=== PATIENT | female | born 1985 | race Caucasian/White ===

== ENCOUNTER → 2016-06-18 | Outpatient (CLI) | payer BC, OTHER ==
[2016-06-18 17:18] LABS: BASO % 0.6 % (0.0-1.0); EOS # 0.1 K/mm3 (0.0-0.50); EOS % 1.7 % (0.0-3.0); LARGE UNSTAINED CELL # 0.1 K/mm3 (0.0-0.4); LYMPH # 1.7 K/mm3 (1.5-4.5); LYMPH % 32.1 % (24.0-44.0); MEAN CORPUSCULAR HEMOGLOBIN 32.6 pg (27.0-33.0); MEAN CORPUSCULAR HGB CONC 34.5 g/dl (32.0-36.5); MEAN CORPUSCULAR VOLUME 94.5 fl (80.0-96.0); MONO # 0.3 K/mm3 (0.0-0.8); MONO % 5.4 % (0.0-5.0); NEUTROPHILS # 3.1 K/mm3 (1.8-7.7); NEUTROPHILS % 58.3 % (36.0-66.0); PLATELET COUNT, AUTOMATED 250 k/mm3 (150-450); RED CELL DISTRIBUTION WIDTH 12.1 % (11.5-14.5); WHITE BLOOD COUNT 5.3 K/mm3 (4.0-10.0)
[2016-06-18 17:55] LABS: ALBUMIN 4.4 GM/DL (3.2-5.2); ALBUMIN/GLOBULIN RATIO 1.47 (1.00-1.93); ALKALINE PHOSPHATASE 75 U/L (45-117); ALT/SGPT 18 U/L (12-78); ANION GAP 10 MEQ/L (8-16); AST/SGOT 9 U/L (15-37); BILIRUBIN,TOTAL 0.5 MG/DL (0.2-1.0); BLOOD UREA NITROGEN 10 MG/DL (7-18); CALCIUM LEVEL 9.4 MG/DL (8.5-10.1); CARBON DIOXIDE LEVEL 25 MEQ/L (21-32); CHLORIDE LEVEL 104 MEQ/L (98-107); CREATININE FOR GFR 1.12 MG/DL (0.55-1.02); GLUCOSE, FASTING 76 MG/DL (70-105); SODIUM LEVEL 139 MEQ/L (136-145); TOTAL PROTEIN 7.4 GM/DL (6.4-8.2)
[2016-06-18 18:06] LABS: ERYTHROCYTE SEDIMENTATION RATE 7 mm/hr (0-20)
== END ==
LOC: M SMT 15:36
PROVIDERS: ATTEND Psychiatry & Neurology Neurology
DX: R51 Headache (principal)

== ENCOUNTER → 2016-07-07 | Outpatient (CLI) | payer BC, OTHER ==
--- NOTE | 2016-07-07 16:10 | REP ---
Renal ultrasound: The kidneys are normal size. The right kidney measures 11.2 x 4.7 x 3.9 cm. Left kidney measures 10.1 x 4.6 x 5.5 cm. There is no hydronephrosis, calculus, mass or cyst in the right and left kidneys. The bladder is adequately distended. No bladder wall masses or cysts are identified. Incidentally noted is a small volume of free fluid in the posterior cul-de-sac. Impression: Essentially negative renal ultrasound. Small volume of free fluid is noted in the posterior cul-de-sac. Signed by Froy Muse MD 07/07/2016 04:01 P
== END ==
LOC: M RAD 10:05
PROVIDERS: ATTEND Physician Assistant
DX: R74.8 Abnormal levels of other serum enzymes (principal)

== ENCOUNTER 2016-08-04 21:49 | Emergency (ER) | payer BC, OTHER ==
[~2016-08-04] VITALS: Ht 170.2 cm; Wt 77.1 kg
[2016-08-04] MEDS ORDERED: XANA1TAB2 PO (22:19)
[2016-08-04] MEDS ORDERED: IBUP800T23 PO (22:19)
[2016-08-04] MEDS ORDERED: LEXA1TAB2 PO (22:19)
[2016-08-04] MEDS ORDERED: METF500T PO (22:21)
[2016-08-04] MEDS ORDERED: TOPI1TAB31 (22:23)
[2016-08-04] MEDS ORDERED: RIZA5TAB3 PO (22:23)
[2016-08-05] MEDS ORDERED: oxyCODONE 5MG TAB PO ONE (01:00)
[2016-08-05] MEDS ORDERED: ONDANSETRON 4MG/2ML VIAL (J2405) IV ONE (01:00)
[2016-08-05] MEDS ORDERED: NS 1,000 ML IV ONE (01:00)
[2016-08-05] MEDS ORDERED: ONDANSETRON 4MG/2ML VIAL (J2405) As Ordered ONE (01:45)
[2016-08-05 01:54] LABS: BASO % 0.2 % (0.0-1.0); EOS # 0.1 K/mm3 (0.0-0.50); LARGE UNSTAINED CELL % 0.7 % (0.0-4.0); LYMPH # 0.6 K/mm3 (1.5-4.5); LYMPH % 10.3 % (24.0-44.0); MEAN CORPUSCULAR HEMOGLOBIN 33.8 pg (27.0-33.0); MEAN CORPUSCULAR HGB CONC 34.7 g/dl (32.0-36.5); MEAN CORPUSCULAR VOLUME 97.5 fl (80.0-96.0); MONO # 0.3 K/mm3 (0.0-0.8); MONO % 4.2 % (0.0-5.0); NEUTROPHILS % 83.7 % (36.0-66.0); PLATELET COUNT, AUTOMATED 143 k/mm3 (150-450); RED CELL DISTRIBUTION WIDTH 12.3 % (11.5-14.5); WHITE BLOOD COUNT 5.9 K/mm3 (4.0-10.0)
[2016-08-05 02:59] LABS: CONTROL LINE HCG INT CTR LINE PRESENT
[2016-08-05 03:07] LABS: ALBUMIN 3.3 GM/DL (3.2-5.2); ALBUMIN/GLOBULIN RATIO 1.22 (1.00-1.93); ALKALINE PHOSPHATASE 61 U/L (45-117); ALT/SGPT 11 U/L (12-78); ANION GAP 7 MEQ/L (8-16); AST/SGOT 11 U/L (15-37); BILIRUBIN,DIRECT 0.2 MG/DL (0.0-0.2); BILIRUBIN,TOTAL 0.7 MG/DL (0.2-1.0); BLOOD UREA NITROGEN 15 MG/DL (7-18); CALCIUM LEVEL 7.9 MG/DL (8.5-10.1); CARBON DIOXIDE LEVEL 22 MEQ/L (21-32); CHLORIDE LEVEL 109 MEQ/L (98-107); CREATININE FOR GFR 0.89 MG/DL (0.55-1.02); GLOMERULAR FILTRATION RATE > 60.0 (>60); GLUCOSE, FASTING 97 MG/DL (70-105); POTASSIUM SERUM 3.1 MEQ/L (3.5-5.1); SODIUM LEVEL 138 MEQ/L (136-145)
[2016-08-05] MEDS ORDERED: POTASSIUM CHLORIDE 10 MEQ SR TABLET PO ONE (03:15)
[2016-08-05] MEDS ORDERED: IBUPROFEN 600 MG TAB PO ONE (03:15)
--- NOTE | 2016-08-05 04:40 | REPUSA ---
CLINICAL HISTORY: Cough. COMMENTS: 2 views demonstrates diffusely increased interstitial lung markings consistent with bronchitis. The cardiac silhouette is within normal limits of size. No significant other cardiopulmonary abnormal ities are seen. The mediastinum is unremarkable. IMPRESSION Bronchitis. Thank you for your kind referral of this patient.
[2016-08-05] MEDS ORDERED: ZOFR4TAB3 PO (04:53)
[2016-08-05] MEDS ORDERED: PERCOCET 5MG/325MG TAB PO ONE (05:00)
[2016-08-05 05:05] VITALS: BP 104/60
--- NOTE | 2016-08-05 11:09 | ECGEPIP ---
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
== END 2016-08-05 05:49 | disposition home or self-care (01) ==
LOC: M ED 22:56
DX: R11.10 Vomiting, unspecified (principal); R19.7 Diarrhea, unspecified; F17.210 Nicotine dependence, cigarettes, uncomplicated
CPT/HCPCS: 36415; 71020; 80048; 80076; 83690; 84703; 85025; 87804; 93005; 93041; 94760; 96361; 96374; 96375; 99284; J2405

== ENCOUNTER → 2016-12-11 | Outpatient (CLI) | payer OTHER ==
[~2016-12-11] MED LIST: IBUP1TAB7 PO; LEXA1TAB2 PO; METF500T13 PO; NORCOTAB PO; RIZA5TAB3 PO; TOPI100T9; XANA1TAB2 PO; ZOFR4TAB3 PO
--- NOTE | 2017-01-04 00:04 | ECWPNPC ---
PATIENT NAME: SILVIA ZIMMERMAN : 1985 GENDER: FEMALE VISIT DATE: 12/11/2016 DISCHARGE DATE: 12/11/16 1329 VISIT LOCKED DATE TIME: PHYSICIAN: RAMSES CHASE RESOURCE: RAMSES CHASE REASON FOR APPOINTMENT 1. NECK/SHOULDER HISTORY OF PRESENT ILLNESS TODAY'S VISIT: NOTES: REFERRED BY DANIELLE STROUD PA-C FOR BY NECK AREA PAIN. ONSET IN 2003. DOESN'T RECALL ANY PARTICULAR TRAUMA. PAIN HAS GOTTEN WORSE OVER THE YEARS. NOTES PAIN AT THE BACK OF NECK WITH TIGHT BANDS AND SWELLING TO SHOULDERS BILATERALLY. L>R. HAS SOME TINGLING /NUMBNESS IN RIGHT HAND 3RD,4TH AND 5TH FNGERS. HAS HAD TREATMENT AT [facility], LAST 2014. HAD INJECTIONS INCLUDING TRIGGER POINTS, FACET BLOCKS, CERVICAL EPIDURAL INJECTIONS.WAS ALSO ON SOME MEDS INCLUDING TIZANIDINE AND NORCO. HAS DONE PT ON SEVERAL OCCASIONS; IS STILL DOING SOME STRETCHES. RATES PAIN TODAY 8/10. DESCRIBES THE PAIN CONSTANT, SHARP, STABBINGTENDER AND SORE. . NEW PATIENT CONSULT: WHEN DID YOUR PAIN FIRST START? . BRIEFLY DESCRIBE HOW YOUR PAIN STARTED? . HOW DOES YOUR PAIN CHANGE WITH TIME? . DOES YOUR PAIN AWAKEN YOU FROM SLEEP? . HOW MANY HOURS OF SLEEP DO YOU NORMALLY GET? . ANY DIAGNOSTIC TESTING? . FACILITY WHERE TESTS WERE DONE? ____. PAIN TREATMENT TREATMENT YES CANCER HAVE YOU EVER HAD ANY TYPE OF CANCER?NO NO. PAIN SCREENING: PATIENT HAS A COMPLAINT OF ACUTE OR CHRONIC PAIN :YES FALL RISK SCREENING: SCREENING :NO FALLS IN THE PAST YEAR HEREDIA INVENTORY: QUESTIONNAIRE ASSESSEDYES SCORE VALUE CALCULATED YES SCORE: 22/63. DENIES SUICIDAL OR HOMICIDAL IDEATION. DOES NOT ISSUES WITH BODY IMAGE, "I FEEL UGLY" CURRENT MEDICATIONS TAKING VITAMIN C 500 MG TABLET 1 TABLET ORALLY ONCE A DAY TAKING XANAX 1 MG TABLET 1 TABLET ORALLY TWICE A DAY NEEDED TAKING METFORMIN HCL ER 500 MG TABLET EXTENDED RELEASE 24 HOUR 3 TABLET ORALLY DAILY AT BEDTIME TAKING LEUCOVORIN CALCIUM 20 MG TABLET 1 TAB ORALLY ONCE A DAY AT BEDTIME TAKING CLONIDINE HCL 0.3 MG TABLET 1 TABLET ORALLY ONCE A DAY TAKING LEXAPRO 20 MG TABLET 1 TABLET ORALLY ONCE A DAY TAKING PROBIOTIC TABLET DELAYED RELEASE 1 CAPSULE ORALLY DAILY TAKING CO Q 10 60 MG CAPSULE 1 CAPSULE WITH A MEAL ORALLY ONCE A DAY TAKING RED CLOVER LEAF EXTRACT 500 MG TABLET ORALLY NEEDED TAKING RASPBERRY 1 ML SYRUP OTC ORALLY NEEDED TAKING GAGAN 500 MG CAPSULE OTC ORALLY TWICE A DAY/ NEEDED TAKING CALCIUM + D 600-200 MG-UNIT TABLET 1 TABLET ORALLY ONCE A DAY TAKING AMPHETAMINE-DEXTROAMPHET ER 30 MG CAPSULE EXTENDED RELEASE 24 HOUR (SCHEDULE II DRUG) TK 1 C PO Q MORNING. MDD 1 C ORAL TAKING LINZESS 290 MCG CAPSULE 1 CAPSULE ORALLY ONCE A DAY TAKING RELPAX 20 MG TABLET 1 TABLET NEEDED ONE TIME ORALLY ONCE A DAY/ NEEDED TAKING IBUPROFEN 600 MG TABLET 1 TABLET WITH FOOD OR MILK ORALLY THREE TIMES A DAY TAKING SINGULAIR 10 MG TABLET 1 TABLET IN THE EVENING ORALLY ONCE A DAY TAKING ZYRTEC 10 MG TABLET 1 TABLET ORALLY ONCE A DAY TAKING COCONUT OIL 1000 MG CAPSULE 1 CAP(S) ORALLY ONCE A DAY NEEDED NOT-TAKING DOXYCYCLINE HYCLATE 100 MG TABLET ORAL NOT-TAKING TOPAMAX 100 MG TABLET 1 TABLET ORALLY TWICE A DAY NOT-TAKING MAXALT 5 MG TABLET 1 TABLET NEEDED ONE TIME, MAY REPEAT DOSE IN 2 HOURS X1 IF SYMPTOMS PERSIST ORALLY ONCE A DAY NOT-TAKING DRISDOL 33180 UNIT CAPSULE 1 CAPSULE ORALLY QWEEK NOT-TAKING SPIRONOLACTONE 25 MG TABLET 1 TABLET ORALLY ONCE A DAY NOT-TAKING [id number] 50-325-40 MG CAPSULE (SCHEDULE III DRUG) TAKE ONE CAPSULE BY MOUTH EVERY 12 HOURS NEEDED FOR HEADACHE MAXIMUM DAILY DOSE 2 CAPSULES ORAL MEDICATION LIST REVIEWED AND RECONCILED WITH THE PATIENT PAST MEDICAL HISTORY SCOLIOSIS - MINIMAL DEXTRO-CONVEX CURVATURE - SCOLIOSIS SERIES ON 01/2009 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 INTERMITT 2 YEARS/ S/P 2 LASER LAPROSCOPIES OSTEOPOROSIS/OSTEOPENIA DUE TO LUPRON RX/ DEXA SCAN ON 03/2009 LUMBAR SPINE NORMAL BMD FOR AGE OCD/ SOCIAL ANXIETY/ BULEMIA NERVOSA PURGING TYPE/ DEPRESSIVE DISORDER/ ANXIETY PSORIASIS/SEBORRHEIC DERMATITIS RIGHT HALLUX VALGUS DEFORMITY S/P RT BUNIONECTOMY 2010 GANGLION LEFT HAND- W/ NL RADIOGRAPH S/P SURGICALLY REMOVED BULIMIA NERVOSA PURGING TYPE POLYCYSTIC OVARIES MIGRAINE ALLERGIC RHINITIS ALLERGIES N.K.D.A. SURGICAL HISTORY LASER LAPAROSCOPY FOR ENDOMETRIOSIS WITH FINDING OF MINIMAL ENDOMETRIOSIS WISDOM TOOTH RT BUNIONECTOMY 07/2009 LASER RX FOR BENIGH NEOPLASM EYELID ANGIOMA [id number] SEPTOPLASTY, ADENOIDECTOMY, BALLOON SINUPLASTY 08/2016 INVITRO FERT CYCLES WITH EGG EXTRACTIONS [id number] FAMILY HISTORY FATHER: 50 YRS, SMALL CELL LYMPHOMA, DIABETES, HTN, DIAGNOSED WITH DIABETES, HYPERTENSION, CANCER MOTHER: ALIVE 52 YRS, PRE-CANCEROUS CELLS REMOVED FROM BREAST, DIAGNOSED WITH CANCER SIBLINGS: ASTHMA PATERNAL GRAND FATHER: ? MENTAL DISORDER AND COMMITTED SUICIDE, DM PATERNAL GRAND MOTHER: , DM MATERNAL GRAND FATHER: , ? CANCER MATERNAL GRAND MOTHER: , HEART ATTACK, DM SOCIAL HISTORY GENERAL: TOBACCO USE ARE YOU A:CURRENT SMOKER HOW MANY CIGARETTES A DAY DO YOU SMOKE? SMOKES ABOUT 3/4 PACK PER WEEK PATIENT COUNSELED ON THE DANGERS OF TOBACCO USE AND URGED TO QUIT:12/11/2016 ARE YOU INTERESTED IN QUITTING?THINKING ABOUT QUITTING COUNSELED THE PATIENT ON SMOKING CESSATION, EDUCATION [id number]/14/2017 ARRANGEADVISED TO CALL [facility] TOBACCO CESSATION DID NOT WANT ANY GROUP INVOLVEMENT ADDITIONAL FINDINGS: TOBACCO USER STATES CAN GO A LONG TIME WITHOUT SMOKING WITH NO SIDE EFFECTS ALCOHOL SCREENING POINTS1 INTERPRETATIONNEGATIVE ORTHODOXY [id number] MANDAEISM LEARNING BARRIERS / SPECIAL NEEDS BARRIERS TO LEARNING?NO HEARING IMPAIRED?NO VISION IMPAIRED?YES :CORRECTIVE LENSES COGNITIVELY IMPAIRED?NO READINESS TO LEARN?YES LEARNING PREFERENCES?YES :HANDOUTS, DEMONSTRATION/VERBAL INSTRUCTION LEARNING CAPABILITIES PRESENT?YES SPECIAL DEVICES?NO PHOTO STUDIO ASSISTANT NEEDED?NO PAIN CLINIC PFS, CLERGY, PUBLIC HEALTH REFERRALS PFS REFERRAL NEEDED?NO CLERGY REFERRAL NEEDED?NO PUBLIC HEALTH REFERRAL NEEDED?NO WAS THE PROVIDER NOTIFIED OF ANY PERTINENT INFO?NO HAS THE PATIENT BEEN EDUCATED REGARDING HIS/HER PLAN OF CARE?YES HAS THE PATIENT BEEN EDUCATED REGARDING PAIN, THE RISK FOR PAIN, THE IMPORTANCE OF EFFECTIVE PAIN MANAGEMENT, AND THE PAIN ASSESSMENT PROCESS?YES REVIEWED BY: PT TRYING TO GET AND WANTS TO GO TO [employer] BUT NEEDS TO HAVE PAIN UNDER CONTROL FIRST. PATIENT: ____. ADVANCE DIRECTIVES HEALTH CARE PROXY?NO WOULD YOU LIKE MORE INFORMATION?YES GAVE INFO ON ADVANCED DIRECTIVE PAQCKET TO PT HOSPITALIZATION/MAJOR DIAGNOSTIC PROCEDURE MONO 2006 IN CHILDHOOD LUNG REASON REVIEW OF SYSTEMS FOLLOW-UP ROS: GI/ CHRONIC CONSTIPATION DOING WELL WITH LINZESS . NEUROLOGY: POS MIGRAINES - WAITING ON BOTOX AUTH, WORKING WITH NEUROLOGY . PSYCHOLOGY: ANXIETY . PULMONOLOGY: NEGATIVE FOR, ASTHMA, BREATHING PROBLEMS . REVIEWED BY: PROVIDER: RAMSES VIZCAINO . CONSTITUTIONAL: ANY CHANGE IN YOUR MEDICAL CONDITION? NO . CHILLS NO . FEVER NO . INFECTION: DO YOU HAVE NEW INFECTIONS? NO . DO YOU HAVE HISTORY OF MRSA? NO . MUSCULOSKELETAL: ANY NEW PATTERNS OF PAIN OR NUMBNESS? NO . SYTEMIC LUPUS NO . GASTROENTEROLOGY: ANY NEW CHANGE IN BOWEL CONTROL? NO . BARRETTS ESOPHAGUS NO . CIRRHOSIS NO . HEPATITIS NO . LIVER FAILURE NO . ACID REFLUX NO . UNEXPLAINED WEIGHT LOSS NO . GENITOURINARY: ANY NEW CHANGE IN BLADDER CONTROL? NO . IS THERE A CHANCE YOU COULD BE ? NO . HEMATOLOGY/LYMPH: DO YOU TAKE ANY BLOOD THINNERS? (FOR EXAMPLE- COUMADIN, PLAVIX, AGGRENOX, PLATEL, PRADAXA, OR XARELTO) NO . WHEN WAS YOUR LAST DOSE? DATE: TIME: . LOW PLATELET COUNT NO . SICKLE CELL DISEASE NO . VON WILLIEBRANDS NO . FACTOR V LEIDEN NO . THALLASEMIA NO . ANEMIA NO . EASY BRUISING NO . NEUROLOGY: HAVE YOU FALLEN IN THE PAST 6 MONTHS? NO . ANY NEW EXTREMITY NUMBNESS OR WEAKNESS? NO . HEAD INJURY NO . DEMENTIA NO . CEREBRAL PALSY NO . MULTIPLE SCLEROSIS NO . DIZZINESS NO . HEADACHE NO . STROKES NO . VERTIGO NO . CARDIOLOGY: DO YOU HAVE A PACEMAKER OR DEFIBRILLATOR? NO . ANGINA NO . HEART ATTACK NO . HEART SURGERY NO . CONGESTIVE HEART FAILURE/FLUID OVERLOAD NO . CHEST PAIN NO . HIGH BLOOD PRESSURE NO . IRREGULAR HEART BEAT NO . RESPIRATORY: HAVE YOU BEEN SICK IN THE PAST WEEK? NO . FEVER NO . FLU LIKE SYMPTOMS? NO . CPAP NO . BYPAP NO . ASTHMA NO . EMPHYSEMA NO . CHRONIC LUNG DISEASES NO . SHORTNESS OF BREATH ON EXERTION NO . DO YOU USE ANY TYPE OF TOBACCO (SMOKE, SMOKELESS, CHEW)? YES . COUGH NO . SNORING NO . INTEGUMENTARY: DO YOU HAVE ANY RASHES OR OPEN SORES? NO . ALLERGIC/IMMUNO: ARE YOU ALLERGIC TO SHELLFISH OR IV DYE? NO . ANY NEW ALLERGIES? NO . PSYCHIATRIC: DO YOU HAVE THOUGHTS OF HURTING YOURSELF OR SOMEONE ELSE? NO . ARE YOU ABUSED, NEGLECTED, OR IN AN UNSAFE ENVIRONMENT? NO . ENDOCRINOLOGY: ARE YOU DIABETIC? NO . THYROID DISORDER NO . OTHER: DO YOU NEED ANY PRESCRIPTIONS? NO . IF YES, PLEASE LIST: ____ . ANY NEW PROBLEMS WITH YOUR MEDICATIONS? NO . WHEN DID YOU LAST EAT? ____ . WHEN DID YOU LAST DRINK? ____ . WHAT DID YOU LAST DRINK? ____ . NAME OF PERSON DRIVING YOU HOME? ____ . DO YOU HAVE ANY OTHER QUESTIONS OR CONCERNS NO . FEMALE REPRODUCTIVE: PATIENT COMPLAINING OF HX OF PCOS - ON METFORMAIN. . VITAL SIGNS WT 191.2 LBS, HT 66 IN, BMI 30.86 INDEX, BP 148/87 MM HG, HR 92 /MIN, RR 18 /MIN, TEMP 97.8 F, OXYGEN SAT % 97%, NA INITIALS SC 12:06, REVIEWED BY: NL. EXAMINATION GENERAL EXAMINATION: GENERAL APPEARANCE:WELL GROOMED, PLLEASANT TO INTERACT WITH. . PSYCHALERT , ORIENTED X 3 , ANXIOUS, REPEATEDLYSAYS, "I'M SORRY". HEENT:NORMOCEPHALIC, NO LYMPHADENOPATHY, NO THYROMEGLY. LUNGS:CLEAR TO AUSCULTATION BILATERALLY. HEART:HEART RATE REGULAR, NORMAL S1S2, NO MURMURS, CLICK OR RUBS. MUSCULOSKELETAL:DECREASED ROM WITH NECK ROTATION EXTENSION AND FLEXION. TRIGGER POINT AND TIGHT FIBROUS BAND IDENTIFIED OVER CERVICAL PARASPINOUS MUSCLES AND ACROSS THE TRAPESIUS. R>L. PHOTOGRAPH DEVELOPER EQUAL AND STRONG. HYPERSENSITIVITY TO LIGHT TOUCH OVER CERVICAL/THORACIC JUNCTION. . EXTREMITIES:NO EDEMA. NEUROLOGIC EXAM:CN'S II-XII GROSSLY INTACT. HYPER SENS OVER RIGHT SHOULDER. DTR'S 1+ U/L EXTREMITES. ASSESSMENTS CERVICALGIA - M54.2 (PRIMARY) FACET ARTHROPATHY, CERVICAL - M12.88 TREATMENT CERVICALGIA START TIZANIDINE HCL TABLET, 4 MG, 1 TABLET NEEDED, ORALLY, 1-2 TABS AT BEDTIME, 30 DAY(S), 60, REFILLS 1 TRIGGER POINT 3 + RAMSES STACK 12/11/2016 1:08:53 PM > NECK RIGHT SHOULDER NOTES: TRIGGER POINT INJECTION: YOUR EXPERIENCE MATERIAL WAS PRINTED,TRIGGER POINT INJECTION MATERIAL WAS PRINTED. PREVENTIVE MEDICINE DISCUSSED TPI AND PREPROCEDURE CARE AND PT VOICED UNDERSTANDING. PROCEDURE CODES FA211 ESTABILISHED PATIENT [facility] CHARGE DISPOSITION & COMMUNICATION FOLLOW UP AFTER INJECTION (REASON: DAVID - TREATMENT NOTES FROM DR LYONS) ELECTRONICALLY SIGNED BY NICHOLAS MORELOS ON 01/03/2017 AT 10:02 AM EDT DISCLAIMER : THIS IS A VISIT SUMMARY EXTRACTED FROM THE [employer] CHART. IT IS NOT A COPY OF THE [employer] PROGRESS NOTE. BRANT
== END ==
LOC: M PAIN 11:20
PROVIDERS: ATTEND Nurse Practitioner Family
DX: M54.2 Cervicalgia (principal); M12.88 Other specific arthropathies, not elsewhere classified, other specified site; F17.210 Nicotine dependence, cigarettes, uncomplicated; Z79.899 Other long term (current) drug therapy; G43.909 Migraine, unspecified, not intractable, without status migrainosus; F41.1 Generalized anxiety disorder; E55.9 Vitamin D deficiency, unspecified

== ENCOUNTER → 2016-12-29 | Outpatient (CLI) | payer OTHER ==
[~2016-12-29] MED LIST changes: +BUPIVACAINE HCL 0.25% 10 ML VIAL As Ordered ONE; +BUPIVACAINE HCL 0.25% 30 ML VIAL As Ordered ONE; +TRIAMCINOLONE ACETONIDE SUSP 40 MG/ML VIAL (J3301) As Ordered ONE; +diazePAM 5 MG TAB As Ordered ONE; +oxyCODONE 5MG TAB As Ordered ONE
--- NOTE | 2017-01-13 01:04 | ECWPNPC ---
PATIENT NAME: SILVIA ZIMMERMAN : 1985 GENDER: FEMALE VISIT DATE: 12/29/2016 DISCHARGE DATE: 12/29/16 1027 VISIT LOCKED DATE TIME: PHYSICIAN: MAYRA STEVENS RESOURCE: MAYRA STEVENS REASON FOR APPOINTMENT 1. TPI NECK, RT SHOULDER HISTORY OF PRESENT ILLNESS HISTORY OF PRESENT ILLNESS: PAIN THE PATIENT DESCRIBES THE PAIN... FALL RISK SCREENING: SCREENING :NO FALLS IN THE PAST YEAR CURRENT MEDICATIONS TAKING VITAMIN C 500 MG TABLET 1 TABLET ORALLY ONCE A DAY, NOTES: 12/28 1399 TAKING XANAX 1 MG TABLET 1 TABLET ORALLY TWICE A DAY NEEDED, NOTES: 3 DAYS AGO TAKING METFORMIN HCL ER 500 MG TABLET EXTENDED RELEASE 24 HOUR 3 TABLET ORALLY DAILY AT BEDTIME, NOTES: 12/28 2099 TAKING LEUCOVORIN CALCIUM 20 MG TABLET 1 TAB ORALLY ONCE A DAY AT BEDTIME, NOTES: 12/28 2099 TAKING CLONIDINE HCL 0.3 MG TABLET 1 TABLET ORALLY ONCE A DAY, NOTES: 12/28 2099 TAKING LEXAPRO 20 MG TABLET 1 TABLET ORALLY ONCE A DAY, NOTES: 12/28 2099 TAKING PROBIOTIC TABLET DELAYED RELEASE 1 CAPSULE ORALLY DAILY, NOTES: WEEKS AGO TAKING CO Q 10 60 MG CAPSULE 1 CAPSULE WITH A MEAL ORALLY ONCE A DAY, NOTES: 12/28 2099 TAKING RED CLOVER LEAF EXTRACT 500 MG TABLET ORALLY NEEDED, NOTES: MONTHS AGO TAKING RASPBERRY 1 ML SYRUP OTC ORALLY NEEDED, NOTES: MONTHS AGO TAKING GAGAN 500 MG CAPSULE OTC ORALLY TWICE A DAY/ NEEDED, NOTES: MONTHS AGO TAKING CALCIUM + D 600-200 MG-UNIT TABLET 1 TABLET ORALLY ONCE A DAY, NOTES: 12/28 1399 TAKING AMPHETAMINE-DEXTROAMPHET ER 30 MG CAPSULE EXTENDED RELEASE 24 HOUR (SCHEDULE II DRUG) TK 1 C PO Q MORNING. MDD 1 C ORAL , NOTES: 12/29 499 TAKING LINZESS 290 MCG CAPSULE 1 CAPSULE ORALLY ONCE A DAY, NOTES: 12/29 499 TAKING RELPAX 20 MG TABLET 1 TABLET NEEDED ONE TIME ORALLY ONCE A DAY/ NEEDED, NOTES: 12/27 TAKING IBUPROFEN 600 MG TABLET 1 TABLET WITH FOOD OR MILK ORALLY THREE TIMES A DAY, NOTES: 12/28 0900 TAKING SINGULAIR 10 MG TABLET 1 TABLET IN THE EVENING ORALLY ONCE A DAY, NOTES: LAST WEEK TAKING ZYRTEC 10 MG TABLET 1 TABLET ORALLY ONCE A DAY, NOTES: LAST WEEK TAKING COCONUT OIL 1000 MG CAPSULE 1 CAP(S) ORALLY ONCE A DAY NEEDED, NOTES: MONTHS AGO TAKING TIZANIDINE HCL 4 MG TABLET 1 TABLET NEEDED ORALLY 1-2 TABS AT BEDTIME, NOTES: 12/28 2099 NOT-TAKING DOXYCYCLINE HYCLATE 100 MG TABLET ORAL NOT-TAKING TOPAMAX 100 MG TABLET 1 TABLET ORALLY TWICE A DAY NOT-TAKING MAXALT 5 MG TABLET 1 TABLET NEEDED ONE TIME, MAY REPEAT DOSE IN 2 HOURS X1 IF SYMPTOMS PERSIST ORALLY ONCE A DAY NOT-TAKING DRISDOL 26866 UNIT CAPSULE 1 CAPSULE ORALLY QWEEK NOT-TAKING SPIRONOLACTONE 25 MG TABLET 1 TABLET ORALLY ONCE A DAY NOT-TAKING [id number] 50-325-40 MG CAPSULE (SCHEDULE III DRUG) TAKE ONE CAPSULE BY MOUTH EVERY 12 HOURS NEEDED FOR HEADACHE MAXIMUM DAILY DOSE 2 CAPSULES ORAL MEDICATION LIST REVIEWED AND RECONCILED WITH THE PATIENT PAST MEDICAL HISTORY SCOLIOSIS - MINIMAL DEXTRO-CONVEX CURVATURE - SCOLIOSIS SERIES ON 01/2009 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 INTERMITT 2 YEARS/ S/P 2 LASER LAPROSCOPIES OSTEOPOROSIS/OSTEOPENIA DUE TO LUPRON RX/ DEXA SCAN ON 03/2009 LUMBAR SPINE NORMAL BMD FOR AGE OCD/ SOCIAL ANXIETY/ BULEMIA NERVOSA PURGING TYPE/ DEPRESSIVE DISORDER/ ANXIETY PSORIASIS/SEBORRHEIC DERMATITIS RIGHT HALLUX VALGUS DEFORMITY S/P RT BUNIONECTOMY 2010 GANGLION LEFT HAND- W/ NL RADIOGRAPH S/P SURGICALLY REMOVED BULIMIA NERVOSA PURGING TYPE POLYCYSTIC OVARIES MIGRAINE ALLERGIC RHINITIS ALLERGIES ENVIRONMENTAL: STUFFY NOSE, ITCHY EYES, SOMETIMES HIVES SOCIAL HISTORY GENERAL: TOBACCO USE ARE YOU A:CURRENT SMOKER HOW MANY CIGARETTES A DAY DO YOU SMOKE? SMOKES ABOUT 3/4 PACK PER WEEK HOW SOON AFTER YOU WAKE UP DO YOU SMOKE YOUR FIRST CIGARETTE?AFTER 60 MIN HOW OFTEN DO YOU SMOKE CIGARETTES?SOME DAYS, BUT NOT EVERY DAY PATIENT COUNSELED ON THE DANGERS OF TOBACCO USE AND URGED TO QUIT:12/29/2016 ARE YOU INTERESTED IN QUITTING?THINKING ABOUT QUITTING COUNSELED THE PATIENT ON SMOKING CESSATION, EDUCATION [id number]/01/2017 ARRANGEADVISED TO CALL [facility] TOBACCO CESSATION DID NOT WANT ANY GROUP INVOLVEMENT ADDITIONAL FINDINGS: TOBACCO USER STATES CAN GO A LONG TIME WITHOUT SMOKING WITH NO SIDE EFFECTS ALCOHOL SCREENING DID YOU HAVE A DRINK CONTAINING ALCOHOL IN THE PAST YEAR?YES HOW OFTEN DID YOU HAVE A DRINK CONTAINING ALCOHOL IN THE PAST YEAR?MONTHLY OR LESS (1 POINT) POINTS1 INTERPRETATIONNEGATIVE HOW MANY DRINKS DID YOU HAVE ON A TYPICAL DAY WHEN YOU WERE DRINKING IN THE PAST YEAR?1 OR 2 (0 POINTS) [facility] [id number] [facility] LEARNING BARRIERS / SPECIAL NEEDS BARRIERS TO LEARNING?NO HEARING IMPAIRED?NO VISION IMPAIRED?YES :CORRECTIVE LENSES COGNITIVELY IMPAIRED?NO READINESS TO LEARN?YES LEARNING PREFERENCES?YES :HANDOUTS, DEMONSTRATION/VERBAL INSTRUCTION LEARNING CAPABILITIES PRESENT?YES SPECIAL DEVICES?NO CORPORATE DEVELOPMENT OFFICER NEEDED?NO PAIN CLINIC PFS, CLERGY, PUBLIC HEALTH REFERRALS PFS REFERRAL NEEDED?NO CLERGY REFERRAL NEEDED?NO PUBLIC HEALTH REFERRAL NEEDED?NO WAS THE PROVIDER NOTIFIED OF ANY PERTINENT INFO?NO HAS THE PATIENT BEEN EDUCATED REGARDING HIS/HER PLAN OF CARE?YES HAS THE PATIENT BEEN EDUCATED REGARDING PAIN, THE RISK FOR PAIN, THE IMPORTANCE OF EFFECTIVE PAIN MANAGEMENT, AND THE PAIN ASSESSMENT PROCESS?YES REVIEWED BY: PT TRYING TO GET AND WANTS TO GO TO [employer] BUT NEEDS TO HAVE PAIN UNDER CONTROL FIRST. PATIENT: ____. ADVANCE DIRECTIVES HEALTH CARE PROXY?NO WOULD YOU LIKE MORE INFORMATION?YES GAVE INFO ON ADVANCED DIRECTIVE PAQCKET TO PT REVIEW OF SYSTEMS REVIEWED BY: PROVIDER: . CONSTITUTIONAL: ANY CHANGE IN YOUR MEDICAL CONDITION? NO . CHILLS NO . FEVER NO . INFECTION: DO YOU HAVE NEW INFECTIONS? NO . DO YOU HAVE HISTORY OF MRSA? NO . MUSCULOSKELETAL: ANY NEW PATTERNS OF PAIN OR NUMBNESS? NO . GASTROENTEROLOGY: ANY NEW CHANGE IN BOWEL CONTROL? NO . GENITOURINARY: ANY NEW CHANGE IN BLADDER CONTROL? NO . IS THERE A CHANCE YOU COULD BE ? NO . HEMATOLOGY/LYMPH: DO YOU TAKE ANY BLOOD THINNERS? (FOR EXAMPLE- COUMADIN, PLAVIX, AGGRENOX, PLATEL, PRADAXA, OR XARELTO) NO . WHEN WAS YOUR LAST DOSE? DATE: TIME: . NEUROLOGY: HAVE YOU FALLEN IN THE PAST 6 MONTHS? NO . ANY NEW EXTREMITY NUMBNESS OR WEAKNESS? NO . CARDIOLOGY: DO YOU HAVE A PACEMAKER OR DEFIBRILLATOR? NO . RESPIRATORY: HAVE YOU BEEN SICK IN THE PAST WEEK? NO . FEVER NO . FLU LIKE SYMPTOMS? NO . COUGH NO . INTEGUMENTARY: DO YOU HAVE ANY RASHES OR OPEN SORES? NO . ALLERGIC/IMMUNO: ARE YOU ALLERGIC TO SHELLFISH OR IV DYE? NO . ANY NEW ALLERGIES? NO . PSYCHIATRIC: DO YOU HAVE THOUGHTS OF HURTING YOURSELF OR SOMEONE ELSE? NO . ARE YOU ABUSED, NEGLECTED, OR IN AN UNSAFE ENVIRONMENT? NO . ENDOCRINOLOGY: ARE YOU DIABETIC? NO . OTHER: DO YOU NEED ANY PRESCRIPTIONS? NO . IF YES, PLEASE LIST: ____ . ANY NEW PROBLEMS WITH YOUR MEDICATIONS? NO . WHEN DID YOU LAST EAT? 12/28 183 . WHEN DID YOU LAST DRINK? 12/29 0500 . WHAT DID YOU LAST DRINK? BLACK COFFEE . NAME OF PERSON DRIVING YOU HOME? --TANJA . DO YOU HAVE ANY OTHER QUESTIONS OR CONCERNS TIZANIDINE NOT WORKING . VITAL SIGNS WT 180 LBS, HT 66 IN, BMI 29.05 INDEX, BP 122/76 MM HG, HR 85 /MIN, RR 16 /MIN, TEMP 97.6 F, OXYGEN SAT % 98%, NA INITIALS SC 09:03, REVIEWED BY: ASSESSMENTS MYALGIA - M79.1 (PRIMARY) PROCEDURES PN TRIGGER POINT INJECTION WITH STEROIDS PRE PROCEDURE DIAGNOSIS 1. MYALGIA 2. PAIN AT BILATERAL NECK AREA, BILATERAL SHOULDER AREA, AND BILATERAL THORACIC AREA POST PROCEDURE DIAGNOSIS 1. MYALGIA 2. PAIN AT BILATERAL NECK AREA, BILATERAL SHOULDER AREA, AND BILATERAL THORACIC AREA PROCEDURE TRIGGER POINT INJECTION AT BILATERAL NECK AREA, BILATERAL SHOULDER AREA, AND BILATERAL THORACIC AREA SURGEON DR. MAYRA STEVENS VACUUM METALIZER OPERATOR NONE ANESTHESIA LOCAL PRE PROCEDURE NOTE THE PATIENT HAS A HISTORY OF CHRONIC PAIN AT THE RIGHT AND LEFT NECK AREA, RIGHT AND LEFT SHOULDER AREA, AND RIGHT AND LEFT THORACIC AREA. I EVALUATE THE PATIENT AND REVIEWED THE CHART. THERE IS EVIDENCE OF BANDS OF TISSUE WITH RESTRICTION OF MOVEMENT AND PRESENCE OF TRIGGER POINT AT THE AFFECTED AREA. I WENT OVER THE RISKS, ALTERNATIVES, AND BENEFITS ASSOCIATED WITH THIS PROCEDURE. THE PATIENT WOULD LIKE TO PROCEED AND GIVE CONSENT TO PERFORMED THE PROCEDURE. THE PATIENT DENIES UNEXPLAINABLE WEIGHT LOSS, FEVER, CHILLS, OR NEW CHANGES IN URINARY OR BOWEL CONTROL DESCRIPTION OF PROCEDURE THE PATIENT WAS BROUGHT TO THE PROCEDURE ROOM AND PLACED IN THE SITTING POSITION. THE AREA WAS CLEANED WITH ALCOHOL. THE PROCEDURE WAS DONE USING ASEPTIC STERILE TECHNIQUE. I CHECKED LATERALITY AND THE LEVEL WHERE THE PROCEDURE WAS GOING TO BE PERFORMED WITH THE PATIENT AND THE SUPPORTING STAFF AT THE MOMENT OF THE TIME OUT IN THE PROCEDURE ROOM. USING A 25-GAUGE NEEDLE, TRIGGER POINTS WERE INJECTED AT THE RIGHT AND LEFT NECK AREA, RIGHT AND LEFT SHOULDER AREA, AND RIGHT AND LEFT THORACIC AREA WITH A TOTAL OF 40 ML OF BUPIVACAINE 0.25% AND KENALOG 40 MG. THERE WAS NO EVIDENCE OF BLOOD, PARESTHESIA OR CEREBROSPINAL FLUID DURING THE PROCEDURE. THE PATIENT WAS SENT TO THE RECOVERY ROOM. THE PATIENT WAS MOVING THE EXTREMITIES AND DOING WELL. THERE WAS NO COMPLICATION DURING THE PROCEDURE POST PROCEDURE NOTE THE PATIENT WILL BE SEEN IN A FOLLOW UP IN THE NEXT FEW WEEKS. INSTRUCTIONS WERE GIVEN, QUESTIONS WERE ANSWERED, AND THE PATIENT EXPRESSED UNDERSTANDING AND AGREES WITH THE PLAN. I, JOSEPH PIEDRA, DOCUMENTED THE ABOVE INFORMATION ACTING A SCRIBE FOR DR. STEVENS. I HAVE REVIEWED THE ABOVE DOCUMENT, WRITTEN BY JOSEPH WHITEHEADIBDianne AND I VERIFY THAT IT IS ACCURATE PROCEDURE CODES 88448 INJECT TRIGGER POINTS 3/> DISPOSITION & COMMUNICATION FOLLOW UP 3 WEEKS ELECTRONICALLY SIGNED BY MAYRA STEVENS MD ON 01/12/2017 AT 06:46 PM EDT DISCLAIMER : THIS IS A VISIT SUMMARY EXTRACTED FROM THE [employer] CHART. IT IS NOT A COPY OF THE [employer] PROGRESS NOTE. BRANT
== END ==
LOC: M PAIN 08:30
PROVIDERS: ATTEND Anesthesiology
DX: G89.29 Other chronic pain (principal); M79.1 Myalgia; M54.2 Cervicalgia; M54.6 Pain in thoracic spine; M25.511 Pain in right shoulder; M25.512 Pain in left shoulder; Z79.84 Long term (current) use of oral hypoglycemic drugs; Z79.899 Other long term (current) drug therapy; F17.210 Nicotine dependence, cigarettes, uncomplicated; J30.9 Allergic rhinitis, unspecified; G43.909 Migraine, unspecified, not intractable, without status migrainosus; F41.1 Generalized anxiety disorder; E28.2 Polycystic ovarian syndrome; E55.9 Vitamin D deficiency, unspecified; M12.88 Other specific arthropathies, not elsewhere classified, other specified site
CPT/HCPCS: 20553; J3301

== ENCOUNTER → 2016-12-31 | Outpatient (CLI) | payer OTHER ==
[~2016-12-31] MED LIST changes: -BUPIVACAINE HCL 0.25% 10 ML VIAL As Ordered ONE; -BUPIVACAINE HCL 0.25% 30 ML VIAL As Ordered ONE; -TRIAMCINOLONE ACETONIDE SUSP 40 MG/ML VIAL (J3301) As Ordered ONE; -diazePAM 5 MG TAB As Ordered ONE; -oxyCODONE 5MG TAB As Ordered ONE
--- NOTE | 2017-01-21 00:13 | ECWPNPC ---
PATIENT NAME: SILVIA ZIMMERMAN : 1985 GENDER: FEMALE VISIT DATE: 12/31/2016 DISCHARGE DATE: 12/31/16 1549 VISIT LOCKED DATE TIME: PHYSICIAN: RAMSES CHASE RESOURCE: RAMSES CHASE REASON FOR APPOINTMENT 1. MEDS HISTORY OF PRESENT ILLNESS HISTORY OF PRESENT ILLNESS: PAIN THE PATIENT DESCRIBES THE PAIN... FALL RISK SCREENING: SCREENING :NO FALLS IN THE PAST YEAR TODAY'S VISIT: NOTES: S/P TPI 12/29/16 . REPORTED THAT HER TIZANIDINE WAS NOT WORKING WELL SO AN EARLY APPOINTMENT WAS MADE. RATES PAIN TODAY 8/10. DESCRIBES PAIN CONSTANT, ACHING, SHARP AND STABBING, TENDER SORE AND AREA FEELS TIGHT AND RESTRICTIVE. CURRENT MEDICATIONS TAKING VITAMIN C 500 MG TABLET 1 TABLET ORALLY ONCE A DAY TAKING XANAX 1 MG TABLET 1 TABLET ORALLY TWICE A DAY NEEDED TAKING METFORMIN HCL ER 500 MG TABLET EXTENDED RELEASE 24 HOUR 3 TABLET ORALLY DAILY AT BEDTIME TAKING LEUCOVORIN CALCIUM 20 MG TABLET 1 TAB ORALLY ONCE A DAY AT BEDTIME TAKING CLONIDINE HCL 0.3 MG TABLET 1 TABLET ORALLY ONCE A DAY TAKING LEXAPRO 20 MG TABLET 1 TABLET ORALLY ONCE A DAY TAKING PROBIOTIC TABLET DELAYED RELEASE 1 CAPSULE ORALLY DAILY TAKING CO Q 10 60 MG CAPSULE 1 CAPSULE WITH A MEAL ORALLY ONCE A DAY TAKING RED CLOVER LEAF EXTRACT 500 MG TABLET ORALLY NEEDED TAKING RASPBERRY 1 ML SYRUP OTC ORALLY NEEDED TAKING GAGAN 500 MG CAPSULE OTC ORALLY TWICE A DAY/ NEEDED TAKING CALCIUM + D 600-200 MG-UNIT TABLET 1 TABLET ORALLY ONCE A DAY TAKING AMPHETAMINE-DEXTROAMPHET ER 30 MG CAPSULE EXTENDED RELEASE 24 HOUR (SCHEDULE II DRUG) TK 1 C PO Q MORNING. MDD 1 C ORAL TAKING LINZESS 290 MCG CAPSULE 1 CAPSULE ORALLY ONCE A DAY TAKING RELPAX 20 MG TABLET 1 TABLET NEEDED ONE TIME ORALLY ONCE A DAY/ NEEDED TAKING IBUPROFEN 600 MG TABLET 1 TABLET WITH FOOD OR MILK ORALLY THREE TIMES A DAY TAKING COCONUT OIL 1000 MG CAPSULE 1 CAP(S) ORALLY ONCE A DAY NEEDED TAKING TIZANIDINE HCL 4 MG TABLET 1 TABLET NEEDED ORALLY 1-2 TABS AT BEDTIME NOT-TAKING SINGULAIR 10 MG TABLET 1 TABLET IN THE EVENING ORALLY ONCE A DAY NOT-TAKING ZYRTEC 10 MG TABLET 1 TABLET ORALLY ONCE A DAY NOT-TAKING DOXYCYCLINE HYCLATE 100 MG TABLET ORAL NOT-TAKING TOPAMAX 100 MG TABLET 1 TABLET ORALLY TWICE A DAY NOT-TAKING MAXALT 5 MG TABLET 1 TABLET NEEDED ONE TIME, MAY REPEAT DOSE IN 2 HOURS X1 IF SYMPTOMS PERSIST ORALLY ONCE A DAY NOT-TAKING DRISDOL 04982 UNIT CAPSULE 1 CAPSULE ORALLY QWEEK NOT-TAKING SPIRONOLACTONE 25 MG TABLET 1 TABLET ORALLY ONCE A DAY NOT-TAKING [id number] 50-325-40 MG CAPSULE (SCHEDULE III DRUG) TAKE ONE CAPSULE BY MOUTH EVERY 12 HOURS NEEDED FOR HEADACHE MAXIMUM DAILY DOSE 2 CAPSULES ORAL MEDICATION LIST REVIEWED AND RECONCILED WITH THE PATIENT PAST MEDICAL HISTORY SCOLIOSIS - MINIMAL DEXTRO-CONVEX CURVATURE - SCOLIOSIS SERIES ON 01/2009 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 INTERMITT 2 YEARS/ S/P 2 LASER LAPROSCOPIES OSTEOPOROSIS/OSTEOPENIA DUE TO LUPRON RX/ DEXA SCAN ON 03/2009 LUMBAR SPINE NORMAL BMD FOR AGE OCD/ SOCIAL ANXIETY/ BULEMIA NERVOSA PURGING TYPE/ DEPRESSIVE DISORDER/ ANXIETY PSORIASIS/SEBORRHEIC DERMATITIS RIGHT HALLUX VALGUS DEFORMITY S/P RT BUNIONECTOMY 2010 GANGLION LEFT HAND- W/ NL RADIOGRAPH S/P SURGICALLY REMOVED BULIMIA NERVOSA PURGING TYPE POLYCYSTIC OVARIES MIGRAINE ALLERGIC RHINITIS ALLERGIES ENVIRONMENTAL: STUFFY NOSE, ITCHY EYES, SOMETIMES HIVES SURGICAL HISTORY LASER LAPAROSCOPY FOR ENDOMETRIOSIS WITH FINDING OF MINIMAL ENDOMETRIOSIS WISDOM TOOTH RT BUNIONECTOMY 07/2009 LASER RX FOR BENIGH NEOPLASM EYELID ANGIOMA [id number] SEPTOPLASTY, ADENOIDECTOMY, BALLOON SINUPLASTY 08/2016 INVITRO FERT CYCLES WITH EGG EXTRACTIONS [id number] HOSPITALIZATION/MAJOR DIAGNOSTIC PROCEDURE MONO 2006 IN CHILDHOOD LUNG REASON REVIEW OF SYSTEMS REVIEWED BY: PROVIDER: RAMSES VIZCAINO . CONSTITUTIONAL: ANY CHANGE IN YOUR MEDICAL CONDITION? NO . CHILLS NO . FEVER NO . INFECTION: DO YOU HAVE NEW INFECTIONS? NO . DO YOU HAVE HISTORY OF MRSA? NO . MUSCULOSKELETAL: ANY NEW PATTERNS OF PAIN OR NUMBNESS? NO . GASTROENTEROLOGY: ANY NEW CHANGE IN BOWEL CONTROL? NO . GENITOURINARY: ANY NEW CHANGE IN BLADDER CONTROL? NO . IS THERE A CHANCE YOU COULD BE ? NO . HEMATOLOGY/LYMPH: DO YOU TAKE ANY BLOOD THINNERS? (FOR EXAMPLE- COUMADIN, PLAVIX, AGGRENOX, PLATEL, PRADAXA, OR XARELTO) NO . WHEN WAS YOUR LAST DOSE? DATE: TIME: . NEUROLOGY: HAVE YOU FALLEN IN THE PAST 6 MONTHS? NO . ANY NEW EXTREMITY NUMBNESS OR WEAKNESS? NO . CARDIOLOGY: DO YOU HAVE A PACEMAKER OR DEFIBRILLATOR? NO . RESPIRATORY: HAVE YOU BEEN SICK IN THE PAST WEEK? NO . FEVER NO . FLU LIKE SYMPTOMS? NO . COUGH NO . INTEGUMENTARY: DO YOU HAVE ANY RASHES OR OPEN SORES? NO . ALLERGIC/IMMUNO: ARE YOU ALLERGIC TO SHELLFISH OR IV DYE? NO . ANY NEW ALLERGIES? NO . PSYCHIATRIC: DO YOU HAVE THOUGHTS OF HURTING YOURSELF OR SOMEONE ELSE? NO . ARE YOU ABUSED, NEGLECTED, OR IN AN UNSAFE ENVIRONMENT? NO . ENDOCRINOLOGY: ARE YOU DIABETIC? NO . OTHER: DO YOU NEED ANY PRESCRIPTIONS? NO . IF YES, PLEASE LIST: ____ . ANY NEW PROBLEMS WITH YOUR MEDICATIONS? YES, PT STATES TIZANIDINE IS NOT WORKING. PT HERE TO DISCUSS WITH SEBASTIEN . WHEN DID YOU LAST EAT? ____ . WHEN DID YOU LAST DRINK? ____ . WHAT DID YOU LAST DRINK? ____ . NAME OF PERSON DRIVING YOU HOME? ____ . DO YOU HAVE ANY OTHER QUESTIONS OR CONCERNS NO . VITAL SIGNS WT 185 LBS, HT 66 IN, BMI 29.86 INDEX, BP 129/76 MM HG, HR 73 /MIN, RR 18 /MIN, TEMP 98.6 F, OXYGEN SAT % 96, SAFE IN ENV? (Y/N) Y, REVIEWED BY: EM. EXAMINATION GENERAL EXAMINATION: PSYCHALERT , ORIENTED X 3 , ANXIOUS, REPEATEDLYSAYS, "I'M SORRY". LUNGS:CLEAR TO AUSCULTATION BILATERALLY. HEART:HEART RATE REGULAR, NORMAL S1S2, NO MURMURS, CLICK OR RUBS. MUSCULOSKELETAL:DECREASED ROM WITH NECK ROTATION EXTENSION AND FLEXION. TRIGGER POINT AND TIGHT FIBROUS BAND IDENTIFIED OVER CERVICAL PARASPINOUS MUSCLES AND ACROSS THE TRAPESIUS. R>L. 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 HYPERSENSITIVITY TO LIGHT TOUCH OVER CERVICAL/THORACIC JUNCTION. . EXTREMITIES:NO EDEMA. NEUROLOGIC EXAM:CN'S II-XII GROSSLY INTACT. HYPER SENS OVER RIGHT SHOULDER. DTR'S 1+ U/L EXTREMITES. ASSESSMENTS CERVICALGIA - M54.2 (PRIMARY) FACET ARTHROPATHY, CERVICAL - M12.88 TREATMENT CERVICALGIA STOP TIZANIDINE HCL TABLET, 4 MG, 1 TABLET NEEDED, ORALLY, 1-2 TABS AT BEDTIME START CARISOPRODOL TABLET, 350 MG, 1 TABLET NEEDED, ORALLY, BID MDD=2, 30 DAY(S), 60 TRIGGER POINT 3 + RAMSES STACK 12/31/2016 3:36:05 PM > NECK AND SHOULERS NOTES: CONTINUE STRETCHES AND MASSAGE. DISPOSITION & COMMUNICATION FOLLOW UP SCHED IN 3 WEEKS FOR TPI AND WITH ME IN 4 FOR F/U (REASON: CHECK AUTH FOR TPI) ELECTRONICALLY SIGNED BY NICHOLAS MORELOS ON 01/20/2017 AT 06:53 PM EDT DISCLAIMER : THIS IS A VISIT SUMMARY EXTRACTED FROM THE [employer] CHART. IT IS NOT A COPY OF THE [employer] PROGRESS NOTE. MTDD
== END ==
LOC: M PAIN 14:00
PROVIDERS: ATTEND Nurse Practitioner Family
DX: M54.2 Cervicalgia (principal); M12.88 Other specific arthropathies, not elsewhere classified, other specified site; G43.909 Migraine, unspecified, not intractable, without status migrainosus; F41.1 Generalized anxiety disorder; E55.9 Vitamin D deficiency, unspecified; Z79.84 Long term (current) use of oral hypoglycemic drugs; Z79.899 Other long term (current) drug therapy; J30.9 Allergic rhinitis, unspecified

== ENCOUNTER → 2017-01-28 | Outpatient (CLI) | payer OTHER ==
[2017-01-28 12:11] LABS: ALBUMIN 4.4 GM/DL (3.2-5.2); ALBUMIN/GLOBULIN RATIO 1.16 (1.00-1.93); ALKALINE PHOSPHATASE 83 U/L (45-117); ALT/SGPT 20 U/L (12-78); ANION GAP 9 MEQ/L (8-16); AST/SGOT 12 U/L (15-37); BILIRUBIN,TOTAL 0.5 MG/DL (0.2-1.0); BLOOD UREA NITROGEN 13 MG/DL (7-18); CALCIUM LEVEL 9.7 MG/DL (8.5-10.1); CARBON DIOXIDE LEVEL 26 MEQ/L (21-32); CHLORIDE LEVEL 105 MEQ/L (98-107); CREATININE FOR GFR 0.94 MG/DL (0.55-1.02); GLOMERULAR FILTRATION RATE > 60.0 (>60); GLUCOSE, FASTING 89 MG/DL (70-105); POTASSIUM SERUM 3.9 MEQ/L (3.5-5.1); SODIUM LEVEL 140 MEQ/L (136-145); TOTAL PROTEIN 8.2 GM/DL (6.4-8.2)
== END ==
LOC: M SMT 09:03
PROVIDERS: ATTEND Physician Assistant
DX: E55.9 Vitamin D deficiency, unspecified (principal); R79.89 Other specified abnormal findings of blood chemistry

== ENCOUNTER → 2017-01-28 | Outpatient (CLI) | payer OTHER ==
[2017-01-28 11:26] LABS: BASO # 0.1 K/mm3 (0.0-0.2); BASO % 0.9 % (0.0-1.0); EOS # 0.1 K/mm3 (0.0-0.50); EOS % 1.7 % (0.0-3.0); LARGE UNSTAINED CELL # 0.1 K/mm3 (0.0-0.4); LARGE UNSTAINED CELL % 1.5 % (0.0-4.0); LYMPH # 1.3 K/mm3 (1.5-4.5); LYMPH % 17.4 % (24.0-44.0); MEAN CORPUSCULAR HEMOGLOBIN 33.6 pg (27.0-33.0); MEAN CORPUSCULAR HGB CONC 34.6 g/dl (32.0-36.5); MEAN CORPUSCULAR VOLUME 97.1 fl (80.0-96.0); MONO # 0.5 K/mm3 (0.0-0.8); MONO % 7.6 % (0.0-5.0); PLATELET COUNT, AUTOMATED 214 k/mm3 (150-450); RED CELL DISTRIBUTION WIDTH 12.4 % (11.5-14.5)
[2017-01-28 12:05] LABS: CORTISOL AM 10.6 UG/DL (4.3-22.4)
[2017-01-28 12:06] LABS: VITAMIN B12 LEVEL 299 PG/ML (247-911)
[2017-01-28 12:29] LABS: ALBUMIN 4.6 GM/DL (3.2-5.2); ALKALINE PHOSPHATASE 87 U/L (45-117); ALT/SGPT 23 U/L (12-78); ANION GAP 10 MEQ/L (8-16); AST/SGOT 12 U/L (15-37); BILIRUBIN,TOTAL 0.5 MG/DL (0.2-1.0); BLOOD UREA NITROGEN 13 MG/DL (7-18); CALCIUM LEVEL 9.5 MG/DL (8.5-10.1); CARBON DIOXIDE LEVEL 25 MEQ/L (21-32); CHLORIDE LEVEL 104 MEQ/L (98-107); CREATININE FOR GFR 0.93 MG/DL (0.55-1.02); FREE T4 1.21 NG/DL (0.76-1.46); GLOMERULAR FILTRATION RATE > 60.0 (>60); GLUCOSE, FASTING 86 MG/DL (70-105); IMMUNOGLOBULIN G 1240 MG/DL (681-1648); PERCENT SATURATION 46.2 % (13.2-45.0); POTASSIUM SERUM 3.8 MEQ/L (3.5-5.1); SODIUM LEVEL 139 MEQ/L (136-145); TOTAL IRON BINDING CAPACITY 385 UG/DL (250-450); TOTAL PROTEIN 8.8 GM/DL (6.4-8.2)
[2017-01-29 11:21] LABS: THYROID PEROXIDASE ANTIBODY < 28.0 U/ML (<60.0)
[2017-02-05 14:15] LABS: C10 0.26 umol/L (0.00-0.38); C10:1 0.18 umol/L (0.01-0.32); C10:2 0.03 umol/L (0.00-0.05); C14 0.04 umol/L (0.00-0.06); C14-HYDROXY 0.01 umol/L (0.00-0.02); C14:1 0.09 umol/L (0.00-0.17); C14:2 0.05 umol/L (0.00-0.11); C16-HYDROXY 0.01 umol/L (0.00-0.02); C16:1 0.03 umol/L (0.00-0.04); C16:1-HYDROXY 0.01 umol/L (0.00-0.02); C18-HYDROXY 0.01 umol/L (0.00-0.02); C18:1 0.11 umol/L (0.04-0.17); C18:1-HYDROXY 0.01 umol/L (0.00-0.02); C18:2 0.07 umol/L (0.00-0.11); C18:2-HYDROXY 0.01 umol/L (0.00-0.01); C2 6.02 umol/L (3.23-10.29); C4 0.21 umol/L (0.08-0.32); C4-DICARBOXYLIC 0.03 umol/L (0.01-0.07); C5 0.07 umol/L (0.01-0.21); C6 0.05 umol/L (0.00-0.10); C8 0.17 umol/L (0.00-0.27); CARNITINE FREE 31 umol/L (20-55); ESTERIFIED/FREE 0.1 Ratio (0.0-0.9); GLUTATHIONE QT 220 ug/mL (176-323); Lyme Disease IgG/IgM Antibodie <0.91 ISR (0.00-0.90); Lyme Disease IgM Ab Quantitati <0.80 index (0.00-0.79); MAGNESIUM RBC LEVEL 4.8 mg/dL (4.2-6.8)
== END ==
LOC: M SMT 09:06
PROVIDERS: ATTEND Nurse Practitioner Pediatrics
DX: F41.1 Generalized anxiety disorder (principal); F50.81 Binge eating disorder; R53.81 Other malaise; G43.019 Migraine without aura, intractable, without status migrainosus; N80.0 Endometriosis of uterus

== ENCOUNTER → 2017-02-03 | Outpatient (CLI) | payer OTHER ==
[~2017-02-03] MED LIST changes: +BUPIVACAINE HCL 0.25% 10 ML VIAL As Ordered ONE; +BUPIVACAINE HCL 0.25% 30 ML VIAL As Ordered ONE; +CLON0.2T PO; +KLON1TAB PO; +LINZ145C PO; +SELE6PA TD; +TRIAMCINOLONE ACETONIDE SUSP 40 MG/ML VIAL (J3301) As Ordered ONE; +diazePAM 5 MG TAB As Ordered ONE; +oxyCODONE 5MG TAB As Ordered ONE
--- NOTE | 2017-02-04 00:32 | ECWPNPC ---
PATIENT NAME: SILVIA ZIMMERMAN : 1985 GENDER: FEMALE VISIT DATE: 02/03/2017 DISCHARGE DATE: 02/03/17 1625 VISIT LOCKED DATE TIME: PHYSICIAN: MAYRA STEVENS RESOURCE: MAYRA STEVENS REASON FOR APPOINTMENT 1. TPI NECK AND SHOULERS CURRENT MEDICATIONS TAKING VITAMIN C 500 MG TABLET 1 TABLET ORALLY ONCE A DAY, NOTES: FEW WEEKS AGO TAKING XANAX 1 MG TABLET 1 TABLET ORALLY TWICE A DAY NEEDED, NOTES: 02-02-172099 TAKING METFORMIN HCL ER 500 MG TABLET EXTENDED RELEASE 24 HOUR 3 TABLET ORALLY DAILY AT BEDTIME, NOTES: 2 DAYS AGO TAKING LEUCOVORIN CALCIUM 20 MG TABLET 1 TAB ORALLY ONCE A DAY AT BEDTIME, NOTES: 02-02-172099 TAKING CLONIDINE HCL 0.3 MG TABLET 1 TABLET ORALLY ONCE A DAY, NOTES: 02-02-172099 TAKING LEXAPRO 20 MG TABLET 1 TABLET ORALLY ONCE A DAY, NOTES: 02-02-172099 TAKING PROBIOTIC TABLET DELAYED RELEASE 1 CAPSULE ORALLY DAILY, NOTES: MONTHS TAKING CALCIUM + D 600-200 MG-UNIT TABLET 1 TABLET ORALLY ONCE A DAY, NOTES: 02-02-17 TAKING AMPHETAMINE-DEXTROAMPHET ER 30 MG CAPSULE EXTENDED RELEASE 24 HOUR (SCHEDULE II DRUG) TK 1 C PO Q MORNING. MDD 1 C ORAL , NOTES: 02-02-17 TAKING LINZESS 290 MCG CAPSULE 1 CAPSULE ORALLY ONCE A DAY, NOTES: 02-03-17 0800 TAKING RELPAX 20 MG TABLET 1 TABLET NEEDED ONE TIME ORALLY ONCE A DAY/ NEEDED, NOTES: 4 MONTHS AGO TAKING IBUPROFEN 600 MG TABLET 1 TABLET WITH FOOD OR MILK ORALLY THREE TIMES A DAY, NOTES: 3 DAYS AGO TAKING CARISOPRODOL 350 MG TABLET 1 TABLET NEEDED ORALLY BID MDD=2, NOTES: COUPLE DAYS AGO NOT-TAKING CO Q 10 60 MG CAPSULE 1 CAPSULE WITH A MEAL ORALLY ONCE A DAY, NOTES: YEAR AGO NOT-TAKING RED CLOVER LEAF EXTRACT 500 MG TABLET ORALLY NEEDED NOT-TAKING RASPBERRY 1 ML SYRUP OTC ORALLY NEEDED NOT-TAKING GAGAN 500 MG CAPSULE OTC ORALLY TWICE A DAY/ NEEDED NOT-TAKING COCONUT OIL 1000 MG CAPSULE 1 CAP(S) ORALLY ONCE A DAY NEEDED NOT-TAKING SINGULAIR 10 MG TABLET 1 TABLET IN THE EVENING ORALLY ONCE A DAY NOT-TAKING ZYRTEC 10 MG TABLET 1 TABLET ORALLY ONCE A DAY NOT-TAKING DOXYCYCLINE HYCLATE 100 MG TABLET ORAL NOT-TAKING TOPAMAX 100 MG TABLET 1 TABLET ORALLY TWICE A DAY NOT-TAKING MAXALT 5 MG TABLET 1 TABLET NEEDED ONE TIME, MAY REPEAT DOSE IN 2 HOURS X1 IF SYMPTOMS PERSIST ORALLY ONCE A DAY NOT-TAKING DRISDOL 49402 UNIT CAPSULE 1 CAPSULE ORALLY QWEEK NOT-TAKING SPIRONOLACTONE 25 MG TABLET 1 TABLET ORALLY ONCE A DAY NOT-TAKING [id number] 50-325-40 MG CAPSULE (SCHEDULE III DRUG) TAKE ONE CAPSULE BY MOUTH EVERY 12 HOURS NEEDED FOR HEADACHE MAXIMUM DAILY DOSE 2 CAPSULES ORAL MEDICATION LIST REVIEWED AND RECONCILED WITH THE PATIENT PAST MEDICAL HISTORY SCOLIOSIS - MINIMAL DEXTRO-CONVEX CURVATURE - SCOLIOSIS SERIES ON 01/2009 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 INTERMITT 2 YEARS/ S/P 2 LASER LAPROSCOPIES OSTEOPOROSIS/OSTEOPENIA DUE TO LUPRON RX/ DEXA SCAN ON 03/2009 LUMBAR SPINE NORMAL BMD FOR AGE OCD/ SOCIAL ANXIETY/ BULEMIA NERVOSA PURGING TYPE/ DEPRESSIVE DISORDER/ ANXIETY PSORIASIS/SEBORRHEIC DERMATITIS RIGHT HALLUX VALGUS DEFORMITY S/P RT BUNIONECTOMY 2010 GANGLION LEFT HAND- W/ NL RADIOGRAPH S/P SURGICALLY REMOVED BULIMIA NERVOSA PURGING TYPE POLYCYSTIC OVARIES MIGRAINE ALLERGIC RHINITIS ALLERGIES ENVIRONMENTAL: STUFFY NOSE, ITCHY EYES, SOMETIMES HIVES VITAL SIGNS WT 185 LBS, HT 66 IN, BMI 29.86 INDEX, BP 126/77 MM HG, HR 76 /MIN, RR 18 /MIN, TEMP 98.1 F, OXYGEN SAT % 98%, NA INITIALS SC 15:14, REVIEWED BY: CM. ASSESSMENTS MYALGIA - M79.1 (PRIMARY) PROCEDURES PN TRIGGER POINT INJECTION WITH STEROIDS PRE PROCEDURE DIAGNOSIS 1. MYALGIA 2. PAIN AT BILATERAL NECK, BILATERAL SHOULDER, BILATERAL THORACIC AREA POST PROCEDURE DIAGNOSIS 1. MYALGIA 2. PAIN AT BILATERAL NECK, BILATERAL SHOULDER, BILATERAL THORACIC AREA PROCEDURE TRIGGER POINT INJECTION AT BILATERAL NECK, BILATERAL SHOULDER, BILATERAL THORACIC AREA SURGEON DR. 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 I EVALUATE THE PATIENT AND REVIEWED THE CHART. THERE IS EVIDENCE OF BANDS OF TISSUE WITH RESTRICTION OF MOVEMENT AND PRESENCE OF TRIGGER POINT AT THE AFFECTED AREA. I WENT OVER THE RISKS, ALTERNATIVES, AND BENEFITS ASSOCIATED WITH THIS PROCEDURE. THE PATIENT WOULD LIKE TO PROCEED AND GIVE CONSENT TO PERFORMED THE PROCEDURE. THE PATIENT DENIES UNEXPLAINABLE WEIGHT LOSS, FEVER, CHILLS, OR NEW CHANGES IN URINARY OR BOWEL CONTROL DESCRIPTION OF PROCEDURE THE PATIENT WAS BROUGHT TO THE PROCEDURE ROOM AND PLACED IN THE SITTING POSITION. THE AREA WAS CLEANED WITH ALCOHOL. THE PROCEDURE WAS DONE USING ASEPTIC STERILE TECHNIQUE. I CHECKED LATERALITY AND THE LEVEL WHERE THE PROCEDURE WAS GOING TO BE PERFORMED WITH THE PATIENT AND THE SUPPORTING STAFF AT THE MOMENT OF THE TIME OUT IN THE PROCEDURE ROOM. USING A 25-GAUGE NEEDLE, TRIGGER POINTS WERE INJECTED AT THE LEFT AND RIGHT NECK AREA, LEFT AND RIGHT SHOULDER AREA, AND LEFT AND RIGHT THORACIC AREA WITH A TOTAL OF 40 ML OF BUPIVACAINE 0.25% AND KENALOG 40 MG. THERE WAS NO EVIDENCE OF BLOOD, PARESTHESIA OR CEREBROSPINAL FLUID DURING THE PROCEDURE. THE PATIENT WAS SENT TO THE RECOVERY ROOM. THE PATIENT WAS MOVING THE EXTREMITIES AND DOING WELL. THERE WAS NO COMPLICATION DURING THE PROCEDURE POST PROCEDURE NOTE THE PATIENT WILL BE SEEN IN A FOLLOW UP IN THE NEXT FEW WEEKS. INSTRUCTIONS WERE GIVEN, QUESTIONS WERE ANSWERED, AND THE PATIENT EXPRESSED UNDERSTANDING AND AGREES WITH THE PLAN. I ALECIA CLARKE DOCUMENTED THE ABOVE INFORMATION ACTING A ENDO TECH FOR DR. STEVENS. I HAVE REVIEWED THE ABOVE DOCUMENT WRITTEN BY ALECIA CLARKE SCRIBDianne AND I VERIFY THAT IT IS ACCURATE. PROCEDURE CODES 68443 INJECT TRIGGER POINTS 3/> DISPOSITION & COMMUNICATION FOLLOW UP 3 WEEKS ELECTRONICALLY SIGNED BY MAYRA STEVENS MD ON 02/03/2017 AT 05:52 PM EDT DISCLAIMER : THIS IS A VISIT SUMMARY EXTRACTED FROM THE [employer] CHART. IT IS NOT A COPY OF THE [employer] PROGRESS NOTE. BRANT
== END ==
LOC: M PAIN 15:00
PROVIDERS: ATTEND Anesthesiology
DX: G89.29 Other chronic pain (principal); M79.1 Myalgia; G43.909 Migraine, unspecified, not intractable, without status migrainosus; F41.1 Generalized anxiety disorder; E55.9 Vitamin D deficiency, unspecified; Z79.84 Long term (current) use of oral hypoglycemic drugs; Z79.899 Other long term (current) drug therapy; J30.9 Allergic rhinitis, unspecified
CPT/HCPCS: 20553; J3301

== ENCOUNTER 2017-02-06 21:54 | Emergency (ER) | payer OTHER ==
[~2017-02-06] VITALS: Ht 167.6 cm; Wt 84.1 kg
[2017-02-06 21:54] VITALS: BP 163/89
[~2017-02-06 21:54] MED LIST changes: -BUPIVACAINE HCL 0.25% 10 ML VIAL As Ordered ONE; -BUPIVACAINE HCL 0.25% 30 ML VIAL As Ordered ONE; -CLON0.2T PO; -KLON1TAB PO; -LINZ145C PO; -NORCOTAB PO; -SELE6PA TD; -TRIAMCINOLONE ACETONIDE SUSP 40 MG/ML VIAL (J3301) As Ordered ONE; -diazePAM 5 MG TAB As Ordered ONE; -oxyCODONE 5MG TAB As Ordered ONE
[2017-02-06] MEDS ORDERED: NORCOTAB PO (22:57)
[2017-02-06] MEDS ORDERED: NORCO 5/325MG TABLET (BULK FOR ED) PO ONE (23:00)
== END 2017-02-06 23:11 | disposition home or self-care (01) ==
LOC: M ED 21:54
DX: M54.2 Cervicalgia (principal); G89.29 Other chronic pain; E28.2 Polycystic ovarian syndrome; Z79.899 Other long term (current) drug therapy; Z88.8 Allergy status to other drugs, medicaments and biological substances; F17.210 Nicotine dependence, cigarettes, uncomplicated

== ENCOUNTER → 2017-02-17 | Outpatient (CLI) | payer OTHER ==
[~2017-02-17] MED LIST changes: +CLON0.2T PO; +KLON1TAB PO; +LINZ145C PO; +NORCOTAB PO; +SELE6PA TD
--- NOTE | 2017-03-17 01:22 | ECWPNPC ---
PATIENT NAME: SILVIA ZIMMERMAN : 1985 GENDER: FEMALE VISIT DATE: 02/17/2017 DISCHARGE DATE: 02/17/17 1618 VISIT LOCKED DATE TIME: PHYSICIAN: RAMSES CHASE RESOURCE: RAMSES CHASE REASON FOR APPOINTMENT 1. POST TPI, MEDS HISTORY OF PRESENT ILLNESS HISTORY OF PRESENT ILLNESS: PAIN THE PATIENT DESCRIBES THE PAIN... FALL RISK SCREENING: SCREENING :NO FALLS IN THE PAST YEAR TODAY'S VISIT: NOTES: RATES PAIN 8/10 ASTRID. IS S/P TPI ON 02/03/17TO NECK, SHOULDER AND THORACIC AREA. PAIN LEVEL PRIOR WAS 8/10, DECREASED TO 3/10 ON LEFT AND STAYED THE SAME ON THE RIGHT. 85 LB DOG ACCIDENTLY STEPPED ON NECK - HAD SEVERE PAIN, SNAPPING. TO ER WHERE THEY EVALUATED AND PUT ON HCD X 5 DAYS. NO IMPROVMENT IN SPASM WITH SOMA. WAS RECENTLY DX WITH MONO - THIS HAS DISRUPTED SLEEP. NECK PAIN IS WORSE WHEN GETTTING UP IN MORNING. . CURRENT MEDICATIONS TAKING VITAMIN C 500 MG TABLET 1 TABLET ORALLY ONCE A DAY, NOTES: FEW WEEKS AGO TAKING XANAX 1 MG TABLET 1 TABLET ORALLY TWICE A DAY NEEDED TAKING METFORMIN HCL ER 500 MG TABLET EXTENDED RELEASE 24 HOUR 3 TABLET ORALLY DAILY AT BEDTIME TAKING LEUCOVORIN CALCIUM 20 MG TABLET 1 TAB ORALLY ONCE A DAY AT BEDTIME TAKING CLONIDINE HCL 0.3 MG TABLET 1 TABLET ORALLY ONCE A DAY TAKING LEXAPRO 20 MG TABLET 1 TABLET ORALLY ONCE A DAY TAKING PROBIOTIC TABLET DELAYED RELEASE 1 CAPSULE ORALLY DAILY TAKING CALCIUM + D 600-200 MG-UNIT TABLET 1 TABLET ORALLY ONCE A DAY TAKING LINZESS 290 MCG CAPSULE 1 CAPSULE ORALLY ONCE A DAY TAKING IBUPROFEN 600 MG TABLET 1 TABLET WITH FOOD OR MILK ORALLY THREE TIMES A DAY TAKING ZONISAMIDE 50 MG CAPSULE 1 CAPSULE ORALLY TWICE A DAY NOT-TAKING AMPHETAMINE-DEXTROAMPHET ER 30 MG CAPSULE EXTENDED RELEASE 24 HOUR (SCHEDULE II DRUG) TK 1 C PO Q MORNING. MDD 1 C ORAL NOT-TAKING RELPAX 20 MG TABLET 1 TABLET NEEDED ONE TIME ORALLY ONCE A DAY/ NEEDED NOT-TAKING CARISOPRODOL 350 MG TABLET 1 TABLET NEEDED ORALLY BID MDD=2 NOT-TAKING CO Q 10 60 MG CAPSULE 1 CAPSULE WITH A MEAL ORALLY ONCE A DAY, NOTES: YEAR AGO NOT-TAKING RED CLOVER LEAF EXTRACT 500 MG TABLET ORALLY NEEDED NOT-TAKING RASPBERRY 1 ML SYRUP OTC ORALLY NEEDED NOT-TAKING GAGAN 500 MG CAPSULE OTC ORALLY TWICE A DAY/ NEEDED NOT-TAKING COCONUT OIL 1000 MG CAPSULE 1 CAP(S) ORALLY ONCE A DAY NEEDED NOT-TAKING SINGULAIR 10 MG TABLET 1 TABLET IN THE EVENING ORALLY ONCE A DAY NOT-TAKING ZYRTEC 10 MG TABLET 1 TABLET ORALLY ONCE A DAY NOT-TAKING DOXYCYCLINE HYCLATE 100 MG TABLET ORAL NOT-TAKING TOPAMAX 100 MG TABLET 1 TABLET ORALLY TWICE A DAY NOT-TAKING MAXALT 5 MG TABLET 1 TABLET NEEDED ONE TIME, MAY REPEAT DOSE IN 2 HOURS X1 IF SYMPTOMS PERSIST ORALLY ONCE A DAY NOT-TAKING DRISDOL 36972 UNIT CAPSULE 1 CAPSULE ORALLY QWEEK NOT-TAKING SPIRONOLACTONE 25 MG TABLET 1 TABLET ORALLY ONCE A DAY NOT-TAKING [id number] 50-325-40 MG CAPSULE (SCHEDULE III DRUG) TAKE ONE CAPSULE BY MOUTH EVERY 12 HOURS NEEDED FOR HEADACHE MAXIMUM DAILY DOSE 2 CAPSULES ORAL MEDICATION LIST REVIEWED AND RECONCILED WITH THE PATIENT PAST MEDICAL HISTORY SCOLIOSIS - MINIMAL DEXTRO-CONVEX CURVATURE - SCOLIOSIS SERIES ON 01/2009 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 INTERMITT 2 YEARS/ S/P 2 LASER LAPROSCOPIES OSTEOPOROSIS/OSTEOPENIA DUE TO LUPRON RX/ DEXA SCAN ON 03/2009 LUMBAR SPINE NORMAL BMD FOR AGE OCD/ SOCIAL ANXIETY/ BULEMIA NERVOSA PURGING TYPE/ DEPRESSIVE DISORDER/ ANXIETY PSORIASIS/SEBORRHEIC DERMATITIS RIGHT HALLUX VALGUS DEFORMITY S/P RT BUNIONECTOMY 2010 GANGLION LEFT HAND- W/ NL RADIOGRAPH S/P SURGICALLY REMOVED BULIMIA NERVOSA PURGING TYPE POLYCYSTIC OVARIES MIGRAINE ALLERGIC RHINITIS ALLERGIES ENVIRONMENTAL: STUFFY NOSE, ITCHY EYES, SOMETIMES HIVES REVIEW OF SYSTEMS REVIEWED BY: PROVIDER: RAMSES VIZCAINO . CONSTITUTIONAL: ANY CHANGE IN YOUR MEDICAL CONDITION? YES . CHILLS NO . FEVER NO . INFECTION: DO YOU HAVE NEW INFECTIONS? NO . DO YOU HAVE HISTORY OF MRSA? NO . MUSCULOSKELETAL: ANY NEW PATTERNS OF PAIN OR NUMBNESS? NO . GASTROENTEROLOGY: ANY NEW CHANGE IN BOWEL CONTROL? NO . GENITOURINARY: ANY NEW CHANGE IN BLADDER CONTROL? NO . IS THERE A CHANCE YOU COULD BE ? NO . HEMATOLOGY/LYMPH: DO YOU TAKE ANY BLOOD THINNERS? (FOR EXAMPLE- COUMADIN, PLAVIX, AGGRENOX, PLATEL, PRADAXA, OR XARELTO) NO . WHEN WAS YOUR LAST DOSE? DATE: TIME: . NEUROLOGY: HAVE YOU FALLEN IN THE PAST 6 MONTHS? NO . ANY NEW EXTREMITY NUMBNESS OR WEAKNESS? NO . CARDIOLOGY: DO YOU HAVE A PACEMAKER OR DEFIBRILLATOR? NO . RESPIRATORY: HAVE YOU BEEN SICK IN THE PAST WEEK? NO . FEVER NO . FLU LIKE SYMPTOMS? NO . COUGH NO . INTEGUMENTARY: DO YOU HAVE ANY RASHES OR OPEN SORES? NO . ALLERGIC/IMMUNO: ARE YOU ALLERGIC TO SHELLFISH OR IV DYE? NO . ANY NEW ALLERGIES? NO . PSYCHIATRIC: DO YOU HAVE THOUGHTS OF HURTING YOURSELF OR SOMEONE ELSE? NO . ARE YOU ABUSED, NEGLECTED, OR IN AN UNSAFE ENVIRONMENT? NO . ENDOCRINOLOGY: ARE YOU DIABETIC? NO . OTHER: DO YOU NEED ANY PRESCRIPTIONS? YES . IF YES, PLEASE LIST: SOMA DID NOT WORK . ANY NEW PROBLEMS WITH YOUR MEDICATIONS? NO . WHEN DID YOU LAST EAT? ____ . WHEN DID YOU LAST DRINK? ____ . WHAT DID YOU LAST DRINK? ____ . NAME OF PERSON DRIVING YOU HOME? ____ . DO YOU HAVE ANY OTHER QUESTIONS OR CONCERNS NO . VITAL SIGNS WT 185 LBS, HT 66 IN, BMI 29.86 INDEX, BP 133/68 MM HG, HR 93 /MIN, RR 18 /MIN, TEMP 98.0 F, OXYGEN SAT % 98%, NA INITIALS AW 1504, REVIEWED BY: NL. EXAMINATION GENERAL EXAMINATION: PSYCHALERT , ORIENTED X 3 , ANXIOUS. LUNGS:CLEAR TO AUSCULTATION BILATERALLY. HEART:HEART RATE REGULAR, NORMAL S1S2, NO MURMURS, CLICK OR RUBS. MUSCULOSKELETAL:DECREASED ROM WITH NECK ROTATION EXTENSION AND FLEXION. TRIGGER POINT AND TIGHT FIBROUS BAND IDENTIFIED OVER CERVICAL PARASPINOUS MUSCLES AND ACROSS THE TRAPESIUS. R>L. STICK ROLLER EQUAL AND STRONG. HYPERSENSITIVITY TO LIGHT TOUCH OVER CERVICAL/THORACIC JUNCTION. . EXTREMITIES:NO EDEMA. NEUROLOGIC EXAM:CN'S II-XII GROSSLY INTACT. HYPER SENS OVER RIGHT SHOULDER. DTR'S 1+ U/L EXTREMITES. ASSESSMENTS MYALGIA - M79.1 (PRIMARY) CERVICALGIA - M54.2 (PRIMARY) FACET ARTHROPATHY, CERVICAL - M12.88 TREATMENT MYALGIA START INDOMETHACIN CAPSULE, 50 MG, 1 CAPSULE WITH FOOD OR MILK, ORALLY, TWICE A DAY, 30 DAY(S), 60, REFILLS 1 TRIGGER POINT 3 + RAMSES STACK 02/17/2017 3:45:55 PM > NECK AND SHOULDER CERVICAL FACET JOINT RAMSES KAYE 02/17/2017 3:41:23 PM > LEFT THERAPEUTIC FACET BLOCK WITH IV SEDATION NOTES: COUNT AND DESTROY THE TIZANIDINE. PREVENTIVE MEDICINE REVIEWED PRE PROCEDURE INSTRUCTIONS / PT EXPRESSED UNDERSTANDING. PROCEDURE CODES FA211 ESTABILISHED PATIENT [facility] CHARGE DISPOSITION & COMMUNICATION FOLLOW UP AFTER INJECTIONS (REASON: CHECK AUTH FOR CERVICAL FACET BLOCK THERAPEUTIC RIGHT WITH IV SEDATION) ELECTRONICALLY SIGNED BY NICHOLAS MORELOS ON 03/16/2017 AT 02:35 PM EDT DISCLAIMER : THIS IS A VISIT SUMMARY EXTRACTED FROM THE [employer] CHART. IT IS NOT A COPY OF THE [employer] PROGRESS NOTE. BRANT
== END ==
LOC: M PAIN 14:30
PROVIDERS: ATTEND Nurse Practitioner Family
DX: M79.1 Myalgia (principal); M54.2 Cervicalgia; M12.88 Other specific arthropathies, not elsewhere classified, other specified site; F41.1 Generalized anxiety disorder; E55.9 Vitamin D deficiency, unspecified; G43.909 Migraine, unspecified, not intractable, without status migrainosus; E28.2 Polycystic ovarian syndrome; Z79.84 Long term (current) use of oral hypoglycemic drugs; Z79.899 Other long term (current) drug therapy; J30.9 Allergic rhinitis, unspecified

== ENCOUNTER → 2017-02-18 | Outpatient (REF) | payer OTHER | LOC: M SFHCPLAZ 11:44 | PROVIDERS: ATTEND Physician Assistant | DX: J02.9 Acute pharyngitis, unspecified (principal) ==

== ENCOUNTER → 2017-03-11 | Outpatient (CLI) | payer OTHER ==
[~2017-03-11] MED LIST changes: +BUPIVACAINE HCL 0.25% 30 ML VIAL As Ordered ONE; +ISOVUE-M 300 61% 15ML VIAL (Q9967) As Ordered ONE; +LIDOCAINE 1% SDV INJ 30 ML VIAL As Ordered ONE; +MIDAZOLAM INJ 2 MG/2 ML VIAL (J2250) As Ordered ONE; +TRIAMCINOLONE ACETONIDE SUSP 40 MG/ML VIAL (J3301) As Ordered ONE; +fentaNYL 100 MCG/2 ML INJECTION (J3010) As Ordered ONE
--- NOTE | 2017-03-11 16:57 | REP ---
Partial cervical spine series: Two views: History: Bilateral cervical facet injection for pain. 29 seconds of fluoroscopy time is reported. Findings: A sequence of two last image hold fluoroscopic spot radiographs of the cervical spine document needle position and contrast injection associated with facet injection procedure. Signed by Izaiah Martin MD 03/11/2017 05:14 P
--- NOTE | 2017-03-21 23:54 | ECWPNPC ---
PATIENT NAME: SILVIA ZIMMERMAN : 1985 GENDER: FEMALE VISIT DATE: 03/11/2017 DISCHARGE DATE: 03/11/17 1603 VISIT LOCKED DATE TIME: PHYSICIAN: MAYRA STEVENS RESOURCE: MAYRA STEVENS REASON FOR APPOINTMENT 1. CERV. FACET IV SEDATION HISTORY OF PRESENT ILLNESS HISTORY OF PRESENT ILLNESS: PAIN THE PATIENT DESCRIBES THE PAIN... FALL RISK SCREENING: SCREENING :NO FALLS IN THE PAST YEAR CURRENT MEDICATIONS TAKING INDOMETHACIN 50 MG CAPSULE 1 CAPSULE WITH FOOD OR MILK ORALLY TWICE A DAY, NOTES: 03/10/17 1800 TAKING VITAMIN C 500 MG TABLET 1 TABLET ORALLY ONCE A DAY, NOTES: FEW DAYS AGO TAKING XANAX 1 MG TABLET 1 TABLET ORALLY TWICE A DAY NEEDED, NOTES: 03/10/17 1500 TAKING METFORMIN HCL ER 500 MG TABLET EXTENDED RELEASE 24 HOUR 3 TABLET ORALLY DAILY AT BEDTIME, NOTES: 03/10/17 1900 TAKING LEUCOVORIN CALCIUM 20 MG TABLET 1 TAB ORALLY ONCE A DAY AT BEDTIME, NOTES: 03/10/171999 TAKING CLONIDINE HCL 0.3 MG TABLET 1 TABLET ORALLY ONCE A DAY, NOTES: 03/10/171999 TAKING PROBIOTIC TABLET DELAYED RELEASE 1 CAPSULE ORALLY DAILY, NOTES: 03/10/17 08 TAKING CALCIUM + D 600-200 MG-UNIT TABLET 1 TABLET ORALLY ONCE A DAY, NOTES: FEW DAYS AGO TAKING LINZESS 290 MCG CAPSULE 1 CAPSULE ORALLY ONCE A DAY, NOTES: 03/10/17 0800 TAKING EMSAM 6 MG/24HR PATCH 24 HOUR 1 PATCH TO SKIN TRANSDERMAL ONCE A DAY, NOTES: 03/10/17 08 TAKING ZONISAMIDE 50 MG CAPSULE 1 CAPSULE ORALLY TWICE A DAY, NOTES: 03/10/171999 NOT-TAKING LEXAPRO 20 MG TABLET 1 TABLET ORALLY ONCE A DAY NOT-TAKING IBUPROFEN 600 MG TABLET 1 TABLET WITH FOOD OR MILK ORALLY THREE TIMES A DAY MEDICATION LIST REVIEWED AND RECONCILED WITH THE PATIENT PAST MEDICAL HISTORY SCOLIOSIS - MINIMAL DEXTRO-CONVEX CURVATURE - SCOLIOSIS SERIES ON 01/2009 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 INTERMITT 2 YEARS/ S/P 2 LASER LAPROSCOPIES OSTEOPOROSIS/OSTEOPENIA DUE TO LUPRON RX/ DEXA SCAN ON 03/2009 LUMBAR SPINE NORMAL BMD FOR AGE OCD/ SOCIAL ANXIETY/ BULEMIA NERVOSA PURGING TYPE/ DEPRESSIVE DISORDER/ ANXIETY PSORIASIS/SEBORRHEIC DERMATITIS RIGHT HALLUX VALGUS DEFORMITY S/P RT BUNIONECTOMY 2010 GANGLION LEFT HAND- W/ NL RADIOGRAPH S/P SURGICALLY REMOVED BULIMIA NERVOSA PURGING TYPE POLYCYSTIC OVARIES MIGRAINE ALLERGIC RHINITIS ALLERGIES ENVIRONMENTAL: STUFFY NOSE, ITCHY EYES, SOMETIMES HIVES SURGICAL HISTORY LASER LAPAROSCOPY FOR ENDOMETRIOSIS WITH FINDING OF MINIMAL ENDOMETRIOSIS WISDOM TOOTH RT BUNIONECTOMY 07/2009 LASER RX FOR BENIGH NEOPLASM EYELID ANGIOMA [id number] SEPTOPLASTY, ADENOIDECTOMY, BALLOON SINUPLASTY 08/2016 INVITRO FERT CYCLES WITH EGG EXTRACTIONS [id number] FAMILY HISTORY FATHER: 50 YRS, SMALL CELL LYMPHOMA, DIABETES, HTN, DIAGNOSED WITH DIABETES, HYPERTENSION, CANCER MOTHER: ALIVE 52 YRS, PRE-CANCEROUS CELLS REMOVED FROM BREAST, DIAGNOSED WITH CANCER SIBLINGS: ASTHMA PATERNAL GRAND FATHER: ? MENTAL DISORDER AND COMMITTED SUICIDE, DM PATERNAL GRAND MOTHER: , DM MATERNAL GRAND FATHER: , ? CANCER MATERNAL GRAND MOTHER: , HEART ATTACK, DM SOCIAL HISTORY GENERAL: TOBACCO USE ARE YOU A:CURRENT SMOKER HOW MANY CIGARETTES A DAY DO YOU SMOKE? SMOKES ABOUT 3/4 PACK PER WEEK HOW SOON AFTER YOU WAKE UP DO YOU SMOKE YOUR FIRST CIGARETTE?AFTER 60 MIN HOW OFTEN DO YOU SMOKE CIGARETTES?SOME DAYS, BUT NOT EVERY DAY PATIENT COUNSELED ON THE DANGERS OF TOBACCO USE AND URGED TO QUIT:02/18/2017 ARE YOU INTERESTED IN QUITTING?THINKING ABOUT QUITTING COUNSELED THE PATIENT ON SMOKING CESSATION, EDUCATION [id number]/21/2017 ARRANGEADVISED TO CALL [facility] TOBACCO CESSATION DID NOT WANT ANY GROUP INVOLVEMENT ADDITIONAL FINDINGS: TOBACCO USER STATES CAN GO A LONG TIME WITHOUT SMOKING WITH NO SIDE EFFECTS SMOKING CESSATION INFORMATION GIVEN02/18/2017 ALCOHOL SCREENING DID YOU HAVE A DRINK CONTAINING ALCOHOL IN THE PAST YEAR?YES HOW OFTEN DID YOU HAVE A DRINK CONTAINING ALCOHOL IN THE PAST YEAR?MONTHLY OR LESS (1 POINT) POINTS1 INTERPRETATIONNEGATIVE HOW MANY DRINKS DID YOU HAVE ON A TYPICAL DAY WHEN YOU WERE DRINKING IN THE PAST YEAR?1 OR 2 (0 POINTS) CAFFEINE CAFFEINE USE?YES COFFEE SODA SEXUAL HX HAD SEX IN THE LAST 12 MONTHS (VAGINAL, ORAL, OR ANAL)?YES WITHMEN ONLY USE PROTECTION?NO PREVENTION STRATEGIES DISCUSSED:OTHER HAVE YOU EVER HAD AN STD?NO LMP:10/09/2016 HIV / HEP-C SCREENING HIV TEST OFFERED TO PATIENT:YES DATE OFFERED:06/08/2016 TEST ACCEPTED:NO REASON:PATIENT DECLINED HEP-C TEST OFFERED TO PATIENT:NO N/A SHINTO [id number] HINDU LANGUAGE LANGUAGES SPOKEN:VIETNAMESE EDUCATION LEVEL OF EDUCATION:COLLEGE LEARNING BARRIERS / SPECIAL NEEDS BARRIERS TO LEARNING?NO HEARING IMPAIRED?NO VISION IMPAIRED?YES :CORRECTIVE LENSES COGNITIVELY IMPAIRED?NO READINESS TO LEARN?YES LEARNING PREFERENCES?YES :HANDOUTS, DEMONSTRATION/VERBAL INSTRUCTION LEARNING CAPABILITIES PRESENT?YES SPECIAL DEVICES?NO WELDING MACHINE OPERATOR/TENDER NEEDED?NO PAIN CLINIC PFS, CLERGY, PUBLIC HEALTH REFERRALS PFS REFERRAL NEEDED?NO CLERGY REFERRAL NEEDED?NO PUBLIC HEALTH REFERRAL NEEDED?NO WAS THE PROVIDER NOTIFIED OF ANY PERTINENT INFO?NO HAS THE PATIENT BEEN EDUCATED REGARDING HIS/HER PLAN OF CARE?YES HAS THE PATIENT BEEN EDUCATED REGARDING PAIN, THE RISK FOR PAIN, THE IMPORTANCE OF EFFECTIVE PAIN MANAGEMENT, AND THE PAIN ASSESSMENT PROCESS?YES REVIEWED BY: PT TRYING TO GET AND WANTS TO GO TO [facility] [employer] BUT NEEDS TO HAVE PAIN UNDER CONTROL FIRST. PATIENT: ____. ADVANCE DIRECTIVES HEALTH CARE PROXY?NO WOULD YOU LIKE MORE INFORMATION?YES GAVE INFO ON ADVANCED DIRECTIVE PAQCKET TO PT HOSPITALIZATION/MAJOR DIAGNOSTIC PROCEDURE MONO 2006 IN CHILDHOOD LUNG REASON REVIEW OF SYSTEMS REVIEWED BY: PROVIDER: . CONSTITUTIONAL: ANY CHANGE IN YOUR MEDICAL CONDITION? NO . CHILLS NO . FEVER NO . INFECTION: DO YOU HAVE NEW INFECTIONS? NO . DO YOU HAVE HISTORY OF MRSA? NO . MUSCULOSKELETAL: ANY NEW PATTERNS OF PAIN OR NUMBNESS? NO . GASTROENTEROLOGY: ANY NEW CHANGE IN BOWEL CONTROL? NO . GENITOURINARY: ANY NEW CHANGE IN BLADDER CONTROL? NO . IS THERE A CHANCE YOU COULD BE ? NO . HEMATOLOGY/LYMPH: DO YOU TAKE ANY BLOOD THINNERS? (FOR EXAMPLE- COUMADIN, PLAVIX, AGGRENOX, PLATEL, PRADAXA, OR XARELTO) NO . WHEN WAS YOUR LAST DOSE? DATE: TIME: . NEUROLOGY: HAVE YOU FALLEN IN THE PAST 6 MONTHS? NO . ANY NEW EXTREMITY NUMBNESS OR WEAKNESS? NO . CARDIOLOGY: DO YOU HAVE A PACEMAKER OR DEFIBRILLATOR? NO . RESPIRATORY: HAVE YOU BEEN SICK IN THE PAST WEEK? NO . FEVER NO . FLU LIKE SYMPTOMS? NO . COUGH NO . INTEGUMENTARY: DO YOU HAVE ANY RASHES OR OPEN SORES? NO . ALLERGIC/IMMUNO: ARE YOU ALLERGIC TO SHELLFISH OR IV DYE? NO . ANY NEW ALLERGIES? NO . PSYCHIATRIC: DO YOU HAVE THOUGHTS OF HURTING YOURSELF OR SOMEONE ELSE? NO . ARE YOU ABUSED, NEGLECTED, OR IN AN UNSAFE ENVIRONMENT? NO . ENDOCRINOLOGY: ARE YOU DIABETIC? NO . OTHER: DO YOU NEED ANY PRESCRIPTIONS? NO . IF YES, PLEASE LIST: ____ . ANY NEW PROBLEMS WITH YOUR MEDICATIONS? NO . WHEN DID YOU LAST EAT? MIDNIGHT . WHEN DID YOU LAST DRINK? 0900 . WHAT DID YOU LAST DRINK? IZABEL SOULEYMANE . NAME OF PERSON DRIVING YOU HOME? TANJA ZIMMERMAN . DO YOU HAVE ANY OTHER QUESTIONS OR CONCERNS NO . VITAL SIGNS WT 190 LBS, HT 66 IN, BMI 30.66 INDEX, BP 139/91 MM HG, HR 95 /MIN, RR 18 /MIN, TEMP 98.8 F, OXYGEN SAT % 96%, NA INITIALS AW 1338, REVIEWED BY: LS. ASSESSMENTS SPONDYLOSIS OF CERVICAL REGION WITHOUT MYELOPATHY OR RADICULOPATHY - M47.812 (PRIMARY) PROCEDURES PN CERVICAL FACET BLOCK LOW BILATERAL CERVICAL PRE PROCEDURE DIAGNOSIS CERVICAL SPONDYLOSIS POST PROCEDURE DIAGNOSIS CERVICAL SPONDYLOSIS PROCEDURE BILATERAL C3-C4 AND BILATERAL C4-C5 CERVICAL FACET BLOCK SURGEON DR. MAYRA STEVENS BUTCHERETTE NONE ANESTHESIA LOCAL WITH IV SEDATION PRE PROCEDURE NOTE THE PATIENT HAS HISTORY OF CHRONIC CERVICAL PAIN. I EVALUATE THE PATIENT AND REVIEWED THE CHART. I WENT OVER THE RISKS, ALTERNATIVES, AND BENEFITS ASSOCIATED WITH THIS PROCEDURE. PATIENT WOULD LIKE TO MOVE FORWARD WITH IV SEDATION DUE TO DISCOMFORT, PAIN AND ANXIETY ASSOCIATED WITH THE PROCEDURE. THE PATIENT WOULD LIKE TO PROCEED AND GIVE CONSENT TO PERFORMED THE PROCEDURE. THE PATIENT DENIES UNEXPLAINABLE WEIGHT LOSS, FEVER, CHILLS, OR NEW CHANGES IN URINARY OR BOWEL CONTROL DESCRIPTION OF PROCEDURE THE PATIENT WAS BROUGHT TO THE PROCEDURE ROOM AND PLACED IN THE PRONE POSITION. THE CERVICOTHORACIC AREA WAS CLEANED WITH CHLORAPREP SOLUTION AND DRAPED ASEPTICALLY. THE PROCEDURE WAS DONE UNDER STERILE CONDITIONS. I CHECKED LATERALITY AND THE LEVEL WHERE THE PROCEDURE WAS GOING TO BE PERFORMED WITH THE PATIENT AND THE SUPPORTING STAFF AT THE MOMENT OF THE TIME OUT IN THE PROCEDURE ROOM. UNDER FLUOROSCOPIC GUIDANCE, TARGET POINT WAS SELECTED AT THE RIGHT AND LEFT C3-C4 AND RIGHT AND LEFT C4-C5 CERVICAL FACET JOINT. TARGET POINTS WERE SELECTED AFTER LATERAL ROTATION AND TILT OF THE MAGNIFIER OF THE C-ARM. LIDOCAINE 0.5% WAS USED TO NUMB THE SKIN AND THE SUBCUTANEOUS TISSUE BELOW IT. SPINAL NEEDLES, 22-GAUGE, WERE ADVANCED UNDER FLUOROSCOPIC GUIDANCE AND FOLLOWING PATIENT FEEDBACK UNTIL THE TARGETS WERE TOUCHED. THE POSITION OF THE NEEDLES WAS VERIFIED WITH AP AND LATERAL VIEWS. AFTER PROPER POSITION OF THE NEEDLES WAS ACHIEVED, ISOVUE M DYE 30, 0.1 ML WAS INJECTED SHOWING SPREAD OF THE DYE. THEN A SOLUTION OF 0.9 ML OF BUPIVACAINE 0.125% AND KENALOG 10 MG WAS INJECTED AT EACH SITE. PATIENT RECEIVED VERSED 5 MG AND FENTANYL 200 MCG IV DIVIDED DOSES THERE WAS NO EVIDENCE OF BLOOD, PARESTHESIA OR CEREBROSPINAL FLUID DURING THE PROCEDURE. THE PATIENT WAS SENT TO THE RECOVERY ROOM. THE PATIENT WAS MOVING THE EXTREMITIES AND DOING WELL. THERE WAS NO COMPLICATION DURING THE PROCEDURE. FLUOROSCOPY TIME WAS 28 SECONDS POST PROCEDURE NOTE THE PATIENT WILL BE SEEN IN A FOLLOW UP IN THE NEXT FEW WEEKS. INSTRUCTIONS WERE GIVEN, QUESTIONS WERE ANSWERED, AND THE PATIENT EXPRESSED UNDERSTANDING AND AGREES WITH THE PLAN. I, JOSEPH PIEDRA, DOCUMENTED THE ABOVE INFORMATION ACTING A SCRIBE FOR DR. STEVENS. I HAVE REVIEWED THE ABOVE DOCUMENT, WRITTEN BY JOSEPH PIEDRA SCRIBDianne AND I VERIFY THAT IT IS ACCURATE DIAGNOSTIC IMAGING [facility] FACET BLOCK (PAIN)[id number] PROCEDURE CODES 64411 INJ PARAVERT F JNT C/T 1 LEV, MODIFIERS: 50 75555 INJ PARAVERT F JNT C/T 2 LEV, MODIFIERS: 50 6045F RADXPS IN END [id number] PXD 06224 MOD SED SAME PHYS/QHP 5/>YRS 05312 MOD SED SAME PHYS/QHP EA DISPOSITION & COMMUNICATION FOLLOW UP 3 WEEKS ELECTRONICALLY SIGNED BY MAYRA STEVENS MD ON 03/21/2017 AT 01:41 PM EDT DISCLAIMER : THIS IS A VISIT SUMMARY EXTRACTED FROM THE [employer] CHART. IT IS NOT A COPY OF THE [employer] PROGRESS NOTE. MTDD
== END ==
LOC: M PAIN 13:15
PROVIDERS: ATTEND Anesthesiology
DX: G89.29 Other chronic pain (principal); M47.812 Spondylosis without myelopathy or radiculopathy, cervical region; F41.1 Generalized anxiety disorder; J30.89 Other allergic rhinitis; E55.9 Vitamin D deficiency, unspecified; G43.909 Migraine, unspecified, not intractable, without status migrainosus; F17.210 Nicotine dependence, cigarettes, uncomplicated; Z79.84 Long term (current) use of oral hypoglycemic drugs; Z79.899 Other long term (current) drug therapy
CPT/HCPCS: 64490; 64491; 99152; 99153; J2250; J3010; J3301; Q9967

== ENCOUNTER → 2017-04-07 | Outpatient (CLI) | payer OTHER ==
[~2017-04-07] MED LIST changes: -BUPIVACAINE HCL 0.25% 30 ML VIAL As Ordered ONE; -ISOVUE-M 300 61% 15ML VIAL (Q9967) As Ordered ONE; -LIDOCAINE 1% SDV INJ 30 ML VIAL As Ordered ONE; -MIDAZOLAM INJ 2 MG/2 ML VIAL (J2250) As Ordered ONE; -TRIAMCINOLONE ACETONIDE SUSP 40 MG/ML VIAL (J3301) As Ordered ONE; -fentaNYL 100 MCG/2 ML INJECTION (J3010) As Ordered ONE
--- NOTE | 2017-04-29 01:29 | ECWPNPC ---
PATIENT NAME: SILVIA ZIMMERMAN : 1985 GENDER: FEMALE VISIT DATE: 04/07/2017 DISCHARGE DATE: 04/07/17 1239 VISIT LOCKED DATE TIME: PHYSICIAN: RAMSES CHASE PHYSICIAN PAGER NO: INACTIVE RESOURCE: RAMSES CHASE REASON FOR APPOINTMENT 1. POST PROCEDURE HISTORY OF PRESENT ILLNESS HISTORY OF PRESENT ILLNESS: PAIN THE PATIENT DESCRIBES THE PAIN... FALL RISK SCREENING: SCREENING :NO FALLS IN THE PAST YEAR TODAY'S VISIT: NOTES: S/P BILATERAL THERAPEUTIC CERVICAL FACET BLOCK AT C3-4 AND C4-5 WITH IV SEDATION COMPLETED ON 03/11/17. WAS QUITE UNCOMFORTABLE FOR FIRST FEW DAYS, AND THEN THE SAHRP STBBING PAIN WENT AWAY FOR 2-3 WEEKS AND THEN RETURNED. IS HAVING INCREASED MUSCLE PAIN DUE TO MOVING HER RESIDENCE. IS HAVING N/T SENSATION IN RIGHT 4,5. STATES INDOCIN DID HELP WITH THE PAIN BUT STOMACH COULD NOT HANDLE THE MED. HAS BEEN FOLLOWING WITH DR LORENZA SANTORO. HAS BEEN DOING HEAVY CLEANING AND HAS FALLEN DOWN THE STAIRS HER LEGS GAVE OUT. . CURRENT MEDICATIONS TAKING INDOMETHACIN 50 MG CAPSULE 1 CAPSULE WITH FOOD OR MILK ORALLY TWICE A DAY TAKING VITAMIN C 500 MG TABLET 1 TABLET ORALLY ONCE A DAY TAKING METFORMIN HCL ER 500 MG TABLET EXTENDED RELEASE 24 HOUR 3 TABLET ORALLY DAILY AT BEDTIME TAKING LEUCOVORIN CALCIUM 20 MG TABLET 1 TAB ORALLY ONCE A DAY AT BEDTIME TAKING CLONIDINE HCL 0.3 MG TABLET 1 TABLET ORALLY ONCE A DAY TAKING PROBIOTIC TABLET DELAYED RELEASE 1 CAPSULE ORALLY DAILY TAKING CALCIUM + D 600-200 MG-UNIT TABLET 1 TABLET ORALLY ONCE A DAY TAKING LINZESS 290 MCG CAPSULE 1 CAPSULE ORALLY ONCE A DAY TAKING EMSAM 6 MG/24HR PATCH 24 HOUR 1 PATCH TO SKIN TRANSDERMAL ONCE A DAY TAKING ZONISAMIDE 50 MG CAPSULE 1 CAPSULE ORALLY TWICE A DAY TAKING KLONOPIN 1 MG TABLET 1 TABLET ORALLY TWICE A DAY NEEDED NOT-TAKING XANAX 1 MG TABLET 1 TABLET ORALLY TWICE A DAY NEEDED NOT-TAKING LEXAPRO 20 MG TABLET 1 TABLET ORALLY ONCE A DAY NOT-TAKING IBUPROFEN 600 MG TABLET 1 TABLET WITH FOOD OR MILK ORALLY THREE TIMES A DAY MEDICATION LIST REVIEWED AND RECONCILED WITH THE PATIENT PAST MEDICAL HISTORY SCOLIOSIS - MINIMAL DEXTRO-CONVEX CURVATURE - SCOLIOSIS SERIES ON 01/2009 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 INTERMITT 2 YEARS/ S/P 2 LASER LAPROSCOPIES OSTEOPOROSIS/OSTEOPENIA DUE TO LUPRON RX/ DEXA SCAN ON 03/2009 LUMBAR SPINE NORMAL BMD FOR AGE OCD/ SOCIAL ANXIETY/ BULEMIA NERVOSA PURGING TYPE/ DEPRESSIVE DISORDER/ ANXIETY PSORIASIS/SEBORRHEIC DERMATITIS RIGHT HALLUX VALGUS DEFORMITY S/P RT BUNIONECTOMY 2010 GANGLION LEFT HAND- W/ NL RADIOGRAPH S/P SURGICALLY REMOVED BULIMIA NERVOSA PURGING TYPE POLYCYSTIC OVARIES MIGRAINE ALLERGIC RHINITIS ALLERGIES ENVIRONMENTAL: STUFFY NOSE, ITCHY EYES, SOMETIMES HIVES SURGICAL HISTORY LASER LAPAROSCOPY FOR ENDOMETRIOSIS WITH FINDING OF MINIMAL ENDOMETRIOSIS WISDOM TOOTH RT BUNIONECTOMY 07/2009 LASER RX FOR BENIGH NEOPLASM EYELID ANGIOMA [id number] SEPTOPLASTY, ADENOIDECTOMY, BALLOON SINUPLASTY 08/2016 INVITRO FERT CYCLES WITH EGG EXTRACTIONS [id number] SOCIAL HISTORY GENERAL: TOBACCO USE ARE YOU A:CURRENT SMOKER HOW MANY CIGARETTES A DAY DO YOU SMOKE? SMOKES ABOUT 3/4 PACK PER WEEK HOW SOON AFTER YOU WAKE UP DO YOU SMOKE YOUR FIRST CIGARETTE?AFTER 60 MIN HOW OFTEN DO YOU SMOKE CIGARETTES?SOME DAYS, BUT NOT EVERY DAY PATIENT COUNSELED ON THE DANGERS OF TOBACCO USE AND URGED TO QUIT:02/18/2017 ARE YOU INTERESTED IN QUITTING?THINKING ABOUT QUITTING COUNSELED THE PATIENT ON SMOKING CESSATION, EDUCATION [id number]/21/2017 ARRANGEADVISED TO CALL [facility] CESSATION DID NOT WANT ANY GROUP INVOLVEMENT ADDITIONAL FINDINGS: TOBACCO USER STATES CAN GO A LONG TIME WITHOUT SMOKING WITH NO SIDE EFFECTS SMOKING CESSATION INFORMATION GIVEN02/18/2017 ALCOHOL SCREENING DID YOU HAVE A DRINK CONTAINING ALCOHOL IN THE PAST YEAR?YES HOW OFTEN DID YOU HAVE A DRINK CONTAINING ALCOHOL IN THE PAST YEAR?MONTHLY OR LESS (1 POINT) POINTS1 INTERPRETATIONNEGATIVE HOW MANY DRINKS DID YOU HAVE ON A TYPICAL DAY WHEN YOU WERE DRINKING IN THE PAST YEAR?1 OR 2 (0 POINTS) CAFFEINE CAFFEINE USE?YES COFFEE SODA SEXUAL HX HAD SEX IN THE LAST 12 MONTHS (VAGINAL, ORAL, OR ANAL)?YES WITHMEN ONLY USE PROTECTION?NO PREVENTION STRATEGIES DISCUSSED:OTHER HAVE YOU EVER HAD AN STD?NO LMP:10/09/2016 HIV / HEP-C SCREENING HIV TEST OFFERED TO PATIENT:YES DATE OFFERED:06/08/2016 TEST ACCEPTED:NO REASON:PATIENT DECLINED HEP-C TEST OFFERED TO PATIENT:NO N/A UATSDIN [id number] SABIANISM LANGUAGE LANGUAGES SPOKEN:TAJIK EDUCATION LEVEL OF EDUCATION:COLLEGE LEARNING BARRIERS / SPECIAL NEEDS BARRIERS TO LEARNING?NO HEARING IMPAIRED?NO VISION IMPAIRED?YES :CORRECTIVE LENSES COGNITIVELY IMPAIRED?NO READINESS TO LEARN?YES LEARNING PREFERENCES?YES :HANDOUTS, DEMONSTRATION/VERBAL INSTRUCTION LEARNING CAPABILITIES PRESENT?YES SPECIAL DEVICES?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 PATIENT: ____. ADVANCE DIRECTIVES HEALTH CARE PROXY?NO WOULD YOU LIKE MORE INFORMATION?YES GAVE INFO ON ADVANCED DIRECTIVE PAQCKET TO PT HOSPITALIZATION/MAJOR DIAGNOSTIC PROCEDURE MONO 2006 IN CHILDHOOD LUNG REASON REVIEW OF SYSTEMS REVIEWED BY: PROVIDER: . CONSTITUTIONAL: ANY CHANGE IN YOUR MEDICAL CONDITION? NO . CHILLS NO . FEVER NO . INFECTION: DO YOU HAVE NEW INFECTIONS? NO . DO YOU HAVE HISTORY OF MRSA? NO . MUSCULOSKELETAL: ANY NEW PATTERNS OF PAIN OR NUMBNESS? YES . GASTROENTEROLOGY: ANY NEW CHANGE IN BOWEL CONTROL? NO . GENITOURINARY: ANY NEW CHANGE IN BLADDER CONTROL? NO . IS THERE A CHANCE YOU COULD BE ? NO . HEMATOLOGY/LYMPH: DO YOU TAKE ANY BLOOD THINNERS? (FOR EXAMPLE- COUMADIN, PLAVIX, AGGRENOX, PLATEL, PRADAXA, OR XARELTO) NO . WHEN WAS YOUR LAST DOSE? DATE: TIME: . NEUROLOGY: HAVE YOU FALLEN IN THE PAST 6 MONTHS? YES ,FELL DOWN THE STAIRS WHEN MOVING / HER LEGS GAVE OUT ON HER . ANY NEW EXTREMITY NUMBNESS OR WEAKNESS? NO . CARDIOLOGY: DO YOU HAVE A PACEMAKER OR DEFIBRILLATOR? NO . RESPIRATORY: HAVE YOU BEEN SICK IN THE PAST WEEK? NO . FEVER NO . FLU LIKE SYMPTOMS? NO . COUGH NO . INTEGUMENTARY: DO YOU HAVE ANY RASHES OR OPEN SORES? NO . ALLERGIC/IMMUNO: ARE YOU ALLERGIC TO SHELLFISH OR IV DYE? NO . ANY NEW ALLERGIES? NO . PSYCHIATRIC: DO YOU HAVE THOUGHTS OF HURTING YOURSELF OR SOMEONE ELSE? NO . ARE YOU ABUSED, NEGLECTED, OR IN AN UNSAFE ENVIRONMENT? NO . ENDOCRINOLOGY: ARE YOU DIABETIC? NO . OTHER: DO YOU NEED ANY PRESCRIPTIONS? NO . IF YES, PLEASE LIST: ____ . ANY NEW PROBLEMS WITH YOUR MEDICATIONS? YES, INDOMETHICIN BOTHERED HER STOMACH . WHEN DID YOU LAST EAT? ____ . WHEN DID YOU LAST DRINK? ____ . WHAT DID YOU LAST DRINK? ____ . NAME OF PERSON DRIVING YOU HOME? ____ . DO YOU HAVE ANY OTHER QUESTIONS OR CONCERNS YES, PAIN IS WORSE DUE TO MOVING . VITAL SIGNS WT 185.0 LBS, HT 66 IN, BMI 29.86 INDEX, BP 123/59 MM HG, HR 84 /MIN, RR 16 /MIN, TEMP 98.0 F, OXYGEN SAT % 96%, NA INITIALS TL 1121, REVIEWED BY: NL. ASSESSMENTS MYALGIA - M79.1 (PRIMARY) CERVICALGIA - M54.2 (PRIMARY) FACET ARTHROPATHY, CERVICAL - M12.88 LUMBAR FACET ARTHROPATHY - M46.96 TREATMENT MYALGIA START BACLOFEN TABLET, 10 MG, 1/2 - 1 TABLET, ORALLY, BID, 30 DAY(S), 60, REFILLS 1 TRIGGER POINT 3 + RAMSES STACK 04/07/2017 12:09:21 PM > NECK/SHOULDERS/LOW BACK INJECTION FACET JOINT/NERVE LUMBAR/SACRALRAMSES CHASE 04/07/2017 12:11:02 PM > BILATERAL THERAPEUTIC L4-5 AND L5-S1 NOTES: GIVE YOUR SELF PERMISSION TO SAY "YES" OR "NO". ,FACET JOINT INJECTION: YOUR EXPERIENCE MATERIAL WAS PRINTED,FACET JOINT INJECTION MATERIAL WAS PRINTED,TRIGGER POINT INJECTION MATERIAL WAS PRINTED. PROCEDURE CODES FA211 ESTABILISHED PATIENT [facility] FAC[facility] CHARGE DISPOSITION & COMMUNICATION FOLLOW UP AFTER INJECTION (REASON: CHECK AUTH FOR LUMBAR FACET BLOCK BILATERAL AND TPI NECK SHOULDERS AND LOW BACK ) ELECTRONICALLY SIGNED BY NICHOLAS MORELOS ON 04/27/2017 AT 08:36 AM EST DISCLAIMER : THIS IS A VISIT SUMMARY EXTRACTED FROM THE [employer] CHART. IT IS NOT A COPY OF THE [employer] PROGRESS NOTE. BRANT
== END ==
LOC: M PAIN 10:45
PROVIDERS: ATTEND Nurse Practitioner Family
DX: M79.1 Myalgia (principal); M54.2 Cervicalgia; M12.88 Other specific arthropathies, not elsewhere classified, other specified site; M46.96 Unspecified inflammatory spondylopathy, lumbar region; F17.210 Nicotine dependence, cigarettes, uncomplicated; Z79.84 Long term (current) use of oral hypoglycemic drugs; Z79.899 Other long term (current) drug therapy; J30.9 Allergic rhinitis, unspecified

== ENCOUNTER 2017-04-12 18:31 | Emergency (ER) | payer OTHER ==
[~2017-04-12] VITALS: Ht 170.2 cm; Wt 84.1 kg
[~2017-04-12 18:31] MED LIST changes: -CLON0.2T PO; -KLON1TAB PO; -LINZ145C PO; -SELE6PA TD
[2017-04-12] MEDS ORDERED: CLON0.2T PO (18:58)
[2017-04-12] MEDS ORDERED: SELE6PA TD (18:58)
[2017-04-12] MEDS ORDERED: LINZ145C PO (18:58)
[2017-04-12] MEDS ORDERED: KLON1TAB PO (18:58)
--- NOTE | 2017-04-12 20:01 | REP ---
LEFT HAND, COMPLETE: 04/12/2017. Clinical history: Pain. Findings: No prior studies. Four views of the hand were provided. Distal radius and ulna intact. Carpal bones and their joint spaces show no abnormality. Radiocarpal joint intact as are the CMC joints. The metacarpals and phalanges show no fracture or destructive lesion. There is no subluxation or dislocation, abnormal soft-tissue calcification or erosions. Impression: 1. No fracture, avulsion, subluxation, erosion, foreign body or other acute finding about the hand. Signed by Artem Perry MD 04/12/2017 08:07 P
[2017-04-12 22:32] VITALS: BP 134/68
== END 2017-04-12 22:46 | disposition home or self-care (01) ==
LOC: M ED 18:31
DX: S63.602A Unspecified sprain of left thumb, initial encounter (principal); X58.XXXA Exposure to other specified factors, initial encounter; Y92.018 Other place in single-family (private) house as the place of occurrence of the external cause; Y93.89 Activity, other specified; Y99.8 Other external cause status; F41.9 Anxiety disorder, unspecified; E28.2 Polycystic ovarian syndrome; N80.9 Endometriosis, unspecified; Z79.899 Other long term (current) drug therapy; Z88.8 Allergy status to other drugs, medicaments and biological substances

== ENCOUNTER → 2017-04-13 | Outpatient (CLI) | payer OTHER ==
[~2017-04-13] MED LIST changes: +BUPIVACAINE HCL 0.25% 10 ML VIAL As Ordered ONE; +BUPIVACAINE HCL 0.25% 30 ML VIAL As Ordered ONE; +CLON0.2T PO; +KLON1TAB PO; +LINZ145C PO; +SELE6PA TD; +TRIAMCINOLONE ACETONIDE SUSP 40 MG/ML VIAL (J3301) As Ordered ONE; +diazePAM 5 MG TAB As Ordered ONE; +oxyCODONE 5MG TAB As Ordered ONE
--- NOTE | 2017-04-25 23:43 | ECWPNPC ---
PATIENT NAME: SILVIA ZIMMERMAN : 1985 GENDER: FEMALE VISIT DATE: 04/13/2017 DISCHARGE DATE: 04/13/17 1514 VISIT LOCKED DATE TIME: PHYSICIAN: MAYRA STEVENS PHYSICIAN PAGER NO: INACTIVE RESOURCE: MAYRA STEVENS REASON FOR APPOINTMENT 1. TPI NECK/BACK HISTORY OF PRESENT ILLNESS HISTORY OF PRESENT ILLNESS: PAIN THE PATIENT DESCRIBES THE PAIN... FALL RISK SCREENING: SCREENING :NO FALLS IN THE PAST YEAR CURRENT MEDICATIONS TAKING VITAMIN C 500 MG TABLET 1 TABLET ORALLY ONCE A DAY, NOTES: A FEW WEEKS AGO TAKING METFORMIN HCL ER 500 MG TABLET EXTENDED RELEASE 24 HOUR 3 TABLET ORALLY DAILY AT BEDTIME, NOTES: 04/11/13 TAKING LEUCOVORIN CALCIUM 20 MG TABLET 1 TAB ORALLY ONCE A DAY AT BEDTIME, NOTES: 04/12/17 AT 2100 TAKING CLONIDINE HCL 0.3 MG TABLET 1 TABLET ORALLY ONCE A DAY, NOTES: 04/12/17 AT 2100 TAKING PROBIOTIC TABLET DELAYED RELEASE 1 CAPSULE ORALLY DAILY, NOTES: 04/12/17 AT 1200 TAKING CALCIUM + D 600-200 MG-UNIT TABLET 1 TABLET ORALLY ONCE A DAY, NOTES: A FEW WEEKS AGO TAKING LINZESS 290 MCG CAPSULE 1 CAPSULE ORALLY ONCE A DAY, NOTES: 04/13/17/AT 0800 TAKING EMSAM 6 MG/24HR PATCH 24 HOUR 1 PATCH TO SKIN TRANSDERMAL ONCE A DAY, NOTES: APPLIED 04/12/17 AT 2100 TAKING KLONOPIN 1 MG TABLET 1 TABLET ORALLY TWICE A DAY NEEDED, NOTES: 04/12/17 AT 1530 TAKING BACLOFEN 10 MG TABLET 1/2 - 1 TABLET ORALLY BID, NOTES: HAS NOT STARTED YET TAKING IBUPROFEN 600 MG TABLET 1 TABLET WITH FOOD OR MILK ORALLY THREE TIMES A DAY NEEDED, NOTES: 04/13/17 AT 0800 NOT-TAKING INDOMETHACIN 50 MG CAPSULE 1 CAPSULE WITH FOOD OR MILK ORALLY TWICE A DAY NOT-TAKING ZONISAMIDE 50 MG CAPSULE 1 CAPSULE ORALLY TWICE A DAY NOT-TAKING XANAX 1 MG TABLET 1 TABLET ORALLY TWICE A DAY NEEDED NOT-TAKING LEXAPRO 20 MG TABLET 1 TABLET ORALLY ONCE A DAY MEDICATION LIST REVIEWED AND RECONCILED WITH THE PATIENT PAST MEDICAL HISTORY SCOLIOSIS - MINIMAL DEXTRO-CONVEX CURVATURE - SCOLIOSIS SERIES ON 01/2009 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THINKING ABOUT QUITTING COUNSELED THE PATIENT ON SMOKING CESSATION, EDUCATION [id number]/14/2017 ARRANGEADVISED TO CALL [facility] TOBACCO CESSATION DID NOT WANT ANY GROUP INVOLVEMENT HOW MANY CIGARETTES A DAY DO YOU SMOKE? SMOKES ABOUT 3/4 PACK PER WEEK HOW SOON AFTER YOU WAKE UP DO YOU SMOKE YOUR FIRST CIGARETTE?AFTER 60 MIN HOW OFTEN DO YOU SMOKE CIGARETTES?SOME DAYS, BUT NOT EVERY DAY PATIENT COUNSELED ON THE DANGERS OF TOBACCO USE AND URGED TO QUIT:04/13/2017 ADDITIONAL FINDINGS: TOBACCO USER STATES CAN GO A LONG TIME WITHOUT SMOKING WITH NO SIDE EFFECTS SMOKING CESSATION INFORMATION GIVEN04/13/2017 ALCOHOL SCREENING DID YOU HAVE A DRINK CONTAINING ALCOHOL IN THE PAST YEAR?YES HOW OFTEN DID YOU HAVE A DRINK CONTAINING ALCOHOL IN THE PAST YEAR?MONTHLY OR LESS (1 POINT) POINTS1 INTERPRETATIONNEGATIVE HOW MANY DRINKS DID YOU HAVE ON A TYPICAL DAY WHEN YOU WERE DRINKING IN THE PAST YEAR?1 OR 2 (0 POINTS) RECREATIONAL DRUG USE DRUG USE?NO CAFFEINE CAFFEINE USE?YES COFFEE SODA SEXUAL HX HAD SEX IN THE LAST 12 MONTHS (VAGINAL, ORAL, OR ANAL)?YES WITHMEN ONLY USE PROTECTION?NO PREVENTION STRATEGIES DISCUSSED:OTHER HAVE YOU EVER HAD AN STD?NO LMP:10/09/2016 HIV / HEP-C SCREENING HIV TEST OFFERED TO PATIENT:YES DATE OFFERED:06/08/2016 TEST ACCEPTED:NO REASON:PATIENT DECLINED HEP-C TEST OFFERED TO PATIENT:NO N/A LUTHERAN [id number] [employer]OLINESS LANGUAGE LANGUAGES SPOKEN:[place]IZ[place] EDUCATION LEVEL OF EDUCATION:COLLEGE LEARNING BARRIERS / SPECIAL NEEDS CHANGE FROM LAST VISIT?NO BARRIERS TO LEARNING?NO HEARING IMPAIRED?NO VISION IMPAIRED?YES :CORRECTIVE LENSES COGNITIVELY IMPAIRED?NO READINESS TO LEARN?YES LEARNING PREFERENCES?YES :HANDOUTS, DEMONSTRATION/VERBAL INSTRUCTION LEARNING CAPABILITIES PRESENT?YES EMOTIONAL BARRIERS?NO SPECIAL DEVICES?NO LINE PRODUCER NEEDED?NO PAIN CLINIC PFS, CLERGY, PUBLIC HEALTH REFERRALS PFS REFERRAL NEEDED?NO CLERGY REFERRAL NEEDED?NO PUBLIC HEALTH REFERRAL NEEDED?NO WAS THE PROVIDER NOTIFIED OF ANY PERTINENT INFO?NO HAS THE PATIENT BEEN EDUCATED REGARDING HIS/HER PLAN OF CARE?YES HAS THE PATIENT BEEN EDUCATED REGARDING PAIN, THE RISK FOR PAIN, THE IMPORTANCE OF EFFECTIVE PAIN MANAGEMENT, AND THE PAIN ASSESSMENT PROCESS?YES REVIEWED BY: PT TRYING TO GET AND WANTS TO GO TO [facility] [employer] BUT NEEDS TO HAVE PAIN UNDER CONTROL FIRST. PATIENT: ____. ADVANCE DIRECTIVES HEALTH CARE PROXY?NO WOULD YOU LIKE MORE INFORMATION?YES GAVE INFO ON ADVANCED DIRECTIVE PAQCKET TO PT REVIEW OF SYSTEMS REVIEWED BY: PROVIDER: . CONSTITUTIONAL: ANY CHANGE IN YOUR MEDICAL CONDITION? NO . CHILLS NO . FEVER NO . INFECTION: DO YOU HAVE NEW INFECTIONS? NO . DO YOU HAVE HISTORY OF MRSA? NO . MUSCULOSKELETAL: ANY NEW PATTERNS OF PAIN OR NUMBNESS? NO . GASTROENTEROLOGY: ANY NEW CHANGE IN BOWEL CONTROL? NO . GENITOURINARY: ANY NEW CHANGE IN BLADDER CONTROL? NO . IS THERE A CHANCE YOU COULD BE ? NO . HEMATOLOGY/LYMPH: DO YOU TAKE ANY BLOOD THINNERS? (FOR EXAMPLE- COUMADIN, PLAVIX, AGGRENOX, PLATEL, PRADAXA, OR XARELTO) NO . WHEN WAS YOUR LAST DOSE? DATE: TIME: . NEUROLOGY: HAVE YOU FALLEN IN THE PAST 6 MONTHS? YES . ANY NEW EXTREMITY NUMBNESS OR WEAKNESS? NO . CARDIOLOGY: DO YOU HAVE A PACEMAKER OR DEFIBRILLATOR? NO . RESPIRATORY: HAVE YOU BEEN SICK IN THE PAST WEEK? NO . FEVER NO . FLU LIKE SYMPTOMS? NO . COUGH NO . INTEGUMENTARY: DO YOU HAVE ANY RASHES OR OPEN SORES? YES, RAISED PURPLE BUMPS WHERE PATCHES HAVE BEEN ON LOWER LEGS . ALLERGIC/IMMUNO: ARE YOU ALLERGIC TO SHELLFISH OR IV DYE? NO . ANY NEW ALLERGIES? NO . PSYCHIATRIC: DO YOU HAVE THOUGHTS OF HURTING YOURSELF OR SOMEONE ELSE? NO . ARE YOU ABUSED, NEGLECTED, OR IN AN UNSAFE ENVIRONMENT? NO . ENDOCRINOLOGY: ARE YOU DIABETIC? NO . OTHER: DO YOU NEED ANY PRESCRIPTIONS? NO . IF YES, PLEASE LIST: ____ . ANY NEW PROBLEMS WITH YOUR MEDICATIONS? NO . WHEN DID YOU LAST EAT? 1999 . WHEN DID YOU LAST DRINK? 0700 . WHAT DID YOU LAST DRINK? COFFEE . NAME OF PERSON DRIVING YOU HOME? TANJA ZIMMERMAN . DO YOU HAVE ANY OTHER QUESTIONS OR CONCERNS NO . VITAL SIGNS WT 185 LBS, HT 66 IN, BMI 29.86 INDEX, BP 130/78 MM HG, HR 75 /MIN, RR 16 /MIN, TEMP 97.6 F, OXYGEN SAT % 98%, NA INITIALS SC 12:47, REVIEWED BY: LS. ASSESSMENTS MYALGIA - M79.1 (PRIMARY) PROCEDURES PN TRIGGER POINT INJECTION WITH STEROIDS PRE PROCEDURE DIAGNOSIS 1. MYALGIA 2. PAIN AT BILATERAL NECK AREA, BILATERAL SHOULDER AREA, BILATERAL THORACIC AREA, AND BILATERAL LOWER BACK AREA POST PROCEDURE DIAGNOSIS 1. MYALGIA 2. PAIN AT BILATERAL NECK AREA, BILATERAL SHOULDER AREA, BILATERAL THORACIC AREA, AND BILATERAL LOWER BACK AREA PROCEDURE TRIGGER POINT INJECTION AT BILATERAL NECK AREA, BILATERAL SHOULDER AREA, BILATERAL THORACIC AREA, AND BILATERAL LOWER BACK AREA SURGEON DR. MAYRA STEVENS HAND CULTIVATOR NONE ANESTHESIA LOCAL PRE PROCEDURE NOTE THE PATIENT HAS A HISTORY OF CHRONIC PAIN AT THE RIGHT AND LEFT NECK AREA, RIGHT AND LEFT SHOULDER AREA, RIGHT AND LEFT THORACIC AREA, AND RIGHT AND LEFT LOWER BACK AREA. I EVALUATE THE PATIENT AND REVIEWED THE CHART. THERE IS EVIDENCE OF BANDS OF TISSUE WITH RESTRICTION OF MOVEMENT AND PRESENCE OF TRIGGER POINT AT THE AFFECTED AREA. I WENT OVER THE RISKS, ALTERNATIVES, AND BENEFITS ASSOCIATED WITH THIS PROCEDURE. THE PATIENT WOULD LIKE TO PROCEED AND GIVE CONSENT TO PERFORMED THE PROCEDURE. THE PATIENT DENIES UNEXPLAINABLE WEIGHT LOSS, FEVER, CHILLS, OR NEW CHANGES IN URINARY OR BOWEL CONTROL DESCRIPTION OF PROCEDURE THE PATIENT WAS BROUGHT TO THE PROCEDURE ROOM AND PLACED IN THE SITTING POSITION. THE AREA WAS CLEANED WITH ALCOHOL. THE PROCEDURE WAS DONE USING ASEPTIC STERILE TECHNIQUE. I CHECKED LATERALITY AND THE LEVEL WHERE THE PROCEDURE WAS GOING TO BE PERFORMED WITH THE PATIENT AND THE SUPPORTING STAFF AT THE MOMENT OF THE TIME OUT IN THE PROCEDURE ROOM. USING A 25-GAUGE NEEDLE, TRIGGER POINTS WERE INJECTED AT THE RIGHT AND LEFT NECK AREA, RIGHT AND LEFT SHOULDER AREA, RIGHT AND LEFT THORACIC AREA, AND RIGHT AND LEFT LOWER BACK AREA WITH A TOTAL OF 40 ML OF BUPIVACAINE 0.25% AND KENALOG 40 MG. THERE WAS NO EVIDENCE OF BLOOD, PARESTHESIA OR CEREBROSPINAL FLUID DURING THE PROCEDURE. THE PATIENT WAS SENT TO THE RECOVERY ROOM. THE PATIENT WAS MOVING THE EXTREMITIES AND DOING WELL. THERE WAS NO COMPLICATION DURING THE PROCEDURE POST PROCEDURE NOTE THE PATIENT WILL BE SEEN IN A FOLLOW UP IN THE NEXT FEW WEEKS. INSTRUCTIONS WERE GIVEN, QUESTIONS WERE ANSWERED, AND THE PATIENT EXPRESSED UNDERSTANDING AND AGREES WITH THE PLAN. I, JOSEPH PIEDRA, DOCUMENTED THE ABOVE INFORMATION ACTING A SCRIBE FOR DR. STEVENS. I HAVE REVIEWED THE ABOVE DOCUMENT, WRITTEN BY JOSEPH RUIZ AND I VERIFY THAT IT IS ACCURATE PROCEDURE CODES 46446 INJECT TRIGGER POINTS 3/> DISPOSITION & COMMUNICATION FOLLOW UP 3 WEEKS ELECTRONICALLY SIGNED BY MAYRA STEVENS MD ON 04/25/2017 AT 04:14 PM EST DISCLAIMER : THIS IS A VISIT SUMMARY EXTRACTED FROM THE [employer] CHART. IT IS NOT A COPY OF THE [employer] PROGRESS NOTE. BRANT
== END ==
LOC: M PAIN 11:45
PROVIDERS: ATTEND Anesthesiology
DX: G89.29 Other chronic pain (principal); M79.1 Myalgia; F17.210 Nicotine dependence, cigarettes, uncomplicated; Z79.84 Long term (current) use of oral hypoglycemic drugs; Z79.899 Other long term (current) drug therapy; J30.9 Allergic rhinitis, unspecified
CPT/HCPCS: 20553; J3301

== ENCOUNTER → 2017-04-27 | Outpatient (CLI) | payer OTHER ==
[~2017-04-27] MED LIST changes: -BUPIVACAINE HCL 0.25% 10 ML VIAL As Ordered ONE; +ISOVUE-M 300 61% 15ML VIAL (Q9967) As Ordered ONE; +LIDOCAINE 1% SDV INJ 30 ML VIAL As Ordered ONE; +MIDAZOLAM INJ 2 MG/2 ML VIAL (J2250) As Ordered ONE; -diazePAM 5 MG TAB As Ordered ONE; +fentaNYL 100 MCG/2 ML INJECTION (J3010) As Ordered ONE; -oxyCODONE 5MG TAB As Ordered ONE
--- NOTE | 2017-04-27 14:06 | REP ---
Partial lumbar spine series: Four views . History: Injection procedure for pain. 35 seconds of fluoroscopy time is reported. Findings: A sequence of four fluoroscopically obtained last image hold procedural spot radiographs of the lumbar spine document needle position and contrast injection associated with injection procedure. Signed by Izaiah Martin MD 04/27/2017 01:58 P
--- NOTE | 2017-05-12 01:18 | ECWPNPC ---
PATIENT NAME: SILVIA ZIMMERMAN : 1985 GENDER: FEMALE VISIT DATE: 04/27/2017 DISCHARGE DATE: 04/27/17 1338 VISIT LOCKED DATE TIME: PHYSICIAN: MAYRA STEVENS PHYSICIAN PAGER NO: INACTIVE RESOURCE: MAYRA STEVENS REASON FOR APPOINTMENT 1. [place] [facility], THER HISTORY OF PRESENT ILLNESS HISTORY OF PRESENT ILLNESS: PAIN THE PATIENT DESCRIBES THE PAIN... THE PATIENT DESCRIBES THE PAIN... PAIN THE PATIENT DESCRIBES THE PAIN... THE PATIENT DESCRIBES THE PAIN... FALL RISK SCREENING: SCREENING :NO FALLS IN THE PAST YEAR :NO FALLS IN THE PAST YEAR SCREENING :NO FALLS IN THE PAST YEAR :NO FALLS IN THE PAST YEAR CURRENT MEDICATIONS TAKING VITAMIN C 500 MG TABLET 1 TABLET ORALLY ONCE A DAY, NOTES: A FEW WEEKS AGO TAKING METFORMIN HCL ER 500 MG TABLET EXTENDED RELEASE 24 HOUR 3 TABLET ORALLY DAILY AT BEDTIME, NOTES: 04-26-172099 TAKING CLONIDINE HCL 0.3 MG TABLET 1 TABLET ORALLY ONCE A DAY, NOTES: 04-26-172099 TAKING PROBIOTIC TABLET DELAYED RELEASE 1 CAPSULE ORALLY DAILY, NOTES: 04-26-17 1300 TAKING CALCIUM + D 600-200 MG-UNIT TABLET 1 TABLET ORALLY ONCE A DAY, NOTES: A FEW WEEKS AGO TAKING LINZESS 290 MCG CAPSULE 1 CAPSULE ORALLY ONCE A DAY, NOTES: 04-27-17 0800 TAKING EMSAM 6 MG/24HR PATCH 24 HOUR 1 PATCH TO SKIN TRANSDERMAL ONCE A DAY, NOTES: 04-26-17 1400 TAKING KLONOPIN 1 MG TABLET 1 TABLET ORALLY TWICE A DAY NEEDED, NOTES: 04-26-171299 TAKING BACLOFEN 10 MG TABLET 1/2 - 1 TABLET ORALLY BID, NOTES: 04-26-172099 TAKING IBUPROFEN 600 MG TABLET 1 TABLET WITH FOOD OR MILK ORALLY THREE TIMES A DAY NEEDED, NOTES: 04-26-172099 TAKING ELETRIPTAN HYDROBROMIDE 20 MG TABLET ORALLY , NOTES: 04-26-172099 TAKING SINGULAIR 10 MG TABLET 1 TABLET IN THE EVENING ORALLY ONCE A DAY, NOTES: 04-26-172099 TAKING BENADRYL , NOTES: 04-26-172099 NOT-TAKING INDOMETHACIN 50 MG CAPSULE 1 CAPSULE WITH FOOD OR MILK ORALLY TWICE A DAY NOT-TAKING LEUCOVORIN CALCIUM 20 MG TABLET 1 TAB ORALLY ONCE A DAY AT BEDTIME, NOTES: 04/12/17 AT 2100 UNKNOWN ZONISAMIDE 50 MG CAPSULE 1 CAPSULE ORALLY TWICE A DAY UNKNOWN XANAX 1 MG TABLET 1 TABLET ORALLY TWICE A DAY NEEDED UNKNOWN LEXAPRO 20 MG TABLET 1 TABLET ORALLY ONCE A DAY MEDICATION LIST REVIEWED AND RECONCILED WITH THE PATIENT PAST MEDICAL HISTORY SCOLIOSIS - MINIMAL DEXTRO-CONVEX CURVATURE - SCOLIOSIS SERIES ON 01/2009 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 INTERMITT 2 YEARS/ S/P 2 LASER LAPROSCOPIES OSTEOPOROSIS/OSTEOPENIA DUE TO LUPRON RX/ DEXA SCAN ON 03/2009 LUMBAR SPINE NORMAL BMD FOR AGE OCD/ SOCIAL ANXIETY/ BULEMIA NERVOSA PURGING TYPE/ DEPRESSIVE DISORDER/ ANXIETY PSORIASIS/SEBORRHEIC DERMATITIS RIGHT HALLUX VALGUS DEFORMITY S/P RT BUNIONECTOMY 2010 GANGLION LEFT HAND- W/ NL RADIOGRAPH S/P SURGICALLY REMOVED BULIMIA NERVOSA PURGING TYPE POLYCYSTIC OVARIES MIGRAINE ALLERGIC RHINITIS ALLERGIES ENVIRONMENTAL: STUFFY NOSE, ITCHY EYES, SOMETIMES HIVES REVIEW OF SYSTEMS REVIEWED BY: PROVIDER: , . CONSTITUTIONAL: ANY CHANGE IN YOUR MEDICAL CONDITION? NO, NO . CHILLS NO, NO . FEVER NO, NO . INFECTION: DO YOU HAVE NEW INFECTIONS? NO, NO . DO YOU HAVE HISTORY OF MRSA? NO, NO . MUSCULOSKELETAL: ANY NEW PATTERNS OF PAIN OR NUMBNESS? NO, NO . GASTROENTEROLOGY: ANY NEW CHANGE IN BOWEL CONTROL? NO, NO . GENITOURINARY: ANY NEW CHANGE IN BLADDER CONTROL? NO, NO . IS THERE A CHANCE YOU COULD BE ? NO, NO . HEMATOLOGY/LYMPH: DO YOU TAKE ANY BLOOD THINNERS? (FOR EXAMPLE- COUMADIN, PLAVIX, AGGRENOX, PLATEL, PRADAXA, OR XARELTO) NO, NO . WHEN WAS YOUR LAST DOSE? DATE: TIME: , DATE: TIME: . NEUROLOGY: HAVE YOU FALLEN IN THE PAST 6 MONTHS? NO, NO . ANY NEW EXTREMITY NUMBNESS OR WEAKNESS? NO, NO . CARDIOLOGY: DO YOU HAVE A PACEMAKER OR DEFIBRILLATOR? NO, NO . RESPIRATORY: HAVE YOU BEEN SICK IN THE PAST WEEK? NO, NO . FEVER NO, NO . FLU LIKE SYMPTOMS? NO, NO . COUGH NO, NO . INTEGUMENTARY: DO YOU HAVE ANY RASHES OR OPEN SORES? NO, NO . ALLERGIC/IMMUNO: ARE YOU ALLERGIC TO SHELLFISH OR IV DYE? NO, NO . ANY NEW ALLERGIES? NO, NO . PSYCHIATRIC: DO YOU HAVE THOUGHTS OF HURTING YOURSELF OR SOMEONE ELSE? NO, NO . ARE YOU ABUSED, NEGLECTED, OR IN AN UNSAFE ENVIRONMENT? NO, NO . ENDOCRINOLOGY: ARE YOU DIABETIC? NO, NO . OTHER: DO YOU NEED ANY PRESCRIPTIONS? UNSURE, NO . IF YES, PLEASE LIST: BACLOFEN NOT WORKING, ____ . ANY NEW PROBLEMS WITH YOUR MEDICATIONS? YES, NO . WHEN DID YOU LAST EAT? 0500, ____ . WHEN DID YOU LAST DRINK? 0800, ____ . WHAT DID YOU LAST DRINK? COFFEE, ____ . NAME OF PERSON DRIVING YOU HOME? SIXTO UREÑA, ____ . DO YOU HAVE ANY OTHER QUESTIONS OR CONCERNS NO, NO . VITAL SIGNS WT 190 LBS, HT 66 IN, BMI 30.66 INDEX, BP 128/87 MM HG, HR 101 /MIN, RR 16 /MIN, TEMP 97.4 F, OXYGEN SAT % 98%, NA INITIALS SC 11:12. ASSESSMENTS SPONDYLOSIS OF LUMBAR REGION WITHOUT MYELOPATHY OR RADICULOPATHY - M47.816 (PRIMARY) PROCEDURES PN LUMBAR FACET BLOCK THERAPEUTIC PRE PROCEDURE DIAGNOSIS LUMBAR SPONDYLOSIS POST PROCEDURE DIAGNOSIS LUMBAR SPONDYLOSIS PROCEDURE BILATERAL L3 - L4, AND BILATERAL L4 - L5, LUMBAR FACET THERAPEUTIC BLOCK SURGEON DR. MAYRA STEVENS ICT DEVELOPER NONE ANESTHESIA LOCAL WITH IV SEDATION PRE PROCEDURE NOTE THE PATIENT HAS A HISTORY OF CHRONIC LOW BACK PAIN. I EVALUATE THE PATIENT AND REVIEWED THE CHART. I WENT OVER THE RISKS, ALTERNATIVES, AND BENEFITS ASSOCIATED WITH THIS PROCEDURE. PATIENT WOULD LIKE TO MOVE FORWARD WITH IV SEDATION DUE TO DISCOMFORT, PAIN AND ANXIETY ASSOCIATED WITH THE PROCEDURE. THE PATIENT WOULD LIKE TO PROCEED AND GIVE CONSENT TO PERFORMED THE PROCEDURE. THE PATIENT DENIES UNEXPLAINABLE WEIGHT LOSS, FEVER, CHILLS, OR NEW CHANGES IN URINARY OR BOWEL CONTROL DESCRIPTION OF PROCEDURE THE PATIENT WAS BROUGHT TO THE PROCEDURE ROOM AND PLACED IN THE PRONE POSITION. THE LUMBOSACRAL AREA WAS CLEANED WITH CHLORAPREP SOLUTION AND DRAPED ASEPTICALLY. THE PROCEDURE WAS DONE UNDER STERILE CONDITIONS. I CHECKED LATERALITY AND THE LEVEL WHERE THE PROCEDURE WAS GOING TO BE PERFORMED WITH THE PATIENT AND THE SUPPORTING STAFF AT THE MOMENT OF THE TIME OUT IN THE PROCEDURE ROOM. UNDER FLUOROSCOPIC GUIDANCE, THE TARGET POINT WAS SELECTED AT THE RIGHT AND LEFT L3-L4, AND RIGHT AND LEFT L4-L5, FACET JOINT. TARGET POINT WAS SELECTED AFTER LATERAL ROTATION AND TILT OF THE MAGNIFIER OF THE C-ARM. LIDOCAINE 0.5% WAS USED TO NUMB THE SKIN AND THE SUBCUTANEOUS TISSUE BELOW IT. SPINAL NEEDLES, 22-GAUGE, WERE ADVANCED UNDER FLUOROSCOPIC GUIDANCE AND FOLLOWING PATIENT FEEDBACK UNTIL THE TARGETS WERE TOUCHED. THE POSITION OF THE NEEDLES WAS VERIFIED WITH AP AND LATERAL VIEWS. AFTER PROPER POSITION OF THE NEEDLES WAS ACHIEVED, ISOVUE-M DYE 30% 0.1 ML WAS INJECTED SHOWING ADEQUATE SPREAD OF THE DYE. THEN A SOLUTION OF 1.9 ML OF BUPIVACAINE 0.125% OF KENALOG 10 MG WAS INJECTED AT EACH SITE. PATIENT RECEIVED VERSED 6 MG AND FENTANYL 300 MCG IV DIVIDED DOSES THERE WAS NO EVIDENCE OF BLOOD, PARESTHESIA OR CEREBROSPINAL FLUID DURING THE PROCEDURE. THE PATIENT WAS SENT TO THE RECOVERY ROOM. THE PATIENT WAS MOVING THE EXTREMITIES AND DOING WELL. THERE WAS NO COMPLICATION DURING THE PROCEDURE. FLUOROSCOPY TIME WAS 35 SECONDS. FACE TO FACE TIME WAS 17 MINUTES POST PROCEDURE NOTE THE PATIENT WILL BE SEEN IN A FOLLOW UP IN THE NEXT FEW WEEKS. INSTRUCTIONS WERE GIVEN, QUESTIONS WERE ANSWERED, AND THE PATIENT EXPRESSED UNDERSTANDING AND AGREES WITH THE PLAN. I, JOSEPH PIEDRA, DOCUMENTED THE ABOVE INFORMATION ACTING A SCRIBE FOR DR. STEVENS. I HAVE REVIEWED THE ABOVE DOCUMENT, WRITTEN BY JOSEPH PIEDRA SCRIBE AND I VERIFY THAT IT IS ACCURATE DIAGNOSTIC IMAGING [facility] FACET BLOCK (PAIN)[id number] PROCEDURE CODES 70735 INJ PARAVERT F JNT L/S 1 LEV, MODIFIERS: 50 [id number] INJ PARAVERT F JNT L/S 2 LEV, MODIFIERS: 50 [id number] RADXPS IN END [id number] PXD [id number] MOD SED SAME PHYS/QHP 5/>YRS DISPOSITION & COMMUNICATION FOLLOW UP 3 WEEKS ELECTRONICALLY SIGNED BY MAYRA STEVENS MD ON 05/11/2017 AT 10:26 PM EST DISCLAIMER : THIS IS A VISIT SUMMARY EXTRACTED FROM THE [employer] CHART. IT IS NOT A COPY OF THE [employer] PROGRESS NOTE. MTDD
== END ==
LOC: M PAIN 11:00
PROVIDERS: ATTEND Anesthesiology
DX: G89.29 Other chronic pain (principal); M47.816 Spondylosis without myelopathy or radiculopathy, lumbar region; M41.9 Scoliosis, unspecified; M81.0 Age-related osteoporosis without current pathological fracture; F42.9 Obsessive-compulsive disorder, unspecified; F40.10 Social phobia, unspecified; F32.9 Major depressive disorder, single episode, unspecified; F41.9 Anxiety disorder, unspecified; F50.2 Bulimia nervosa; L40.9 Psoriasis, unspecified; L21.9 Seborrheic dermatitis, unspecified; E28.2 Polycystic ovarian syndrome; J30.9 Allergic rhinitis, unspecified; Z79.84 Long term (current) use of oral hypoglycemic drugs; Z79.899 Other long term (current) drug therapy; Z79.1 Long term (current) use of non-steroidal anti-inflammatories (NSAID)
CPT/HCPCS: 64493; 64494; 99152; J2250; J3010; J3301; Q9967

== ENCOUNTER → 2017-05-13 | Outpatient (CLI) | payer OTHER | LOC: M PAIN 13:45 | DX: M79.1 Myalgia (principal); M54.2 Cervicalgia; M12.88 Other specific arthropathies, not elsewhere classified, other specified site; M46.96 Unspecified inflammatory spondylopathy, lumbar region; F17.210 Nicotine dependence, cigarettes, uncomplicated; J30.2 Other seasonal allergic rhinitis | CPT/HCPCS: G0463 ==

== ENCOUNTER → 2017-06-30 | Outpatient (CLI) | payer OTHER ==
[~2017-06-30] MED LIST changes: +BUPIVACAINE HCL 0.25% 30 ML VIAL As Ordered; -BUPIVACAINE HCL 0.25% 30 ML VIAL As Ordered ONE; -CLON0.2T PO; -IBUP1TAB7 PO; +ISOVUE-M 300 61% 15ML VIAL (Q9967) As Ordered; -ISOVUE-M 300 61% 15ML VIAL (Q9967) As Ordered ONE; -KLON1TAB PO; -LEXA1TAB2 PO; +LIDOCAINE 1% SDV INJ 30 ML VIAL As Ordered; -LIDOCAINE 1% SDV INJ 30 ML VIAL As Ordered ONE; -LINZ145C PO; -METF500T13 PO; +MIDAZOLAM INJ 2 MG/2 ML VIAL (J2250) As Ordered; -MIDAZOLAM INJ 2 MG/2 ML VIAL (J2250) As Ordered ONE; -NORCOTAB PO; -RIZA5TAB3 PO; -SELE6PA TD; -TOPI100T9; +TRIAMCINOLONE ACETONIDE SUSP 40 MG/ML VIAL (J3301) As Ordered; -TRIAMCINOLONE ACETONIDE SUSP 40 MG/ML VIAL (J3301) As Ordered ONE; -XANA1TAB2 PO; -ZOFR4TAB3 PO; +fentaNYL 100 MCG/2 ML INJECTION (J3010) As Ordered; -fentaNYL 100 MCG/2 ML INJECTION (J3010) As Ordered ONE
== END ==
LOC: M PAIN 10:30
DX: G89.29 Other chronic pain (principal); M47.812 Spondylosis without myelopathy or radiculopathy, cervical region; M41.80 Other forms of scoliosis, site unspecified; M81.8 Other osteoporosis without current pathological fracture; M85.80 Other specified disorders of bone density and structure, unspecified site; F40.11 Social phobia, generalized; F32.9 Major depressive disorder, single episode, unspecified; F41.9 Anxiety disorder, unspecified; L21.9 Seborrheic dermatitis, unspecified; G43.909 Migraine, unspecified, not intractable, without status migrainosus; J30.89 Other allergic rhinitis; Z79.899 Other long term (current) drug therapy
CPT/HCPCS: J3301

== ENCOUNTER → 2017-07-19 | Outpatient (CLI) | payer OTHER | LOC: M PAIN 14:30 | DX: G43.709 Chronic migraine without aura, not intractable, without status migrainosus (principal); M47.812 Spondylosis without myelopathy or radiculopathy, cervical region; M54.2 Cervicalgia; E28.2 Polycystic ovarian syndrome; F17.210 Nicotine dependence, cigarettes, uncomplicated; Z79.899 Other long term (current) drug therapy; J30.2 Other seasonal allergic rhinitis | CPT/HCPCS: G0463 ==

== ENCOUNTER → 2017-10-12 | Outpatient (CLI) | payer OTHER ==
[~2017-10-12] MED LIST changes: +BOTULINUM INJ 100 UNITS (J0585) IM; -BUPIVACAINE HCL 0.25% 30 ML VIAL As Ordered; -ISOVUE-M 300 61% 15ML VIAL (Q9967) As Ordered; -LIDOCAINE 1% SDV INJ 30 ML VIAL As Ordered; -MIDAZOLAM INJ 2 MG/2 ML VIAL (J2250) As Ordered; -TRIAMCINOLONE ACETONIDE SUSP 40 MG/ML VIAL (J3301) As Ordered; +diazePAM 5 MG TAB As Ordered; -fentaNYL 100 MCG/2 ML INJECTION (J3010) As Ordered; +oxyCODONE 5MG TAB As Ordered
== END ==
LOC: M PAIN 11:30
DX: G43.709 Chronic migraine without aura, not intractable, without status migrainosus (principal); M41.9 Scoliosis, unspecified; M81.8 Other osteoporosis without current pathological fracture; F32.9 Major depressive disorder, single episode, unspecified; F41.9 Anxiety disorder, unspecified; L40.9 Psoriasis, unspecified; G43.909 Migraine, unspecified, not intractable, without status migrainosus; F17.210 Nicotine dependence, cigarettes, uncomplicated; J30.89 Other allergic rhinitis; Z79.84 Long term (current) use of oral hypoglycemic drugs; Z79.899 Other long term (current) drug therapy; Z86.59 Personal history of other mental and behavioral disorders
CPT/HCPCS: J0585

== ENCOUNTER → 2017-12-09 | Outpatient (CLI) | payer OTHER | LOC: M PAIN 14:00 | DX: G43.709 Chronic migraine without aura, not intractable, without status migrainosus (principal); M47.812 Spondylosis without myelopathy or radiculopathy, cervical region; M54.2 Cervicalgia; M12.88 Other specific arthropathies, not elsewhere classified, other specified site; M41.9 Scoliosis, unspecified; M81.0 Age-related osteoporosis without current pathological fracture; M85.80 Other specified disorders of bone density and structure, unspecified site; F42.9 Obsessive-compulsive disorder, unspecified; F40.10 Social phobia, unspecified; F50.2 Bulimia nervosa; F32.9 Major depressive disorder, single episode, unspecified; F41.9 Anxiety disorder, unspecified; L21.9 Seborrheic dermatitis, unspecified; L40.9 Psoriasis, unspecified; J30.9 Allergic rhinitis, unspecified; E28.2 Polycystic ovarian syndrome; F17.210 Nicotine dependence, cigarettes, uncomplicated; Z79.84 Long term (current) use of oral hypoglycemic drugs; Z79.899 Other long term (current) drug therapy | CPT/HCPCS: G0463 ==

== ENCOUNTER → 2018-01-11 | Outpatient (CLI) | payer OTHER ==
[~2018-01-11] MED LIST changes: -BOTULINUM INJ 100 UNITS (J0585) IM; +BUPIVACAINE HCL 0.25% 30 ML VIAL As Ordered; +ISOVUE-M 300 61% 15ML VIAL (Q9967) As Ordered; +LIDOCAINE 1% SDV INJ 30 ML VIAL As Ordered; +MIDAZOLAM INJ 2 MG/2 ML VIAL (J2250) As Ordered; +TRIAMCINOLONE ACETONIDE SUSP 40 MG/ML VIAL (J3301) As Ordered; -diazePAM 5 MG TAB As Ordered; +fentaNYL 100 MCG/2 ML INJECTION (J3010) As Ordered; -oxyCODONE 5MG TAB As Ordered
== END ==
LOC: M PAIN 13:00
DX: G89.29 Other chronic pain (principal); M47.816 Spondylosis without myelopathy or radiculopathy, lumbar region; F40.10 Social phobia, unspecified; F32.9 Major depressive disorder, single episode, unspecified; L40.9 Psoriasis, unspecified; G43.909 Migraine, unspecified, not intractable, without status migrainosus; J30.9 Allergic rhinitis, unspecified; F17.200 Nicotine dependence, unspecified, uncomplicated; Z79.84 Long term (current) use of oral hypoglycemic drugs; Z79.899 Other long term (current) drug therapy; Z86.59 Personal history of other mental and behavioral disorders
CPT/HCPCS: J3301

== ENCOUNTER → 2018-06-07 | Outpatient (CLI) | payer OTHER ==
[~2018-06-07] MED LIST changes: +BOTULINUM INJ 100 UNITS (J0585) IM ONE; -BUPIVACAINE HCL 0.25% 30 ML VIAL As Ordered; +CLON0.2T PO; +IBUP1TAB7 PO; -ISOVUE-M 300 61% 15ML VIAL (Q9967) As Ordered; +KLON1TAB PO; +LEXA1TAB2 PO; -LIDOCAINE 1% SDV INJ 30 ML VIAL As Ordered; +LINZ145C PO; +METF500T13 PO; -MIDAZOLAM INJ 2 MG/2 ML VIAL (J2250) As Ordered; +NORCOTAB PO; +RIZA5TAB3 PO; +SELE6PA TD; +TOPI100T9; -TRIAMCINOLONE ACETONIDE SUSP 40 MG/ML VIAL (J3301) As Ordered; +XANA1TAB2 PO; +ZOFR4TAB14 PO; +diazePAM 5 MG TAB As Ordered ONE; -fentaNYL 100 MCG/2 ML INJECTION (J3010) As Ordered; +oxyCODONE 5MG TAB As Ordered ONE
--- NOTE | 2018-06-22 01:37 | ECWPNPC ---
PATIENT NAME: SILVIA ZIMMERMAN : 1985 GENDER: FEMALE VISIT DATE: 06/07/2018 DISCHARGE DATE: 06/07/18 1417 VISIT LOCKED DATE TIME: PHYSICIAN: MAYRA STEVENS MD PHYSICIAN PAGER NO: INACTIVE RESOURCE: MAYRA STEVENS MD REASON FOR APPOINTMENT 1. BOTOX HISTORY OF PRESENT ILLNESS HISTORY OF PRESENT ILLNESS: PAIN THE PATIENT DESCRIBES THE PAIN... FALL RISK SCREENING: SCREENING :NO FALLS IN THE PAST YEAR CURRENT MEDICATIONS TAKING METFORMIN HCL ER 500 MG TABLET EXTENDED RELEASE 24 HOUR 3 TABLET ORALLY DAILY AT BEDTIME, NOTES: 06-05-18899 TAKING CLONIDINE HCL 0.3 MG TABLET 2 TABLETS ORALLY ONCE A DAY, NOTES: 06-06-182099 TAKING LINZESS 290 MCG CAPSULE 1 CAPSULE ORALLY ONCE A DAY, NOTES: 06-06-17899 TAKING IBUPROFEN 600 MG TABLET 1 TABLET WITH FOOD OR MILK ORALLY THREE TIMES A DAY NEEDED, NOTES: 06-06-182099 TAKING BENADRYL 25 MG ORAL 3 TABLETS DIRECTED, NOTES: A FEW DAYS TAKING XANAX 1 MG TABLET 1 TABLET ORALLY DAILY, NOTES: 06-06-18899 TAKING ALPRAZOLAM ER 3 MG TABLET EXTENDED RELEASE 24 HOUR 1 TABLET IN THE MORNING ORALLY ONCE A DAY, NOTES: 06-06-18899 TAKING SENOKOT 8.6 MG TABLET 2 TABLETS AT BEDTIME NEEDED ORALLY ONCE A DAY, NOTES: A COUPLE DAYS TAKING GABAPENTIN 300 MG CAPSULE 1 CAPSULE ORALLY ONCE A DAY, NOTES: 06-06-18899 NOT-TAKING CALCIUM + D 600-200 MG-UNIT TABLET 1 TABLET ORALLY ONCE A DAY, NOTES: NOT KATELY NOT-TAKING SELEGILINE HCL 5 MG TABLET 1 TABLET WITH BREAKFAST AND LUNCH ORALLY TWICE A DAY, NOTES: > 2 WEEKS UNKNOWN TRAMADOL HCL 50 MG TABLET 1/2 - 1 TABLET ORALLY EVERY 6 -8 HRS PRN PAIN UNKNOWN SINGULAIR 10 MG TABLET 1 TABLET IN THE EVENING ORALLY ONCE A DAY, NOTES: 10/11 2099 UNKNOWN DICLOFENAC POTASSIUM 50 MG TABLET 1 TABLET ORALLY TWICE A DAY, NOTES: NONE RECENT-DIDN'T HELP UNKNOWN EMSAM 6 MG/24HR PATCH 24 HOUR 1 PATCH TO SKIN TRANSDERMAL ONCE A DAY, NOTES: 2 WEEKS AGO UNKNOWN VITAMIN C 500 MG TABLET 1 TABLET ORALLY ONCE A DAY, NOTES: 2 MONTHS AGO UNKNOWN PROBIOTIC TABLET DELAYED RELEASE 1 CAPSULE ORALLY DAILY, NOTES: 2 MONTHS AGO MEDICATION LIST REVIEWED AND RECONCILED WITH THE PATIENT PAST MEDICAL HISTORY SCOLIOSIS - MINIMAL DEXTRO-CONVEX CURVATURE - SCOLIOSIS SERIES ON 01/2009 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 INTERMITT 2 YEARS/ S/P 2 LASER LAPROSCOPIES OSTEOPOROSIS/OSTEOPENIA DUE TO LUPRON RX/ DEXA SCAN ON 03/2009 LUMBAR SPINE NORMAL BMD FOR AGE OCD/ SOCIAL ANXIETY/ BULEMIA NERVOSA PURGING TYPE/ DEPRESSIVE DISORDER/ ANXIETY PSORIASIS/SEBORRHEIC DERMATITIS RIGHT HALLUX VALGUS DEFORMITY S/P RT BUNIONECTOMY 2010 GANGLION LEFT HAND- W/ NL RADIOGRAPH S/P SURGICALLY REMOVED BULIMIA NERVOSA PURGING TYPE POLYCYSTIC OVARIES MIGRAINE ALLERGIC RHINITIS SINUS INFECTION ALLERGIES ENVIRONMENTAL: STUFFY NOSE, ITCHY EYES, SOMETIMES HIVES SURGICAL HISTORY LASER LAPAROSCOPY FOR ENDOMETRIOSIS WITH FINDING OF MINIMAL ENDOMETRIOSIS WISDOM TOOTH RT BUNIONECTOMY 07/2009 LASER RX FOR BENIGH NEOPLASM EYELID ANGIOMA [id number] SEPTOPLASTY, ADENOIDECTOMY, BALLOON SINUPLASTY 08/2016 INVITRO FERT CYCLES WITH EGG EXTRACTIONS [id number] HOSPITALIZATION/MAJOR DIAGNOSTIC PROCEDURE MONO 2006 IN CHILDHOOD LUNG REASON REVIEW OF SYSTEMS REVIEWED BY: PROVIDER: . CONSTITUTIONAL: ANY CHANGE IN YOUR MEDICAL CONDITION? NO . CHILLS NO . FEVER NO . INFECTION: DO YOU HAVE NEW INFECTIONS? NO . DO YOU HAVE HISTORY OF MRSA? NO . MUSCULOSKELETAL: ANY NEW PATTERNS OF PAIN OR NUMBNESS? NO . GASTROENTEROLOGY: ANY NEW CHANGE IN BOWEL CONTROL? NO . GENITOURINARY: ANY NEW CHANGE IN BLADDER CONTROL? NO . IS THERE A CHANCE YOU COULD BE ? NO . HEMATOLOGY/LYMPH: DO YOU TAKE ANY BLOOD THINNERS? (FOR EXAMPLE- COUMADIN, PLAVIX, AGGRENOX, PLATEL, PRADAXA, OR XARELTO) NO . WHEN WAS YOUR LAST DOSE? DATE: TIME: . NEUROLOGY: HAVE YOU FALLEN IN THE PAST 6 MONTHS? NO . ANY NEW EXTREMITY NUMBNESS OR WEAKNESS? NO . CARDIOLOGY: DO YOU HAVE A PACEMAKER OR DEFIBRILLATOR? NO . RESPIRATORY: HAVE YOU BEEN SICK IN THE PAST WEEK? NO . FEVER NO . FLU LIKE SYMPTOMS? NO . COUGH NO . INTEGUMENTARY: DO YOU HAVE ANY RASHES OR OPEN SORES? NO . ALLERGIC/IMMUNO: ARE YOU ALLERGIC TO SHELLFISH OR IV DYE? NO . ANY NEW ALLERGIES? NO . PSYCHIATRIC: DO YOU HAVE THOUGHTS OF HURTING YOURSELF OR SOMEONE ELSE? NO . ARE YOU ABUSED, NEGLECTED, OR IN AN UNSAFE ENVIRONMENT? NO . ENDOCRINOLOGY: ARE YOU DIABETIC? NO . OTHER: DO YOU NEED ANY PRESCRIPTIONS? NO . IF YES, PLEASE LIST: ____ . ANY NEW PROBLEMS WITH YOUR MEDICATIONS? NO . WHEN DID YOU LAST EAT? 06/06/6PM . WHEN DID YOU LAST DRINK? 06/07 8AM . WHAT DID YOU LAST DRINK? WATER . NAME OF PERSON DRIVING YOU HOME? TANJA ZIMMERMAN . DO YOU HAVE ANY OTHER QUESTIONS OR CONCERNS PT STATES THAT SHE IS A CURRENT SMOKER, REFUSING ANY SMOKING CESSATION COUSELING AT THIS TIME. PT RECEIVED FLU SHOT AND PPD 3 WEEKS AGO AND WILL RECEIVE ANOTHER PPD IN 2 WEEKS. DISCUSSED VACCINATIONS WITH DR STEVENS, MD STEVENS OK TO CONTINUE, DISCUSSED VACCINATIONS AND BOTOX INJECTIONS WITH PT. PT REQUESTS TO CONTINUE WITH BOTOX INJECTIONS TODAY, PT UNDERSTANDS POTENTIAL RISKS AND COMPLICATIONS. DS . VITAL SIGNS WT 158.8 LBS, HT 66 IN, BMI 25.63 INDEX, BP 105/67 MM HG, HR 88 /MIN, RR 16 /MIN, TEMP 97.8 F, OXYGEN SAT % 99%, NA INITIALS AW 1149. ASSESSMENTS CHRONIC MIGRAINE - G43.709 (PRIMARY) PROCEDURES PN BOTOX INJECTIONS SUBSEQUENT INJECTIONS PRE PROCEDURE DIAGNOSIS CHRONIC MIGRAINE HEADACHES. POST PROCEDURE DIAGNOSIS CHRONIC MIGRAINE HEADACHES. PROCEDURE BOTOX INJECTION AT THE HEAD, NECK AND SHOULDERS. SURGEON DR. MAYRA STEVENS INTERNAL CONTROLS MANAGER NONE ANESTHESIA NONE PRE PROCEDURE NOTE THE PATIENT HAS HISTORY OF CHRONIC MIGRAINE HEADACHES. I EVALUATE THE PATIENT AND REVIEWED THE CHART. I WENT OVER THE RISKS, ALTERNATIVES, AND BENEFITS ASSOCIATED WITH THIS PROCEDURE. THE PATIENT WOULD LIKE TO PROCEED AND GIVE CONSENT TO PERFORMED THE PROCEDURE. THE PATIENT DENIES UNEXPLAINABLE WEIGHT LOSS, FEVER, CHILLS, OR NEW CHANGES IN URINARY OR BOWEL CONTROL. THE PATIENT DID A BOTOX INJECTION AT THE HEAD, NECK AND SHOULDERS 3 MONTHS AGO AND EXPRESSED MORE THAN 50% REDUCTION ON THE FREQUENCY AND INTENSITY OF THE HEADACHES. THE PATIENT EXPRESS THAT THE USE OF BOTOX HAS REDUCE SIGNIFICANTLY THE SEVERITY OF THE HEADACHES AND EXPRESSED THAT WANT TO RECEIVE THIS PROCEDURE AGAIN TODAY DESCRIPTION OF PROCEDURE THE PATIENTS WAS BROUGHT TO THE PROCEDURE ROOM AND PLACED IN THE SUPINE POSITION. I CHECKED LATERALITY AND THE AREAS WHERE THE PROCEDURE WAS GOING TO BE PERFORMED WITH THE PATIENT AND THE SUPPORTING STAFF AT THE MOMENT OF THE TIME OUT IN THE PROCEDURE ROOM. FOR THE PROCEDURE I USED A SOLUTION OF 5 UNITS OF BOTOX PER EACH 0.1 ML OF THE SOLUTION. I USED A 30-GAUGE NEEDLE TO INJECT THE SOLUTION AT THE SELECTED LOCATIONS. I INJECTED FIRST THE RIGHT AND LEFT ENGINEERING WRITER MUSCLES. THE LANDMARK FOR BOTH INJECTIONS WAS APPROXIMATELY 1 CM ABOVE THE SUPERIOR MEDIAL EDGE OF THE EYEBROW. AFTER THESE TWO INJECTIONS, I INJECTED THE PROCERUS MUSCLE AT THE MIDLINE POINT BETWEEN THESE FIRST TWO INJECTIONS. THEN I PROCEEDED TO INJECT THE RIGHT AND LEFT FRONTALIS MUSCLE. TWO INJECTIONS WERE DONE IN EACH SIDE. THE FIRST INJECTION WAS DONE APPROXIMATELY 2 CM ABOVE THE FIRST INJECTION OF THE ENGINEERING WRITER. THE SECOND INJECTION WAS DONE APPROXIMATELY 1.5 CM LATERAL TO THIS FIST INJECTION OF THE FRONTALIS OF EACH SIDE. AFTER THE INJECTIONS OVER THE FOREHEAD WERE DONE, THE PATIENT'S HEAD WAS TURNED TO THE LEFT SIDE AND WE STARTED TO WORK WITH THE RIGHT TEMPORALIS MUSCLE. FIRST INJECTION WAS DONE IN A VERTICAL LINE OF THE TRAGUS APPROXIMATELY 3 CM ABOVE THE TRAGUS. THE SECOND INJECTION WAS DONE APPROXIMATELY 2 CM ABOVE THE FIRST INJECTION. THE THIRD INJECTION WAS DONE APPROXIMATELY 1 CM FRONT BALLARD FROM THIS VERTICAL LINE CREATED AT THE LEVEL OF THE TRAGUS, MCFP BETWEEN THESE TWO INJECTIONS. THE FOURTH INJECTION WAS DONE APPROXIMATELY 1.5 CM BACK FROM THE SECOND INJECTION TO THE TEMPORALIS IN LINE TO THE MIDPORTION OF THE EAR. THEN, WE PROCEEDED TO INJECT THE LEFT TEMPORALIS MUSCLE. WE CLEANED THE AREA WITH ALCOHOL AND PROCEEDED TO PERFORM THE SAME FOR INJECTIONS DESCRIBED ABOVE BUT IN THE LEFT TEMPORALIS MUSCLE USING THE SAME LANDMARKS. AFTER THESE INJECTIONS WERE DONE, THE PATIENT WAS SEATED. FIRST, WE STARTED TO INJECT THE LEFT AND RIGHT OCCIPITALIS MUSCLE. I INJECTED AT THE FOLLOWING PLACES IN THE RIGHT AND LEFT MUSCLE. THE FIRST INJECTION WAS DONE AT THE MIDPOINT POSITION BETWEEN THE MASTOID PROCESS AND THE INION OF THE OCCIPITAL PROTUBERANCE. THE SECOND INJECTION WAS DONE APPROXIMATELY 1.5 CM SUPERIOR AND LATERAL OF THIS POINT. THE THIRD INJECTION WAS DONE APPROXIMATELY 1.5 CM SUPERIOR AND MEDIAL TO THIS FIRST INJECTION. THEN, I PROCEEDED TO INJECT THE RIGHT AND LEFT PARASPINAL MUSCLES. LANDMARK OF THE INJECTION WERE APPROXIMATELY: FIRST INJECTION 3 CM BELOW THE INION AND 1 CM LATERAL TO THE MIDLINE AND SECOND INJECTION AT EACH SIDE WAS DONE APPROXIMATELY 1.5 CM SUPERIOR AND LATERAL OF THE FIRST INJECTION. THE LAST GROUP OF INJECTIONS WAS DONE OVER THE RIGHT AND LEFT TRAPEZIUS MUSCLE OVER THE SHOULDERS AREA. THE FIRST INJECTION WAS DONE AT THE MIDPOINT BETWEEN THE INFLECTION POINT BETWEEN THE NECK AND SHOULDER AND THE ACROMION. THE SECOND AND THIRD INJECTIONS WERE DONE APPROXIMATELY 2.5 CM LATERAL AND MEDIAL FROM THIS FIRST INJECTION. SAME TARGETS WERE USED IN THE RIGHT AND LEFT SIDE. IN TOTAL, I INJECTED 155 UNITS OF BOTOX. PROCEDURE WAS DONE WITHOUT EVIDENCE OF PARESTHESIA, PNEUMOTHORAX, OR ANY COMPLICATIONS. THE PATIENT TOLERATED THE PROCEDURE VERY WELL. THE PATIENT WAS SENT TO THE RECOVERY ROOM FOR OBSERVATIONS. INJECTIONS WERE DONE AFTER CLEANING WITH ALCOHOL, USING ASEPTIC TECHNIQUES POST PROCEDURE NOTE THE PROCEDURE DONE WAS DISCUSSED WITH THE PATIENT. THE PATIENT WILL BE SEEN IN A FOLLOW UP IN THE NEXT FEW WEEKS. INSTRUCTIONS WERE GIVEN, QUESTIONS WERE ANSWERED, AND THE PATIENT EXPRESSED UNDERSTANDING AND AGREES WITH THE PLAN. I, DAVID GARCIA, DOCUMENTED THE ABOVE INFORMATION ACTING A SCRIBE FOR DR. STEVENS. I HAVE REVIEWED THE ABOVE DOCUMENT, WRITTEN BY DAVID RUIZ AND I VERIFY THAT IT IS ACCURATE. PROCEDURE CODES 82329 CHEMODENERV MUSC MIGRAINE DISPOSITION & COMMUNICATION FOLLOW UP 3 WEEKS ELECTRONICALLY SIGNED BY MAYRA STEVENS MD, MD ON 06/21/2018 AT 02:53 PM EST DISCLAIMER : THIS IS A VISIT SUMMARY EXTRACTED FROM THE [employer] CHART. IT IS NOT A COPY OF THE [employer] PROGRESS NOTE. BRANT
== END ==
LOC: M PAIN 11:30
PROVIDERS: ATTEND Anesthesiology
DX: G43.709 Chronic migraine without aura, not intractable, without status migrainosus (principal); M85.80 Other specified disorders of bone density and structure, unspecified site; L40.9 Psoriasis, unspecified; G43.909 Migraine, unspecified, not intractable, without status migrainosus; J30.89 Other allergic rhinitis; Z79.84 Long term (current) use of oral hypoglycemic drugs; Z79.899 Other long term (current) drug therapy; Z86.59 Personal history of other mental and behavioral disorders
CPT/HCPCS: 64615; J0585

== ENCOUNTER → 2018-08-09 | Outpatient (CLI) | payer OTHER ==
[~2018-08-09] MED LIST changes: -BOTULINUM INJ 100 UNITS (J0585) IM ONE; -diazePAM 5 MG TAB As Ordered ONE; -oxyCODONE 5MG TAB As Ordered ONE
--- NOTE | 2018-08-24 01:22 | ECWPNPC ---
PATIENT NAME: SILVIA ZIMMERMAN : 1985 GENDER: FEMALE VISIT DATE: 08/09/2018 DISCHARGE DATE: 08/09/18 1145 VISIT LOCKED DATE TIME: PHYSICIAN: NUVIA ROBLES PHYSICIAN PAGER NO: INACTIVE RESOURCE: NUVIA ROBLES REASON FOR APPOINTMENT 1. POST PROC HISTORY OF PRESENT ILLNESS HISTORY OF PRESENT ILLNESS: HERE FOR F/U OF CHRONIC NECK,LOW BACK AND MIGRAINE HEADACHE.HAS BEEN RECIEVING BOTOX,LAST INJECTION 3 MOS AGO.REPORTING DECREASE IN FREQUENCY OF HEADACHE .INTENSITY OF HEADACHES HAVE NOT CHANGED.ALSO HAS HAD INCREASE IN NECK PAIN LATELY.HAVING DIFFICULTY WITH SLEEP SECONDARY TO PAIN INCREASES.HAS TRIALED MULTIPLE MEDICATIONS OVER THE PAST YEAR BOTH NON OPIOD AND MUSCLE RELAXANTS WITHOUT IMPROVEMENT.RATING PAIN VAS 6/10. PAIN THE PATIENT DESCRIBES THE PAIN... FALL RISK SCREENING: SCREENING : NO FALLS IN THE PAST YEAR. CURRENT MEDICATIONS TAKING METFORMIN HCL ER 500 MG TABLET EXTENDED RELEASE 24 HOUR 3 TABLET ORALLY DAILY AT BEDTIME, NOTES: POLY CYSTIC OVARIES TAKING CLONIDINE HCL 0.3 MG TABLET 2 TABLETS ORALLY ONCE A DAY TAKING LINZESS 290 MCG CAPSULE 1 CAPSULE ORALLY ONCE A DAY TAKING IBUPROFEN 800 MG TABLET 1 TABLET WITH FOOD OR MILK ORALLY THREE TIMES A DAY NEEDED TAKING BENADRYL 25 MG ORAL 3 TABLETS DIRECTED, NOTES: A FEW DAYS TAKING XANAX 1 MG TABLET 1 TABLET ORALLY DAILY TAKING ALPRAZOLAM ER 3 MG TABLET EXTENDED RELEASE 24 HOUR 1 TABLET IN THE MORNING ORALLY ONCE A DAY TAKING GABAPENTIN 300 MG CAPSULE 1 CAPSULE ORALLY ONCE A DAY, NOTES: 06-06-18 0900 NOT-TAKING SENOKOT 8.6 MG TABLET 2 TABLETS AT BEDTIME NEEDED ORALLY ONCE A DAY, NOTES: A COUPLE DAYS NOT-TAKING CALCIUM + D 600-200 MG-UNIT TABLET 1 TABLET ORALLY ONCE A DAY, NOTES: NOT KATELY NOT-TAKING SELEGILINE HCL 5 MG TABLET 1 TABLET WITH BREAKFAST AND LUNCH ORALLY TWICE A DAY, NOTES: > 2 WEEKS NOT-TAKING TRAMADOL HCL 50 MG TABLET 1/2 - 1 TABLET ORALLY EVERY 6 -8 HRS PRN PAIN NOT-TAKING SINGULAIR 10 MG TABLET 1 TABLET IN THE EVENING ORALLY ONCE A DAY, NOTES: 10/11 2099 NOT-TAKING DICLOFENAC POTASSIUM 50 MG TABLET 1 TABLET ORALLY TWICE A DAY, NOTES: NONE RECENT-DIDN'T HELP NOT-TAKING EMSAM 6 MG/24HR PATCH 24 HOUR 1 PATCH TO SKIN TRANSDERMAL ONCE A DAY, NOTES: 2 WEEKS AGO NOT-TAKING VITAMIN C 500 MG TABLET 1 TABLET ORALLY ONCE A DAY, NOTES: 2 MONTHS AGO NOT-TAKING PROBIOTIC TABLET DELAYED RELEASE 1 CAPSULE ORALLY DAILY, NOTES: 2 MONTHS AGO MEDICATION LIST REVIEWED AND RECONCILED WITH THE PATIENT PAST MEDICAL HISTORY SCOLIOSIS - MINIMAL DEXTRO-CONVEX CURVATURE - SCOLIOSIS SERIES ON 01/2009 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 INTERMITT 2 YEARS/ S/P 2 LASER LAPROSCOPIES OSTEOPOROSIS/OSTEOPENIA DUE TO LUPRON RX/ DEXA SCAN ON 03/2009 LUMBAR SPINE NORMAL BMD FOR AGE OCD/ SOCIAL ANXIETY/ BULEMIA NERVOSA PURGING TYPE/ DEPRESSIVE DISORDER/ ANXIETY PSORIASIS/SEBORRHEIC DERMATITIS RIGHT HALLUX VALGUS DEFORMITY S/P RT BUNIONECTOMY 2009 GANGLION LEFT HAND- W/ NL RADIOGRAPH S/P SURGICALLY REMOVED BULIMIA NERVOSA PURGING TYPE POLYCYSTIC OVARIES MIGRAINE ALLERGIC RHINITIS SINUS INFECTION ALLERGIES ENVIRONMENTAL: STUFFY NOSE, ITCHY EYES, SOMETIMES HIVES SURGICAL HISTORY LASER LAPAROSCOPY FOR ENDOMETRIOSIS WITH FINDING OF MINIMAL ENDOMETRIOSIS WISDOM TOOTH RT BUNIONECTOMY 07/2009 LASER RX FOR BENIGH NEOPLASM EYELID ANGIOMA [id number] SEPTOPLASTY, ADENOIDECTOMY, BALLOON SINUPLASTY 08/2016 INVITRO FERT CYCLES WITH EGG EXTRACTIONS [id number] FAMILY HISTORY FATHER: 50 YRS, SMALL CELL LYMPHOMA, DIABETES, HTN, DIAGNOSED WITH HYPERTENSION, CANCER, DIABETES MOTHER: ALIVE 52 YRS, PRE-CANCEROUS CELLS REMOVED FROM BREAST, CANCER SIBLINGS: ASTHMA PATERNAL GRAND FATHER: ? MENTAL DISORDER AND COMMITTED SUICIDE, DM PATERNAL GRAND MOTHER: , DM MATERNAL GRAND FATHER: , ? CANCER MATERNAL GRAND MOTHER: , HEART ATTACK, DM SOCIAL HISTORY GENERAL: TOBACCO USE ARE YOU A:CURRENT SMOKER ARE YOU INTERESTED IN QUITTING?THINKING ABOUT QUITTING HAS CUT DOWN ON # OF CIGS/DAY COUNSELED THE PATIENT ON SMOKING CESSATION, EDUCATION [id number]/12/2018 HOW MANY CIGARETTES A DAY DO YOU SMOKE?5 OR LESS HOW SOON AFTER YOU WAKE UP DO YOU SMOKE YOUR FIRST CIGARETTE?AFTER 60 MIN HOW OFTEN DO YOU SMOKE CIGARETTES?SOME DAYS, BUT NOT EVERY DAY PATIENT COUNSELED ON THE DANGERS OF TOBACCO USE AND URGED TO QUIT:08/09/2018 ADDITIONAL FINDINGS: TOBACCO USER STATES CAN GO A LONG TIME WITHOUT SMOKING WITH NO SIDE EFFECTS SMOKING CESSATION INFORMATION GIVEN05/13/2017 ALCOHOL SCREENING DID YOU HAVE A DRINK CONTAINING ALCOHOL IN THE PAST YEAR?YES HOW MANY DRINKS DID YOU HAVE ON A TYPICAL DAY WHEN YOU WERE DRINKING IN THE PAST YEAR?1 OR 2 (0 POINTS) HOW OFTEN DID YOU HAVE A DRINK CONTAINING ALCOHOL IN THE PAST YEAR?MONTHLY OR LESS (1 POINT) POINTS1 INTERPRETATIONNEGATIVE RECREATIONAL DRUG USE DRUG USE?NO CAFFEINE CAFFEINE USE?YES COFFEE SODA SEXUAL HX HAD SEX IN THE LAST 12 MONTHS (VAGINAL, ORAL, OR ANAL)?YES WITHMEN ONLY PREVENTION STRATEGIES DISCUSSED:OTHER USE PROTECTION?NO LMP:10/09/2016 HAVE YOU EVER HAD AN STD?NO HIV / HEP-C SCREENING HIV TEST OFFERED TO PATIENT:YES DATE OFFERED:06/08/2016 TEST ACCEPTED:NO HEP-C TEST OFFERED TO PATIENT:NO N/A REASON:PATIENT DECLINED MORAVIAN [id number] SABIANISM LANGUAGE LANGUAGES SPOKEN:BENINESE EDUCATION LEVEL OF EDUCATION:COLLEGE LEARNING BARRIERS / SPECIAL NEEDS CHANGE FROM LAST VISIT?NO BARRIERS TO LEARNING?NO HEARING IMPAIRED?NO VISION IMPAIRED?YES COGNITIVELY IMPAIRED?NO :CORRECTIVE LENSES READINESS TO LEARN?YES LEARNING PREFERENCES?YES :HANDOUTS, DEMONSTRATION/VERBAL INSTRUCTION LEARNING CAPABILITIES PRESENT?YES EMOTIONAL BARRIERS?NO SPECIAL DEVICES?NO METAL SHEET ROLLER OPERATOR NEEDED?NO DOMESTIC VIOLENCE DO YOU FEEL SAFE IN YOUR ENVIRONMENT?YES PAIN CLINIC PFS, CLERGY, PUBLIC HEALTH REFERRALS PFS REFERRAL NEEDED?NO CLERGY REFERRAL NEEDED?NO PUBLIC HEALTH REFERRAL NEEDED?NO WAS THE PROVIDER NOTIFIED OF ANY PERTINENT INFO?NO HAS THE PATIENT BEEN EDUCATED REGARDING HIS/HER PLAN OF CARE?YES HAS THE PATIENT BEEN EDUCATED REGARDING PAIN, THE RISK FOR PAIN, THE IMPORTANCE OF EFFECTIVE PAIN MANAGEMENT, AND THE PAIN ASSESSMENT PROCESS?YES ADVANCE DIRECTIVE ADVANCE DIRECTIVE DISCUSSED WITH PATIENT:YES PT. STATES SHE ALREADY HAS INFORMATION ON HCP 10/12/17 1205 REVIEWED WITH PT. AD12/09/17 1500 REVIEWED WITH PT LAS01/11/18 1410 REVIEWED WITH PT 1115 REVIEWED WITH PT LAS. HOSPITALIZATION/MAJOR DIAGNOSTIC PROCEDURE MONO 2006 IN CHILDHOOD LUNG REASON REVIEW OF SYSTEMS REVIEWED BY: PROVIDER: NUVIA VIZCAINO . CONSTITUTIONAL: ANY CHANGE IN YOUR MEDICAL CONDITION? NO . CHILLS NO . FEVER NO . INFECTION: DO YOU HAVE NEW INFECTIONS? PT STATES A SINUS INFECTION WENT TO [facility]IMARY WHO DID NOT TREAT . DO YOU HAVE HISTORY OF MRSA? NO . MUSCULOSKELETAL: ANY NEW PATTERNS OF PAIN OR NUMBNESS? NO . GASTROENTEROLOGY: ANY NEW CHANGE IN BOWEL CONTROL? NO . GENITOURINARY: ANY NEW CHANGE IN BLADDER CONTROL? NO . IS THERE A CHANCE YOU COULD BE ? NO . HEMATOLOGY/LYMPH: DO YOU TAKE ANY BLOOD THINNERS? (FOR EXAMPLE- COUMADIN, PLAVIX, AGGRENOX, PLATEL, PRADAXA, OR XARELTO) NO . WHEN WAS YOUR LAST DOSE? DATE: TIME: . NEUROLOGY: HAVE YOU FALLEN IN THE PAST 12 MONTHS? YES FELL SNOW BLOWING WENT TO URGENT CARE [facility] JPT HAS PICTURES . ANY NEW EXTREMITY NUMBNESS OR WEAKNESS? NO . CARDIOLOGY: DO YOU HAVE A PACEMAKER OR DEFIBRILLATOR? NO . RESPIRATORY: HAVE YOU BEEN SICK IN THE PAST WEEK? NO . FEVER NO . FLU LIKE SYMPTOMS? NO . COUGH NO . INTEGUMENTARY: DO YOU HAVE ANY RASHES OR OPEN SORES? NO . ALLERGIC/IMMUNO: ARE YOU ALLERGIC TO IV DYE? NO . ANY NEW ALLERGIES? NO . PSYCHIATRIC: DO YOU HAVE THOUGHTS OF HURTING YOURSELF OR SOMEONE ELSE? NO . ARE YOU ABUSED, NEGLECTED, OR IN AN UNSAFE ENVIRONMENT? NO . ENDOCRINOLOGY: ARE YOU DIABETIC? NO . OTHER: DO YOU NEED ANY PRESCRIPTIONS? NO . IF YES, PLEASE LIST: ____ . ANY NEW PROBLEMS WITH YOUR MEDICATIONS? NO . WHEN DID YOU LAST EAT? ____ . WHEN DID YOU LAST DRINK? ____ . WHAT DID YOU LAST DRINK? ____ . NAME OF PERSON DRIVING YOU HOME? ____ . DO YOU HAVE ANY OTHER QUESTIONS OR CONCERNS NO . VITAL SIGNS WT 149.8 LBS, HT 66 IN, BMI 24.18 INDEX, BP 130/69 MM HG, HR 80 /MIN, RR 16 /MIN, TEMP 97.2 F, OXYGEN SAT % 97%, SAFE IN ENV? (Y/N) YES, NA INITIALS [place] 10:01, REVIEWED BY: KG. EXAMINATION GENERAL EXAMINATION: GENERAL APPEARANCE:AWAKE,ALERT ,PLEAASANT . PSYCHAFFECT NORMAL . HEENT:UNREMARKABLE. FACE:UNREMARKABLE. NECK:TRACHEA MIDLINE. NO CERVICAL OR SUPRACLAVICULAR LYMPHADENOPATHY NOTED. LUNGS:LUNG LLAMAS ARE CLEAR TO AUSCULTATION BILATERALLY. GOOD MOVEMENT OF AIR . HEART:S1, S2 IN A REGULAR RATE AND RHYTHM. NO SIGNIFICANT MURMURS, RUBS OR GALLOPS NOTED . CERVICALTRIGGER POINTS: CERVICAL AND TRAPEZIUS BILAT..PAIN IS AGGREVATED WITH ROJM NECK . NEUROLOGIC EXAM:ALERT AND ORIENTED X 3,NORMAL STEADY GAIT. ASSESSMENTS CHRONIC MIGRAINE - G43.709 (PRIMARY) MYALGIA OF MUSCLE OF NECK - M79.18 TREATMENT CHRONIC MIGRAINE START OXYCODONE HCL TABLET, 5 MG, 1 TABLET NEEDED, ORALLY, Q12H PRN PAIN MDD2, 30 DAY(S), 40, REFILLS 0 START COLACE CAPSULE, 100 MG, 1 CAPSULE NEEDED, ORALLY, BID, 30 DAY(S), 60 CAPSULE, REFILLS 5 NOTES: ISTOP REGISTRY REVIEWED AND DEMONSTRATES COMPLLIANCE. (REF # [id number] ) URINE TOX TODAY, RISKS AND BENEFITS OF NARCOTIC/OPIOD MEDICATIONS WERE REVIEWED WITH PATIENT - THIS INCLUDES BUT IS NOT LIMITED TO RISK OF DEPENDANCE/DEVELOPMENT OF ADDICTION, MOOD DISTURBANCE AND DEPRESSION, OSTEOPOROSIS, HORMONAL AND LABIDAL CHANGES, RESPIRATORY DEPRESSION AND . PATIENT IS ADVISED NOT TO DRIVE OR DRINK ALCOHOL WHILE ON THESE MEDICATIONS, [facility] CENTER NARCOTIC AGREEMENT WAS REVIEWED AND SIGNED TODAY BY THE PATIENT. SEE ATTACHED DOCUMENT FOR FULL DETAILS; SPECIFIC ISSUES WERE REVIEWED: 1) KEEP PAIN MEDS IN THEIR ORIGINAL BOTTLES AND ANY WEEKLY PLANNERS ARE TO BE BROUGHT TO THE PAIN CENTER AT EVERY VISIT. 2) THE PATIENT IS NOT TO INCREASE DOSING OR TIMING OF THEIR PAIN MEDICATION WITHOUT SPECIFIC DIRECTION OF THEIR PAIN CENTERPROVIDER (NOT ER OR OTHER PROVIDERS). 3) ALL PAIN MEDS ARE TO BE KEPT SECURED, IN A LOCKED BOX. 4) NO PAIN MEDS ARE TO BE SHARED WITH ANY OTHER PERSON FOR ANY REASON. 5) NO PAIN MEDS MAY BE TAKEN FROM ANY FRIENDS OR RELATIVES FOR ANY REASON 6) NO MEDS OR SUBSTANCES WHICH ARE NOT LEGAL ARE TO BE USED- NO MARIJUANA, NO COCAINE, AMPHETAMINES, HEROIN, OR OTHERS ARE EVER TO BE USED. 7)URINE TESTING IS DONE TO ACCOUNT FOR MEDS AND SUBSTANCES BEING TAKEN AND WILL BE DONE RANDOMLY. TPI BILAT NECK /BOTOX. PROCEDURE CODES [id number] ESTABILISHED [facility]IENT [facility] FACILITY CHARGE DISPOSITION & COMMUNICATION FOLLOW UP POST (REASON: TPI BILAT NECK/BOTOX) ELECTRONICALLY SIGNED BY CHARIS COX ON 08/23/2018 AT 08:40 AM EDT DISCLAIMER : THIS IS A VISIT SUMMARY EXTRACTED FROM THE [employer] CHART. IT IS NOT A COPY OF THE [employer] PROGRESS NOTE. BRANT
== END ==
LOC: M PAIN 10:00
PROVIDERS: ATTEND Nurse Practitioner Family
DX: G43.709 Chronic migraine without aura, not intractable, without status migrainosus (principal); M79.18 Myalgia, other site; F40.10 Social phobia, unspecified; F50.2 Bulimia nervosa; F32.9 Major depressive disorder, single episode, unspecified; F41.9 Anxiety disorder, unspecified; E28.2 Polycystic ovarian syndrome; J30.9 Allergic rhinitis, unspecified; L21.9 Seborrheic dermatitis, unspecified; F17.210 Nicotine dependence, cigarettes, uncomplicated; Z79.84 Long term (current) use of oral hypoglycemic drugs; Z79.899 Other long term (current) drug therapy

== ENCOUNTER → 2018-08-22 | Outpatient (CLI) | payer OTHER ==
[~2018-08-22] MED LIST changes: +BUPIVACAINE HCL 0.25% 10 ML VIAL As Ordered ONE; +BUPIVACAINE HCL 0.25% 30 ML VIAL As Ordered ONE; +HYDR-3715 PO; -NORCOTAB PO; +TRIAMCINOLONE ACETONIDE SUSP 40 MG/ML VIAL (J3301) As Ordered ONE; +diazePAM 5 MG TAB As Ordered ONE; +oxyCODONE 5MG TAB As Ordered ONE
--- NOTE | 2018-09-04 23:26 | ECWPNPC ---
PATIENT NAME: SILVIA ZIMMERMAN : 1985 GENDER: FEMALE VISIT DATE: 08/22/2018 DISCHARGE DATE: 08/22/18 1411 VISIT LOCKED DATE TIME: PHYSICIAN: MAYRA STEVENS MD PHYSICIAN PAGER NO: INACTIVE RESOURCE: MAYRA STEVENS MD REASON FOR APPOINTMENT 1. TPI HISTORY OF PRESENT ILLNESS HISTORY OF PRESENT ILLNESS: PAIN THE PATIENT DESCRIBES THE PAIN... FALL RISK SCREENING: SCREENING : NO FALLS IN THE PAST YEAR. CURRENT MEDICATIONS TAKING METFORMIN HCL ER 500 MG TABLET EXTENDED RELEASE 24 HOUR 3 TABLET ORALLY DAILY AT BEDTIME, NOTES: POLY CYSTIC OVARIES A FEW DAYS AGO TAKING CLONIDINE HCL 0.3 MG TABLET 2 TABLETS ORALLY ONCE A DAY, NOTES: 08/21/18 PM TAKING LINZESS 290 MCG CAPSULE 1 CAPSULE ORALLY ONCE A DAY, NOTES: 08/21/18 AM TAKING IBUPROFEN 800 MG TABLET 1 TABLET WITH FOOD OR MILK ORALLY THREE TIMES A DAY NEEDED, NOTES: 08/21/18 AFTERNOON TAKING BENADRYL 25 MG ORAL 3 TABLETS DIRECTED, NOTES: A FEW DAYS AGO TAKING XANAX 1 MG TABLET 1 TABLET ORALLY DAILY, NOTES: 08/21/18 AFTERNOON TAKING ALPRAZOLAM ER 3 MG TABLET EXTENDED RELEASE 24 HOUR 1 TABLET IN THE MORNING ORALLY ONCE A DAY, NOTES: 08/21/18 0700 TAKING GABAPENTIN 300 MG CAPSULE 1 CAPSULE ORALLY ONCE A DAY, NOTES: 08/22/18 0700 TAKING OXYCODONE HCL 5 MG TABLET 1 TABLET NEEDED ORALLY Q12H PRN PAIN MDD2, NOTES: 08/20/18 NOT-TAKING COLACE 100 MG CAPSULE 1 CAPSULE NEEDED ORALLY BID, NOTES: NEVER FILLED NOT-TAKING SENOKOT 8.6 MG TABLET 2 TABLETS AT BEDTIME NEEDED ORALLY ONCE A DAY, NOTES: A COUPLE DAYS NOT-TAKING CALCIUM + D 600-200 MG-UNIT TABLET 1 TABLET ORALLY ONCE A DAY, NOTES: NOT KATELY NOT-TAKING SELEGILINE HCL 5 MG TABLET 1 TABLET WITH BREAKFAST AND LUNCH ORALLY TWICE A DAY, NOTES: > 2 WEEKS NOT-TAKING TRAMADOL HCL 50 MG TABLET 1/2 - 1 TABLET ORALLY EVERY 6 -8 HRS PRN PAIN NOT-TAKING SINGULAIR 10 MG TABLET 1 TABLET IN THE EVENING ORALLY ONCE A DAY, NOTES: 10/11 2099 NOT-TAKING DICLOFENAC POTASSIUM 50 MG TABLET 1 TABLET ORALLY TWICE A DAY, NOTES: NONE RECENT-DIDN'T HELP NOT-TAKING EMSAM 6 MG/24HR PATCH 24 HOUR 1 PATCH TO SKIN TRANSDERMAL ONCE A DAY, NOTES: 2 WEEKS AGO NOT-TAKING VITAMIN C 500 MG TABLET 1 TABLET ORALLY ONCE A DAY, NOTES: 2 MONTHS AGO NOT-TAKING PROBIOTIC TABLET DELAYED RELEASE 1 CAPSULE ORALLY DAILY, NOTES: 2 MONTHS AGO MEDICATION LIST REVIEWED AND RECONCILED WITH THE PATIENT PAST MEDICAL HISTORY SCOLIOSIS - MINIMAL DEXTRO-CONVEX CURVATURE - SCOLIOSIS SERIES ON 01/2009 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 INTERMITT 2 YEARS/ S/P 2 LASER LAPROSCOPIES OSTEOPOROSIS/OSTEOPENIA DUE TO LUPRON RX/ DEXA SCAN ON 03/2009 LUMBAR SPINE NORMAL BMD FOR AGE OCD/ SOCIAL ANXIETY/ BULEMIA NERVOSA PURGING TYPE/ DEPRESSIVE DISORDER/ ANXIETY PSORIASIS/SEBORRHEIC DERMATITIS RIGHT HALLUX VALGUS DEFORMITY S/P RT BUNIONECTOMY 2009 GANGLION LEFT HAND- W/ NL RADIOGRAPH S/P SURGICALLY REMOVED BULIMIA NERVOSA PURGING TYPE POLYCYSTIC OVARIES MIGRAINE ALLERGIC RHINITIS SINUS INFECTION ALLERGIES ENVIRONMENTAL: STUFFY NOSE, ITCHY EYES, SOMETIMES HIVES TYLENOL SURGICAL HISTORY LASER LAPAROSCOPY FOR ENDOMETRIOSIS WITH FINDING OF MINIMAL ENDOMETRIOSIS WISDOM TOOTH RT BUNIONECTOMY 07/2009 LASER RX FOR BENIGH NEOPLASM EYELID ANGIOMA [id number] SEPTOPLASTY, ADENOIDECTOMY, BALLOON SINUPLASTY 08/2016 INVITRO FERT CYCLES WITH EGG EXTRACTIONS [id number] FAMILY HISTORY FATHER: 50 YRS, SMALL CELL LYMPHOMA, DIABETES, HTN, DIAGNOSED WITH DIABETES, HYPERTENSION, CANCER MOTHER: ALIVE 52 YRS, PRE-CANCEROUS CELLS REMOVED FROM BREAST, CANCER SIBLINGS: ASTHMA PATERNAL GRAND FATHER: ? MENTAL DISORDER AND COMMITTED SUICIDE, DM PATERNAL GRAND MOTHER: , DM MATERNAL GRAND FATHER: , ? CANCER MATERNAL GRAND MOTHER: , HEART ATTACK, DM SOCIAL HISTORY GENERAL: TOBACCO USE ARE YOU A:CURRENT SMOKER ARE YOU INTERESTED IN QUITTING?THINKING ABOUT QUITTING HAS CUT DOWN ON # OF CIGS/DAY COUNSELED THE PATIENT ON SMOKING CESSATION, EDUCATION MOLNAPRG67/12/2018 HOW MANY CIGARETTES A DAY DO YOU SMOKE?5 OR LESS HOW SOON AFTER YOU WAKE UP DO YOU SMOKE YOUR FIRST CIGARETTE?AFTER 60 MIN HOW OFTEN DO YOU SMOKE CIGARETTES?SOME DAYS, BUT NOT EVERY DAY PATIENT COUNSELED ON THE DANGERS OF TOBACCO USE AND URGED TO QUIT:08/09/2018 ADDITIONAL FINDINGS: TOBACCO USER STATES CAN GO A LONG TIME WITHOUT SMOKING WITH NO SIDE EFFECTS SMOKING CESSATION INFORMATION GIVEN05/13/2017 LATEX QUESTIONNAIRE LATEX ALLERGY : HAVE YOU EVER DEVELOPED ANY TYPE OF REACTION AFTER HANDLING LATEX PRODUCTS SUCH RUBBER GLOVES, CONDOMS, DIAPHRAGMS, BALLOONS, SOCKS, OR UNDERWEAR?NO LATEX ALLERGY : HAVE YOU EVER DEVELOPED ANY TYPE OF REACTION DURING OR AFTER DENTAL APPOINTMENT, VAGINAL/RECTAL EXAMINATION, SURGICAL PROCEDURE, OR ANY OTHER EXPOSURE?NO LATEX RISK : HAVE YOU EVER HAD ANY DIFFICULTY BREATHING OR HIVES AFTER EATING OR HANDLING ANY FRUITS, OR VEGETABLES; SUCH KIWI, BANANAS, STONE FRUITS, OR CHESTNUTSNO LATEX RISK : DO YOU HAVE A PREVIOUS PERSONAL HISTORY OF MORE THAN NINE SURGERIES, SPINA BIFIDA, OR REPEATED CATHERTIZATIONS? NO LATEX RISK : ARE YOU FREQUENTLY EXPOSED TO LATEX PRODUCTS IN YOUR OCCUPATION?NO DATE ASKED : 08/22/2018 ALCOHOL SCREENING DID YOU HAVE A DRINK CONTAINING ALCOHOL IN THE PAST YEAR?YES HOW OFTEN DID YOU HAVE A DRINK CONTAINING ALCOHOL IN THE PAST YEAR?MONTHLY OR LESS (1 POINT) POINTS1 INTERPRETATIONNEGATIVE HOW MANY DRINKS DID YOU HAVE ON A TYPICAL DAY WHEN YOU WERE DRINKING IN THE PAST YEAR?1 OR 2 (0 POINTS) RECREATIONAL DRUG USE DRUG USE?NO CAFFEINE CAFFEINE USE?YES COFFEE SODA SEXUAL HX HAD SEX IN THE LAST 12 MONTHS (VAGINAL, ORAL, OR ANAL)?YES WITHMEN ONLY USE PROTECTION?NO PREVENTION STRATEGIES DISCUSSED:OTHER HAVE YOU EVER HAD AN STD?NO LMP:10/09/2016 HIV / HEP-C SCREENING HIV TEST OFFERED TO PATIENT:YES DATE OFFERED:06/08/2016 TEST ACCEPTED:NO REASON:PATIENT DECLINED HEP-C TEST OFFERED TO PATIENT:NO N/A RESTORATION [id number] LANGUAGE LANGUAGES SPOKEN:ANDORRAN EDUCATION LEVEL OF EDUCATION:COLLEGE LEARNING BARRIERS / SPECIAL NEEDS CHANGE FROM LAST VISIT?NO BARRIERS TO LEARNING?NO HEARING IMPAIRED?NO VISION IMPAIRED?YES :CORRECTIVE LENSES COGNITIVELY IMPAIRED?NO READINESS TO LEARN?YES LEARNING PREFERENCES?YES :HANDOUTS, DEMONSTRATION/VERBAL INSTRUCTION LEARNING CAPABILITIES PRESENT?YES EMOTIONAL BARRIERS?NO SPECIAL DEVICES?NO IMAGING CLERK NEEDED?NO DOMESTIC VIOLENCE DO YOU FEEL SAFE IN YOUR ENVIRONMENT?YES PAIN CLINIC PFS, CLERGY, PUBLIC HEALTH REFERRALS PFS REFERRAL NEEDED?NO CLERGY REFERRAL NEEDED?NO PUBLIC HEALTH REFERRAL NEEDED?NO WAS THE PROVIDER NOTIFIED OF ANY PERTINENT INFO?NO HAS THE PATIENT BEEN EDUCATED REGARDING HIS/HER PLAN OF CARE?YES HAS THE PATIENT BEEN EDUCATED REGARDING PAIN, THE RISK FOR PAIN, THE IMPORTANCE OF EFFECTIVE PAIN MANAGEMENT, AND THE PAIN ASSESSMENT PROCESS?YES ADVANCE DIRECTIVE ADVANCE DIRECTIVE DISCUSSED WITH PATIENT:YES PT. STATES SHE ALREADY HAS INFORMATION ON HCP. DECLINES ASSISTANCE AT THIS TIME. 08/22/18 10/12/17 1205 REVIEWED WITH PT. AD12/09/17 1500 REVIEWED WITH PT LAS01/11/18 1410 REVIEWED WITH PT 1115 REVIEWED WITH PT LAS08/22/18 1203 REVIEWED WITH PT BV. HOSPITALIZATION/MAJOR DIAGNOSTIC PROCEDURE MONO 2006 IN CHILDHOOD LUNG REASON REVIEW OF SYSTEMS REVIEWED BY: PROVIDER: . CONSTITUTIONAL: ANY CHANGE IN YOUR MEDICAL CONDITION? NO . CHILLS NO . FEVER NO . INFECTION: DO YOU HAVE NEW INFECTIONS? NO . DO YOU HAVE HISTORY OF MRSA? NO . MUSCULOSKELETAL: ANY NEW PATTERNS OF PAIN OR NUMBNESS? NO . GASTROENTEROLOGY: ANY NEW CHANGE IN BOWEL CONTROL? NO . GENITOURINARY: ANY NEW CHANGE IN BLADDER CONTROL? NO . IS THERE A CHANCE YOU COULD BE ? NO . HEMATOLOGY/LYMPH: DO YOU TAKE ANY BLOOD THINNERS? (FOR EXAMPLE- COUMADIN, PLAVIX, AGGRENOX, PLATEL, PRADAXA, OR XARELTO) NO . WHEN WAS YOUR LAST DOSE? DATE: TIME: . NEUROLOGY: HAVE YOU FALLEN IN THE PAST 12 MONTHS? NO . ANY NEW EXTREMITY NUMBNESS OR WEAKNESS? NO . CARDIOLOGY: DO YOU HAVE A PACEMAKER OR DEFIBRILLATOR? NO . RESPIRATORY: HAVE YOU BEEN SICK IN THE PAST WEEK? NO . FEVER NO . FLU LIKE SYMPTOMS? NO . COUGH NO . INTEGUMENTARY: DO YOU HAVE ANY RASHES OR OPEN SORES? NO . ALLERGIC/IMMUNO: ARE YOU ALLERGIC TO IV DYE? NO . ANY NEW ALLERGIES? NO . PSYCHIATRIC: DO YOU HAVE THOUGHTS OF HURTING YOURSELF OR SOMEONE ELSE? NO . ARE YOU ABUSED, NEGLECTED, OR IN AN UNSAFE ENVIRONMENT? NO . ENDOCRINOLOGY: ARE YOU DIABETIC? NO . OTHER: DO YOU NEED ANY PRESCRIPTIONS? NO . IF YES, PLEASE LIST: ____ . ANY NEW PROBLEMS WITH YOUR MEDICATIONS? NO . WHEN DID YOU LAST EAT? 08/21/18 1900 . WHEN DID YOU LAST DRINK? 08/22/18 0700 . WHAT DID YOU LAST DRINK? WATER . NAME OF PERSON DRIVING YOU HOME? TANJA ZIMMERMAN . DO YOU HAVE ANY OTHER QUESTIONS OR CONCERNS NO . VITAL SIGNS WT 149.8 LBS, HT 66 IN, BMI 24.18 INDEX, BP 97/57 MM HG, HR 79 /MIN, RR 16 /MIN, TEMP 98.6 F, OXYGEN SAT % 98%, NA INITIALS AW 1128, REVIEWED BY: BV. ASSESSMENTS MYALGIA, OTHER SITE - M79.18 (PRIMARY) PROCEDURES PN TRIGGER POINT INJECTION WITH STEROIDS PRE PROCEDURE DIAGNOSIS 1. MYALGIA 2. PAIN AT BILATERAL NECK AREA, BILATERAL SHOULDER AREA, BILATERAL THORACIC AREA, AND BILATERAL LOW BACK AREA POST PROCEDURE DIAGNOSIS 1. MYALGIA 2. 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 I EVALUATE THE PATIENT AND REVIEWED THE CHART. THERE IS EVIDENCE OF BANDS OF TISSUE WITH RESTRICTION OF MOVEMENT AND PRESENCE OF TRIGGER POINT AT THE AFFECTED AREA. I WENT OVER THE RISKS, ALTERNATIVES, AND BENEFITS ASSOCIATED WITH THIS PROCEDURE. THE PATIENT WOULD LIKE TO PROCEED AND GIVE CONSENT TO PERFORMED THE PROCEDURE. THE PATIENT DENIES UNEXPLAINABLE WEIGHT LOSS, FEVER, CHILLS, OR NEW CHANGES IN URINARY OR BOWEL CONTROL DESCRIPTION OF PROCEDURE THE PATIENT WAS BROUGHT TO THE PROCEDURE ROOM AND PLACED IN THE SITTING POSITION. THE AREA WAS CLEANED WITH ALCOHOL. THE PROCEDURE WAS DONE USING ASEPTIC STERILE TECHNIQUE. I CHECKED LATERALITY AND THE LEVEL WHERE THE PROCEDURE WAS GOING TO BE PERFORMED WITH THE PATIENT AND THE SUPPORTING STAFF AT THE MOMENT OF THE TIME OUT IN THE PROCEDURE ROOM. USING A 25-GAUGE NEEDLE, TRIGGER POINTS WERE INJECTED AT THE RIGHT AND LEFT NECK AREA, RIGHT AND LEFT SHOULDER AREA, RIGHT AND LEFT THORACIC AREA, AND RIGHT AND LEFT LOW BACK AREA WITH A TOTAL OF 40 ML OF BUPIVACAINE 0.25% AND KENALOG 40 MG. THERE WAS NO EVIDENCE OF BLOOD, PARESTHESIA OR CEREBROSPINAL FLUID DURING THE PROCEDURE. THE PATIENT WAS SENT TO THE RECOVERY ROOM. THE PATIENT WAS MOVING THE EXTREMITIES AND DOING WELL. THERE WAS NO COMPLICATION DURING THE PROCEDURE POST PROCEDURE NOTE THE PATIENT WILL BE SEEN IN A FOLLOW UP IN THE NEXT FEW WEEKS. INSTRUCTIONS WERE GIVEN, QUESTIONS WERE ANSWERED, AND THE PATIENT EXPRESSED UNDERSTANDING AND AGREES WITH THE PLAN. I, DAVID GARCIA, DOCUMENTED THE ABOVE INFORMATION ACTING A SCRIBE FOR DR. STEVENS. I HAVE REVIEWED THE ABOVE DOCUMENT, WRITTEN BY DAVID RUIZ AND I VERIFY THAT IT IS ACCURATE. PROCEDURE CODES 49851 INJECT TRIGGER POINTS 3/> DISPOSITION & COMMUNICATION FOLLOW UP 3 WEEKS ELECTRONICALLY SIGNED BY MAYRA STEVENS MD, MD ON 09/04/2018 AT 03:41 PM EDT DISCLAIMER : THIS IS A VISIT SUMMARY EXTRACTED FROM THE [employer] CHART. IT IS NOT A COPY OF THE [employer] PROGRESS NOTE. BRANT
== END ==
LOC: M PAIN 11:15
PROVIDERS: ATTEND Anesthesiology
DX: M79.18 Myalgia, other site (principal); M54.2 Cervicalgia; M54.5 Low back pain; Z79.84 Long term (current) use of oral hypoglycemic drugs; Z79.891 Long term (current) use of opiate analgesic; Z79.899 Other long term (current) drug therapy; F17.210 Nicotine dependence, cigarettes, uncomplicated; J30.2 Other seasonal allergic rhinitis; Z88.8 Allergy status to other drugs, medicaments and biological substances
CPT/HCPCS: 20553; J3301

== ENCOUNTER → 2018-09-07 | Outpatient (CLI) | payer OTHER ==
[~2018-09-07] MED LIST changes: -BUPIVACAINE HCL 0.25% 10 ML VIAL As Ordered ONE; -BUPIVACAINE HCL 0.25% 30 ML VIAL As Ordered ONE; -TRIAMCINOLONE ACETONIDE SUSP 40 MG/ML VIAL (J3301) As Ordered ONE; -diazePAM 5 MG TAB As Ordered ONE; -oxyCODONE 5MG TAB As Ordered ONE
--- NOTE | 2018-09-09 01:13 | ECWPNPC ---
PATIENT NAME: SILVIA ZIMMERMAN : 1985 GENDER: FEMALE VISIT DATE: 09/07/2018 DISCHARGE DATE: 09/07/18 1246 VISIT LOCKED DATE TIME: PHYSICIAN: NIGHAT XIE PHYSICIAN PAGER NO: INACTIVE RESOURCE: NIGHAT XIE REASON FOR APPOINTMENT 1. POST TPI HISTORY OF PRESENT ILLNESS HISTORY OF PRESENT ILLNESS: PAIN THE PATIENT DESCRIBES THE PAIN... SEVERITY - PAIN SCORE OF4/10 33 YR OLD FEMALE HERE TO F/U POST PROCEDURE. TPI OF CERVICAL SPINE WITH MIXED RESULTS.SHE SAYS SHE HAS HAS SOME PAIN REDUCTION FOR A APPROXIMATELY 10 DAYS. FALL RISK SCREENING: SCREENING :NO FALLS REPORTED IN THE LAST YEAR CURRENT MEDICATIONS TAKING CLONIDINE HCL 0.3 MG TABLET 2 TABLETS ORALLY ONCE A DAY TAKING LINZESS 290 MCG CAPSULE 1 CAPSULE ORALLY ONCE A DAY TAKING IBUPROFEN 800 MG TABLET 1 TABLET WITH FOOD OR MILK ORALLY THREE TIMES A DAY NEEDED TAKING BENADRYL 25 MG ORAL 3 TABLETS DIRECTED TAKING XANAX 1 MG TABLET 1 TABLET ORALLY DAILY TAKING ALPRAZOLAM ER 3 MG TABLET EXTENDED RELEASE 24 HOUR 1 TABLET IN THE MORNING ORALLY ONCE A DAY TAKING GABAPENTIN 300 MG CAPSULE 1 CAPSULE ORALLY ONCE A DAY TAKING OXYCODONE HCL 5 MG TABLET 1 TABLET NEEDED ORALLY Q12H PRN PAIN MDD2 NOT-TAKING METFORMIN HCL ER 500 MG TABLET EXTENDED RELEASE 24 HOUR 3 TABLET ORALLY DAILY AT BEDTIME NOT-TAKING COLACE 100 MG CAPSULE 1 CAPSULE NEEDED ORALLY BID, NOTES: NEVER FILLED NOT-TAKING SENOKOT 8.6 MG TABLET 2 TABLETS AT BEDTIME NEEDED ORALLY ONCE A DAY, NOTES: A COUPLE DAYS NOT-TAKING CALCIUM + D 600-200 MG-UNIT TABLET 1 TABLET ORALLY ONCE A DAY, NOTES: NOT KATELY NOT-TAKING SELEGILINE HCL 5 MG TABLET 1 TABLET WITH BREAKFAST AND LUNCH ORALLY TWICE A DAY, NOTES: > 2 WEEKS NOT-TAKING TRAMADOL HCL 50 MG TABLET 1/2 - 1 TABLET ORALLY EVERY 6 -8 HRS PRN PAIN NOT-TAKING SINGULAIR 10 MG TABLET 1 TABLET IN THE EVENING ORALLY ONCE A DAY, NOTES: 10/11 2099 NOT-TAKING DICLOFENAC POTASSIUM 50 MG TABLET 1 TABLET ORALLY TWICE A DAY, NOTES: NONE RECENT-DIDN'T HELP NOT-TAKING EMSAM 6 MG/24HR PATCH 24 HOUR 1 PATCH TO SKIN TRANSDERMAL ONCE A DAY, NOTES: 2 WEEKS AGO NOT-TAKING VITAMIN C 500 MG TABLET 1 TABLET ORALLY ONCE A DAY, NOTES: 2 MONTHS AGO NOT-TAKING PROBIOTIC TABLET DELAYED RELEASE 1 CAPSULE ORALLY DAILY, NOTES: 2 MONTHS AGO MEDICATION LIST REVIEWED AND RECONCILED WITH THE PATIENT PAST MEDICAL HISTORY SCOLIOSIS - MINIMAL DEXTRO-CONVEX CURVATURE - SCOLIOSIS SERIES ON 01/2009 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 INTERMITT 2 YEARS/ S/P 2 LASER LAPROSCOPIES OSTEOPOROSIS/OSTEOPENIA DUE TO LUPRON RX/ DEXA SCAN ON 03/2009 LUMBAR SPINE NORMAL BMD FOR AGE OCD/ SOCIAL ANXIETY/ BULEMIA NERVOSA PURGING TYPE/ DEPRESSIVE DISORDER/ ANXIETY PSORIASIS/SEBORRHEIC DERMATITIS RIGHT HALLUX VALGUS DEFORMITY S/P RT BUNIONECTOMY 2009 GANGLION LEFT HAND- W/ NL RADIOGRAPH S/P SURGICALLY REMOVED BULIMIA NERVOSA PURGING TYPE POLYCYSTIC OVARIES MIGRAINE ALLERGIC RHINITIS SINUS INFECTION ALLERGIES ENVIRONMENTAL: STUFFY NOSE, ITCHY EYES, SOMETIMES HIVES TYLENOL SURGICAL HISTORY LASER LAPAROSCOPY FOR ENDOMETRIOSIS WITH FINDING OF MINIMAL ENDOMETRIOSIS WISDOM TOOTH RT BUNIONECTOMY 07/2009 LASER RX FOR BENIGH NEOPLASM EYELID ANGIOMA [id number] SEPTOPLASTY, ADENOIDECTOMY, BALLOON SINUPLASTY 08/2016 INVITRO FERT CYCLES WITH EGG EXTRACTIONS [id number] FAMILY HISTORY FATHER: 50 YRS, SMALL CELL LYMPHOMA, DIABETES, HTN, DIAGNOSED WITH DIABETES, HYPERTENSION, CANCER MOTHER: ALIVE 52 YRS, PRE-CANCEROUS CELLS REMOVED FROM BREAST, CANCER SIBLINGS: ASTHMA PATERNAL GRAND FATHER: ? MENTAL DISORDER AND COMMITTED SUICIDE, DM PATERNAL GRAND MOTHER: , DM MATERNAL GRAND FATHER: , ? CANCER MATERNAL GRAND MOTHER: , HEART ATTACK, DM SOCIAL HISTORY GENERAL: TOBACCO USE ARE YOU A:CURRENT SMOKER ARE YOU INTERESTED IN QUITTING?THINKING ABOUT QUITTING HAS CUT DOWN ON # OF CIGS/DAY COUNSELED THE PATIENT ON SMOKING CESSATION, EDUCATION CBYGDVSQ24/12/2018 HOW MANY CIGARETTES A DAY DO YOU SMOKE?5 OR LESS HOW SOON AFTER YOU WAKE UP DO YOU SMOKE YOUR FIRST CIGARETTE?AFTER 60 MIN HOW OFTEN DO YOU SMOKE CIGARETTES?SOME DAYS, BUT NOT EVERY DAY PATIENT COUNSELED ON THE DANGERS OF TOBACCO USE AND URGED TO QUIT:08/09/2018 ADDITIONAL FINDINGS: TOBACCO USER STATES CAN GO A LONG TIME WITHOUT SMOKING WITH NO SIDE EFFECTS SMOKING CESSATION INFORMATION GIVEN09/07/2018 LATEX QUESTIONNAIRE LATEX ALLERGY : HAVE YOU EVER DEVELOPED ANY TYPE OF REACTION AFTER HANDLING LATEX PRODUCTS SUCH RUBBER GLOVES, CONDOMS, DIAPHRAGMS, BALLOONS, SOCKS, OR UNDERWEAR?NO LATEX ALLERGY : HAVE YOU EVER DEVELOPED ANY TYPE OF REACTION DURING OR AFTER DENTAL APPOINTMENT, VAGINAL/RECTAL EXAMINATION, SURGICAL PROCEDURE, OR ANY OTHER EXPOSURE?NO LATEX RISK : HAVE YOU EVER HAD ANY DIFFICULTY BREATHING OR HIVES AFTER EATING OR HANDLING ANY FRUITS, OR VEGETABLES; SUCH KIWI, BANANAS, STONE FRUITS, OR CHESTNUTSNO LATEX RISK : DO YOU HAVE A PREVIOUS PERSONAL HISTORY OF MORE THAN NINE SURGERIES, SPINA BIFIDA, OR REPEATED CATHERTIZATIONS? NO LATEX RISK : ARE YOU FREQUENTLY EXPOSED TO LATEX PRODUCTS IN YOUR OCCUPATION?NO DATE ASKED : 09/07/2018 ALCOHOL SCREENING DID YOU HAVE A DRINK CONTAINING ALCOHOL IN THE PAST YEAR?YES HOW OFTEN DID YOU HAVE A DRINK CONTAINING ALCOHOL IN THE PAST YEAR?MONTHLY OR LESS (1 POINT) POINTS1 INTERPRETATIONNEGATIVE HOW MANY DRINKS DID YOU HAVE ON A TYPICAL DAY WHEN YOU WERE DRINKING IN THE PAST YEAR?1 OR 2 (0 POINTS) RECREATIONAL DRUG USE DRUG USE?NO CAFFEINE CAFFEINE USE?YES COFFEE SODA SEXUAL HX HAD SEX IN THE LAST 12 MONTHS (VAGINAL, ORAL, OR ANAL)?YES WITHMEN ONLY USE PROTECTION?NO PREVENTION STRATEGIES DISCUSSED:OTHER HAVE YOU EVER HAD AN STD?NO LMP:10/09/2016 HIV / HEP-C SCREENING HIV TEST OFFERED TO PATIENT:YES DATE OFFERED:06/08/2016 TEST ACCEPTED:NO REASON:PATIENT DECLINED HEP-C TEST OFFERED TO PATIENT:NO N/A RELIGIOUS [id number] [employer] LANGUAGE LANGUAGES SPOKEN:INDONESIAN EDUCATION LEVEL OF EDUCATION:COLLEGE LEARNING BARRIERS / SPECIAL NEEDS CHANGE FROM LAST VISIT?NO BARRIERS TO LEARNING?NO HEARING IMPAIRED?NO VISION IMPAIRED?YES :CORRECTIVE LENSES COGNITIVELY IMPAIRED?NO READINESS TO LEARN?YES LEARNING PREFERENCES?YES :HANDOUTS, DEMONSTRATION/VERBAL INSTRUCTION LEARNING CAPABILITIES PRESENT?YES EMOTIONAL BARRIERS?NO SPECIAL DEVICES?NO PRINCIPAL SECRETARY NEEDED?NO DOMESTIC VIOLENCE DO YOU FEEL SAFE IN YOUR ENVIRONMENT?YES PAIN CLINIC PFS, CLERGY, PUBLIC HEALTH REFERRALS PFS REFERRAL NEEDED?NO CLERGY REFERRAL NEEDED?NO PUBLIC HEALTH REFERRAL NEEDED?NO WAS THE PROVIDER NOTIFIED OF ANY PERTINENT INFO?YES HAS THE PATIENT BEEN EDUCATED REGARDING HIS/HER PLAN OF CARE?YES HAS THE PATIENT BEEN EDUCATED REGARDING PAIN, THE RISK FOR PAIN, THE IMPORTANCE OF EFFECTIVE PAIN MANAGEMENT, AND THE PAIN ASSESSMENT PROCESS?YES ADVANCE DIRECTIVE ADVANCE DIRECTIVE DISCUSSED WITH PATIENT:YES PT. STATES SHE ALREADY HAS INFORMATION ON HCP. DECLINES ASSISTANCE AT THIS TIME. 5/15/18 1205 REVIEWED WITH PT. AD12/09/17 1500 REVIEWED WITH PT LAS01/11/18 1410 REVIEWED WITH PT 1115 REVIEWED WITH PT LAS08/22/18 1203 REVIEWED WITH PT BV. HOSPITALIZATION/MAJOR DIAGNOSTIC PROCEDURE MONO 2006 IN CHILDHOOD LUNG REASON REVIEW OF SYSTEMS REVIEWED BY: PROVIDER: LOLA . CONSTITUTIONAL: ANY CHANGE IN YOUR MEDICAL CONDITION? NO . CHILLS NO . FEVER NO . INFECTION: DO YOU HAVE NEW INFECTIONS? NO . DO YOU HAVE HISTORY OF MRSA? NO . MUSCULOSKELETAL: ANY NEW PATTERNS OF PAIN OR NUMBNESS? YES, PAIN IS REDUCED. MEDICATIONS ARE MAKING A DIFFERENCE AND REDUCING PAIN LEVEL . GASTROENTEROLOGY: ANY NEW CHANGE IN BOWEL CONTROL? NO . GENITOURINARY: ANY NEW CHANGE IN BLADDER CONTROL? NO . IS THERE A CHANCE YOU COULD BE ? NO . HEMATOLOGY/LYMPH: DO YOU TAKE ANY BLOOD THINNERS? (FOR EXAMPLE- COUMADIN, PLAVIX, AGGRENOX, PLATEL, PRADAXA, OR XARELTO) NO . WHEN WAS YOUR LAST DOSE? DATE: TIME: . NEUROLOGY: HAVE YOU FALLEN IN THE PAST 12 MONTHS? YES, PT STATES THAT SHE WAS HOME, PT REPORTED TO ED DUE TO INJURY. . ANY NEW EXTREMITY NUMBNESS OR WEAKNESS? NO . CARDIOLOGY: DO YOU HAVE A PACEMAKER OR DEFIBRILLATOR? NO . RESPIRATORY: HAVE YOU BEEN SICK IN THE PAST WEEK? NO . FEVER NO . FLU LIKE SYMPTOMS? NO . COUGH NO . INTEGUMENTARY: DO YOU HAVE ANY RASHES OR OPEN SORES? NO . ALLERGIC/IMMUNO: ARE YOU ALLERGIC TO IV DYE? NO . ANY NEW ALLERGIES? NO . PSYCHIATRIC: DO YOU HAVE THOUGHTS OF HURTING YOURSELF OR SOMEONE ELSE? NO . ARE YOU ABUSED, NEGLECTED, OR IN AN UNSAFE ENVIRONMENT? NO . ENDOCRINOLOGY: ARE YOU DIABETIC? NO . OTHER: DO YOU NEED ANY PRESCRIPTIONS? NO . IF YES, PLEASE LIST: ____ . ANY NEW PROBLEMS WITH YOUR MEDICATIONS? NO . WHEN DID YOU LAST EAT? ____ . WHEN DID YOU LAST DRINK? ____ . WHAT DID YOU LAST DRINK? ____ . NAME OF PERSON DRIVING YOU HOME? ____ . DO YOU HAVE ANY OTHER QUESTIONS OR CONCERNS NO . VITAL SIGNS WT 146.2 LBS, HT 66 IN, BMI 23.59 INDEX, BP 106/57 MM HG, HR 63 /MIN, RR 16 /MIN, TEMP 97.3 F, OXYGEN SAT % 98%, SAFE IN ENV? (Y/N) Y, NA INITIALS DE 11:05, REVIEWED BY: JEREMY. EXAMINATION GENERAL EXAMINATION: GENERAL APPEARANCE:NO ACUTE DISTRESS, WELL NOURISHED AND HYDRATED. NECK: NO MASSES OR SCARS LIMTED ROM. TENDER TO PALPATION TO PARACERVICAL MUSCLES. PAIN WITH EXTENSION AND ROTATION OF CERVICAL SPINE. LUNGS:CLEAR TO AUSCULTATION BILATERALLY, NO WHEEZES, RHONCHI, RALES. HEART:NO MURMURS, REGULAR RATE AND RHYTHM. ASSESSMENTS CERVICALGIA - M54.2 (PRIMARY) TREATMENT CERVICALGIA CLINICAL NOTES: BILATERAL CERVICAL THERAPEUTIC BLOCK C4-5, C5-C6, C6-C7, ISTOP REGISTRY REVIEWED AND DEMONSTRATES COMPLLIANCE. (REF # [id number]) BRINGS IN MEDICATIONS WHICH IS APPROPRIATE FOR WHAT WAS DISPENSED. RECENT URINE TOXICOLOGY REVIEWED. NO UNAUTHORIZED MEDICATIONS. NO ILLICIT SUBSTANCES AND PRESCRIBED MEDICATIONS WERE PRESENT. PROCEDURE CODES [id number] ESTABILISHED PATIENT [facility] CHARGE DISPOSITION & COMMUNICATION FOLLOW UP POST PROCEDURE (REASON: BILATERAL CERVICAL THERAPEUTIC BLOCK C5-C6, C6-C7) ELECTRONICALLY SIGNED BY CHARIS ROMERO ON 09/08/2018 AT 04:20 PM EDT DISCLAIMER : THIS IS A VISIT SUMMARY EXTRACTED FROM THE [employer] CHART. IT IS NOT A COPY OF THE [employer] PROGRESS NOTE. BRANT
== END ==
LOC: M PAIN 10:45
PROVIDERS: ATTEND Nurse Practitioner Family
DX: M54.2 Cervicalgia (principal); M41.9 Scoliosis, unspecified; F42.9 Obsessive-compulsive disorder, unspecified; F40.10 Social phobia, unspecified; F50.2 Bulimia nervosa; E28.2 Polycystic ovarian syndrome; G43.909 Migraine, unspecified, not intractable, without status migrainosus; J30.9 Allergic rhinitis, unspecified; F17.210 Nicotine dependence, cigarettes, uncomplicated; Z79.891 Long term (current) use of opiate analgesic; Z79.899 Other long term (current) drug therapy

== ENCOUNTER → 2018-09-21 | Outpatient (CLI) | payer OTHER ==
[~2018-09-21] MED LIST changes: +BOTULINUM INJ 100 UNITS (J0585) IM ONE; +diazePAM 5 MG TAB As Ordered ONE; +oxyCODONE 5MG TAB As Ordered ONE
--- NOTE | 2018-10-10 00:24 | ECWPNPC ---
PATIENT NAME: SILVIA ZIMMERMAN : 1985 GENDER: FEMALE VISIT DATE: 09/21/2018 DISCHARGE DATE: 09/21/18 1521 VISIT LOCKED DATE TIME: PHYSICIAN: MAYRA STEVENS MD PHYSICIAN PAGER NO: INACTIVE RESOURCE: MAYRA STEVENS MD REASON FOR APPOINTMENT 1. BOTOX HISTORY OF PRESENT ILLNESS HISTORY OF PRESENT ILLNESS: PAIN THE PATIENT DESCRIBES THE PAIN... FALL RISK SCREENING: SCREENING :NO FALLS REPORTED IN THE LAST YEAR CURRENT MEDICATIONS TAKING METFORMIN HCL ER 500 MG TABLET EXTENDED RELEASE 24 HOUR 3 TABLET ORALLY DAILY AT BEDTIME, NOTES: 899 TAKING COLACE 100 MG CAPSULE 1 CAPSULE NEEDED ORALLY BID, NOTES: NEVER FILLED TAKING CALCIUM + D 600-200 MG-UNIT TABLET 1 TABLET ORALLY ONCE A DAY, NOTES: A COUPLE DAYS AGO TAKING SELEGILINE HCL 5 MG TABLET 1 TABLET WITH BREAKFAST AND LUNCH ORALLY TWICE A DAY, NOTES: > 2 WEEKS TAKING SINGULAIR 10 MG TABLET 1 TABLET IN THE EVENING ORALLY ONCE A DAY, NOTES: NOT LATELY TAKING CLONIDINE HCL 0.3 MG TABLET 2 TABLETS ORALLY ONCE A DAY, NOTES: 09-20-18899 TAKING LINZESS 290 MCG CAPSULE 1 CAPSULE ORALLY ONCE A DAY, NOTES: 09-21-18899 TAKING IBUPROFEN 800 MG TABLET 1 TABLET WITH FOOD OR MILK ORALLY THREE TIMES A DAY NEEDED, NOTES: 09-20-18899 TAKING BENADRYL 25 MG ORAL 3 TABLETS DIRECTED, NOTES: NOT LATELY TAKING XANAX 1 MG TABLET 1 TABLET ORALLY DAILY, NOTES: 09-20-18899 TAKING ALPRAZOLAM ER 3 MG TABLET EXTENDED RELEASE 24 HOUR 1 TABLET IN THE MORNING ORALLY ONCE A DAY, NOTES: 09-20-18899 TAKING GABAPENTIN 300 MG CAPSULE 1 CAPSULE ORALLY ONCE A DAY, NOTES: 09-21-18899 TAKING OXYCODONE HCL 5 MG TABLET 1 TABLET NEEDED ORALLY Q12H PRN PAIN MDD2, NOTES: 09-20-18899 NOT-TAKING SENOKOT 8.6 MG TABLET 2 TABLETS AT BEDTIME NEEDED ORALLY ONCE A DAY, NOTES: A COUPLE DAYS NOT-TAKING TRAMADOL HCL 50 MG TABLET 1/2 - 1 TABLET ORALLY EVERY 6 -8 HRS PRN PAIN NOT-TAKING DICLOFENAC POTASSIUM 50 MG TABLET 1 TABLET ORALLY TWICE A DAY, NOTES: NONE RECENT-DIDN'T HELP NOT-TAKING EMSAM 6 MG/24HR PATCH 24 HOUR 1 PATCH TO SKIN TRANSDERMAL ONCE A DAY, NOTES: 2 WEEKS AGO NOT-TAKING VITAMIN C 500 MG TABLET 1 TABLET ORALLY ONCE A DAY, NOTES: 2 MONTHS AGO NOT-TAKING PROBIOTIC TABLET DELAYED RELEASE 1 CAPSULE ORALLY DAILY, NOTES: 2 MONTHS AGO MEDICATION LIST REVIEWED AND RECONCILED WITH THE PATIENT PAST MEDICAL HISTORY SCOLIOSIS - MINIMAL DEXTRO-CONVEX CURVATURE - SCOLIOSIS SERIES ON 01/2009 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 INTERMITT 2 YEARS/ S/P 2 LASER LAPROSCOPIES OSTEOPOROSIS/OSTEOPENIA DUE TO LUPRON RX/ DEXA SCAN ON 03/2009 LUMBAR SPINE NORMAL BMD FOR AGE OCD/ SOCIAL ANXIETY/ BULEMIA NERVOSA PURGING TYPE/ DEPRESSIVE DISORDER/ ANXIETY PSORIASIS/SEBORRHEIC DERMATITIS RIGHT HALLUX VALGUS DEFORMITY S/P RT BUNIONECTOMY 2009 GANGLION LEFT HAND- W/ NL RADIOGRAPH S/P SURGICALLY REMOVED BULIMIA NERVOSA PURGING TYPE POLYCYSTIC OVARIES MIGRAINE ALLERGIC RHINITIS SINUS INFECTION ALLERGIES ENVIRONMENTAL: STUFFY NOSE, ITCHY EYES, SOMETIMES HIVES TYLENOL SURGICAL HISTORY LASER LAPAROSCOPY FOR ENDOMETRIOSIS WITH FINDING OF MINIMAL ENDOMETRIOSIS WISDOM TOOTH RT BUNIONECTOMY 07/2009 LASER RX FOR BENIGH NEOPLASM EYELID ANGIOMA [id number] SEPTOPLASTY, ADENOIDECTOMY, BALLOON SINUPLASTY 08/2016 INVITRO FERT CYCLES WITH EGG EXTRACTIONS [id number] FAMILY HISTORY FATHER: 50 YRS, SMALL CELL LYMPHOMA, DIABETES, HTN, DIAGNOSED WITH DIABETES, HYPERTENSION, CANCER MOTHER: ALIVE 52 YRS, PRE-CANCEROUS CELLS REMOVED FROM BREAST, CANCER SIBLINGS: ASTHMA PATERNAL GRAND FATHER: ? MENTAL DISORDER AND COMMITTED SUICIDE, DM PATERNAL GRAND MOTHER: , DM MATERNAL GRAND FATHER: , ? CANCER MATERNAL GRAND MOTHER: , HEART ATTACK, DM SOCIAL HISTORY GENERAL: TOBACCO USE ARE YOU A:CURRENT SMOKER ARE YOU INTERESTED IN QUITTING?THINKING ABOUT QUITTING HAS CUT DOWN ON # OF CIGS/DAY COUNSELED THE PATIENT ON SMOKING CESSATION, EDUCATION [id number]/12/2018 HOW MANY CIGARETTES A DAY DO YOU SMOKE?5 OR LESS HOW SOON AFTER YOU WAKE UP DO YOU SMOKE YOUR FIRST CIGARETTE?AFTER 60 MIN HOW OFTEN DO YOU SMOKE CIGARETTES?SOME DAYS, BUT NOT EVERY DAY PATIENT COUNSELED ON THE DANGERS OF TOBACCO USE AND URGED TO QUIT:08/09/2018 ADDITIONAL FINDINGS: TOBACCO USER STATES CAN GO A LONG TIME WITHOUT SMOKING WITH NO SIDE EFFECTS SMOKING CESSATION INFORMATION GIVEN09/21/2018 HIV / HEP-C SCREENING HIV TEST OFFERED TO PATIENT:YES DATE OFFERED:06/08/2016 TEST ACCEPTED:NO REASON:PATIENT DECLINED HEP-C TEST OFFERED TO PATIENT:NO N/A EDUCATION LEVEL OF EDUCATION:COLLEGE DIET: REGULAR. LANGUAGE LANGUAGES SPOKEN:INDONESIAN DOMESTIC VIOLENCE DO YOU FEEL SAFE IN YOUR ENVIRONMENT?YES RECREATIONAL DRUG USE DRUG USE?NO EXERCISE: WALKS. LEARNING BARRIERS / SPECIAL NEEDS CHANGE FROM LAST VISIT?NO BARRIERS TO LEARNING?NO HEARING IMPAIRED?NO VISION IMPAIRED?YES :CORRECTIVE LENSES COGNITIVELY IMPAIRED?NO READINESS TO LEARN?YES LEARNING PREFERENCES?YES :HANDOUTS, DEMONSTRATION/VERBAL INSTRUCTION LEARNING CAPABILITIES PRESENT?YES EMOTIONAL BARRIERS?NO SPECIAL DEVICES?NO PAIN MEDICINE PHYSICIAN NEEDED?NO PAIN CLINIC PFS, CLERGY, PUBLIC HEALTH REFERRALS PFS REFERRAL NEEDED?NO CLERGY REFERRAL NEEDED?NO PUBLIC HEALTH REFERRAL NEEDED?NO WAS THE PROVIDER NOTIFIED OF ANY PERTINENT INFO?YES HAS THE PATIENT BEEN EDUCATED REGARDING HIS/HER PLAN OF CARE?YES HAS THE PATIENT BEEN EDUCATED REGARDING PAIN, THE RISK FOR PAIN, THE IMPORTANCE OF EFFECTIVE PAIN MANAGEMENT, AND THE PAIN ASSESSMENT PROCESS?YES LATEX QUESTIONNAIRE LATEX ALLERGY : HAVE YOU EVER DEVELOPED ANY TYPE OF REACTION AFTER HANDLING LATEX PRODUCTS SUCH RUBBER GLOVES, CONDOMS, DIAPHRAGMS, BALLOONS, SOCKS, OR UNDERWEAR?NO LATEX ALLERGY : HAVE YOU EVER DEVELOPED ANY TYPE OF REACTION DURING OR AFTER DENTAL APPOINTMENT, VAGINAL/RECTAL EXAMINATION, SURGICAL PROCEDURE, OR ANY OTHER EXPOSURE?NO LATEX RISK : HAVE YOU EVER HAD ANY DIFFICULTY BREATHING OR HIVES AFTER EATING OR HANDLING ANY FRUITS, OR VEGETABLES; SUCH KIWI, BANANAS, STONE FRUITS, OR CHESTNUTSNO LATEX RISK : DO YOU HAVE A PREVIOUS PERSONAL HISTORY OF MORE THAN NINE SURGERIES, SPINA BIFIDA, OR REPEATED CATHERTIZATIONS? NO LATEX RISK : ARE YOU FREQUENTLY EXPOSED TO LATEX PRODUCTS IN YOUR OCCUPATION?NO DATE ASKED : 09/07/2018 CAFFEINE CAFFEINE USE?YES COFFEE SODA ADVANCE DIRECTIVE ADVANCE DIRECTIVE DISCUSSED WITH PATIENT:YES PT. STATES SHE ALREADY HAS INFORMATION ON HCP. DECLINES ASSISTANCE AT THIS TIME. SYNAGOGUE [id number] LUTHERAN MARITAL STATUS: . ALCOHOL SCREENING DID YOU HAVE A DRINK CONTAINING ALCOHOL IN THE PAST YEAR?YES HOW OFTEN DID YOU HAVE A DRINK CONTAINING ALCOHOL IN THE PAST YEAR?MONTHLY OR LESS (1 POINT) POINTS1 INTERPRETATIONNEGATIVE HOW MANY DRINKS DID YOU HAVE ON A TYPICAL DAY WHEN YOU WERE DRINKING IN THE PAST YEAR?1 OR 2 (0 POINTS) SEXUAL HX HAD SEX IN THE LAST 12 MONTHS (VAGINAL, ORAL, OR ANAL)?YES WITHMEN ONLY USE PROTECTION?NO PREVENTION STRATEGIES DISCUSSED:OTHER HAVE YOU EVER HAD AN STD?NO LMP:10/09/2016 10/12/17 1205 REVIEWED WITH PT. AD12/09/17 1500 REVIEWED WITH PT LAS01/11/18 1410 REVIEWED WITH PT 1115 REVIEWED WITH PT LAS08/22/18 1203 REVIEWED WITH PT BV. HOSPITALIZATION/MAJOR DIAGNOSTIC PROCEDURE MONO 2006 IN CHILDHOOD LUNG REASON REVIEW OF SYSTEMS REVIEWED BY: PROVIDER: . CONSTITUTIONAL: ANY CHANGE IN YOUR MEDICAL CONDITION? NO . CHILLS NO . FEVER NO . INFECTION: DO YOU HAVE NEW INFECTIONS? NO . DO YOU HAVE HISTORY OF MRSA? NO . MUSCULOSKELETAL: ANY NEW PATTERNS OF PAIN OR NUMBNESS? NO . GASTROENTEROLOGY: ANY NEW CHANGE IN BOWEL CONTROL? NO . GENITOURINARY: ANY NEW CHANGE IN BLADDER CONTROL? NO . IS THERE A CHANCE YOU COULD BE ? NO . HEMATOLOGY/LYMPH: DO YOU TAKE ANY BLOOD THINNERS? (FOR EXAMPLE- COUMADIN, PLAVIX, AGGRENOX, PLATEL, PRADAXA, OR XARELTO) NO . WHEN WAS YOUR LAST DOSE? DATE: TIME: . NEUROLOGY: HAVE YOU FALLEN IN THE PAST 12 MONTHS? YES . ANY NEW EXTREMITY NUMBNESS OR WEAKNESS? NO . CARDIOLOGY: DO YOU HAVE A PACEMAKER OR DEFIBRILLATOR? NO . RESPIRATORY: HAVE YOU BEEN SICK IN THE PAST WEEK? NO . FEVER NO . FLU LIKE SYMPTOMS? NO . COUGH NO . INTEGUMENTARY: DO YOU HAVE ANY RASHES OR OPEN SORES? NO . ALLERGIC/IMMUNO: ARE YOU ALLERGIC TO IV DYE? NO . ANY NEW ALLERGIES? NO . PSYCHIATRIC: DO YOU HAVE THOUGHTS OF HURTING YOURSELF OR SOMEONE ELSE? NO . ARE YOU ABUSED, NEGLECTED, OR IN AN UNSAFE ENVIRONMENT? NO . ENDOCRINOLOGY: ARE YOU DIABETIC? NO . OTHER: DO YOU NEED ANY PRESCRIPTIONS? NO . IF YES, PLEASE LIST: ____ . ANY NEW PROBLEMS WITH YOUR MEDICATIONS? NO . WHEN DID YOU LAST EAT? 09/20/18 2100 . WHEN DID YOU LAST DRINK? 09/21/18 0800 . WHAT DID YOU LAST DRINK? DIET PEPSI - JUST ENOUGH TO TAKE MEDS . NAME OF PERSON DRIVING YOU HOME? TANJA ZIMMERMAN . DO YOU HAVE ANY OTHER QUESTIONS OR CONCERNS NO . VITAL SIGNS WT 146.2 LBS, HT 66 IN, BMI 23.59 INDEX, BP 125/65 MM HG, HR 71 /MIN, RR 16 /MIN, TEMP 96.7 F, OXYGEN SAT % 99%, NA INITIALS SC 12:24, REVIEWED BY: ROBERT. ASSESSMENTS CHRONIC MIGRAINE - G43.709 (PRIMARY) PROCEDURES PN BOTOX INJECTIONS SUBSEQUENT INJECTIONS PRE PROCEDURE DIAGNOSIS CHRONIC MIGRAINE HEADACHES. POST PROCEDURE DIAGNOSIS CHRONIC MIGRAINE HEADACHES. PROCEDURE BOTOX INJECTION AT THE HEAD, NECK AND SHOULDERS. SURGEON DR. MAYRA STEVENS INVESTIGATIVE AGENT NONE ANESTHESIA NONE PRE PROCEDURE NOTE THE PATIENT HAS HISTORY OF CHRONIC MIGRAINE HEADACHES. I EVALUATE THE PATIENT AND REVIEWED THE CHART. I WENT OVER THE RISKS, ALTERNATIVES, AND BENEFITS ASSOCIATED WITH THIS PROCEDURE. THE PATIENT WOULD LIKE TO PROCEED AND GIVE CONSENT TO PERFORMED THE PROCEDURE. THE PATIENT DENIES UNEXPLAINABLE WEIGHT LOSS, FEVER, CHILLS, OR NEW CHANGES IN URINARY OR BOWEL CONTROL. THE PATIENT DID A BOTOX INJECTION AT THE HEAD, NECK AND SHOULDERS 3 MONTHS AGO AND EXPRESSED MORE THAN 50% REDUCTION ON THE FREQUENCY AND INTENSITY OF THE HEADACHES. PRESENTLY SHE IS HAVING 12 HEADACHES PER MONTH. BEFORE BOTOX SHE WAS HAVING HEADACHES EVERY DAY OF THE MONTH. THE PATIENT EXPRESS THAT THE USE OF BOTOX HAS REDUCE SIGNIFICANTLY THE SEVERITY OF THE HEADACHES AND EXPRESSED THAT WANT TO RECEIVE THIS PROCEDURE AGAIN TODAY DESCRIPTION OF PROCEDURE THE PATIENTS WAS BROUGHT TO THE PROCEDURE ROOM AND PLACED IN THE SUPINE POSITION. I CHECKED LATERALITY AND THE AREAS WHERE THE PROCEDURE WAS GOING TO BE PERFORMED WITH THE PATIENT AND THE SUPPORTING STAFF AT THE MOMENT OF THE TIME OUT IN THE PROCEDURE ROOM. FOR THE PROCEDURE I USED A SOLUTION OF 5 UNITS OF BOTOX PER EACH 0.1 ML OF THE SOLUTION. I USED A 30-GAUGE NEEDLE TO INJECT THE SOLUTION AT THE SELECTED LOCATIONS. I INJECTED FIRST THE RIGHT AND LEFT REIMBURSEMENT COUNSELOR MUSCLES. THE LANDMARK FOR BOTH INJECTIONS WAS APPROXIMATELY 1 CM ABOVE THE SUPERIOR MEDIAL EDGE OF THE EYEBROW. AFTER THESE TWO INJECTIONS, I INJECTED THE PROCERUS MUSCLE AT THE MIDLINE POINT BETWEEN THESE FIRST TWO INJECTIONS. THEN I PROCEEDED TO INJECT THE RIGHT AND LEFT FRONTALIS MUSCLE. TWO INJECTIONS WERE DONE IN EACH SIDE. THE FIRST INJECTION WAS DONE APPROXIMATELY 2 CM ABOVE THE FIRST INJECTION OF THE REIMBURSEMENT COUNSELOR. THE SECOND INJECTION WAS DONE APPROXIMATELY 1.5 CM LATERAL TO THIS FIST INJECTION OF THE FRONTALIS OF EACH SIDE. AFTER THE INJECTIONS OVER THE FOREHEAD WERE DONE, THE PATIENT'S HEAD WAS TURNED TO THE LEFT SIDE AND WE STARTED TO WORK WITH THE RIGHT TEMPORALIS MUSCLE. FIRST INJECTION WAS DONE IN A VERTICAL LINE OF THE TRAGUS APPROXIMATELY 3 CM ABOVE THE TRAGUS. THE SECOND INJECTION WAS DONE APPROXIMATELY 2 CM ABOVE THE FIRST INJECTION. THE THIRD INJECTION WAS DONE APPROXIMATELY 1 CM FRONT BALLARD FROM THIS VERTICAL LINE CREATED AT THE LEVEL OF THE TRAGUS, PRISON BETWEEN THESE TWO INJECTIONS. THE FOURTH INJECTION WAS DONE APPROXIMATELY 1.5 CM BACK FROM THE SECOND INJECTION TO THE TEMPORALIS IN LINE TO THE MIDPORTION OF THE EAR. THEN, WE PROCEEDED TO INJECT THE LEFT TEMPORALIS MUSCLE. WE CLEANED THE AREA WITH ALCOHOL AND PROCEEDED TO PERFORM THE SAME FOR INJECTIONS DESCRIBED ABOVE BUT IN THE LEFT TEMPORALIS MUSCLE USING THE SAME LANDMARKS. AFTER THESE INJECTIONS WERE DONE, THE PATIENT WAS SEATED. FIRST, WE STARTED TO INJECT THE LEFT AND RIGHT OCCIPITALIS MUSCLE. I INJECTED AT THE FOLLOWING PLACES IN THE RIGHT AND LEFT MUSCLE. THE FIRST INJECTION WAS DONE AT THE MIDPOINT POSITION BETWEEN THE MASTOID PROCESS AND THE INION OF THE OCCIPITAL PROTUBERANCE. THE SECOND INJECTION WAS DONE APPROXIMATELY 1.5 CM SUPERIOR AND LATERAL OF THIS POINT. THE THIRD INJECTION WAS DONE APPROXIMATELY 1.5 CM SUPERIOR AND MEDIAL TO THIS FIRST INJECTION. THEN, I PROCEEDED TO INJECT THE RIGHT AND LEFT PARASPINAL MUSCLES. LANDMARK OF THE INJECTION WERE APPROXIMATELY: FIRST INJECTION 3 CM BELOW THE INION AND 1 CM LATERAL TO THE MIDLINE AND SECOND INJECTION AT EACH SIDE WAS DONE APPROXIMATELY 1.5 CM SUPERIOR AND LATERAL OF THE FIRST INJECTION. THE LAST GROUP OF INJECTIONS WAS DONE OVER THE RIGHT AND LEFT TRAPEZIUS MUSCLE OVER THE SHOULDERS AREA. THE FIRST INJECTION WAS DONE AT THE MIDPOINT BETWEEN THE INFLECTION POINT BETWEEN THE NECK AND SHOULDER AND THE ACROMION. THE SECOND AND THIRD INJECTIONS WERE DONE APPROXIMATELY 2.5 CM LATERAL AND MEDIAL FROM THIS FIRST INJECTION. SAME TARGETS WERE USED IN THE RIGHT AND LEFT SIDE. I ALSO INJECT ADDITIONAL 2.5 UNITS IN THE RIGHT AND LEFT SHOULDER. IN TOTAL, I INJECTED 160 UNITS OF BOTOX. PROCEDURE WAS DONE WITHOUT EVIDENCE OF PARESTHESIA, PNEUMOTHORAX, OR ANY COMPLICATIONS. THE PATIENT TOLERATED THE PROCEDURE VERY WELL. THE PATIENT WAS SENT TO THE RECOVERY ROOM FOR OBSERVATIONS. INJECTIONS WERE DONE AFTER CLEANING WITH ALCOHOL, USING ASEPTIC TECHNIQUES POST PROCEDURE NOTE THE PROCEDURE DONE WAS DISCUSSED WITH THE PATIENT. THE PATIENT WILL BE SEEN IN A FOLLOW UP IN THE NEXT FEW WEEKS. INSTRUCTIONS WERE GIVEN, QUESTIONS WERE ANSWERED, AND THE PATIENT EXPRESSED UNDERSTANDING AND AGREES WITH THE PLAN. IDAVID, DOCUMENTED THE ABOVE INFORMATION ACTING A SCRIBE FOR DR. STEVENS. I HAVE REVIEWED THE ABOVE DOCUMENT, WRITTEN BY DAVID GARCIA SCRIBE AND I VERIFY THAT IT IS ACCURATE. PROCEDURE CODES 97420 CHEMODENERV MUSC MIGRAINE DISPOSITION & COMMUNICATION FOLLOW UP 3 WEEKS ELECTRONICALLY SIGNED BY MAYRA STEVENS MD, MD ON 10/09/2018 AT 03:42 PM EDT DISCLAIMER : THIS IS A VISIT SUMMARY EXTRACTED FROM THE [employer] CHART. IT IS NOT A COPY OF THE [employer] PROGRESS NOTE. BRANT
== END ==
LOC: M PAIN 12:00
PROVIDERS: ATTEND Anesthesiology
DX: G43.709 Chronic migraine without aura, not intractable, without status migrainosus (principal); L40.9 Psoriasis, unspecified; F17.210 Nicotine dependence, cigarettes, uncomplicated; J30.89 Other allergic rhinitis; Z79.84 Long term (current) use of oral hypoglycemic drugs; Z79.899 Other long term (current) drug therapy; Z88.8 Allergy status to other drugs, medicaments and biological substances; Z86.59 Personal history of other mental and behavioral disorders
CPT/HCPCS: 64615; J0585

== ENCOUNTER → 2018-10-05 | Outpatient (CLI) | payer OTHER ==
[~2018-10-05] MED LIST changes: -BOTULINUM INJ 100 UNITS (J0585) IM ONE; +BUPIVACAINE HCL 0.25% 30 ML VIAL As Ordered ONE; +ISOVUE-M 300 61% 15ML VIAL (Q9967) As Ordered ONE; +LIDOCAINE 1% SDV INJ 30 ML VIAL As Ordered ONE; +MIDAZOLAM INJ 2 MG/2 ML VIAL (J2250) As Ordered ONE; +TRIAMCINOLONE ACETONIDE SUSP 40 MG/ML VIAL (J3301) As Ordered ONE; -diazePAM 5 MG TAB As Ordered ONE; +diphenhydrAMINE INJ 50MG/ML VIAL (J1200) As Ordered ONE; +fentaNYL 100 MCG/2 ML INJECTION (J3010) As Ordered ONE; -oxyCODONE 5MG TAB As Ordered ONE
--- NOTE | 2018-10-05 14:55 | REP ---
Cervical spine: Single view. History: Bilateral therapeutic cervical facet block for pain. 11 seconds of fluoroscopy time is reported. Findings: A single last image hold fluoroscopically obtained spot radiograph of the cervical spine documents needle positions and contrast injections associated with cervical facet injection procedures. Electronically Signed by Izaiah Martin MD 10/05/2018 02:47 P
--- NOTE | 2018-10-22 23:47 | ECWPNPC ---
PATIENT NAME: SILVIA ZIMMERMAN : 1985 GENDER: FEMALE VISIT DATE: 10/05/2018 DISCHARGE DATE: 10/05/18 1343 VISIT LOCKED DATE TIME: PHYSICIAN: MAYRA STEVENS MD PHYSICIAN PAGER NO: INACTIVE RESOURCE: MAYRA STEVENS MD REASON FOR APPOINTMENT 1. BILATERAL CERVICAL THERAPEUTIC BLOCK WITH IV SEDATION HISTORY OF PRESENT ILLNESS HISTORY OF PRESENT ILLNESS: PAIN THE PATIENT DESCRIBES THE PAIN... FALL RISK SCREENING: SCREENING :NO FALLS REPORTED IN THE LAST YEAR CURRENT MEDICATIONS TAKING METFORMIN HCL ER 500 MG TABLET EXTENDED RELEASE 24 HOUR 3 TABLET ORALLY DAILY AT BEDTIME, NOTES: NONE RECENT- RAN OUT TAKING CALCIUM + D 600-200 MG-UNIT TABLET 1 TABLET ORALLY ONCE A DAY, NOTES: NONE RECENT TAKING CLONIDINE HCL 0.3 MG TABLET 2 TABLETS ORALLY ONCE A DAY, NOTES: 10/04 2200 TAKING LINZESS 290 MCG CAPSULE 1 CAPSULE ORALLY ONCE A DAY, NOTES: 10/04 09 TAKING IBUPROFEN 800 MG TABLET 1 TABLET WITH FOOD OR MILK ORALLY THREE TIMES A DAY NEEDED, NOTES: 10/04 1400 TAKING BENADRYL 25 MG ORAL 3 TABLETS DIRECTED, NOTES: 2 WEEKS AGO TAKING XANAX 1 MG TABLET 1 TABLET ORALLY DAILY, NOTES: 10/04 1300 TAKING ALPRAZOLAM ER 3 MG TABLET EXTENDED RELEASE 24 HOUR 1 TABLET IN THE MORNING ORALLY ONCE A DAY, NOTES: 10/04 899 TAKING GABAPENTIN 300 MG CAPSULE 1 CAPSULE ORALLY ONCE A DAY, NOTES: 10/05 09 TAKING OXYCODONE HCL 5 MG TABLET 1 TABLET NEEDED ORALLY 1 TAB Q 12H PRN MDD2 #40 TABSHOULD LAST 30 DAYS, NOTES: 10/04 1400 TAKING PROBIOTIC TABLET DELAYED RELEASE 1 CAPSULE ORALLY DAILY, NOTES: NONE RECENT TAKING EX-LAX 15 MG TABLET 1 TABLET AT BEDTIME NEEDED ORALLY DAILY NOT-TAKING COLACE 100 MG CAPSULE 1 CAPSULE NEEDED ORALLY BID, NOTES: SCRIPT NEVER WENT THROUGH NOT-TAKING SELEGILINE HCL 5 MG TABLET 1 TABLET WITH BREAKFAST AND LUNCH ORALLY TWICE A DAY NOT-TAKING SINGULAIR 10 MG TABLET 1 TABLET IN THE EVENING ORALLY ONCE A DAY NOT-TAKING SENOKOT 8.6 MG TABLET 2 TABLETS AT BEDTIME NEEDED ORALLY ONCE A DAY, NOTES: A COUPLE DAYS NOT-TAKING TRAMADOL HCL 50 MG TABLET 1/2 - 1 TABLET ORALLY EVERY 6 -8 HRS PRN PAIN NOT-TAKING DICLOFENAC POTASSIUM 50 MG TABLET 1 TABLET ORALLY TWICE A DAY, NOTES: NONE RECENT-DIDN'T HELP NOT-TAKING EMSAM 6 MG/24HR PATCH 24 HOUR 1 PATCH TO SKIN TRANSDERMAL ONCE A DAY, NOTES: 2 WEEKS AGO NOT-TAKING VITAMIN C 500 MG TABLET 1 TABLET ORALLY ONCE A DAY, NOTES: 2 MONTHS AGO MEDICATION LIST REVIEWED AND RECONCILED WITH THE PATIENT PAST MEDICAL HISTORY SCOLIOSIS - MINIMAL DEXTRO-CONVEX CURVATURE - SCOLIOSIS SERIES ON 01/2009 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 INTERMITT 2 YEARS/ S/P 2 LASER LAPROSCOPIES OSTEOPOROSIS/OSTEOPENIA DUE TO LUPRON RX/ DEXA SCAN ON 03/2009 LUMBAR SPINE NORMAL BMD FOR AGE OCD/ SOCIAL ANXIETY/ BULEMIA NERVOSA PURGING TYPE/ DEPRESSIVE DISORDER/ ANXIETY PSORIASIS/SEBORRHEIC DERMATITIS RIGHT HALLUX VALGUS DEFORMITY S/P RT BUNIONECTOMY 2009 GANGLION LEFT HAND- W/ NL RADIOGRAPH S/P SURGICALLY REMOVED BULIMIA NERVOSA PURGING TYPE POLYCYSTIC OVARIES MIGRAINE ALLERGIC RHINITIS SINUS INFECTION ALLERGIES ENVIRONMENTAL: STUFFY NOSE, ITCHY EYES, SOMETIMES HIVES TYLENOL: CONTRAINDICATION DUE TO GENE MUTATION - CONTRAINDICATION SURGICAL HISTORY LASER LAPAROSCOPY FOR ENDOMETRIOSIS WITH FINDING OF MINIMAL ENDOMETRIOSIS WISDOM TOOTH RT BUNIONECTOMY 07/2009 LASER RX FOR BENIGH NEOPLASM EYELID ANGIOMA [id number] SEPTOPLASTY, ADENOIDECTOMY, BALLOON SINUPLASTY 08/2016 INVITRO FERT CYCLES WITH EGG EXTRACTIONS [id number] FAMILY HISTORY FATHER: 50 YRS, SMALL CELL LYMPHOMA, DIABETES, HTN, DIAGNOSED WITH CANCER, DIABETES, HYPERTENSION MOTHER: ALIVE 52 YRS, PRE-CANCEROUS CELLS REMOVED FROM BREAST, CANCER SIBLINGS: ASTHMA PATERNAL GRAND FATHER: ? MENTAL DISORDER AND COMMITTED SUICIDE, DM PATERNAL GRAND MOTHER: , DM MATERNAL GRAND FATHER: , ? CANCER MATERNAL GRAND MOTHER: , HEART ATTACK, DM SOCIAL HISTORY GENERAL: TOBACCO USE ARE YOU A:CURRENT SMOKER ARE YOU INTERESTED IN QUITTING?THINKING ABOUT QUITTING HAS CUT DOWN ON # OF CIGS/DAY COUNSELED THE PATIENT ON SMOKING CESSATION, EDUCATION QTPCFBKD15/08/2019 HOW MANY CIGARETTES A DAY DO YOU SMOKE?5 OR LESS HOW SOON AFTER YOU WAKE UP DO YOU SMOKE YOUR FIRST CIGARETTE?AFTER 60 MIN HOW OFTEN DO YOU SMOKE CIGARETTES?SOME DAYS, BUT NOT EVERY DAY PATIENT COUNSELED ON THE DANGERS OF TOBACCO USE AND URGED TO QUIT:10/05/2018 ADDITIONAL FINDINGS: TOBACCO USER STATES CAN GO A LONG TIME WITHOUT SMOKING WITH NO SIDE EFFECTS SMOKING CESSATION INFORMATION GIVEN09/21/2018 HIV / HEP-C SCREENING HIV TEST OFFERED TO PATIENT:YES DATE OFFERED:06/08/2016 TEST ACCEPTED:NO REASON:PATIENT DECLINED HEP-C TEST OFFERED TO PATIENT:NO N/A EDUCATION LEVEL OF EDUCATION:COLLEGE DIET: REGULAR. LANGUAGE LANGUAGES SPOKEN:ERITREAN DOMESTIC VIOLENCE DO YOU FEEL SAFE IN YOUR ENVIRONMENT?YES RECREATIONAL DRUG USE DRUG USE?NO EXERCISE: WALKS. LEARNING BARRIERS / SPECIAL NEEDS CHANGE FROM LAST VISIT?NO BARRIERS TO LEARNING?NO HEARING IMPAIRED?NO VISION IMPAIRED?YES :CORRECTIVE LENSES COGNITIVELY IMPAIRED?NO READINESS TO LEARN?YES LEARNING PREFERENCES?YES :HANDOUTS, DEMONSTRATION/VERBAL INSTRUCTION LEARNING CAPABILITIES PRESENT?YES EMOTIONAL BARRIERS?NO SPECIAL DEVICES?NO ELECTRIC RANGE SERVICER NEEDED?NO PAIN CLINIC PFS, CLERGY, PUBLIC HEALTH REFERRALS PFS REFERRAL NEEDED?NO CLERGY REFERRAL NEEDED?NO PUBLIC HEALTH REFERRAL NEEDED?NO WAS THE PROVIDER NOTIFIED OF ANY PERTINENT INFO? N/A HAS THE PATIENT BEEN EDUCATED REGARDING HIS/HER PLAN OF CARE?YES HAS THE PATIENT BEEN EDUCATED REGARDING PAIN, THE RISK FOR PAIN, THE IMPORTANCE OF EFFECTIVE PAIN MANAGEMENT, AND THE PAIN ASSESSMENT PROCESS?YES LATEX QUESTIONNAIRE LATEX ALLERGY : HAVE YOU EVER DEVELOPED ANY TYPE OF REACTION AFTER HANDLING LATEX PRODUCTS SUCH RUBBER GLOVES, CONDOMS, DIAPHRAGMS, BALLOONS, SOCKS, OR UNDERWEAR?NO LATEX ALLERGY : HAVE YOU EVER DEVELOPED ANY TYPE OF REACTION DURING OR AFTER DENTAL APPOINTMENT, VAGINAL/RECTAL EXAMINATION, SURGICAL PROCEDURE, OR ANY OTHER EXPOSURE?NO LATEX RISK : HAVE YOU EVER HAD ANY DIFFICULTY BREATHING OR HIVES AFTER EATING OR HANDLING ANY FRUITS, OR VEGETABLES; SUCH KIWI, BANANAS, STONE FRUITS, OR CHESTNUTSNO LATEX RISK : DO YOU HAVE A PREVIOUS PERSONAL HISTORY OF MORE THAN NINE SURGERIES, SPINA BIFIDA, OR REPEATED CATHERTIZATIONS? NO LATEX RISK : ARE YOU FREQUENTLY EXPOSED TO LATEX PRODUCTS IN YOUR OCCUPATION?NO DATE ASKED : 10/05/2018 CAFFEINE CAFFEINE USE?YES COFFEE SODA ADVANCE DIRECTIVE ADVANCE DIRECTIVE DISCUSSED WITH PATIENT:YES 10/05/18 PT DOES NOT HAVE ANY ADVANCED DIRECTIVES AND SHE STATES SHE ALREADY HAS INFORMATION ON HCP. DECLINES ASSISTANCE AT THIS TIME. AD YARSANI [id number] CONFUCIANISM MARITAL STATUS: . ALCOHOL SCREENING DID YOU HAVE A DRINK CONTAINING ALCOHOL IN THE PAST YEAR?YES HOW OFTEN DID YOU HAVE A DRINK CONTAINING ALCOHOL IN THE PAST YEAR?MONTHLY OR LESS (1 POINT) POINTS1 INTERPRETATIONNEGATIVE HOW MANY DRINKS DID YOU HAVE ON A TYPICAL DAY WHEN YOU WERE DRINKING IN THE PAST YEAR?1 OR 2 (0 POINTS) SEXUAL HX HAD SEX IN THE LAST 12 MONTHS (VAGINAL, ORAL, OR ANAL)?YES WITHMEN ONLY USE PROTECTION?NO PREVENTION STRATEGIES DISCUSSED:OTHER HAVE YOU EVER HAD AN STD?NO LMP:10/09/2016 10/12/17 1205 REVIEWED WITH PT. AD12/09/17 1500 REVIEWED WITH PT LAS01/11/18 1410 REVIEWED WITH PT 1115 REVIEWED WITH PT LAS08/22/18 1203 REVIEWED WITH PT BV. HOSPITALIZATION/MAJOR DIAGNOSTIC PROCEDURE MONO 2006 IN CHILDHOOD LUNG REASON REVIEW OF SYSTEMS REVIEWED BY: PROVIDER: . CONSTITUTIONAL: ANY CHANGE IN YOUR MEDICAL CONDITION? NO . CHILLS NO . FEVER NO . INFECTION: DO YOU HAVE NEW INFECTIONS? NO . DO YOU HAVE HISTORY OF MRSA? NO . MUSCULOSKELETAL: ANY NEW PATTERNS OF PAIN OR NUMBNESS? NO . GASTROENTEROLOGY: ANY NEW CHANGE IN BOWEL CONTROL? NO . GENITOURINARY: ANY NEW CHANGE IN BLADDER CONTROL? NO . IS THERE A CHANCE YOU COULD BE ? NO . HEMATOLOGY/LYMPH: DO YOU TAKE ANY BLOOD THINNERS? (FOR EXAMPLE- COUMADIN, PLAVIX, AGGRENOX, PLATEL, PRADAXA, OR XARELTO) NO . WHEN WAS YOUR LAST DOSE? DATE: TIME: . NEUROLOGY: HAVE YOU FALLEN IN THE PAST 12 MONTHS? 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 NO FRACTURES. WAS OFF WORK FOR APPROX. 1 MONTHS . ANY NEW EXTREMITY NUMBNESS OR WEAKNESS? NO . CARDIOLOGY: DO YOU HAVE A PACEMAKER OR DEFIBRILLATOR? NO . RESPIRATORY: HAVE YOU BEEN SICK IN THE PAST WEEK? NO . FEVER NO . FLU LIKE SYMPTOMS? NO . COUGH NO . INTEGUMENTARY: DO YOU HAVE ANY RASHES OR OPEN SORES? NO . ALLERGIC/IMMUNO: ARE YOU ALLERGIC TO IV DYE? NO . ANY NEW ALLERGIES? NO . PSYCHIATRIC: DO YOU HAVE THOUGHTS OF HURTING YOURSELF OR SOMEONE ELSE? NO . ARE YOU ABUSED, NEGLECTED, OR IN AN UNSAFE ENVIRONMENT? NO . ENDOCRINOLOGY: ARE YOU DIABETIC? NO . OTHER: DO YOU NEED ANY PRESCRIPTIONS? NO . IF YES, PLEASE LIST: ____ . ANY NEW PROBLEMS WITH YOUR MEDICATIONS? NO . WHEN DID YOU LAST EAT? 10/05 1999 . WHEN DID YOU LAST DRINK? 10/05 0700 . WHAT DID YOU LAST DRINK? WATER . NAME OF PERSON DRIVING YOU HOME? TANJA ZIMMERMAN . DO YOU HAVE ANY OTHER QUESTIONS OR CONCERNS NO PT HAS NOT HAD ANY VACCINES IN THE PAST 30 DAYS. I HAD EXPLAINED TO PATIENT THAT IT WAS NOT GOOD TO TAKE THE EX-LAX ON A DAILY BASIS AND I WOULD CONTACT THE PHARMACY TO FIND OUT ABOUT THE COLACE OUR RECORD INDICATED THAT THE SCRIPT HAD GONE THROUGH . VITAL SIGNS WT 146.2 LBS, HT 66 IN, BMI 23.59 INDEX, BP 105/67 MM HG, HR 68 /MIN, RR 16 /MIN, TEMP 97.0 F, OXYGEN SAT % 99%, SAFE IN ENV? (Y/N) Y, NA INITIALS SC 10:14, REVIEWED BY: ROYAL. ASSESSMENTS SPONDYLOSIS OF CERVICAL REGION WITHOUT MYELOPATHY OR RADICULOPATHY - M47.812 (PRIMARY) PROCEDURES PN CERVICAL FACET BLOCK LOW BILATERAL CERVICAL PRE PROCEDURE DIAGNOSIS CERVICAL SPONDYLOSIS POST PROCEDURE DIAGNOSIS CERVICAL SPONDYLOSIS PROCEDURE BILATERAL C3-C4 AND BILATERAL C4-C5 CERVICAL FACET BLOCK SURGEON DR. MAYRA STEVENS R D INTERN NONE ANESTHESIA LOCAL WITH IV SEDATION PRE PROCEDURE NOTE THE PATIENT HAS HISTORY OF CHRONIC CERVICAL PAIN. I EVALUATE THE PATIENT AND REVIEWED THE CHART. I WENT OVER THE RISKS, ALTERNATIVES, AND BENEFITS ASSOCIATED WITH THIS PROCEDURE. THE PATIENT WOULD LIKE TO PROCEED AND GIVE CONSENT TO PERFORMED THE PROCEDURE. PATIENT WOULD LIKE TO MOVE FORWARD WITH IV SEDATION DUE TO DISCOMFORT, PAIN AND ANXIETY ASSOCIATED WITH THE PROCEDURE. THE PATIENT DENIES UNEXPLAINABLE WEIGHT LOSS, FEVER, CHILLS, OR NEW CHANGES IN URINARY OR BOWEL CONTROL. DESCRIPTION OF PROCEDURE THE PATIENT WAS BROUGHT TO THE PROCEDURE ROOM AND PLACED IN THE PRONE POSITION. THE CERVICOTHORACIC AREA WAS CLEANED WITH CHLORAPREP SOLUTION AND DRAPED ASEPTICALLY. THE PROCEDURE WAS DONE UNDER STERILE CONDITIONS. I CHECKED LATERALITY AND THE LEVEL WHERE THE PROCEDURE WAS GOING TO BE PERFORMED WITH THE PATIENT AND THE SUPPORTING STAFF AT THE MOMENT OF THE TIME OUT IN THE PROCEDURE ROOM. UNDER FLUOROSCOPIC GUIDANCE, TARGET POINT WAS SELECTED AT THE RIGHT AND LEFT C3-C4 AND RIGHT AND LEFT C4-C5 CERVICAL FACET JOINT. TARGET POINTS WERE SELECTED AFTER LATERAL ROTATION AND TILT OF THE MAGNIFIER OF THE C-ARM. LIDOCAINE 0.5% WAS USED TO NUMB THE SKIN AND THE SUBCUTANEOUS TISSUE BELOW IT. SPINAL NEEDLES, 22-GAUGE, WERE ADVANCED UNDER FLUOROSCOPIC GUIDANCE AND FOLLOWING PATIENT FEEDBACK UNTIL THE TARGETS WERE TOUCHED. THE POSITION OF THE NEEDLES WAS VERIFIED WITH AP AND LATERAL VIEWS. AFTER PROPER POSITION OF THE NEEDLES WAS ACHIEVED, ISOVUE M DYE 30, 0.1 ML WAS INJECTED SHOWING SPREAD OF THE DYE. THEN A SOLUTION OF 0.9 ML OF BUPIVACAINE 0.125% AND KENALOG 10 MG WAS INJECTED AT EACH SITE. PATIENT RECEIVED VERSED 2 MG AND FENTANYL 300 MCG IV DIVIDED DOSES. THERE WAS NO EVIDENCE OF BLOOD, PARESTHESIA OR CEREBROSPINAL FLUID DURING THE PROCEDURE. THE PATIENT WAS SENT TO THE RECOVERY ROOM. THE PATIENT WAS MOVING THE EXTREMITIES AND DOING WELL. THERE WAS NO COMPLICATION DURING THE PROCEDURE. FLUOROSCOPY TIME WAS 11 SECONDS. FACE TO FACE TIME WAS 20 MINUTES. POST PROCEDURE NOTE THE PATIENT WILL BE SEEN IN A FOLLOW UP IN THE NEXT FEW WEEKS. INSTRUCTIONS WERE GIVEN, QUESTIONS WERE ANSWERED, AND THE PATIENT EXPRESSED UNDERSTANDING AND AGREES WITH THE PLAN. I, DAVID GARCIA, DOCUMENTED THE ABOVE INFORMATION ACTING A SCRIBE FOR DR. STEVENS. I HAVE REVIEWED THE ABOVE DOCUMENT, WRITTEN BY DAVID WHITEHEADIBDianne AND I VERIFY THAT IT IS ACCURATE. DIAGNOSTIC IMAGING [facility] FACET BLOCK (PAIN)[id number] PROCEDURE CODES 6045F RADXPS IN END [id number] PXD [id number] INJ PARAVERT F JNT C/T 1 LEV, MODIFIERS: 50 [id number] INJ PARAVERT F JNT C/T 2 LEV, MODIFIERS: 50 [id number] MOD SED SAME PHYS/QHP 5/>YRS DISPOSITION & COMMUNICATION FOLLOW UP 3 WEEKS ELECTRONICALLY SIGNED BY MAYRA STEVENS MD, ON 10/22/2018 AT 04:06 PM EDT DISCLAIMER : THIS IS A VISIT SUMMARY EXTRACTED FROM THE [employer] CHART. IT IS NOT A COPY OF THE [employer] PROGRESS NOTE. MTDD
== END ==
LOC: M PAIN 10:00
PROVIDERS: ATTEND Anesthesiology
DX: G89.29 Other chronic pain (principal); M47.812 Spondylosis without myelopathy or radiculopathy, cervical region; G43.909 Migraine, unspecified, not intractable, without status migrainosus; L40.9 Psoriasis, unspecified; J30.89 Other allergic rhinitis; F17.210 Nicotine dependence, cigarettes, uncomplicated; Z79.84 Long term (current) use of oral hypoglycemic drugs; Z79.899 Other long term (current) drug therapy; Z88.8 Allergy status to other drugs, medicaments and biological substances; Z86.59 Personal history of other mental and behavioral disorders
CPT/HCPCS: 64490; 64491; 99152; J1200; J2250; J3010; J3301; Q9967

== ENCOUNTER → 2018-10-27 | Outpatient (CLI) | payer OTHER ==
[~2018-10-27] MED LIST changes: -BUPIVACAINE HCL 0.25% 30 ML VIAL As Ordered ONE; -ISOVUE-M 300 61% 15ML VIAL (Q9967) As Ordered ONE; -LIDOCAINE 1% SDV INJ 30 ML VIAL As Ordered ONE; -MIDAZOLAM INJ 2 MG/2 ML VIAL (J2250) As Ordered ONE; -TRIAMCINOLONE ACETONIDE SUSP 40 MG/ML VIAL (J3301) As Ordered ONE; -diphenhydrAMINE INJ 50MG/ML VIAL (J1200) As Ordered ONE; -fentaNYL 100 MCG/2 ML INJECTION (J3010) As Ordered ONE
--- NOTE | 2018-11-08 02:54 | ECWPNPC ---
PATIENT NAME: SILVIA ZIMMERMAN : 1985 GENDER: FEMALE VISIT DATE: 10/27/2018 DISCHARGE DATE: 10/27/18 1509 VISIT LOCKED DATE TIME: PHYSICIAN: NUVIA ROBLES PHYSICIAN PAGER NO: INACTIVE RESOURCE: NUVIA ROBLES DISCLAIMER : THIS IS A VISIT SUMMARY EXTRACTED FROM THE [facility]. IT IS NOT A COPY OF THE [employer] PROGRESS NOTE. BRANT
== END ==
LOC: M PAIN 13:45
PROVIDERS: ATTEND Nurse Practitioner Family
DX: M79.7 Fibromyalgia (principal); G43.909 Migraine, unspecified, not intractable, without status migrainosus; M81.0 Age-related osteoporosis without current pathological fracture; Z86.59 Personal history of other mental and behavioral disorders; F17.210 Nicotine dependence, cigarettes, uncomplicated; Z88.6 Allergy status to analgesic agent; Z79.84 Long term (current) use of oral hypoglycemic drugs; Z79.899 Other long term (current) drug therapy

== ENCOUNTER → 2018-12-27 | Outpatient (CLI) | payer OTHER ==
[~2018-12-27] MED LIST changes: +BOTULINUM INJ 100 UNITS (J0585) IM ONE; +diazePAM 5 MG TAB As Ordered ONE; +oxyCODONE 5MG TAB As Ordered ONE
--- NOTE | 2019-01-04 00:41 | ECWPNPC ---
PATIENT NAME: SILVIA ZIMMERMAN : 1985 GENDER: FEMALE VISIT DATE: 12/27/2018 DISCHARGE DATE: 12/27/18 1718 VISIT LOCKED DATE TIME: PHYSICIAN: MAYRA STEVENS MD PHYSICIAN PAGER NO: INACTIVE RESOURCE: MAYRA STEVENS MD REASON FOR APPOINTMENT 1. BOTOX HISTORY OF PRESENT ILLNESS HISTORY OF PRESENT ILLNESS: PAIN THE PATIENT DESCRIBES THE PAIN... FALL RISK SCREENING: SCREENING :NO FALLS REPORTED IN THE LAST YEAR CURRENT MEDICATIONS TAKING COLACE 100 MG CAPSULE 1 CAPSULE NEEDED ORALLY BID, NOTES: 1 WEEK AGO TAKING METFORMIN HCL ER 500 MG TABLET EXTENDED RELEASE 24 HOUR 3 TABLET ORALLY DAILY AT BEDTIME, NOTES: 2 DAYS AGO TAKING CALCIUM + D 600-200 MG-UNIT TABLET 1 TABLET ORALLY ONCE A DAY, NOTES: NONE RECENT TAKING CLONIDINE HCL 0.3 MG TABLET 2 TABLETS ORALLY ONCE A DAY, NOTES: 12/26/18 PM TAKING LINZESS 290 MCG CAPSULE 1 CAPSULE ORALLY ONCE A DAY, NOTES: 12/27/18 0900 TAKING BENADRYL 25 MG ORAL 3 TABLETS DIRECTED, NOTES: 3 DAYS AGO TAKING XANAX 1 MG TABLET 1 TABLET ORALLY DAILY, NOTES: 12/26/18 PM TAKING ALPRAZOLAM ER 3 MG TABLET EXTENDED RELEASE 24 HOUR 1 TABLET IN THE MORNING ORALLY ONCE A DAY, NOTES: 12/26/18 AM TAKING GABAPENTIN 300 MG CAPSULE 1 CAPSULE ORALLY ONCE A DAY, NOTES: 12/27/18 0900 TAKING PROBIOTIC TABLET DELAYED RELEASE 1 CAPSULE ORALLY DAILY, NOTES: MONTHS AGO TAKING EX-LAX 15 MG TABLET 1 TABLET AT BEDTIME NEEDED ORALLY DAILY, NOTES: NONE RECENT TAKING VITAMIN C 500 MG TABLET 1 TABLET ORALLY ONCE A DAY, NOTES: 2 MONTHS AGO TAKING NORCO 5-325 MG TABLET 1 TABLET NEEDED ORALLY Q8H TID MDD3, NOTES: 12/26/18 PM TAKING ALBUTEROL EVERY 4 HOURS NEEDED, NOTES: NONE RECENT NOT-TAKING SELEGILINE HCL 5 MG TABLET 1 TABLET WITH BREAKFAST AND LUNCH ORALLY TWICE A DAY NOT-TAKING SINGULAIR 10 MG TABLET 1 TABLET IN THE EVENING ORALLY ONCE A DAY NOT-TAKING TRAMADOL HCL 50 MG TABLET 1/2 - 1 TABLET ORALLY EVERY 6 -8 HRS PRN PAIN NOT-TAKING DICLOFENAC POTASSIUM 50 MG TABLET 1 TABLET ORALLY TWICE A DAY, NOTES: NONE RECENT-DIDN'T HELP MEDICATION LIST REVIEWED AND RECONCILED WITH THE PATIENT PAST MEDICAL HISTORY SCOLIOSIS - MINIMAL DEXTRO-CONVEX CURVATURE - SCOLIOSIS SERIES ON 01/2009 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 INTERMITT 2 YEARS/ S/P 2 LASER LAPROSCOPIES OSTEOPOROSIS/OSTEOPENIA DUE TO LUPRON RX/ DEXA SCAN ON 03/2009 LUMBAR SPINE NORMAL BMD FOR AGE OCD/ SOCIAL ANXIETY/ BULEMIA NERVOSA PURGING TYPE/ DEPRESSIVE DISORDER/ ANXIETY PSORIASIS/SEBORRHEIC DERMATITIS RIGHT HALLUX VALGUS DEFORMITY S/P RT BUNIONECTOMY 2010 GANGLION LEFT HAND- W/ NL RADIOGRAPH S/P SURGICALLY REMOVED BULIMIA NERVOSA PURGING TYPE POLYCYSTIC OVARIES MIGRAINE ALLERGIC RHINITIS SINUS INFECTION ALLERGIES ENVIRONMENTAL: STUFFY NOSE, ITCHY EYES, SOMETIMES HIVES TYLENOL: CONTRAINDICATION DUE TO GENE MUTATION - CONTRAINDICATION SURGICAL HISTORY LASER LAPAROSCOPY FOR ENDOMETRIOSIS WITH FINDING OF MINIMAL ENDOMETRIOSIS WISDOM TOOTH RT BUNIONECTOMY 07/2009 LASER RX FOR BENIGH NEOPLASM EYELID ANGIOMA [id number] SEPTOPLASTY, ADENOIDECTOMY, BALLOON SINUPLASTY 08/2016 INVITRO FERT CYCLES WITH EGG EXTRACTIONS [id number] FAMILY HISTORY FATHER: 50 YRS, SMALL CELL LYMPHOMA, DIABETES, HTN, DIAGNOSED WITH DIABETES, HYPERTENSION, CANCER MOTHER: ALIVE 52 YRS, PRE-CANCEROUS CELLS REMOVED FROM BREAST, CANCER SIBLINGS: ASTHMA PATERNAL GRAND FATHER: ? MENTAL DISORDER AND COMMITTED SUICIDE, DM PATERNAL GRAND MOTHER: , DM MATERNAL GRAND FATHER: , ? CANCER MATERNAL GRAND MOTHER: , HEART ATTACK, DM SOCIAL HISTORY GENERAL: TOBACCO USE ARE YOU A:CURRENT SMOKER ARE YOU INTERESTED IN QUITTING?THINKING ABOUT QUITTING HAS CUT DOWN ON # OF CIGS/DAY COUNSELED THE PATIENT ON SMOKING CESSATION, EDUCATION [id number]/30/2019 HOW MANY CIGARETTES A DAY DO YOU SMOKE?5 OR LESS HOW SOON AFTER YOU WAKE UP DO YOU SMOKE YOUR FIRST CIGARETTE?AFTER 60 MIN HOW OFTEN DO YOU SMOKE CIGARETTES?SOME DAYS, BUT NOT EVERY DAY PATIENT COUNSELED ON THE DANGERS OF TOBACCO USE AND URGED TO QUIT:10/05/2018 ADDITIONAL FINDINGS: TOBACCO USER STATES CAN GO A LONG TIME WITHOUT SMOKING WITH NO SIDE EFFECTS SMOKING CESSATION INFORMATION GIVEN09/21/2018 HIV / HEP-C SCREENING HIV TEST OFFERED TO PATIENT:YES DATE OFFERED:06/08/2016 TEST ACCEPTED:NO REASON:PATIENT DECLINED HEP-C TEST OFFERED TO PATIENT:NO N/A EDUCATION LEVEL OF EDUCATION:COLLEGE DIET: REGULAR. LANGUAGE LANGUAGES SPOKEN:FRENCH DOMESTIC VIOLENCE DO YOU FEEL SAFE IN YOUR ENVIRONMENT?YES RECREATIONAL DRUG USE DRUG USE?NO EXERCISE: WALKS. LEARNING BARRIERS / SPECIAL NEEDS CHANGE FROM LAST VISIT?NO BARRIERS TO LEARNING?NO HEARING IMPAIRED?NO VISION IMPAIRED?YES :CORRECTIVE LENSES COGNITIVELY IMPAIRED?NO READINESS TO LEARN?YES LEARNING PREFERENCES?YES :HANDOUTS, DEMONSTRATION/VERBAL INSTRUCTION LEARNING CAPABILITIES PRESENT?YES EMOTIONAL BARRIERS?NO SPECIAL DEVICES?NO METAL CEILING HANGER NEEDED?NO PAIN CLINIC PFS, CLERGY, PUBLIC HEALTH REFERRALS PFS REFERRAL NEEDED?NO CLERGY REFERRAL NEEDED?NO PUBLIC HEALTH REFERRAL NEEDED?NO WAS THE PROVIDER NOTIFIED OF ANY PERTINENT INFO? N/A HAS THE PATIENT BEEN EDUCATED REGARDING HIS/HER PLAN OF CARE?YES HAS THE PATIENT BEEN EDUCATED REGARDING PAIN, THE RISK FOR PAIN, THE IMPORTANCE OF EFFECTIVE PAIN MANAGEMENT, AND THE PAIN ASSESSMENT PROCESS?YES LATEX QUESTIONNAIRE LATEX ALLERGY : HAVE YOU EVER DEVELOPED ANY TYPE OF REACTION AFTER HANDLING LATEX PRODUCTS SUCH RUBBER GLOVES, CONDOMS, DIAPHRAGMS, BALLOONS, SOCKS, OR UNDERWEAR?NO LATEX ALLERGY : HAVE YOU EVER DEVELOPED ANY TYPE OF REACTION DURING OR AFTER DENTAL APPOINTMENT, VAGINAL/RECTAL EXAMINATION, SURGICAL PROCEDURE, OR ANY OTHER EXPOSURE?NO LATEX RISK : HAVE YOU EVER HAD ANY DIFFICULTY BREATHING OR HIVES AFTER EATING OR HANDLING ANY FRUITS, OR VEGETABLES; SUCH KIWI, BANANAS, STONE FRUITS, OR CHESTNUTSNO LATEX RISK : DO YOU HAVE A PREVIOUS PERSONAL HISTORY OF MORE THAN NINE SURGERIES, SPINA BIFIDA, OR REPEATED CATHERIZATIONS? NO LATEX RISK : ARE YOU FREQUENTLY EXPOSED TO LATEX PRODUCTS IN YOUR OCCUPATION?NO DATE ASKED : 10/05/2018 CAFFEINE CAFFEINE USE?YES COFFEE SODA ADVANCE DIRECTIVE ADVANCE DIRECTIVE DISCUSSED WITH PATIENT:YES PT DOES NOT HAVE ANY ADVANCED DIRECTIVES AND SHE STATES SHE ALREADY HAS INFORMATION ON HCP. DECLINES ASSISTANCE AT THIS TIME. 12/27/18 CATHOLIC [id number] BUDDHISM MARITAL STATUS: . ALCOHOL SCREENING DID YOU HAVE A DRINK CONTAINING ALCOHOL IN THE PAST YEAR?YES HOW OFTEN DID YOU HAVE A DRINK CONTAINING ALCOHOL IN THE PAST YEAR?MONTHLY OR LESS (1 POINT) POINTS1 INTERPRETATIONNEGATIVE HOW MANY DRINKS DID YOU HAVE ON A TYPICAL DAY WHEN YOU WERE DRINKING IN THE PAST YEAR?1 OR 2 (0 POINTS) SEXUAL HX HAD SEX IN THE LAST 12 MONTHS (VAGINAL, ORAL, OR ANAL)?YES WITHMEN ONLY USE PROTECTION?NO PREVENTION STRATEGIES DISCUSSED:OTHER HAVE YOU EVER HAD AN STD?NO LMP:10/09/2016 10/12/17 1205 REVIEWED WITH PT. AD12/09/17 1500 REVIEWED WITH PT LAS01/11/18 1410 REVIEWED WITH PT 1115 REVIEWED WITH PT LAS08/22/18 1203 REVIEWED WITH PT BV12/27/18 1433 REVIEWED WITH PT BV. HOSPITALIZATION/MAJOR DIAGNOSTIC PROCEDURE MONO 2006 IN CHILDHOOD LUNG REASON REVIEW OF SYSTEMS REVIEWED BY: PROVIDER: . CONSTITUTIONAL: ANY CHANGE IN YOUR MEDICAL CONDITION? NO . CHILLS NO . FEVER NO . INFECTION: DO YOU HAVE NEW INFECTIONS? NO . DO YOU HAVE HISTORY OF MRSA? NO . MUSCULOSKELETAL: ANY NEW PATTERNS OF PAIN OR NUMBNESS? NO . GASTROENTEROLOGY: ANY NEW CHANGE IN BOWEL CONTROL? NO . GENITOURINARY: ANY NEW CHANGE IN BLADDER CONTROL? NO . IS THERE A CHANCE YOU COULD BE ? NO . HEMATOLOGY/LYMPH: DO YOU TAKE ANY BLOOD THINNERS? (FOR EXAMPLE- COUMADIN, PLAVIX, AGGRENOX, PLATEL, PRADAXA, OR XARELTO) NO . WHEN WAS YOUR LAST DOSE? DATE: TIME: . NEUROLOGY: HAVE YOU FALLEN IN THE PAST 12 MONTHS? YES, PT DENIES ANY FALLS SINCE LAST VISIT. STATES PREVIOUS FALLS WERE DOCUMENTED. . ANY NEW EXTREMITY NUMBNESS OR WEAKNESS? NO . CARDIOLOGY: DO YOU HAVE A PACEMAKER OR DEFIBRILLATOR? NO . RESPIRATORY: HAVE YOU BEEN SICK IN THE PAST WEEK? YES, PT REPORTS COLD WITH LOW GRADE FEVER ABOUT A WEEK AGO, STATES SYMPTOMS HAVE RESOLVED. SPOKE WITH DR. STEVENS REGARDING THIS, OKAY TO PROCEDE WITH PROCEDURE . FEVER NO . FLU LIKE SYMPTOMS? NO . COUGH NO . INTEGUMENTARY: DO YOU HAVE ANY RASHES OR OPEN SORES? NO . ALLERGIC/IMMUNO: ARE YOU ALLERGIC TO IV DYE? NO . ANY NEW ALLERGIES? NO . PSYCHIATRIC: DO YOU HAVE THOUGHTS OF HURTING YOURSELF OR SOMEONE ELSE? NO . ARE YOU ABUSED, NEGLECTED, OR IN AN UNSAFE ENVIRONMENT? NO . ENDOCRINOLOGY: ARE YOU DIABETIC? NO . OTHER: DO YOU NEED ANY PRESCRIPTIONS? NO . IF YES, PLEASE LIST: ____ . ANY NEW PROBLEMS WITH YOUR MEDICATIONS? NO . WHEN DID YOU LAST EAT? 12/26/18 2100 . WHEN DID YOU LAST DRINK? 12/27/18 0800 . WHAT DID YOU LAST DRINK? AVIVA . NAME OF PERSON DRIVING YOU HOME? SIXTO UREÑA . DO YOU HAVE ANY OTHER QUESTIONS OR CONCERNS NO . VITAL SIGNS WT 142.8 LBS, HT 66 IN, BMI 23.05 INDEX, BP 111/69 MM HG, HR 73 /MIN, RR 16 /MIN, TEMP 98.0 F, OXYGEN SAT % 99%, NA INITIALS AW 1425, REVIEWED BY: BV. ASSESSMENTS CHRONIC MIGRAINE - G43.709 (PRIMARY) PROCEDURES PN BOTOX INJECTIONS SUBSEQUENT INJECTIONS PRE PROCEDURE DIAGNOSIS CHRONIC MIGRAINE HEADACHES. POST PROCEDURE DIAGNOSIS CHRONIC MIGRAINE HEADACHES. PROCEDURE BOTOX INJECTION AT THE HEAD, NECK AND SHOULDERS. SURGEON DR. MAYRA STEVENS SLEEVE SETTER SAFETY STITCH NONE ANESTHESIA NONE PRE PROCEDURE NOTE THE PATIENT HAS HISTORY OF CHRONIC MIGRAINE HEADACHES. I EVALUATED THE PATIENT AND REVIEWED THE CHART. I WENT OVER THE RISKS, ALTERNATIVES, AND BENEFITS ASSOCIATED WITH THIS PROCEDURE. THE PATIENT WOULD LIKE TO PROCEED AND GIVE CONSENT TO PERFORMED THE PROCEDURE. THE PATIENT DENIES UNEXPLAINABLE WEIGHT LOSS, FEVER, CHILLS, OR NEW CHANGES IN URINARY OR BOWEL CONTROL. THE PATIENT DID A BOTOX INJECTION AT THE HEAD, NECK AND SHOULDERS 3 MONTHS AGO AND EXPRESSED MORE THAN 50% REDUCTION ON THE FREQUENCY AND INTENSITY OF THE HEADACHES. LAST BOTOX WAS DONE 3 MONTHS AGO. NOW SHE IS EXPERIENCING HEADACHES 8 TIMES PER MONTH. BEFORE BOTOX EVERY DAY. THE PATIENT EXPRESS THAT THE USE OF BOTOX HAS REDUCE SIGNIFICANTLY THE SEVERITY OF THE HEADACHES AND EXPRESSED THAT WANT TO RECEIVE THIS PROCEDURE AGAIN TODAY DESCRIPTION OF PROCEDURE THE PATIENTS WAS BROUGHT TO THE PROCEDURE ROOM AND PLACED IN THE SUPINE POSITION. I CHECKED LATERALITY AND THE AREAS WHERE THE PROCEDURE WAS GOING TO BE PERFORMED WITH THE PATIENT AND THE SUPPORTING STAFF AT THE MOMENT OF THE TIME OUT IN THE PROCEDURE ROOM. FOR THE PROCEDURE I USED A SOLUTION OF 5 UNITS OF BOTOX PER EACH 0.1 ML OF THE SOLUTION. I USED A 30-GAUGE NEEDLE TO INJECT THE SOLUTION AT THE SELECTED LOCATIONS. I INJECTED FIRST THE RIGHT AND LEFT PHYSICIAN SURGEON MUSCLES. THE LANDMARK FOR BOTH INJECTIONS WAS APPROXIMATELY 1 CM ABOVE THE SUPERIOR MEDIAL EDGE OF THE EYEBROW. AFTER THESE TWO INJECTIONS, I INJECTED THE PROCERUS MUSCLE AT THE MIDLINE POINT BETWEEN THESE FIRST TWO INJECTIONS. THEN I PROCEEDED TO INJECT THE RIGHT AND LEFT FRONTALIS MUSCLE. TWO INJECTIONS WERE DONE IN EACH SIDE. THE FIRST INJECTION WAS DONE APPROXIMATELY 2 CM ABOVE THE FIRST INJECTION OF THE PHYSICIAN SURGEON. THE SECOND INJECTION WAS DONE APPROXIMATELY 1.5 CM LATERAL TO THIS FIST INJECTION OF THE FRONTALIS OF EACH SIDE. AFTER THE INJECTIONS OVER THE FOREHEAD WERE DONE, THE PATIENT'S HEAD WAS TURNED TO THE LEFT SIDE AND WE STARTED TO WORK WITH THE RIGHT TEMPORALIS MUSCLE. FIRST INJECTION WAS DONE IN A VERTICAL LINE OF THE TRAGUS APPROXIMATELY 3 CM ABOVE THE TRAGUS. THE SECOND INJECTION WAS DONE APPROXIMATELY 2 CM ABOVE THE FIRST INJECTION. THE THIRD INJECTION WAS DONE APPROXIMATELY 1 CM FRONT BALLARD FROM THIS VERTICAL LINE CREATED AT THE LEVEL OF THE TRAGUS, SNF BETWEEN THESE TWO INJECTIONS. THE FOURTH INJECTION WAS DONE APPROXIMATELY 1.5 CM BACK FROM THE SECOND INJECTION TO THE TEMPORALIS IN LINE TO THE MIDPORTION OF THE EAR. THEN, WE PROCEEDED TO INJECT THE LEFT TEMPORALIS MUSCLE. WE CLEANED THE AREA WITH ALCOHOL AND PROCEEDED TO PERFORM THE SAME FOR INJECTIONS DESCRIBED ABOVE BUT IN THE LEFT TEMPORALIS MUSCLE USING THE SAME LANDMARKS. AFTER THESE INJECTIONS WERE DONE, THE PATIENT WAS SEATED. FIRST, WE STARTED TO INJECT THE LEFT AND RIGHT OCCIPITALIS MUSCLE. I INJECTED AT THE FOLLOWING PLACES IN THE RIGHT AND LEFT MUSCLE. THE FIRST INJECTION WAS DONE AT THE MIDPOINT POSITION BETWEEN THE MASTOID PROCESS AND THE INION OF THE OCCIPITAL PROTUBERANCE. THE SECOND INJECTION WAS DONE APPROXIMATELY 1.5 CM SUPERIOR AND LATERAL OF THIS POINT. THE THIRD INJECTION WAS DONE APPROXIMATELY 1.5 CM SUPERIOR AND MEDIAL TO THIS FIRST INJECTION. THEN, I PROCEEDED TO INJECT THE RIGHT AND LEFT PARASPINAL MUSCLES. LANDMARK OF THE INJECTION WERE APPROXIMATELY: FIRST INJECTION 3 CM BELOW THE INION AND 1 CM LATERAL TO THE MIDLINE AND SECOND INJECTION AT EACH SIDE WAS DONE APPROXIMATELY 1.5 CM SUPERIOR AND LATERAL OF THE FIRST INJECTION. THE LAST GROUP OF INJECTIONS WAS DONE OVER THE RIGHT AND LEFT TRAPEZIUS MUSCLE OVER THE SHOULDERS AREA. THE FIRST INJECTION WAS DONE AT THE MIDPOINT BETWEEN THE INFLECTION POINT BETWEEN THE NECK AND SHOULDER AND THE ACROMION. THE SECOND AND THIRD INJECTIONS WERE DONE APPROXIMATELY 2.5 CM LATERAL AND MEDIAL FROM THIS FIRST INJECTION. SAME TARGETS WERE USED IN THE RIGHT AND LEFT SIDE. IN TOTAL, I INJECTED 155 UNITS OF BOTOX. PROCEDURE WAS DONE WITHOUT EVIDENCE OF PARESTHESIA, PNEUMOTHORAX, OR ANY COMPLICATIONS. THE PATIENT TOLERATED THE PROCEDURE VERY WELL. THE PATIENT WAS SENT TO THE RECOVERY ROOM FOR OBSERVATIONS. INJECTIONS WERE DONE AFTER CLEANING WITH ALCOHOL, USING ASEPTIC TECHNIQUES POST PROCEDURE NOTE THE PROCEDURE DONE WAS DISCUSSED WITH THE PATIENT. THE PATIENT WILL BE SEEN IN A FOLLOW UP IN THE NEXT FEW WEEKS. INSTRUCTIONS WERE GIVEN, QUESTIONS WERE ANSWERED, AND THE PATIENT EXPRESSED UNDERSTANDING AND AGREES WITH THE PLAN. I, NANCY BOLDEN, DOCUMENTED THE ABOVE INFORMATION ACTING A SCRIBE FOR DR. STEVENS. I HAVE REVIEWED THE ABOVE DOCUMENT, WRITTEN BY NANCY BOLDEN SCRIBE AND I VERIFY THAT IT IS ACCURATE. PROCEDURE CODES [id number] CHEMODENERV MUSC MIGRAINE DISPOSITION & COMMUNICATION FOLLOW UP 3 WEEKS ELECTRONICALLY SIGNED BY MAYRA STEVENS MD, MD ON 01/03/2019 AT 03:36 PM EDT DISCLAIMER : THIS IS A VISIT SUMMARY EXTRACTED FROM THE [employer] CHART. IT IS NOT A COPY OF THE [employer] PROGRESS NOTE. BRANT
== END ==
LOC: M PAIN 14:30
PROVIDERS: ATTEND Anesthesiology
DX: G43.709 Chronic migraine without aura, not intractable, without status migrainosus (principal); M41.9 Scoliosis, unspecified; M81.0 Age-related osteoporosis without current pathological fracture; F50.2 Bulimia nervosa; F40.10 Social phobia, unspecified; F32.9 Major depressive disorder, single episode, unspecified; F41.9 Anxiety disorder, unspecified; F42.9 Obsessive-compulsive disorder, unspecified; L40.9 Psoriasis, unspecified; L21.9 Seborrheic dermatitis, unspecified; E28.2 Polycystic ovarian syndrome; J30.9 Allergic rhinitis, unspecified; F17.210 Nicotine dependence, cigarettes, uncomplicated; Z79.891 Long term (current) use of opiate analgesic; Z79.899 Other long term (current) drug therapy; Z88.6 Allergy status to analgesic agent
CPT/HCPCS: 64615; J0585

== ENCOUNTER → 2018-12-30 | Outpatient (CLI) | payer OTHER ==
[~2018-12-30] MED LIST changes: -BOTULINUM INJ 100 UNITS (J0585) IM ONE; +BUPIVACAINE HCL 0.25% 10 ML VIAL As Ordered ONE; +BUPIVACAINE HCL 0.25% 30 ML VIAL As Ordered ONE; +TRIAMCINOLONE ACETONIDE SUSP 40 MG/ML VIAL (J3301) As Ordered ONE
--- NOTE | 2019-01-11 00:09 | ECWPNPC ---
PATIENT NAME: SILVIA ZIMMERMAN : 1985 GENDER: FEMALE VISIT DATE: 12/30/2018 DISCHARGE DATE: 12/30/18 1112 VISIT LOCKED DATE TIME: PHYSICIAN: MAYRA STEVENS MD PHYSICIAN PAGER NO: INACTIVE RESOURCE: MAYRA STEVENS MD REASON FOR APPOINTMENT 1. TPI NECK/LOW BACK HISTORY OF PRESENT ILLNESS HISTORY OF PRESENT ILLNESS: PAIN THE PATIENT DESCRIBES THE PAIN... FALL RISK SCREENING: SCREENING :NO FALLS REPORTED IN THE LAST YEAR CURRENT MEDICATIONS TAKING COLACE 100 MG CAPSULE 1 CAPSULE NEEDED ORALLY BID, NOTES: 1 WEEK AGO TAKING METFORMIN HCL ER 500 MG TABLET EXTENDED RELEASE 24 HOUR 3 TABLET ORALLY DAILY AT BEDTIME, NOTES: 12/26/18 TAKING CALCIUM + D 600-200 MG-UNIT TABLET 1 TABLET ORALLY ONCE A DAY, NOTES: NONE RECENT TAKING CLONIDINE HCL 0.3 MG TABLET 2 TABLETS ORALLY ONCE A DAY, NOTES: 12/29/18 2100 TAKING LINZESS 290 MCG CAPSULE 1 CAPSULE ORALLY ONCE A DAY, NOTES: 12/29/18 0900 TAKING BENADRYL 25 MG ORAL 3 TABLETS DIRECTED, NOTES: 3 DAYS AGO TAKING XANAX 1 MG TABLET 1 TABLET ORALLY DAILY, NOTES: 12/29/18 1300 TAKING ALPRAZOLAM ER 3 MG TABLET EXTENDED RELEASE 24 HOUR 1 TABLET IN THE MORNING ORALLY ONCE A DAY, NOTES: 12/29/18 0900 TAKING GABAPENTIN 300 MG CAPSULE 1 CAPSULE ORALLY ONCE A DAY, NOTES: 12/30/18 0700 TAKING PROBIOTIC TABLET DELAYED RELEASE 1 CAPSULE ORALLY DAILY, NOTES: MONTHS AGO TAKING EX-LAX 15 MG TABLET 1 TABLET AT BEDTIME NEEDED ORALLY DAILY, NOTES: NONE RECENT TAKING VITAMIN C 500 MG TABLET 1 TABLET ORALLY ONCE A DAY, NOTES: 2 MONTHS AGO TAKING NORCO 5-325 MG TABLET 1 TABLET NEEDED ORALLY Q8H TID MDD3, NOTES: 12/29/18 1900 TAKING ALBUTEROL EVERY 4 HOURS NEEDED, NOTES: 12/27/18 NOT-TAKING SELEGILINE HCL 5 MG TABLET 1 TABLET WITH BREAKFAST AND LUNCH ORALLY TWICE A DAY NOT-TAKING SINGULAIR 10 MG TABLET 1 TABLET IN THE EVENING ORALLY ONCE A DAY NOT-TAKING TRAMADOL HCL 50 MG TABLET 1/2 - 1 TABLET ORALLY EVERY 6 -8 HRS PRN PAIN NOT-TAKING DICLOFENAC POTASSIUM 50 MG TABLET 1 TABLET ORALLY TWICE A DAY, NOTES: NONE RECENT-DIDN'T HELP MEDICATION LIST REVIEWED AND RECONCILED WITH THE PATIENT PAST MEDICAL HISTORY SCOLIOSIS - MINIMAL DEXTRO-CONVEX CURVATURE - SCOLIOSIS SERIES ON 01/2009 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 INTERMITT 2 YEARS/ S/P 2 LASER LAPROSCOPIES OSTEOPOROSIS/OSTEOPENIA DUE TO LUPRON RX/ DEXA SCAN ON 03/2009 LUMBAR SPINE NORMAL BMD FOR AGE OCD/ SOCIAL ANXIETY/ BULEMIA NERVOSA PURGING TYPE/ DEPRESSIVE DISORDER/ ANXIETY PSORIASIS/SEBORRHEIC DERMATITIS RIGHT HALLUX VALGUS DEFORMITY S/P RT BUNIONECTOMY 2010 GANGLION LEFT HAND- W/ NL RADIOGRAPH S/P SURGICALLY REMOVED BULIMIA NERVOSA PURGING TYPE POLYCYSTIC OVARIES MIGRAINE ALLERGIC RHINITIS SINUS INFECTION ALLERGIES ENVIRONMENTAL: STUFFY NOSE, ITCHY EYES, SOMETIMES HIVES TYLENOL: CONTRAINDICATION DUE TO GENE MUTATION - CONTRAINDICATION SURGICAL HISTORY LASER LAPAROSCOPY FOR ENDOMETRIOSIS WITH FINDING OF MINIMAL ENDOMETRIOSIS WISDOM TOOTH RT BUNIONECTOMY 07/2009 LASER RX FOR BENIGH NEOPLASM EYELID ANGIOMA [id number] SEPTOPLASTY, ADENOIDECTOMY, BALLOON SINUPLASTY 08/2016 INVITRO FERT CYCLES WITH EGG EXTRACTIONS [id number] FAMILY HISTORY FATHER: 50 YRS, SMALL CELL LYMPHOMA, DIABETES, HTN, DIAGNOSED WITH DIABETES, HYPERTENSION, CANCER MOTHER: ALIVE 52 YRS, PRE-CANCEROUS CELLS REMOVED FROM BREAST, CANCER SIBLINGS: ASTHMA PATERNAL GRAND FATHER: ? MENTAL DISORDER AND COMMITTED SUICIDE, DM PATERNAL GRAND MOTHER: , DM MATERNAL GRAND FATHER: , ? CANCER MATERNAL GRAND MOTHER: , HEART ATTACK, DM SOCIAL HISTORY GENERAL: TOBACCO USE ARE YOU A:CURRENT SMOKER ARE YOU INTERESTED IN QUITTING?THINKING ABOUT QUITTING HAS CUT DOWN ON # OF CIGS/DAY COUNSELED THE PATIENT ON SMOKING CESSATION, EDUCATION [id number]/30/2019 HOW MANY CIGARETTES A DAY DO YOU SMOKE?5 OR LESS HOW SOON AFTER YOU WAKE UP DO YOU SMOKE YOUR FIRST CIGARETTE?AFTER 60 MIN HOW OFTEN DO YOU SMOKE CIGARETTES?SOME DAYS, BUT NOT EVERY DAY PATIENT COUNSELED ON THE DANGERS OF TOBACCO USE AND URGED TO QUIT:10/05/2018 ADDITIONAL FINDINGS: TOBACCO USER STATES CAN GO A LONG TIME WITHOUT SMOKING WITH NO SIDE EFFECTS SMOKING CESSATION INFORMATION GIVEN09/21/2018 HIV / HEP-C SCREENING HIV TEST OFFERED TO PATIENT:YES DATE OFFERED:06/08/2016 TEST ACCEPTED:NO REASON:PATIENT DECLINED HEP-C TEST OFFERED TO PATIENT:NO N/A EDUCATION LEVEL OF EDUCATION:COLLEGE DIET: REGULAR. LANGUAGE LANGUAGES SPOKEN:ALBANIAN DOMESTIC VIOLENCE DO YOU FEEL SAFE IN YOUR ENVIRONMENT?YES RECREATIONAL DRUG USE DRUG USE?NO EXERCISE: WALKS. LEARNING BARRIERS / SPECIAL NEEDS CHANGE FROM LAST VISIT?NO BARRIERS TO LEARNING?NO HEARING IMPAIRED?NO VISION IMPAIRED?YES :CORRECTIVE LENSES COGNITIVELY IMPAIRED?NO READINESS TO LEARN?YES LEARNING PREFERENCES?YES :HANDOUTS, DEMONSTRATION/VERBAL INSTRUCTION LEARNING CAPABILITIES PRESENT?YES EMOTIONAL BARRIERS?NO SPECIAL DEVICES?NO ELECTION WATCHER NEEDED?NO PAIN CLINIC PFS, CLERGY, PUBLIC HEALTH REFERRALS PFS REFERRAL NEEDED?NO CLERGY REFERRAL NEEDED?NO PUBLIC HEALTH REFERRAL NEEDED?NO WAS THE PROVIDER NOTIFIED OF ANY PERTINENT INFO? N/A HAS THE PATIENT BEEN EDUCATED REGARDING HIS/HER PLAN OF CARE?YES HAS THE PATIENT BEEN EDUCATED REGARDING PAIN, THE RISK FOR PAIN, THE IMPORTANCE OF EFFECTIVE PAIN MANAGEMENT, AND THE PAIN ASSESSMENT PROCESS?YES LATEX QUESTIONNAIRE LATEX ALLERGY : HAVE YOU EVER DEVELOPED ANY TYPE OF REACTION AFTER HANDLING LATEX PRODUCTS SUCH RUBBER GLOVES, CONDOMS, DIAPHRAGMS, BALLOONS, SOCKS, OR UNDERWEAR?NO LATEX ALLERGY : HAVE YOU EVER DEVELOPED ANY TYPE OF REACTION DURING OR AFTER DENTAL APPOINTMENT, VAGINAL/RECTAL EXAMINATION, SURGICAL PROCEDURE, OR ANY OTHER EXPOSURE?NO LATEX RISK : HAVE YOU EVER HAD ANY DIFFICULTY BREATHING OR HIVES AFTER EATING OR HANDLING ANY FRUITS, OR VEGETABLES; SUCH KIWI, BANANAS, STONE FRUITS, OR CHESTNUTSNO LATEX RISK : DO YOU HAVE A PREVIOUS PERSONAL HISTORY OF MORE THAN NINE SURGERIES, SPINA BIFIDA, OR REPEATED CATHERIZATIONS? NO LATEX RISK : ARE YOU FREQUENTLY EXPOSED TO LATEX PRODUCTS IN YOUR OCCUPATION?NO DATE ASKED : 10/05/2018 CAFFEINE CAFFEINE USE?YES COFFEE SODA ADVANCE DIRECTIVE ADVANCE DIRECTIVE DISCUSSED WITH PATIENT:YES PT DOES NOT HAVE ANY ADVANCED DIRECTIVES AND SHE STATES SHE ALREADY HAS INFORMATION ON HCP. DECLINES ASSISTANCE AT THIS TIME. RELIGIOUS [id number] ORTHODOXY MARITAL STATUS: . ALCOHOL SCREENING DID YOU HAVE A DRINK CONTAINING ALCOHOL IN THE PAST YEAR?YES HOW OFTEN DID YOU HAVE A DRINK CONTAINING ALCOHOL IN THE PAST YEAR?MONTHLY OR LESS (1 POINT) POINTS1 INTERPRETATIONNEGATIVE HOW MANY DRINKS DID YOU HAVE ON A TYPICAL DAY WHEN YOU WERE DRINKING IN THE PAST YEAR?1 OR 2 (0 POINTS) SEXUAL HX HAD SEX IN THE LAST 12 MONTHS (VAGINAL, ORAL, OR ANAL)?YES WITHMEN ONLY USE PROTECTION?NO PREVENTION STRATEGIES DISCUSSED:OTHER HAVE YOU EVER HAD AN STD?NO LMP:10/09/2016 10/12/17 1205 REVIEWED WITH PT. AD12/09/17 1500 REVIEWED WITH PT LAS01/11/18 1410 REVIEWED WITH PT 1115 REVIEWED WITH PT LAS08/22/18 1203 REVIEWED WITH PT BV12/30/18 REVIEWED WITH PT LAS12/27/18 1433 REVIEWED WITH PT BV. HOSPITALIZATION/MAJOR DIAGNOSTIC PROCEDURE MONO 2006 IN CHILDHOOD LUNG REASON REVIEW OF SYSTEMS REVIEWED BY: PROVIDER: . CONSTITUTIONAL: ANY CHANGE IN YOUR MEDICAL CONDITION? NO . CHILLS NO . FEVER NO . INFECTION: DO YOU HAVE NEW INFECTIONS? NO . DO YOU HAVE HISTORY OF MRSA? NO . MUSCULOSKELETAL: ANY NEW PATTERNS OF PAIN OR NUMBNESS? NO . GASTROENTEROLOGY: ANY NEW CHANGE IN BOWEL CONTROL? NO . GENITOURINARY: ANY NEW CHANGE IN BLADDER CONTROL? NO . IS THERE A CHANCE YOU COULD BE ? NO . HEMATOLOGY/LYMPH: DO YOU TAKE ANY BLOOD THINNERS? (FOR EXAMPLE- COUMADIN, PLAVIX, AGGRENOX, PLATEL, PRADAXA, OR XARELTO) NO . WHEN WAS YOUR LAST DOSE? DATE: TIME: . NEUROLOGY: HAVE YOU FALLEN IN THE PAST 12 MONTHS? YES PT REPORTS SHE FELL LAST WINTER . ANY NEW EXTREMITY NUMBNESS OR WEAKNESS? NO . CARDIOLOGY: DO YOU HAVE A PACEMAKER OR DEFIBRILLATOR? NO . RESPIRATORY: HAVE YOU BEEN SICK IN THE PAST WEEK? YES PT REPORTS SHE HAS HAD A SORE THROAT/FEVER LAST WEEK, HAS RESOLVED. . FEVER NO . FLU LIKE SYMPTOMS? NO . COUGH NO . INTEGUMENTARY: DO YOU HAVE ANY RASHES OR OPEN SORES? NO . ALLERGIC/IMMUNO: ARE YOU ALLERGIC TO IV DYE? NO . ANY NEW ALLERGIES? NO . PSYCHIATRIC: DO YOU HAVE THOUGHTS OF HURTING YOURSELF OR SOMEONE ELSE? NO . ARE YOU ABUSED, NEGLECTED, OR IN AN UNSAFE ENVIRONMENT? NO . ENDOCRINOLOGY: ARE YOU DIABETIC? NO . OTHER: DO YOU NEED ANY PRESCRIPTIONS? NO . IF YES, PLEASE LIST: ____ . ANY NEW PROBLEMS WITH YOUR MEDICATIONS? NO . WHEN DID YOU LAST EAT? ____12/29/18 . WHEN DID YOU LAST DRINK? ____12/30/18 0700 . WHAT DID YOU LAST DRINK? ____WATER . NAME OF PERSON DRIVING YOU HOME? ____SIXTO UREÑA . DO YOU HAVE ANY OTHER QUESTIONS OR CONCERNS NO . VITAL SIGNS WT 142.8 LBS, HT 66 IN, BMI 23.05 INDEX, BP 115/76 MM HG, HR 72 /MIN, RR 16 /MIN, TEMP 97.9 F, OXYGEN SAT % 100%, SAFE IN ENV? (Y/N) YES, NA INITIALS AW 0914, REVIEWED BY: ASSESSMENTS MYALGIA, OTHER SITE - M79.18 (PRIMARY) PROCEDURES PN TRIGGER POINT INJECTION WITH STEROIDS PRE PROCEDURE DIAGNOSIS 1. MYALGIA 2. PAIN AT BILATERAL NECK AREA, BILATERAL SHOULDER AREA, BILATERAL LUMBAR AREA, AND BILATERAL THORACIC AREA. POST PROCEDURE DIAGNOSIS 1. MYALGIA 2. PAIN AT BILATERAL NECK AREA, BILATERAL SHOULDER AREA, BILATERAL LUMBAR AREA, AND BILATERAL THORACIC AREA. PROCEDURE TRIGGER POINT INJECTION AT RIGHT AND LEFT NECK AREA, RIGHT AND LEFT SHOULDER AREA, RIGHT AND LEFT LUMBAR AREA, AND RIGHT AND LEFT THORACIC AREA. SURGEON DR. MAYRA STEVENS SOLE TRIMMER NONE ANESTHESIA LOCAL PRE PROCEDURE NOTE THE PATIENT HAS A HISTORY OF CHRONIC PAIN AT THE RIGHT AND LEFT NECK AREA, RIGHT AND LEFT SHOULDER AREA, RIGHT AND LEFT LUMBAR AREA, AND RIGHT AND LEFT THORACIC AREA. I EVALUATED THE PATIENT AND REVIEWED THE CHART. THERE IS EVIDENCE OF BANDS OF TISSUE WITH RESTRICTION OF MOVEMENT AND PRESENCE OF TRIGGER POINT AT THE AFFECTED AREA. I WENT OVER THE RISKS, ALTERNATIVES, AND BENEFITS ASSOCIATED WITH THIS PROCEDURE. THE PATIENT WOULD LIKE TO PROCEED AND GIVE CONSENT TO PERFORMED THE PROCEDURE. THE PATIENT DENIES UNEXPLAINABLE WEIGHT LOSS, FEVER, CHILLS, OR NEW CHANGES IN URINARY OR BOWEL CONTROL DESCRIPTION OF PROCEDURE THE PATIENT WAS BROUGHT TO THE PROCEDURE ROOM AND PLACED IN THE SITTING POSITION. THE AREA WAS CLEANED WITH ALCOHOL. THE PROCEDURE WAS DONE USING ASEPTIC STERILE TECHNIQUE. I CHECKED LATERALITY AND THE LEVEL WHERE THE PROCEDURE WAS GOING TO BE PERFORMED WITH THE PATIENT AND THE SUPPORTING STAFF AT THE MOMENT OF THE TIME OUT IN THE PROCEDURE ROOM. USING A 25-GAUGE NEEDLE, TRIGGER POINTS WERE INJECTED AT THE RIGHT AND LEFT NECK AREA, RIGHT AND LEFT SHOULDER AREA, RIGHT AND LEFT LUMBAR AREA, AND RIGHT AND LEFT THORACIC AREA WITH A TOTAL OF 40 ML OF BUPIVACAINE 0.25% AND KENALOG 40 MG. THERE WAS NO EVIDENCE OF BLOOD, PARESTHESIA OR CEREBROSPINAL FLUID DURING THE PROCEDURE. THE PATIENT WAS SENT TO THE RECOVERY ROOM. THE PATIENT WAS MOVING THE EXTREMITIES AND DOING WELL. THERE WAS NO COMPLICATION DURING THE PROCEDURE POST PROCEDURE NOTE THE PATIENT WILL BE SEEN IN A FOLLOW UP IN THE NEXT FEW WEEKS. INSTRUCTIONS WERE GIVEN, QUESTIONS WERE ANSWERED, AND THE PATIENT EXPRESSED UNDERSTANDING AND AGREES WITH THE PLAN. I, NANCY BOLDEN, DOCUMENTED THE ABOVE INFORMATION ACTING A SCRIBE FOR DR. STEVENS. I HAVE REVIEWED THE ABOVE DOCUMENT, WRITTEN BY NANCY BOLDEN SCRIBDianne AND I VERIFY THAT IT IS ACCURATE. PROCEDURE CODES 98755 INJECT TRIGGER POINTS 3/> DISPOSITION & COMMUNICATION FOLLOW UP 3 WEEKS ELECTRONICALLY SIGNED BY MAYRA STEVENS MD, MD ON 01/10/2019 AT 01:02 PM EDT DISCLAIMER : THIS IS A VISIT SUMMARY EXTRACTED FROM THE [employer] CHART. IT IS NOT A COPY OF THE [employer] PROGRESS NOTE. BRANT
== END ==
LOC: M PAIN 09:15
PROVIDERS: ATTEND Anesthesiology
DX: M79.18 Myalgia, other site (principal); M81.0 Age-related osteoporosis without current pathological fracture; M85.80 Other specified disorders of bone density and structure, unspecified site; T45.0X5A Adverse effect of antiallergic and antiemetic drugs, initial encounter; J30.9 Allergic rhinitis, unspecified; F17.210 Nicotine dependence, cigarettes, uncomplicated; F50.2 Bulimia nervosa; F40.10 Social phobia, unspecified; F42.9 Obsessive-compulsive disorder, unspecified; E28.2 Polycystic ovarian syndrome; G43.909 Migraine, unspecified, not intractable, without status migrainosus; Z79.84 Long term (current) use of oral hypoglycemic drugs; Z79.891 Long term (current) use of opiate analgesic; Z79.899 Other long term (current) drug therapy; Z88.6 Allergy status to analgesic agent
CPT/HCPCS: 20553; J3301

== ENCOUNTER → 2019-01-25 | Outpatient (CLI) | payer OTHER ==
[~2019-01-25] MED LIST changes: -BUPIVACAINE HCL 0.25% 10 ML VIAL As Ordered ONE; -BUPIVACAINE HCL 0.25% 30 ML VIAL As Ordered ONE; -TRIAMCINOLONE ACETONIDE SUSP 40 MG/ML VIAL (J3301) As Ordered ONE; -diazePAM 5 MG TAB As Ordered ONE; -oxyCODONE 5MG TAB As Ordered ONE
--- NOTE | 2019-02-16 02:23 | ECWPNPC ---
PATIENT NAME: SILVIA ZIMMERMAN : 1985 GENDER: FEMALE VISIT DATE: 01/25/2019 DISCHARGE DATE: 01/25/19 1323 VISIT LOCKED DATE TIME: PHYSICIAN: NUVIA ROBLES PHYSICIAN PAGER NO: INACTIVE RESOURCE: NUVIA ROBLES REASON FOR APPOINTMENT 1. POST TPI/ POST BOTOX- HISTORY OF PRESENT ILLNESS HISTORY OF PRESENT ILLNESS: HERE FOR POST PROCEDURE F/U.HAD BOTOX ON AND TPI ON. PAIN THE PATIENT DESCRIBES THE PAIN... FALL RISK SCREENING: SCREENING :NO FALLS REPORTED IN THE LAST YEAR CURRENT MEDICATIONS TAKING COLACE 100 MG CAPSULE 1 CAPSULE NEEDED ORALLY BID TAKING METFORMIN HCL ER 500 MG TABLET EXTENDED RELEASE 24 HOUR 3 TABLET ORALLY DAILY AT BEDTIME TAKING CALCIUM + D 600-200 MG-UNIT TABLET 1 TABLET ORALLY ONCE A DAY, NOTES: NONE RECENT TAKING CLONIDINE HCL 0.3 MG TABLET 2 TABLETS ORALLY ONCE A DAY TAKING LINZESS 290 MCG CAPSULE 1 CAPSULE ORALLY ONCE A DAY TAKING BENADRYL 25 MG ORAL 3 TABLETS DIRECTED, NOTES: 3 DAYS AGO TAKING XANAX 1 MG TABLET 1 TABLET ORALLY DAILY TAKING ALPRAZOLAM ER 3 MG TABLET EXTENDED RELEASE 24 HOUR 1 TABLET IN THE MORNING ORALLY ONCE A DAY, NOTES: 12/29/18 0900 TAKING GABAPENTIN 300 MG CAPSULE 1 CAPSULE ORALLY ONCE A DAY TAKING EX-LAX 15 MG TABLET 1 TABLET AT BEDTIME NEEDED ORALLY DAILY, NOTES: NONE RECENT TAKING VITAMIN C 500 MG TABLET 1 TABLET ORALLY ONCE A DAY, NOTES: 2 MONTHS AGO TAKING ALBUTEROL EVERY 4 HOURS NEEDED, NOTES: 12/27/18 TAKING NORCO 5-325 MG TABLET 1 TABLET NEEDED ORALLY Q8H TID MDD3 UNKNOWN PROBIOTIC TABLET DELAYED RELEASE 1 CAPSULE ORALLY DAILY, NOTES: MONTHS AGO UNKNOWN SELEGILINE HCL 5 MG TABLET 1 TABLET WITH BREAKFAST AND LUNCH ORALLY TWICE A DAY UNKNOWN SINGULAIR 10 MG TABLET 1 TABLET IN THE EVENING ORALLY ONCE A DAY UNKNOWN TRAMADOL HCL 50 MG TABLET 1/2 - 1 TABLET ORALLY EVERY 6 -8 HRS PRN PAIN UNKNOWN DICLOFENAC POTASSIUM 50 MG TABLET 1 TABLET ORALLY TWICE A DAY, NOTES: NONE RECENT-DIDN'T HELP MEDICATION LIST REVIEWED AND RECONCILED WITH THE PATIENT PAST MEDICAL HISTORY SCOLIOSIS - MINIMAL DEXTRO-CONVEX CURVATURE - SCOLIOSIS SERIES ON 01/2009 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 INTERMITT 2 YEARS/ S/P 2 LASER LAPROSCOPIES OSTEOPOROSIS/OSTEOPENIA DUE TO LUPRON RX/ DEXA SCAN ON 03/2009 LUMBAR SPINE NORMAL BMD FOR AGE OCD/ SOCIAL ANXIETY/ BULEMIA NERVOSA PURGING TYPE/ DEPRESSIVE DISORDER/ ANXIETY PSORIASIS/SEBORRHEIC DERMATITIS RIGHT HALLUX VALGUS DEFORMITY S/P RT BUNIONECTOMY 2010 GANGLION LEFT HAND- W/ NL RADIOGRAPH S/P SURGICALLY REMOVED BULIMIA NERVOSA PURGING TYPE POLYCYSTIC OVARIES MIGRAINE ALLERGIC RHINITIS SINUS INFECTION ALLERGIES ENVIRONMENTAL: STUFFY NOSE, ITCHY EYES, SOMETIMES HIVES TYLENOL: CONTRAINDICATION DUE TO GENE MUTATION - CONTRAINDICATION SURGICAL HISTORY LASER LAPAROSCOPY FOR ENDOMETRIOSIS WITH FINDING OF MINIMAL ENDOMETRIOSIS WISDOM TOOTH RT BUNIONECTOMY 07/2009 LASER RX FOR BENIGH NEOPLASM EYELID ANGIOMA [id number] SEPTOPLASTY, ADENOIDECTOMY, BALLOON SINUPLASTY 08/2016 INVITRO FERT CYCLES WITH EGG EXTRACTIONS [id number] FAMILY HISTORY FATHER: 50 YRS, SMALL CELL LYMPHOMA, DIABETES, HTN, DIAGNOSED WITH DIABETES, HYPERTENSION, OTHER MALIGNANT NEOPLASM OF UNSPECIFIED SITE MOTHER: ALIVE 52 YRS, PRE-CANCEROUS CELLS REMOVED FROM BREAST, OTHER MALIGNANT NEOPLASM OF UNSPECIFIED SITE SIBLINGS: ASTHMA PATERNAL GRAND FATHER: ? MENTAL DISORDER AND COMMITTED SUICIDE, DM PATERNAL GRAND MOTHER: , DM MATERNAL GRAND FATHER: , ? CANCER MATERNAL GRAND MOTHER: , HEART ATTACK, DM SOCIAL HISTORY GENERAL: TOBACCO USE ARE YOU A:CURRENT SMOKER ARE YOU INTERESTED IN QUITTING?THINKING ABOUT QUITTING HAS CUT DOWN ON # OF CIGS/DAY COUNSELED THE PATIENT ON SMOKING CESSATION, EDUCATION [id number]/30/2019 HOW MANY CIGARETTES A DAY DO YOU SMOKE?5 OR LESS HOW SOON AFTER YOU WAKE UP DO YOU SMOKE YOUR FIRST CIGARETTE?AFTER 60 MIN HOW OFTEN DO YOU SMOKE CIGARETTES?SOME DAYS, BUT NOT EVERY DAY PATIENT COUNSELED ON THE DANGERS OF TOBACCO USE AND URGED TO QUIT:10/05/2018 ADDITIONAL FINDINGS: TOBACCO USER STATES CAN GO A LONG TIME WITHOUT SMOKING WITH NO SIDE EFFECTS SMOKING CESSATION INFORMATION GIVEN01/25/2019 HIV / HEP-C SCREENING HIV TEST OFFERED TO PATIENT:YES DATE OFFERED:06/08/2016 TEST ACCEPTED:NO HEP-C TEST OFFERED TO PATIENT:NO N/A REASON:PATIENT DECLINED EDUCATION LEVEL OF EDUCATION:COLLEGE DIET: REGULAR. LANGUAGE LANGUAGES SPOKEN:IRISH DOMESTIC VIOLENCE DO YOU FEEL SAFE IN YOUR ENVIRONMENT?YES RECREATIONAL DRUG USE DRUG USE?NO EXERCISE: WALKS. LEARNING BARRIERS / SPECIAL NEEDS CHANGE FROM LAST VISIT?NO BARRIERS TO LEARNING?NO HEARING IMPAIRED?NO VISION IMPAIRED?YES COGNITIVELY IMPAIRED?NO :CORRECTIVE LENSES READINESS TO LEARN?YES LEARNING PREFERENCES?YES :HANDOUTS, DEMONSTRATION/VERBAL INSTRUCTION LEARNING CAPABILITIES PRESENT?YES EMOTIONAL BARRIERS?NO SPECIAL DEVICES?NO INNOVATION MANAGER NEEDED?NO PAIN CLINIC PFS, CLERGY, PUBLIC HEALTH REFERRALS PFS REFERRAL NEEDED?NO CLERGY REFERRAL NEEDED?NO PUBLIC HEALTH REFERRAL NEEDED?NO WAS THE PROVIDER NOTIFIED OF ANY PERTINENT INFO? N/A HAS THE PATIENT BEEN EDUCATED REGARDING HIS/HER PLAN OF CARE?YES HAS THE PATIENT BEEN EDUCATED REGARDING PAIN, THE RISK FOR PAIN, THE IMPORTANCE OF EFFECTIVE PAIN MANAGEMENT, AND THE PAIN ASSESSMENT PROCESS?YES LATEX QUESTIONNAIRE LATEX ALLERGY : HAVE YOU EVER DEVELOPED ANY TYPE OF REACTION AFTER HANDLING LATEX PRODUCTS SUCH RUBBER GLOVES, CONDOMS, DIAPHRAGMS, BALLOONS, SOCKS, OR UNDERWEAR?NO LATEX ALLERGY : HAVE YOU EVER DEVELOPED ANY TYPE OF REACTION DURING OR AFTER DENTAL APPOINTMENT, VAGINAL/RECTAL EXAMINATION, SURGICAL PROCEDURE, OR ANY OTHER EXPOSURE?NO DATE ASKED : 10/05/2018 LATEX RISK : HAVE YOU EVER HAD ANY DIFFICULTY BREATHING OR HIVES AFTER EATING OR HANDLING ANY FRUITS, OR VEGETABLES; SUCH KIWI, BANANAS, STONE FRUITS, OR CHESTNUTSNO LATEX RISK : DO YOU HAVE A PREVIOUS PERSONAL HISTORY OF MORE THAN NINE SURGERIES, SPINA BIFIDA, OR REPEATED CATHERIZATIONS? NO LATEX RISK : ARE YOU FREQUENTLY EXPOSED TO LATEX PRODUCTS IN YOUR OCCUPATION?NO CAFFEINE CAFFEINE USE?YES COFFEE SODA ADVANCE DIRECTIVE ADVANCE DIRECTIVE DISCUSSED WITH PATIENT:YES PT DOES NOT HAVE ANY ADVANCED DIRECTIVES AND SHE STATES SHE ALREADY HAS INFORMATION ON HCP. DECLINES ASSISTANCE AT THIS TIME. SABIANISM [id number] BAPTIST MARITAL STATUS: . ALCOHOL SCREENING DID YOU HAVE A DRINK CONTAINING ALCOHOL IN THE PAST YEAR?YES HOW MANY DRINKS DID YOU HAVE ON A TYPICAL DAY WHEN YOU WERE DRINKING IN THE PAST YEAR?1 OR 2 (0 POINTS) HOW OFTEN DID YOU HAVE A DRINK CONTAINING ALCOHOL IN THE PAST YEAR?MONTHLY OR LESS (1 POINT) POINTS1 INTERPRETATIONNEGATIVE SEXUAL HX HAD SEX IN THE LAST 12 MONTHS (VAGINAL, ORAL, OR ANAL)?YES WITHMEN ONLY PREVENTION STRATEGIES DISCUSSED:OTHER USE PROTECTION?NO LMP:10/09/2016 HAVE YOU EVER HAD AN STD?NO 10/12/17 1205 REVIEWED WITH PT. AD12/09/17 1500 REVIEWED WITH PT LAS01/11/18 1410 REVIEWED WITH PT 1115 REVIEWED WITH PT LAS3/25/19 1203 REVIEWED WITH PT BV12/30/18 REVIEWED WITH PT LAS12/27/18 1433 REVIEWED WITH PT BV. HOSPITALIZATION/MAJOR DIAGNOSTIC PROCEDURE MONO 2006 IN CHILDHOOD LUNG REASON REVIEW OF SYSTEMS REVIEWED BY: PROVIDER: NUVIA VIZCAINO . CONSTITUTIONAL: ANY CHANGE IN YOUR MEDICAL CONDITION? NO . CHILLS NO . FEVER NO . INFECTION: DO YOU HAVE NEW INFECTIONS? NO . DO YOU HAVE HISTORY OF MRSA? NO . MUSCULOSKELETAL: ANY NEW PATTERNS OF PAIN OR NUMBNESS? NO . GASTROENTEROLOGY: ANY NEW CHANGE IN BOWEL CONTROL? NO . GENITOURINARY: ANY NEW CHANGE IN BLADDER CONTROL? NO . IS THERE A CHANCE YOU COULD BE ? NO . HEMATOLOGY/LYMPH: DO YOU TAKE ANY BLOOD THINNERS? (FOR EXAMPLE- COUMADIN, PLAVIX, AGGRENOX, PLATEL, PRADAXA, OR XARELTO) NO . WHEN WAS YOUR LAST DOSE? DATE: TIME: . NEUROLOGY: HAVE YOU FALLEN IN THE PAST 12 MONTHS? NO . ANY NEW EXTREMITY NUMBNESS OR WEAKNESS? NO . CARDIOLOGY: DO YOU HAVE A PACEMAKER OR DEFIBRILLATOR? NO . RESPIRATORY: HAVE YOU BEEN SICK IN THE PAST WEEK? NO . FEVER NO . FLU LIKE SYMPTOMS? NO . COUGH NO . INTEGUMENTARY: DO YOU HAVE ANY RASHES OR OPEN SORES? NO . ALLERGIC/IMMUNO: ARE YOU ALLERGIC TO IV DYE? NO . ANY NEW ALLERGIES? NO . PSYCHIATRIC: DO YOU HAVE THOUGHTS OF HURTING YOURSELF OR SOMEONE ELSE? NO . ARE YOU ABUSED, NEGLECTED, OR IN AN UNSAFE ENVIRONMENT? NO . ENDOCRINOLOGY: ARE YOU DIABETIC? NO . OTHER: DO YOU NEED ANY PRESCRIPTIONS? NO . IF YES, PLEASE LIST: ____ . ANY NEW PROBLEMS WITH YOUR MEDICATIONS? NO . WHEN DID YOU LAST EAT? ____ . WHEN DID YOU LAST DRINK? ____ . WHAT DID YOU LAST DRINK? ____ . NAME OF PERSON DRIVING YOU HOME? ____ . DO YOU HAVE ANY OTHER QUESTIONS OR CONCERNS NO . VITAL SIGNS WT 137.0 LBS, HT 66 IN, BMI 22.11 INDEX, BP 109/68 MM HG, HR 79 /MIN, RR 16 /MIN, TEMP 97.3 F, OXYGEN SAT % 100%, SAFE IN ENV? (Y/N) YES, NA INITIALS AW 1202, REVIEWED BY: KG. EXAMINATION GENERAL EXAMINATION: GENERAL AWAKE,ALERT ,PLEAASANT . PSYCH AFFECT NORMAL . LUNGS: LUNG LLAMAS ARE CLEAR TO AUSCULTATION BILATERALLY. GOOD MOVEMENT OF AIR . HEART: S1, S2 IN A REGULAR RATE AND RHYTHM. NO SIGNIFICANT MURMURS, RUBS OR GALLOPS NOTED . LUMBAR SACRAL SPINE TRIGGER POINTS:, ELICITED WITH PALPATION OVER LUMBAR PARAVERTEBRAL MUSCLES.ROJM INCREASES PAIN IN THIS REGION. CERVICAL TRIGGER POINTS: CERVICAL AND TRAPEZIUS BILAT. R>L.PAIN IS AGGREVATED WITH ROJM NECK. ASSESSMENTS MIGRAINE WITHOUT STATUS MIGRAINOSUS, NOT INTRACTABLE, UNSPECIFIED MIGRAINE TYPE - G43.909 (PRIMARY) SPONDYLOSIS OF CERVICAL REGION WITHOUT MYELOPATHY OR RADICULOPATHY - M47.812 LUMBAR FACET ARTHROPATHY - M46.96 TREATMENT MIGRAINE WITHOUT STATUS MIGRAINOSUS, NOT INTRACTABLE, UNSPECIFIED MIGRAINE TYPE MRI : [id number] 02/01/2019 2:15:57 PM > DAI REDD 02/01/2019 12:21:06 PM > NO PRIOR AUTH REQUIRED FOR MRI CERVICAL SPINE OR MRI LUMBAR SPINE. PLEASE BOOK BOTH MRI'S. THANK YOU. [facility] MRI LUMBAR W/O CONTRAST (CPT [id number] ASH 02/01/2019 2:16:05 PM > DAI REDD 02/01/2019 12:21:06 PM > NO PRIOR AUTH REQUIRED FOR MRI CERVICAL SPINE OR MRI LUMBAR SPINE. PLEASE BOOK BOTH MRI'S. THANK YOU. NOTES: BOTOX IN FEBRUARY/MARTPI NECKREDUCE USE OF HYDROCODONE TO 3X PER WEEK MAX TEN TAB PER WEEK.MAY USE 1600MG OF IBUPROFEN PER DAY IF NEEDED. DISPOSITION & COMMUNICATION FOLLOW UP POST (REASON: BOTOX IN ,TPI NECK) ELECTRONICALLY SIGNED BY CHARIS COX ON 02/13/2019 AT 08:57 AM EDT DISCLAIMER : THIS IS A VISIT SUMMARY EXTRACTED FROM THE [employer] CHART. IT IS NOT A COPY OF THE [facility] PROGRESS NOTE. MTDD
== END ==
LOC: M PAIN 11:45
PROVIDERS: ATTEND Nurse Practitioner Family
DX: G43.909 Migraine, unspecified, not intractable, without status migrainosus (principal); M47.812 Spondylosis without myelopathy or radiculopathy, cervical region; M46.96 Unspecified inflammatory spondylopathy, lumbar region; M81.0 Age-related osteoporosis without current pathological fracture; Z86.59 Personal history of other mental and behavioral disorders; F17.210 Nicotine dependence, cigarettes, uncomplicated; Z88.6 Allergy status to analgesic agent; Z79.84 Long term (current) use of oral hypoglycemic drugs; Z79.899 Other long term (current) drug therapy

== ENCOUNTER → 2019-02-14 | Outpatient (CLI) | payer OTHER ==
[~2019-02-14] MED LIST changes: +BUPIVACAINE HCL 0.25% 10 ML VIAL As Ordered ONE; +BUPIVACAINE HCL 0.25% 30 ML VIAL As Ordered ONE; +TRIAMCINOLONE ACETONIDE SUSP 40 MG/ML VIAL (J3301) As Ordered ONE; +diazePAM 5 MG TAB As Ordered ONE; +oxyCODONE 5MG TAB As Ordered ONE
--- NOTE | 2019-02-25 00:36 | ECWPNPC ---
PATIENT NAME: SILVIA ZIMMERMAN : 1985 GENDER: FEMALE VISIT DATE: 02/14/2019 DISCHARGE DATE: 02/14/19 1735 VISIT LOCKED DATE TIME: PHYSICIAN: MAYRA STEVENS MD PHYSICIAN PAGER NO: INACTIVE RESOURCE: MAYRA STEVENS MD REASON FOR APPOINTMENT 1. TPI BILAT NECK AND BILAT SHOULDER HISTORY OF PRESENT ILLNESS HISTORY OF PRESENT ILLNESS: PAIN THE PATIENT DESCRIBES THE PAIN... FALL RISK SCREENING: SCREENING :NO FALLS REPORTED IN THE LAST YEAR CURRENT MEDICATIONS TAKING COLACE 100 MG CAPSULE 1 CAPSULE NEEDED ORALLY BID TAKING METFORMIN HCL ER 500 MG TABLET EXTENDED RELEASE 24 HOUR 3 TABLET ORALLY DAILY AT BEDTIME TAKING CALCIUM + D 600-200 MG-UNIT TABLET 1 TABLET ORALLY ONCE A DAY, NOTES: NONE RECENT TAKING CLONIDINE HCL 0.3 MG TABLET 2 TABLETS ORALLY ONCE A DAY TAKING LINZESS 290 MCG CAPSULE 1 CAPSULE ORALLY ONCE A DAY, NOTES: S NOT TAKEN IT IN 2 MONTHS DUE TO INSURANCE TAKING BENADRYL 25 MG ORAL 3 TABLETS DIRECTED, NOTES: HAS NOT TAKEN IN A WHILE TAKING XANAX 1 MG TABLET 1 TABLET ORALLY DAILY, NOTES: NONE TODAY TAKING ALPRAZOLAM ER 3 MG TABLET EXTENDED RELEASE 24 HOUR 1 TABLET IN THE MORNING ORALLY ONCE A DAY, NOTES: NONE TODAY TAKING GABAPENTIN 300 MG CAPSULE 1 CAPSULE ORALLY BID TAKING EX-LAX 15 MG TABLET 1 TABLET AT BEDTIME NEEDED ORALLY DAILY, NOTES: NONE RECENT TAKING VITAMIN C 500 MG TABLET 1 TABLET ORALLY ONCE A DAY, NOTES: 2 MONTHS AGO TAKING ALBUTEROL EVERY 4 HOURS NEEDED TAKING NORCO 5-325 MG TABLET 1 TABLET NEEDED ORALLY Q8H TID MDD3, NOTES: 02/13/19 1800 NOT-TAKING PROBIOTIC TABLET DELAYED RELEASE 1 CAPSULE ORALLY DAILY, NOTES: MONTHS AGO NOT-TAKING SELEGILINE HCL 5 MG TABLET 1 TABLET WITH BREAKFAST AND LUNCH ORALLY TWICE A DAY NOT-TAKING SINGULAIR 10 MG TABLET 1 TABLET IN THE EVENING ORALLY ONCE A DAY NOT-TAKING TRAMADOL HCL 50 MG TABLET 1/2 - 1 TABLET ORALLY EVERY 6 -8 HRS PRN PAIN NOT-TAKING DICLOFENAC POTASSIUM 50 MG TABLET 1 TABLET ORALLY TWICE A DAY, NOTES: NONE RECENT-DIDN'T HELP MEDICATION LIST REVIEWED AND RECONCILED WITH THE PATIENT PAST MEDICAL HISTORY SCOLIOSIS - MINIMAL DEXTRO-CONVEX CURVATURE - SCOLIOSIS SERIES ON 01/2009 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 INTERMITT 2 YEARS/ S/P 2 LASER LAPROSCOPIES OSTEOPOROSIS/OSTEOPENIA DUE TO LUPRON RX/ DEXA SCAN ON 03/2009 LUMBAR SPINE NORMAL BMD FOR AGE OCD/ SOCIAL ANXIETY/ BULEMIA NERVOSA PURGING TYPE/ DEPRESSIVE DISORDER/ ANXIETY PSORIASIS/SEBORRHEIC DERMATITIS RIGHT HALLUX VALGUS DEFORMITY S/P RT BUNIONECTOMY 2010 GANGLION LEFT HAND- W/ NL RADIOGRAPH S/P SURGICALLY REMOVED BULIMIA NERVOSA PURGING TYPE POLYCYSTIC OVARIES MIGRAINE ALLERGIC RHINITIS SINUS INFECTION ALLERGIES ENVIRONMENTAL: STUFFY NOSE, ITCHY EYES, SOMETIMES HIVES TYLENOL: CONTRAINDICATION DUE TO GENE MUTATION - CONTRAINDICATION SURGICAL HISTORY LASER LAPAROSCOPY FOR ENDOMETRIOSIS WITH FINDING OF MINIMAL ENDOMETRIOSIS WISDOM TOOTH RT BUNIONECTOMY 07/2009 LASER RX FOR BENIGH NEOPLASM EYELID ANGIOMA [id number] SEPTOPLASTY, ADENOIDECTOMY, BALLOON SINUPLASTY 08/2016 INVITRO FERT CYCLES WITH EGG EXTRACTIONS [id number] FAMILY HISTORY FATHER: 50 YRS, SMALL CELL LYMPHOMA, DIABETES, HTN, DIAGNOSED WITH DIABETES, HYPERTENSION, OTHER MALIGNANT NEOPLASM OF UNSPECIFIED SITE MOTHER: ALIVE 52 YRS, PRE-CANCEROUS CELLS REMOVED FROM BREAST, OTHER MALIGNANT NEOPLASM OF UNSPECIFIED SITE SIBLINGS: ASTHMA PATERNAL GRAND FATHER: ? MENTAL DISORDER AND COMMITTED SUICIDE, DM PATERNAL GRAND MOTHER: , DM MATERNAL GRAND FATHER: , ? CANCER MATERNAL GRAND MOTHER: , HEART ATTACK, DM SOCIAL HISTORY GENERAL: TOBACCO USE ARE YOU A:CURRENT SMOKER ARE YOU INTERESTED IN QUITTING?THINKING ABOUT QUITTING HAS CUT DOWN ON # OF CIGS/DAY COUNSELED THE PATIENT ON SMOKING CESSATION, EDUCATION [id number]/30/2019 HOW MANY CIGARETTES A DAY DO YOU SMOKE?5 OR LESS HOW SOON AFTER YOU WAKE UP DO YOU SMOKE YOUR FIRST CIGARETTE?AFTER 60 MIN HOW OFTEN DO YOU SMOKE CIGARETTES?SOME DAYS, BUT NOT EVERY DAY PATIENT COUNSELED ON THE DANGERS OF TOBACCO USE AND URGED TO QUIT:10/05/2018 ADDITIONAL FINDINGS: TOBACCO USER STATES CAN GO A LONG TIME WITHOUT SMOKING WITH NO SIDE EFFECTS SMOKING CESSATION INFORMATION GIVEN02/14/2019 HIV / HEP-C SCREENING HIV TEST OFFERED TO PATIENT:YES DATE OFFERED:06/08/2016 TEST ACCEPTED:NO HEP-C TEST OFFERED TO PATIENT:NO N/A REASON:PATIENT DECLINED EDUCATION LEVEL OF EDUCATION:COLLEGE DIET: REGULAR. LANGUAGE LANGUAGES SPOKEN:BENGALI DOMESTIC VIOLENCE DO YOU FEEL SAFE IN YOUR ENVIRONMENT?YES RECREATIONAL DRUG USE DRUG USE?NO EXERCISE: WALKS. LEARNING BARRIERS / SPECIAL NEEDS CHANGE FROM LAST VISIT?NO BARRIERS TO LEARNING?NO HEARING IMPAIRED?NO VISION IMPAIRED?YES COGNITIVELY IMPAIRED?NO :CORRECTIVE LENSES READINESS TO LEARN?YES LEARNING PREFERENCES?YES :HANDOUTS, DEMONSTRATION/VERBAL INSTRUCTION LEARNING CAPABILITIES PRESENT?YES EMOTIONAL BARRIERS?NO SPECIAL DEVICES?NO TILLER WORKER NEEDED?NO PAIN CLINIC PFS, CLERGY, PUBLIC HEALTH REFERRALS PFS REFERRAL NEEDED?NO CLERGY REFERRAL NEEDED?NO PUBLIC HEALTH REFERRAL NEEDED?NO WAS THE PROVIDER NOTIFIED OF ANY PERTINENT INFO? N/A HAS THE PATIENT BEEN EDUCATED REGARDING HIS/HER PLAN OF CARE?YES HAS THE PATIENT BEEN EDUCATED REGARDING PAIN, THE RISK FOR PAIN, THE IMPORTANCE OF EFFECTIVE PAIN MANAGEMENT, AND THE PAIN ASSESSMENT PROCESS?YES LATEX QUESTIONNAIRE LATEX ALLERGY : HAVE YOU EVER DEVELOPED ANY TYPE OF REACTION AFTER HANDLING LATEX PRODUCTS SUCH RUBBER GLOVES, CONDOMS, DIAPHRAGMS, BALLOONS, SOCKS, OR UNDERWEAR?NO LATEX ALLERGY : HAVE YOU EVER DEVELOPED ANY TYPE OF REACTION DURING OR AFTER DENTAL APPOINTMENT, VAGINAL/RECTAL EXAMINATION, SURGICAL PROCEDURE, OR ANY OTHER EXPOSURE?NO DATE ASKED : 10/05/2018 LATEX RISK : HAVE YOU EVER HAD ANY DIFFICULTY BREATHING OR HIVES AFTER EATING OR HANDLING ANY FRUITS, OR VEGETABLES; SUCH KIWI, BANANAS, STONE FRUITS, OR CHESTNUTSNO LATEX RISK : DO YOU HAVE A PREVIOUS PERSONAL HISTORY OF MORE THAN NINE SURGERIES, SPINA BIFIDA, OR REPEATED CATHERIZATIONS? NO LATEX RISK : ARE YOU FREQUENTLY EXPOSED TO LATEX PRODUCTS IN YOUR OCCUPATION?NO CAFFEINE CAFFEINE USE?YES COFFEE SODA ADVANCE DIRECTIVE ADVANCE DIRECTIVE DISCUSSED WITH PATIENT:YES PT DOES NOT HAVE ANY ADVANCED DIRECTIVES AND SHE STATES SHE ALREADY HAS INFORMATION ON HCP. DECLINES ASSISTANCE AT THIS TIME. RELIGIOUS [id number] ROMAN CATHOLIC MARITAL STATUS: . ALCOHOL SCREENING DID YOU HAVE A DRINK CONTAINING ALCOHOL IN THE PAST YEAR?YES HOW MANY DRINKS DID YOU HAVE ON A TYPICAL DAY WHEN YOU WERE DRINKING IN THE PAST YEAR?1 OR 2 (0 POINTS) HOW OFTEN DID YOU HAVE A DRINK CONTAINING ALCOHOL IN THE PAST YEAR?MONTHLY OR LESS (1 POINT) POINTS1 INTERPRETATIONNEGATIVE SEXUAL HX HAD SEX IN THE LAST 12 MONTHS (VAGINAL, ORAL, OR ANAL)?YES WITHMEN ONLY PREVENTION STRATEGIES DISCUSSED:OTHER USE PROTECTION?NO LMP:10/09/2016 HAVE YOU EVER HAD AN STD?NO 10/12/17 1205 REVIEWED WITH PT. AD12/09/17 1500 REVIEWED WITH PT LAS01/11/18 1410 REVIEWED WITH PT LAS/24/18 1115 REVIEWED WITH PT LAS08/22/18 1203 REVIEWED WITH PT BV12/30/18 REVIEWED WITH PT LAS02/14/19 REVIEWED WITH PT NLJ [id number] REVIEWED WITH PT BV. HOSPITALIZATION/MAJOR DIAGNOSTIC PROCEDURE MONO 2006 IN CHILDHOOD LUNG REASON REVIEW OF SYSTEMS REVIEWED BY: PROVIDER: . CONSTITUTIONAL: ANY CHANGE IN YOUR MEDICAL CONDITION? NO . CHILLS NO . FEVER NO . INFECTION: DO YOU HAVE NEW INFECTIONS? NO . DO YOU HAVE HISTORY OF MRSA? NO . MUSCULOSKELETAL: ANY NEW PATTERNS OF PAIN OR NUMBNESS? YES- STATES SHE HAS HAD INCREASED PAIN IN HER NECK AND BACK- STATES SHE HAS BEEN TRYING TO CUT DOWN ON THE NORCO, BUT STATES SHE HAS HAD INCREASED PAIN SINCE SHE HAS DONE THAT, STATES BILATERAL HANDS HAVE BEEN FEELING NUMB, STATES MORE IN RIGHT, BUT DOES HAVE IT IN HER LEFT HAND WELL . GASTROENTEROLOGY: ANY NEW CHANGE IN BOWEL CONTROL? NO . GENITOURINARY: ANY NEW CHANGE IN BLADDER CONTROL? NO . IS THERE A CHANCE YOU COULD BE ? NO . HEMATOLOGY/LYMPH: DO YOU TAKE ANY BLOOD THINNERS? (FOR EXAMPLE- COUMADIN, PLAVIX, AGGRENOX, PLATEL, PRADAXA, OR XARELTO) NO . WHEN WAS YOUR LAST DOSE? DATE: TIME: . NEUROLOGY: HAVE YOU FALLEN IN THE PAST 12 MONTHS? NO . ANY NEW EXTREMITY NUMBNESS OR WEAKNESS? YES- STATES SHE HAS INCREASED NUMBNESS IN RIGHT HAND AND NOW FEELS SOME NUMBNESS IN LEFT HAND WELL . CARDIOLOGY: DO YOU HAVE A PACEMAKER OR DEFIBRILLATOR? NO . RESPIRATORY: HAVE YOU BEEN SICK IN THE PAST WEEK? NO . FEVER NO . FLU LIKE SYMPTOMS? NO . COUGH NO . INTEGUMENTARY: DO YOU HAVE ANY RASHES OR OPEN SORES? NO . ALLERGIC/IMMUNO: ARE YOU ALLERGIC TO IV DYE? NO . ANY NEW ALLERGIES? NO . PSYCHIATRIC: DO YOU HAVE THOUGHTS OF HURTING YOURSELF OR SOMEONE ELSE? NO . ARE YOU ABUSED, NEGLECTED, OR IN AN UNSAFE ENVIRONMENT? NO . ENDOCRINOLOGY: ARE YOU DIABETIC? NO . OTHER: DO YOU NEED ANY PRESCRIPTIONS? NO . IF YES, PLEASE LIST: ____ . ANY NEW PROBLEMS WITH YOUR MEDICATIONS? NO . WHEN DID YOU LAST EAT? ____02/13/190 . WHEN DID YOU LAST DRINK? ____02/14/19 900 . WHAT DID YOU LAST DRINK? ____WATER . NAME OF PERSON DRIVING YOU HOME? ____HUSBAND- TANJA . DO YOU HAVE ANY OTHER QUESTIONS OR CONCERNS NO . VITAL SIGNS WT 136.2 LBS, HT 66 IN, BMI 21.98 INDEX, BP 129/71 MM HG, HR 76 /MIN, RR 16 /MIN, TEMP 97.7 F, OXYGEN SAT % 99%, SAFE IN ENV? (Y/N) YES, NA INITIALS AW 1532, REVIEWED BY: NLJ. ASSESSMENTS MYALGIA, OTHER SITE - M79.18 (PRIMARY) PROCEDURES PN TRIGGER POINT INJECTION WITH STEROIDS PRE PROCEDURE DIAGNOSIS 1. MYALGIA 2. PAIN AT BILATERAL NECK AND BILATERAL SHOULDER AREA POST PROCEDURE DIAGNOSIS 1. MYALGIA 2. PAIN AT BILATERAL NECK AND BILATERAL SHOULDER AREA PROCEDURE TRIGGER POINT INJECTION AT RIGHT AND LEFT NECK AREA AND RIGHT AND LEFT SHOULDER AREA SURGEON DR. MAYRA STEVENS ADJUSTER PIANO ACTION NONE ANESTHESIA LOCAL PRE PROCEDURE NOTE THE PATIENT HAS A HISTORY OF CHRONIC PAIN AT THE RIGHT AND LEFT NECK AND RIGHT AND LEFT SHOULDER AREA. I EVALUATED THE PATIENT AND REVIEWED THE CHART. THERE IS EVIDENCE OF BANDS OF TISSUE WITH RESTRICTION OF MOVEMENT AND PRESENCE OF TRIGGER POINT AT THE AFFECTED AREA. I WENT OVER THE RISKS, ALTERNATIVES, AND BENEFITS ASSOCIATED WITH THIS PROCEDURE. THE PATIENT WOULD LIKE TO PROCEED AND GIVE CONSENT TO PERFORMED THE PROCEDURE. THE PATIENT DENIES UNEXPLAINABLE WEIGHT LOSS, FEVER, CHILLS, OR NEW CHANGES IN URINARY OR BOWEL CONTROL DESCRIPTION OF PROCEDURE THE PATIENT WAS BROUGHT TO THE PROCEDURE ROOM AND PLACED IN THE SITTING POSITION. THE AREA WAS CLEANED WITH ALCOHOL. THE PROCEDURE WAS DONE USING ASEPTIC STERILE TECHNIQUE. I CHECKED LATERALITY AND THE LEVEL WHERE THE PROCEDURE WAS GOING TO BE PERFORMED WITH THE PATIENT AND THE SUPPORTING STAFF AT THE MOMENT OF THE TIME OUT IN THE PROCEDURE ROOM. USING A 25-GAUGE NEEDLE, TRIGGER POINTS WERE INJECTED AT THE RIGHT AND LEFT NECK AND RIGHT AND LEFT SHOULDER AREAS WITH A TOTAL OF 40 ML OF BUPIVACAINE 0.25% AND KENALOG 40 MG. THERE WAS NO EVIDENCE OF BLOOD, PARESTHESIA OR CEREBROSPINAL FLUID DURING THE PROCEDURE. THE PATIENT WAS SENT TO THE RECOVERY ROOM. THE PATIENT WAS MOVING THE EXTREMITIES AND DOING WELL. THERE WAS NO COMPLICATION DURING THE PROCEDURE POST PROCEDURE NOTE THE PATIENT WILL BE SEEN IN A FOLLOW UP IN THE NEXT FEW WEEKS. INSTRUCTIONS WERE GIVEN, QUESTIONS WERE ANSWERED, AND THE PATIENT EXPRESSED UNDERSTANDING AND AGREES WITH THE PLAN. I, JONATHAN GIL, DOCUMENTED THE ABOVE INFORMATION ACTING A SCRIBE FOR DR. STEVENS. I HAVE REVIEWED THE ABOVE DOCUMENT, WRITTEN BY JONATHAN GIL SCRIBE AND I VERIFY THAT IT IS ACCURATE. PROCEDURE CODES 82110 INJECT TRIGGER POINTS 3/> DISPOSITION & COMMUNICATION FOLLOW UP 3 WEEKS ELECTRONICALLY SIGNED BY MAYRA STEVENS MD, MD ON 02/24/2019 AT 11:39 AM EDT DISCLAIMER : THIS IS A VISIT SUMMARY EXTRACTED FROM THE [employer] CHART. IT IS NOT A COPY OF THE [employer] PROGRESS NOTE. BRANT
== END ==
LOC: M PAIN 15:15
PROVIDERS: ATTEND Anesthesiology
DX: M79.18 Myalgia, other site (principal); M41.9 Scoliosis, unspecified; N80.9 Endometriosis, unspecified; F50.2 Bulimia nervosa; F32.9 Major depressive disorder, single episode, unspecified; F41.9 Anxiety disorder, unspecified; L40.9 Psoriasis, unspecified; L21.9 Seborrheic dermatitis, unspecified; E28.2 Polycystic ovarian syndrome; G43.909 Migraine, unspecified, not intractable, without status migrainosus; M81.0 Age-related osteoporosis without current pathological fracture; M85.80 Other specified disorders of bone density and structure, unspecified site; T45.0X5A Adverse effect of antiallergic and antiemetic drugs, initial encounter; F42.8 Other obsessive-compulsive disorder; F40.10 Social phobia, unspecified; J30.9 Allergic rhinitis, unspecified; F17.210 Nicotine dependence, cigarettes, uncomplicated; Z79.891 Long term (current) use of opiate analgesic; Z79.84 Long term (current) use of oral hypoglycemic drugs; Z79.899 Other long term (current) drug therapy; Z88.6 Allergy status to analgesic agent
CPT/HCPCS: 20553; J3301

== ENCOUNTER → 2019-03-29 | Outpatient (CLI) | payer OTHER ==
[~2019-03-29] MED LIST changes: +BOTULINUM INJ 100 UNITS (J0585) IM ONE; -BUPIVACAINE HCL 0.25% 10 ML VIAL As Ordered ONE; -BUPIVACAINE HCL 0.25% 30 ML VIAL As Ordered ONE; -RIZA5TAB3 PO; +RIZA5TAB52 PO; -TRIAMCINOLONE ACETONIDE SUSP 40 MG/ML VIAL (J3301) As Ordered ONE
--- NOTE | 2019-04-18 07:05 | ECWPNPC ---
PATIENT NAME: SILVIA ZIMMERMAN : 1985 GENDER: FEMALE VISIT DATE: 03/29/2019 DISCHARGE DATE: 03/29/19 1210 VISIT LOCKED DATE TIME: PHYSICIAN: MAYRA STEVENS MD PHYSICIAN PAGER NO: INACTIVE RESOURCE: MAYRA STEVENS MD REASON FOR APPOINTMENT 1. BOTOX HISTORY OF PRESENT ILLNESS HISTORY OF PRESENT ILLNESS: PAIN THE PATIENT DESCRIBES THE PAIN... FALL RISK SCREENING: SCREENING :NO FALLS REPORTED IN THE LAST YEAR CURRENT MEDICATIONS TAKING COLACE 100 MG CAPSULE 1 CAPSULE NEEDED ORALLY BID, NOTES: 03-28-19 TAKING METFORMIN HCL ER 500 MG TABLET EXTENDED RELEASE 24 HOUR 3 TABLET ORALLY DAILY AT BEDTIME, NOTES: BEEN A WEEK TAKING CALCIUM + D 600-200 MG-UNIT TABLET 1 TABLET ORALLY ONCE A DAY, NOTES: NONE RECENT TAKING CLONIDINE HCL 0.3 MG TABLET 2 TABLETS ORALLY ONCE A DAY, NOTES: LAST NIGHT TAKING BENADRYL 25 MG ORAL 3 TABLETS DIRECTED, NOTES: TOPICAL FOR FACE RASH TAKING XANAX 1 MG TABLET 1 TABLET ORALLY DAILY, NOTES: 03-28-19 09 TAKING ALPRAZOLAM ER 3 MG TABLET EXTENDED RELEASE 24 HOUR 1 TABLET IN THE MORNING ORALLY ONCE A DAY, NOTES: 03-28-19 TAKING GABAPENTIN 300 MG CAPSULE 1 CAPSULE ORALLY BID, NOTES: 03-29-19 TAKING EX-LAX 15 MG TABLET 1 TABLET AT BEDTIME NEEDED ORALLY DAILY, NOTES: NONE RECENT TAKING VITAMIN C 500 MG TABLET 1 TABLET ORALLY ONCE A DAY, NOTES: 03-28-19 09 TAKING ALBUTEROL EVERY 4 HOURS NEEDED, NOTES: 03-28-19 09 TAKING NORCO 5-325 MG TABLET 1 TABLET NEEDED ORALLY Q8H TID MDD3, NOTES: 03-28-19 2100 TAKING VENLAFAXINE HCL ER 37.5 MG CAPSULE EXTENDED RELEASE 24 HOUR ORALLY ONCE A DAY, NOTES: 03-29-19 0800 NOT-TAKING LINZESS 290 MCG CAPSULE 1 CAPSULE ORALLY ONCE A DAY, NOTES: S NOT TAKEN IT IN 2 MONTHS DUE TO INSURANCE NOT-TAKING PROBIOTIC TABLET DELAYED RELEASE 1 CAPSULE ORALLY DAILY, NOTES: MONTHS AGO NOT-TAKING SELEGILINE HCL 5 MG TABLET 1 TABLET WITH BREAKFAST AND LUNCH ORALLY TWICE A DAY NOT-TAKING SINGULAIR 10 MG TABLET 1 TABLET IN THE EVENING ORALLY ONCE A DAY NOT-TAKING TRAMADOL HCL 50 MG TABLET 1/2 - 1 TABLET ORALLY EVERY 6 -8 HRS PRN PAIN NOT-TAKING DICLOFENAC POTASSIUM 50 MG TABLET 1 TABLET ORALLY TWICE A DAY, NOTES: NONE RECENT-DIDN'T HELP MEDICATION LIST REVIEWED AND RECONCILED WITH THE PATIENT PAST MEDICAL HISTORY SCOLIOSIS - MINIMAL DEXTRO-CONVEX CURVATURE - SCOLIOSIS SERIES ON 01/2009 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 INTERMITT 2 YEARS/ S/P 2 LASER LAPROSCOPIES OSTEOPOROSIS/OSTEOPENIA DUE TO LUPRON RX/ DEXA SCAN ON 03/2009 LUMBAR SPINE NORMAL BMD FOR AGE OCD/ SOCIAL ANXIETY/ BULEMIA NERVOSA PURGING TYPE/ DEPRESSIVE DISORDER/ ANXIETY PSORIASIS/SEBORRHEIC DERMATITIS RIGHT HALLUX VALGUS DEFORMITY S/P RT BUNIONECTOMY 2010 GANGLION LEFT HAND- W/ NL RADIOGRAPH S/P SURGICALLY REMOVED BULIMIA NERVOSA PURGING TYPE POLYCYSTIC OVARIES MIGRAINE ALLERGIC RHINITIS SINUS INFECTION ALLERGIES ENVIRONMENTAL: STUFFY NOSE, ITCHY EYES, SOMETIMES HIVES TYLENOL: CONTRAINDICATION DUE TO GENE MUTATION - CONTRAINDICATION SURGICAL HISTORY LASER LAPAROSCOPY FOR ENDOMETRIOSIS WITH FINDING OF MINIMAL ENDOMETRIOSIS WISDOM TOOTH RT BUNIONECTOMY 07/2009 LASER RX FOR BENIGH NEOPLASM EYELID ANGIOMA [id number] SEPTOPLASTY, ADENOIDECTOMY, BALLOON SINUPLASTY 08/2016 INVITRO FERT CYCLES WITH EGG EXTRACTIONS [id number] FAMILY HISTORY FATHER: 50 YRS, SMALL CELL LYMPHOMA, DIABETES, HTN, DIAGNOSED WITH DIABETES, HYPERTENSION, OTHER MALIGNANT NEOPLASM OF UNSPECIFIED SITE MOTHER: ALIVE 52 YRS, PRE-CANCEROUS CELLS REMOVED FROM BREAST, OTHER MALIGNANT NEOPLASM OF UNSPECIFIED SITE SIBLINGS: ASTHMA PATERNAL GRAND FATHER: ? MENTAL DISORDER AND COMMITTED SUICIDE, DM PATERNAL GRAND MOTHER: , DM MATERNAL GRAND FATHER: , ? CANCER MATERNAL GRAND MOTHER: , HEART ATTACK, DM SOCIAL HISTORY GENERAL: TOBACCO USE ARE YOU A:CURRENT SMOKER HOW OFTEN DO YOU SMOKE CIGARETTES?SOME DAYS, BUT NOT EVERY DAY HOW SOON AFTER YOU WAKE UP DO YOU SMOKE YOUR FIRST CIGARETTE?AFTER 60 MIN HOW MANY CIGARETTES A DAY DO YOU SMOKE?5 OR LESS ARE YOU INTERESTED IN QUITTING?THINKING ABOUT QUITTING HAS CUT DOWN ON # OF CIGS/DAY ADDITIONAL FINDINGS: TOBACCO USER STATES CAN GO A LONG TIME WITHOUT SMOKING WITH NO SIDE EFFECTS PATIENT COUNSELED ON THE DANGERS OF TOBACCO USE AND URGED TO QUIT:10/05/2018 COUNSELED THE PATIENT ON SMOKING CESSATION, EDUCATION EOKNPCOQ14/30/2019 SMOKING CESSATION INFORMATION GIVEN02/14/2019 HIV / HEP-C SCREENING HIV TEST OFFERED TO PATIENT:YES DATE OFFERED:06/08/2016 TEST ACCEPTED:NO HEP-C TEST OFFERED TO PATIENT:NO N/A REASON:PATIENT DECLINED EDUCATION LEVEL OF EDUCATION:COLLEGE DIET: REGULAR. LANGUAGE LANGUAGES SPOKEN:[place]OSOTHO DOMESTIC VIOLENCE DO YOU FEEL SAFE IN YOUR ENVIRONMENT?YES RECREATIONAL DRUG USE DRUG USE?NO EXERCISE: WALKS. LEARNING BARRIERS / SPECIAL NEEDS CHANGE FROM LAST VISIT?NO BARRIERS TO LEARNING?NO HEARING IMPAIRED?NO VISION IMPAIRED?YES COGNITIVELY IMPAIRED?NO :CORRECTIVE LENSES READINESS TO LEARN?YES LEARNING PREFERENCES?YES :HANDOUTS, DEMONSTRATION/VERBAL INSTRUCTION LEARNING CAPABILITIES PRESENT?YES EMOTIONAL BARRIERS?NO SPECIAL DEVICES?NO AIRCRAFT TIME CLERK NEEDED?NO PAIN CLINIC PFS, CLERGY, PUBLIC HEALTH REFERRALS PFS REFERRAL NEEDED?NO CLERGY REFERRAL NEEDED?NO PUBLIC HEALTH REFERRAL NEEDED?NO WAS THE PROVIDER NOTIFIED OF ANY PERTINENT INFO? N/A HAS THE PATIENT BEEN EDUCATED REGARDING HIS/HER PLAN OF CARE?YES HAS THE PATIENT BEEN EDUCATED REGARDING PAIN, THE RISK FOR PAIN, THE IMPORTANCE OF EFFECTIVE PAIN MANAGEMENT, AND THE PAIN ASSESSMENT PROCESS?YES LATEX QUESTIONNAIRE LATEX ALLERGY : HAVE YOU EVER DEVELOPED ANY TYPE OF REACTION AFTER HANDLING LATEX PRODUCTS SUCH RUBBER GLOVES, CONDOMS, DIAPHRAGMS, BALLOONS, SOCKS, OR UNDERWEAR?NO LATEX ALLERGY : HAVE YOU EVER DEVELOPED ANY TYPE OF REACTION DURING OR AFTER DENTAL APPOINTMENT, VAGINAL/RECTAL EXAMINATION, SURGICAL PROCEDURE, OR ANY OTHER EXPOSURE?NO DATE ASKED : 10/05/2018 LATEX RISK : HAVE YOU EVER HAD ANY DIFFICULTY BREATHING OR HIVES AFTER EATING OR HANDLING ANY FRUITS, OR VEGETABLES; SUCH KIWI, BANANAS, STONE FRUITS, OR CHESTNUTSNO LATEX RISK : DO YOU HAVE A PREVIOUS PERSONAL HISTORY OF MORE THAN NINE SURGERIES, SPINA BIFIDA, OR REPEATED CATHERIZATIONS? NO LATEX RISK : ARE YOU FREQUENTLY EXPOSED TO LATEX PRODUCTS IN YOUR OCCUPATION?NO CAFFEINE CAFFEINE USE?YES COFFEE SODA ADVANCE DIRECTIVE ADVANCE DIRECTIVE DISCUSSED WITH PATIENT:YES PT DOES NOT HAVE ANY ADVANCED DIRECTIVES AND SHE STATES SHE ALREADY HAS INFORMATION ON HCP. DECLINES ASSISTANCE AT THIS TIME. 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 ALCOHOL SCREENING DID YOU HAVE A DRINK CONTAINING ALCOHOL IN THE PAST YEAR?YES HOW MANY DRINKS DID YOU HAVE ON A TYPICAL DAY WHEN YOU WERE DRINKING IN THE PAST YEAR?1 OR 2 (0 POINTS) HOW OFTEN DID YOU HAVE A DRINK CONTAINING ALCOHOL IN THE PAST YEAR?MONTHLY OR LESS (1 POINT) POINTS1 INTERPRETATIONNEGATIVE SEXUAL HX HAD SEX IN THE LAST 12 MONTHS (VAGINAL, ORAL, OR ANAL)?YES WITHMEN ONLY PREVENTION STRATEGIES DISCUSSED:OTHER USE PROTECTION?NO LMP:10/09/2016 HAVE YOU EVER HAD AN STD?NO 10/12/17 1205 REVIEWED WITH PT. AD12/09/17 1500 REVIEWED WITH PT LAS01/11/18 1410 REVIEWED WITH PT LAS 1115 REVIEWED WITH PT LAS08/22/18 1203 REVIEWED WITH PT BV12/30/18 REVIEWED WITH PT LAS02/14/19 REVIEWED WITH PT NLJ 1433 REVIEWED WITH PT BV. HOSPITALIZATION/MAJOR DIAGNOSTIC PROCEDURE MONO 2006 IN CHILDHOOD LUNG REASON REVIEW OF SYSTEMS REVIEWED BY: PROVIDER: . CONSTITUTIONAL: ANY CHANGE IN YOUR MEDICAL CONDITION? NO . CHILLS NO . FEVER NO . INFECTION: DO YOU HAVE NEW INFECTIONS? A COUPLE WEEKS AGO SORE THROAT . DO YOU HAVE HISTORY OF MRSA? NO . MUSCULOSKELETAL: ANY NEW PATTERNS OF PAIN OR NUMBNESS? NO . GASTROENTEROLOGY: ANY NEW CHANGE IN BOWEL CONTROL? NO . GENITOURINARY: ANY NEW CHANGE IN BLADDER CONTROL? NO . IS THERE A CHANCE YOU COULD BE ? NO . HEMATOLOGY/LYMPH: DO YOU TAKE ANY BLOOD THINNERS? (FOR EXAMPLE- COUMADIN, PLAVIX, AGGRENOX, PLATEL, PRADAXA, OR XARELTO) NO . WHEN WAS YOUR LAST DOSE? DATE: TIME: . NEUROLOGY: HAVE YOU FALLEN IN THE PAST 12 MONTHS? NO . ANY NEW EXTREMITY NUMBNESS OR WEAKNESS? NO . CARDIOLOGY: DO YOU HAVE A PACEMAKER OR DEFIBRILLATOR? NO . RESPIRATORY: HAVE YOU BEEN SICK IN THE PAST WEEK? NO . FEVER NO . FLU LIKE SYMPTOMS? NO . COUGH NO . INTEGUMENTARY: DO YOU HAVE ANY RASHES OR OPEN SORES? RASH ON FACE FROM " GLUTON OR SOY" APPLYING BENEDRYL TO SITE NO OPEN SORES . ALLERGIC/IMMUNO: ARE YOU ALLERGIC TO IV DYE? NO . ANY NEW ALLERGIES? NO . PSYCHIATRIC: DO YOU HAVE THOUGHTS OF HURTING YOURSELF OR SOMEONE ELSE? NO . ARE YOU ABUSED, NEGLECTED, OR IN AN UNSAFE ENVIRONMENT? NO . ENDOCRINOLOGY: ARE YOU DIABETIC? NO . OTHER: DO YOU NEED ANY PRESCRIPTIONS? NO . IF YES, PLEASE LIST: ____ . ANY NEW PROBLEMS WITH YOUR MEDICATIONS? NO . WHEN DID YOU LAST EAT? ____[id number] . WHEN DID YOU LAST DRINK? ____0-19 . WHAT DID YOU LAST DRINK? ____WATER . NAME OF PERSON DRIVING YOU HOME? ____TANJA ZIMMERMAN . DO YOU HAVE ANY OTHER QUESTIONS OR CONCERNS NO . VITAL SIGNS WT 131.8 LBS, HT 66 IN, BMI 21.27 INDEX, BP 103/69 MM HG, HR 65 /MIN, RR 16 /MIN, TEMP 97.0 F, OXYGEN SAT % 100%, NA INITIALS SC 10:17. ASSESSMENTS CHRONIC MIGRAINE - G43.709 (PRIMARY) PROCEDURES PN BOTOX INJECTIONS SUBSEQUENT INJECTIONS PRE PROCEDURE DIAGNOSIS CHRONIC MIGRAINE HEADACHES. POST PROCEDURE DIAGNOSIS CHRONIC MIGRAINE HEADACHES. PROCEDURE BOTOX INJECTION AT THE HEAD, NECK, AND SHOULDERS. SURGEON DR. MAYRA STEVENS SPECIAL TECHNICAL OPERATIONS OFFICER NONE ANESTHESIA NONE PRE PROCEDURE NOTE THE PATIENT HAS HISTORY OF CHRONIC MIGRAINE HEADACHES. I EVALUATED THE PATIENT AND REVIEWED THE CHART. I WENT OVER THE RISKS, ALTERNATIVES, AND BENEFITS ASSOCIATED WITH THIS PROCEDURE. THE PATIENT WOULD LIKE TO PROCEED AND GIVES CONSENT TO PERFORMED THE PROCEDURE. THE PATIENT DENIES UNEXPLAINABLE WEIGHT LOSS, FEVER, CHILLS, OR NEW CHANGES IN URINARY OR BOWEL CONTROL. THE PATIENT DID A BOTOX INJECTION AT THE HEAD, NECK, AND SHOULDERS 3 MONTHS AGO AND EXPRESSED MORE THAN 50% REDUCTION ON THE FREQUENCY AND INTENSITY OF THE HEADACHES. THE PATIENT SAYS BEFORE BOTOX, SHE EXPERIENCED HEADACHES EVERY DAY, HOWEVER, AFTER RECEIVING BOTOX, HER HEADACHES OCCUR ABOUT 3 TIMES PER MONTH. THE PATIENT EXPRESSES THAT THE USE OF BOTOX HAS SIGNIFICANTLY REDUCED THE SEVERITY OF THE HEADACHES AND STATES THAT SHE WANTS TO RECEIVE THIS PROCEDURE AGAIN TODAY. DESCRIPTION OF PROCEDURE THE PATIENTS WAS BROUGHT TO THE PROCEDURE ROOM AND PLACED IN THE SUPINE POSITION. I CHECKED LATERALITY AND THE AREAS WHERE THE PROCEDURE WAS GOING TO BE PERFORMED WITH THE PATIENT AND THE SUPPORTING STAFF AT THE MOMENT OF THE TIME OUT IN THE PROCEDURE ROOM. FOR THE PROCEDURE I USED A SOLUTION OF 5 UNITS OF BOTOX PER EACH 0.1 ML OF THE SOLUTION. I USED A 30-GAUGE NEEDLE TO INJECT THE SOLUTION AT THE SELECTED LOCATIONS. I INJECTED FIRST THE RIGHT AND LEFT PHOTO FINISHER MUSCLES. THE LANDMARK FOR BOTH INJECTIONS WAS APPROXIMATELY 1 CM ABOVE THE SUPERIOR MEDIAL EDGE OF THE EYEBROW. AFTER THESE TWO INJECTIONS, I INJECTED THE PROCERUS MUSCLE AT THE MIDLINE POINT BETWEEN THESE FIRST TWO INJECTIONS. THEN I PROCEEDED TO INJECT THE RIGHT AND LEFT FRONTALIS MUSCLE. TWO INJECTIONS WERE DONE IN EACH SIDE. THE FIRST INJECTION WAS DONE APPROXIMATELY 2 CM ABOVE THE FIRST INJECTION OF THE PHOTO FINISHER. THE SECOND INJECTION WAS DONE APPROXIMATELY 1.5 CM LATERAL TO THIS FIST INJECTION OF THE FRONTALIS OF EACH SIDE. AFTER THE INJECTIONS OVER THE FOREHEAD WERE DONE, THE PATIENT'S HEAD WAS TURNED TO THE LEFT SIDE AND WE STARTED TO WORK WITH THE RIGHT TEMPORALIS MUSCLE. FIRST INJECTION WAS DONE IN A VERTICAL LINE OF THE TRAGUS APPROXIMATELY 3 CM ABOVE THE TRAGUS. THE SECOND INJECTION WAS DONE APPROXIMATELY 2 CM ABOVE THE FIRST INJECTION. THE THIRD INJECTION WAS DONE APPROXIMATELY 1 CM FRONT BALLARD FROM THIS VERTICAL LINE CREATED AT THE LEVEL OF THE TRAGUS, SENIOR CARE BETWEEN THESE TWO INJECTIONS. THE FOURTH INJECTION WAS DONE APPROXIMATELY 1.5 CM BACK FROM THE SECOND INJECTION TO THE TEMPORALIS IN LINE TO THE MIDPORTION OF THE EAR. THEN, WE PROCEEDED TO INJECT THE LEFT TEMPORALIS MUSCLE. WE CLEANED THE AREA WITH ALCOHOL AND PROCEEDED TO PERFORM THE SAME FOR INJECTIONS DESCRIBED ABOVE BUT IN THE LEFT TEMPORALIS MUSCLE USING THE SAME LANDMARKS. AFTER THESE INJECTIONS WERE DONE, THE PATIENT WAS SEATED. FIRST, WE STARTED TO INJECT THE LEFT AND RIGHT OCCIPITALIS MUSCLE. I INJECTED AT THE FOLLOWING PLACES IN THE RIGHT AND LEFT MUSCLE. THE FIRST INJECTION WAS DONE AT THE MIDPOINT POSITION BETWEEN THE MASTOID PROCESS AND THE INION OF THE OCCIPITAL PROTUBERANCE. THE SECOND INJECTION WAS DONE APPROXIMATELY 1.5 CM SUPERIOR AND LATERAL OF THIS POINT. THE THIRD INJECTION WAS DONE APPROXIMATELY 1.5 CM SUPERIOR AND MEDIAL TO THIS FIRST INJECTION. THEN, I PROCEEDED TO INJECT THE RIGHT AND LEFT PARASPINAL MUSCLES. LANDMARK OF THE INJECTION WERE APPROXIMATELY: FIRST INJECTION 3 CM BELOW THE INION AND 1 CM LATERAL TO THE MIDLINE AND SECOND INJECTION AT EACH SIDE WAS DONE APPROXIMATELY 1.5 CM SUPERIOR AND LATERAL OF THE FIRST INJECTION. THE LAST GROUP OF INJECTIONS WAS DONE OVER THE RIGHT AND LEFT TRAPEZIUS MUSCLE OVER THE SHOULDERS AREA. THE FIRST INJECTION WAS DONE AT THE MIDPOINT BETWEEN THE INFLECTION POINT BETWEEN THE NECK AND SHOULDER AND THE ACROMION. THE SECOND AND THIRD INJECTIONS WERE DONE APPROXIMATELY 2.5 CM LATERAL AND MEDIAL FROM THIS FIRST INJECTION. SAME TARGETS WERE USED IN THE RIGHT AND LEFT SIDE. IN TOTAL, I INJECTED 155 UNITS OF BOTOX. PROCEDURE WAS DONE WITHOUT EVIDENCE OF PARESTHESIA, PNEUMOTHORAX, OR ANY COMPLICATIONS. THE PATIENT TOLERATED THE PROCEDURE VERY WELL. THE PATIENT WAS SENT TO THE RECOVERY ROOM FOR OBSERVATIONS. INJECTIONS WERE DONE AFTER CLEANING WITH ALCOHOL, USING ASEPTIC TECHNIQUES POST PROCEDURE NOTE THE PROCEDURE DONE WAS DISCUSSED WITH THE PATIENT. THE PATIENT WILL BE SEEN IN A FOLLOW UP IN THE NEXT FEW WEEKS. INSTRUCTIONS WERE GIVEN, QUESTIONS WERE ANSWERED, AND THE PATIENT EXPRESSED UNDERSTANDING AND AGREES WITH THE PLAN. I, NANCY BOLDEN, DOCUMENTED THE ABOVE INFORMATION ACTING A SCRIBE FOR DR. STEVENS. I HAVE REVIEWED THE ABOVE DOCUMENT, WRITTEN BY NANCY BOLDEN SCRIBE AND I VERIFY THAT IT IS ACCURATE. PROCEDURE CODES [id number] CHEMODENERV MUSC MIGRAINE DISPOSITION & COMMUNICATION FOLLOW UP 3 WEEKS ELECTRONICALLY SIGNED BY MAYRA STEVENS MD, MD ON 04/17/2019 AT 04:46 PM EST DISCLAIMER : THIS IS A VISIT SUMMARY EXTRACTED FROM THE [employer] CHART. IT IS NOT A COPY OF THE [employer] PROGRESS NOTE. BRANT
== END ==
LOC: M PAIN 10:00
PROVIDERS: ATTEND Anesthesiology
DX: G43.709 Chronic migraine without aura, not intractable, without status migrainosus (principal); M79.7 Fibromyalgia; Z79.84 Long term (current) use of oral hypoglycemic drugs; Z79.891 Long term (current) use of opiate analgesic; Z79.899 Other long term (current) drug therapy
CPT/HCPCS: 64615; J0585

== ENCOUNTER → 2019-04-13 | Outpatient (CLI) | payer OTHER ==
[~2019-04-13] MED LIST changes: -BOTULINUM INJ 100 UNITS (J0585) IM ONE; -diazePAM 5 MG TAB As Ordered ONE; -oxyCODONE 5MG TAB As Ordered ONE
--- NOTE | 2019-05-02 04:23 | ECWPNPC ---
PATIENT NAME: SILVIA ZIMMERMAN : 1985 GENDER: FEMALE VISIT DATE: 04/13/2019 DISCHARGE DATE: 04/13/19 1242 VISIT LOCKED DATE TIME: PHYSICIAN: NUVIA ROBLES PHYSICIAN PAGER NO: INACTIVE RESOURCE: NUVIA ROBLES REASON FOR APPOINTMENT 1. POST BOTOX HISTORY OF PRESENT ILLNESS HISTORY OF PRESENT ILLNESS: HERE FOR POST BOTOX F/U.REPORTING LESS FREQUENT AND LESS INTENSE MIGRAINE HEADACHES SINCE STARTING BOTOX THERAPY.RATING PAIN VAS 4/10. PAIN THE PATIENT DESCRIBES THE PAIN... FALL RISK SCREENING: SCREENING :NO FALLS REPORTED IN THE LAST YEAR CURRENT MEDICATIONS TAKING COLACE 100 MG CAPSULE 1 CAPSULE NEEDED ORALLY BID TAKING METFORMIN HCL ER 500 MG TABLET EXTENDED RELEASE 24 HOUR 3 TABLET ORALLY DAILY AT BEDTIME TAKING CALCIUM + D 600-200 MG-UNIT TABLET 1 TABLET ORALLY ONCE A DAY TAKING CLONIDINE HCL 0.3 MG TABLET 2 TABLETS ORALLY ONCE A DAY TAKING BENADRYL 25 MG ORAL 3 TABLETS DIRECTED TAKING XANAX 1 MG TABLET 1 TABLET ORALLY DAILY TAKING ALPRAZOLAM ER 3 MG TABLET EXTENDED RELEASE 24 HOUR 1 TABLET IN THE MORNING ORALLY ONCE A DAY TAKING GABAPENTIN 300 MG CAPSULE 1 CAPSULE ORALLY BID TAKING EX-LAX 15 MG TABLET 1 TABLET AT BEDTIME NEEDED ORALLY DAILY TAKING VITAMIN C 500 MG TABLET 1 TABLET ORALLY ONCE A DAY TAKING ALBUTEROL EVERY 4 HOURS NEEDED TAKING NORCO 5-325 MG TABLET 1 TABLET NEEDED ORALLY Q8H TID MDD3 TAKING VENLAFAXINE HCL ER 37.5 MG CAPSULE EXTENDED RELEASE 24 HOUR ORALLY ONCE A DAY TAKING LINZESS 290 MCG CAPSULE 1 CAPSULE ORALLY ONCE A DAY NOT-TAKING PROBIOTIC TABLET DELAYED RELEASE 1 CAPSULE ORALLY DAILY, NOTES: MONTHS AGO NOT-TAKING SELEGILINE HCL 5 MG TABLET 1 TABLET WITH BREAKFAST AND LUNCH ORALLY TWICE A DAY NOT-TAKING SINGULAIR 10 MG TABLET 1 TABLET IN THE EVENING ORALLY ONCE A DAY NOT-TAKING TRAMADOL HCL 50 MG TABLET 1/2 - 1 TABLET ORALLY EVERY 6 -8 HRS PRN PAIN NOT-TAKING DICLOFENAC POTASSIUM 50 MG TABLET 1 TABLET ORALLY TWICE A DAY, NOTES: NONE RECENT-DIDN'T HELP PAST MEDICAL HISTORY SCOLIOSIS - MINIMAL DEXTRO-CONVEX CURVATURE - SCOLIOSIS SERIES ON 01/2009 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 INTERMITT 2 YEARS/ S/P 2 LASER LAPROSCOPIES OSTEOPOROSIS/OSTEOPENIA DUE TO LUPRON RX/ DEXA SCAN ON 03/2009 LUMBAR SPINE NORMAL BMD FOR AGE OCD/ SOCIAL ANXIETY/ BULEMIA NERVOSA PURGING TYPE/ DEPRESSIVE DISORDER/ ANXIETY PSORIASIS/SEBORRHEIC DERMATITIS RIGHT HALLUX VALGUS DEFORMITY S/P RT BUNIONECTOMY 2010 GANGLION LEFT HAND- W/ NL RADIOGRAPH S/P SURGICALLY REMOVED BULIMIA NERVOSA PURGING TYPE POLYCYSTIC OVARIES MIGRAINE ALLERGIC RHINITIS SINUS INFECTION ALLERGIES ENVIRONMENTAL: STUFFY NOSE, ITCHY EYES, SOMETIMES HIVES TYLENOL: CONTRAINDICATION DUE TO GENE MUTATION - CONTRAINDICATION SURGICAL HISTORY LASER LAPAROSCOPY FOR ENDOMETRIOSIS WITH FINDING OF MINIMAL ENDOMETRIOSIS WISDOM TOOTH RT BUNIONECTOMY 07/2009 LASER RX FOR BENIGH NEOPLASM EYELID ANGIOMA [id number] SEPTOPLASTY, ADENOIDECTOMY, BALLOON SINUPLASTY 08/2016 INVITRO FERT CYCLES WITH EGG EXTRACTIONS [id number] FAMILY HISTORY FATHER: 50 YRS, SMALL CELL LYMPHOMA, DIABETES, HTN, DIAGNOSED WITH DIABETES, HYPERTENSION, OTHER MALIGNANT NEOPLASM OF UNSPECIFIED SITE MOTHER: ALIVE 52 YRS, PRE-CANCEROUS CELLS REMOVED FROM BREAST, OTHER MALIGNANT NEOPLASM OF UNSPECIFIED SITE SIBLINGS: ASTHMA PATERNAL GRAND FATHER: ? MENTAL DISORDER AND COMMITTED SUICIDE, DM PATERNAL GRAND MOTHER: , DM MATERNAL GRAND FATHER: , ? CANCER MATERNAL GRAND MOTHER: , HEART ATTACK, DM SOCIAL HISTORY GENERAL: TOBACCO USE ARE YOU A:CURRENT SMOKER HOW OFTEN DO YOU SMOKE CIGARETTES?SOME DAYS, BUT NOT EVERY DAY HOW SOON AFTER YOU WAKE UP DO YOU SMOKE YOUR FIRST CIGARETTE?AFTER 60 MIN HOW MANY CIGARETTES A DAY DO YOU SMOKE?5 OR LESS ARE YOU INTERESTED IN QUITTING?THINKING ABOUT QUITTING HAS CUT DOWN ON # OF CIGS/DAY ADDITIONAL FINDINGS: TOBACCO USER STATES CAN GO A LONG TIME WITHOUT SMOKING WITH NO SIDE EFFECTS PATIENT COUNSELED ON THE DANGERS OF TOBACCO USE AND URGED TO QUIT:10/05/2018 COUNSELED THE PATIENT ON SMOKING CESSATION, EDUCATION [id number]/30/2019 SMOKING CESSATION INFORMATION GIVEN02/14/2019 HIV / HEP-C SCREENING HIV TEST OFFERED TO PATIENT:YES DATE OFFERED:06/08/2016 TEST ACCEPTED:NO HEP-C TEST OFFERED TO PATIENT:NO N/A REASON:PATIENT DECLINED EDUCATION LEVEL OF EDUCATION:COLLEGE DIET: REGULAR. LANGUAGE LANGUAGES SPOKEN:FAROESE DOMESTIC VIOLENCE DO YOU FEEL SAFE IN YOUR ENVIRONMENT?YES RECREATIONAL DRUG USE DRUG USE?NO EXERCISE: WALKS. LEARNING BARRIERS / SPECIAL NEEDS CHANGE FROM LAST VISIT?NO BARRIERS TO LEARNING?NO HEARING IMPAIRED?NO VISION IMPAIRED?YES COGNITIVELY IMPAIRED?NO :CORRECTIVE LENSES READINESS TO LEARN?YES LEARNING PREFERENCES?YES :HANDOUTS, DEMONSTRATION/VERBAL INSTRUCTION LEARNING CAPABILITIES PRESENT?YES EMOTIONAL BARRIERS?NO SPECIAL DEVICES?NO MEDICAL BILLER/CODER NEEDED?NO PAIN CLINIC PFS, CLERGY, PUBLIC HEALTH REFERRALS PFS REFERRAL NEEDED?NO CLERGY REFERRAL NEEDED?NO PUBLIC HEALTH REFERRAL NEEDED?NO WAS THE PROVIDER NOTIFIED OF ANY PERTINENT INFO? N/A HAS THE PATIENT BEEN EDUCATED REGARDING HIS/HER PLAN OF CARE?YES HAS THE PATIENT BEEN EDUCATED REGARDING PAIN, THE RISK FOR PAIN, THE IMPORTANCE OF EFFECTIVE PAIN MANAGEMENT, AND THE PAIN ASSESSMENT PROCESS?YES LATEX QUESTIONNAIRE LATEX ALLERGY : HAVE YOU EVER DEVELOPED ANY TYPE OF REACTION AFTER HANDLING LATEX PRODUCTS SUCH RUBBER GLOVES, CONDOMS, DIAPHRAGMS, BALLOONS, SOCKS, OR UNDERWEAR?NO LATEX ALLERGY : HAVE YOU EVER DEVELOPED ANY TYPE OF REACTION DURING OR AFTER DENTAL APPOINTMENT, VAGINAL/RECTAL EXAMINATION, SURGICAL PROCEDURE, OR ANY OTHER EXPOSURE?NO DATE ASKED : 10/05/2018 LATEX RISK : HAVE YOU EVER HAD ANY DIFFICULTY BREATHING OR HIVES AFTER EATING OR HANDLING ANY FRUITS, OR VEGETABLES; SUCH KIWI, BANANAS, STONE FRUITS, OR CHESTNUTSNO LATEX RISK : DO YOU HAVE A PREVIOUS PERSONAL HISTORY OF MORE THAN NINE SURGERIES, SPINA BIFIDA, OR REPEATED CATHERIZATIONS? NO LATEX RISK : ARE YOU FREQUENTLY EXPOSED TO LATEX PRODUCTS IN YOUR OCCUPATION?NO CAFFEINE CAFFEINE USE?YES COFFEE SODA ADVANCE DIRECTIVE ADVANCE DIRECTIVE DISCUSSED WITH PATIENT:YES PT DOES NOT HAVE ANY ADVANCED DIRECTIVES AND SHE STATES SHE ALREADY HAS INFORMATION ON HCP. DECLINES ASSISTANCE AT THIS TIME. 04/13/19 YAZIDI [id number] TAOISM MARITAL STATUS: . ALCOHOL SCREENING DID YOU HAVE A DRINK CONTAINING ALCOHOL IN THE PAST YEAR?YES HOW MANY DRINKS DID YOU HAVE ON A TYPICAL DAY WHEN YOU WERE DRINKING IN THE PAST YEAR?1 OR 2 (0 POINTS) HOW OFTEN DID YOU HAVE A DRINK CONTAINING ALCOHOL IN THE PAST YEAR?MONTHLY OR LESS (1 POINT) POINTS1 INTERPRETATIONNEGATIVE SEXUAL HX HAD SEX IN THE LAST 12 MONTHS (VAGINAL, ORAL, OR ANAL)?YES WITHMEN ONLY PREVENTION STRATEGIES DISCUSSED:OTHER USE PROTECTION?NO LMP:10/09/2016 HAVE YOU EVER HAD AN STD?NO 10/12/17 1205 REVIEWED WITH PT. AD12/09/17 1500 REVIEWED WITH PT LAS01/11/18 1410 REVIEWED WITH PT [id number] REVIEWED WITH PT LAS08/22/18 1203 REVIEWED WITH PT BV8 REVIEWED WITH PT LAS02/14/19 REVIEWED WITH PT NLJ [id number] REVIEWED WITH PT BV04/13/19 1203 REVIEWED WITH PATIENT BV. HOSPITALIZATION/MAJOR DIAGNOSTIC PROCEDURE MONO 2005 IN CHILDHOOD LUNG REASON REVIEW OF SYSTEMS REVIEWED BY: PROVIDER: NUVIA VIZCAINO . CONSTITUTIONAL: ANY CHANGE IN YOUR MEDICAL CONDITION? NO . CHILLS NO . FEVER NO . INFECTION: DO YOU HAVE NEW INFECTIONS? NO . DO YOU HAVE HISTORY OF MRSA? NO . MUSCULOSKELETAL: ANY NEW PATTERNS OF PAIN OR NUMBNESS? NO . GASTROENTEROLOGY: ANY NEW CHANGE IN BOWEL CONTROL? NO . GENITOURINARY: ANY NEW CHANGE IN BLADDER CONTROL? NO . IS THERE A CHANCE YOU COULD BE ? NO . HEMATOLOGY/LYMPH: DO YOU TAKE ANY BLOOD THINNERS? (FOR EXAMPLE- COUMADIN, PLAVIX, AGGRENOX, PLATEL, PRADAXA, OR XARELTO) NO . WHEN WAS YOUR LAST DOSE? DATE: TIME: . NEUROLOGY: HAVE YOU FALLEN IN THE PAST 12 MONTHS? YES, PT DENIES ANY FALLS SINCE LAST VISIT. STATES ALL PREVIOUS FALLS HAVE BEEN DOCUMETED. . ANY NEW EXTREMITY NUMBNESS OR WEAKNESS? NO . CARDIOLOGY: DO YOU HAVE A PACEMAKER OR DEFIBRILLATOR? NO . RESPIRATORY: HAVE YOU BEEN SICK IN THE PAST WEEK? NO . FEVER NO . FLU LIKE SYMPTOMS? NO . COUGH NO . INTEGUMENTARY: DO YOU HAVE ANY RASHES OR OPEN SORES? YES . ALLERGIC/IMMUNO: ARE YOU ALLERGIC TO IV DYE? NO . ANY NEW ALLERGIES? NO . PSYCHIATRIC: DO YOU HAVE THOUGHTS OF HURTING YOURSELF OR SOMEONE ELSE? NO . ARE YOU ABUSED, NEGLECTED, OR IN AN UNSAFE ENVIRONMENT? NO . ENDOCRINOLOGY: ARE YOU DIABETIC? NO . OTHER: DO YOU NEED ANY PRESCRIPTIONS? NO . IF YES, PLEASE LIST: ____ . ANY NEW PROBLEMS WITH YOUR MEDICATIONS? NO . WHEN DID YOU LAST EAT? ____ . WHEN DID YOU LAST DRINK? ____ . WHAT DID YOU LAST DRINK? ____ . NAME OF PERSON DRIVING YOU HOME? ____ . DO YOU HAVE ANY OTHER QUESTIONS OR CONCERNS NO . VITAL SIGNS WT 132.4 LBS, HT 66 IN, BMI 21.37 INDEX, BP 121/61 MM HG, HR 72 /MIN, RR 16 /MIN, TEMP 98.2 F, OXYGEN SAT % 100%, NA INITIALS AW 1129, REVIEWED BY: BV. EXAMINATION GENERAL EXAMINATION: GENERAL AWAKE,ALERT ,PLEAASANT . PSYCH AFFECT NORMAL . LUNGS: LUNG LLAMAS ARE CLEAR TO AUSCULTATION BILATERALLY. GOOD MOVEMENT OF AIR . HEART: S1, S2 IN A REGULAR RATE AND RHYTHM. NO SIGNIFICANT MURMURS, RUBS OR GALLOPS NOTED . LUMBAR SACRAL SPINETRIGGER POINTS:, ELICITED WITH PALPATION OVER LUMBAR PARAVERTEBRAL MUSCLES.ROJM INCREASES PAIN IN THIS REGION.SPECIFIC POINT TENDERNESS OVER BILAT. L4/5-L5/S1 LUMBAR FACETS WITH FACET LOADING. CERVICAL TRIGGER POINTS: CERVICAL AND TRAPEZIUS BILAT. R>L.PAIN IS AGGREVATED WITH ROJM NECK. ASSESSMENTS CHRONIC MIGRAINE - G43.709 (PRIMARY) SPONDYLOSIS OF LUMBAR REGION WITHOUT MYELOPATHY OR RADICULOPATHY - M47.816 TREATMENT CHRONIC MIGRAINE NOTES: IV SEDATION BILAT L3/4-4/5 LFBT AND BOTOX END OF MAY . OTHERS NOTES: FACET JOINT INJECTION MATERIAL WAS PRINTED. PREVENTIVE MEDICINE PAIN CLINIC TEACHING: PROCEDURE TEACHING PT GIVEN WRITTEN AND VERBAL EDUCATION ON FACET INJECTIONS. PT ALSO GIVEN WRITTEN AND VERBAL PRE PROCEDURE INSTRUCTIONS FOR FACET INJECTIONS AND BOTEX. PT VERBALIZES UNDERSTANDING OF ALL EDUCATION AND INSTRUCTIONS, STATING SHE HAS HAD THESE INJECTIONS IN THE PAST. AYESHA LING 04/13/2019 12:46:20 PM > . PROCEDURE CODES FA211 ESTABILISHED PATIENT [facility] FACILITY CHARGE DISPOSITION & COMMUNICATION FOLLOW UP POST LFBT (REASON: IV SEDATION BILAT L3/4-4/5 LFBT AND BOTOX END OF MAY) ELECTRONICALLY SIGNED BY CHARIS COX ON 05/01/2019 AT 04:22 PM EST DISCLAIMER : THIS IS A VISIT SUMMARY EXTRACTED FROM THE [employer] CHART. IT IS NOT A COPY OF THE [employer] PROGRESS NOTE. BRANT
== END ==
LOC: M PAIN 11:30
PROVIDERS: ATTEND Nurse Practitioner Family
DX: G43.709 Chronic migraine without aura, not intractable, without status migrainosus (principal); M47.816 Spondylosis without myelopathy or radiculopathy, lumbar region; Z86.59 Personal history of other mental and behavioral disorders; F17.210 Nicotine dependence, cigarettes, uncomplicated; Z88.6 Allergy status to analgesic agent; Z79.84 Long term (current) use of oral hypoglycemic drugs; Z79.899 Other long term (current) drug therapy

== ENCOUNTER → 2019-07-13 | Outpatient (CLI) | payer OTHER ==
[~2019-07-13] MED LIST changes: +BUPIVACAINE HCL 0.25% 30 ML VIAL As Ordered ONE; +ISOVUE-M 300 61% 15ML VIAL (Q9967) As Ordered ONE; +LIDOCAINE 1% SDV INJ 30 ML VIAL As Ordered ONE; +MIDAZOLAM INJ 2 MG/2 ML VIAL (J2250) As Ordered ONE; +TRIAMCINOLONE ACETONIDE SUSP 40 MG/ML VIAL (J3301) As Ordered ONE; +fentaNYL 100 MCG/2 ML INJECTION (J3010) As Ordered ONE
--- NOTE | 2019-07-13 15:47 | REP ---
Partial lumbar spine series: Two views . History: Injection procedure for pain. 26 seconds of fluoroscopy time is reported. Findings: A sequence of two fluoroscopically obtained last image hold procedural spot radiographs of the lumbar spine document needle position and contrast injection associated with injection procedure. Electronically Signed by Izaiah Martin MD 07/13/2019 03:39 P
--- NOTE | 2019-08-01 07:20 | ECWPNPC ---
PATIENT NAME: SILVIA ZIMMERMAN : 1985 GENDER: FEMALE VISIT DATE: 07/13/2019 DISCHARGE DATE: 07/13/19 1607 VISIT LOCKED DATE TIME: PHYSICIAN: MAYRA STEVENS MD RESOURCE: MAYRA STEVENS MD REASON FOR APPOINTMENT 1. BILAT L3/4-4/5 LFBT W/ IV SEDATE HISTORY OF PRESENT ILLNESS HISTORY OF PRESENT ILLNESS: PAIN THE PATIENT DESCRIBES THE PAIN... 33 YEAR OLD FEMALE PATIENT WITH A HISTORY OF CHRONIC LOW BACK PAIN. THE PATIENT DESCRIBES THE PAIN SORE, ACHING, TENDER, AND DAILY WITH A PAIN SCORE OF 6-9/10 DEPENDING ON PHYSICAL ACTIVITY. THE PATIENT STATES HER PAIN HAS GOTTEN WORSE OVER THE LAST FEW MONTHS AND IS AFFECTING HER ABILITY TO PERFORM HER DAILY ACTIVITIES SUCH WALKING, CLEANING HER HOME, AND GROCERY SHOPPING. , PATIENT DENIES UNEXPLAINABLE WEIGHT LOSS, FEVER, CHILLS, NEW CHANGES ON HER URINARY OR BOWEL CONTROL. FALL RISK SCREENING: SCREENING :NO FALLS REPORTED IN THE LAST YEAR CURRENT MEDICATIONS TAKING CALCIUM + D 600-200 MG-UNIT TABLET 1 TABLET ORALLY ONCE A DAY, NOTES: 07-12-19 08 TAKING CLONIDINE HCL 0.3 MG TABLET 2 TABLETS ORALLY ONCE A DAY, NOTES: 07-12-192199 TAKING BENADRYL 25 MG ORAL 3 TABLETS DIRECTED, NOTES: 2-3 DAYS AGO TAKING XANAX 1 MG TABLET 1 TABLET ORALLY DAILY, NOTES: 07-12 1500 TAKING ALPRAZOLAM ER 3 MG TABLET EXTENDED RELEASE 24 HOUR 1 TABLET IN THE MORNING ORALLY ONCE A DAY, NOTES: 07-12-19 08 TAKING GABAPENTIN 300 MG CAPSULE 1 CAPSULE ORALLY BID, NOTES: 07-12-191699 TAKING EX-LAX 15 MG TABLET 1 TABLET AT BEDTIME NEEDED ORALLY DAILY, NOTES: 2-3 DAYS AGO TAKING ALBUTEROL EVERY 4 HOURS NEEDED, NOTES: ABOUT 1 MONTH AGO TAKING VENLAFAXINE HCL ER 75 MG CAPSULE EXTENDED RELEASE 24 HOUR ORALLY ONCE A DAY, NOTES: 07/13/19 0800 TAKING LINZESS 290 MCG CAPSULE 1 CAPSULE ORALLY ONCE A DAY, NOTES: 07-12-19 08 TAKING NORCO 5-325 MG TABLET 1 TABLET NEEDED ORALLY Q8H TID MDD3, NOTES: 07-12-191699 NOT-TAKING COLACE 100 MG CAPSULE 1 CAPSULE NEEDED ORALLY BID NOT-TAKING METFORMIN HCL ER 500 MG TABLET EXTENDED RELEASE 24 HOUR 3 TABLET ORALLY DAILY AT BEDTIME NOT-TAKING VITAMIN C 500 MG TABLET 1 TABLET ORALLY ONCE A DAY NOT-TAKING PROBIOTIC TABLET DELAYED RELEASE 1 CAPSULE ORALLY DAILY, NOTES: MONTHS AGO NOT-TAKING SELEGILINE HCL 5 MG TABLET 1 TABLET WITH BREAKFAST AND LUNCH ORALLY TWICE A DAY NOT-TAKING SINGULAIR 10 MG TABLET 1 TABLET IN THE EVENING ORALLY ONCE A DAY NOT-TAKING TRAMADOL HCL 50 MG TABLET 1/2 - 1 TABLET ORALLY EVERY 6 -8 HRS PRN PAIN NOT-TAKING DICLOFENAC POTASSIUM 50 MG TABLET 1 TABLET ORALLY TWICE A DAY, NOTES: NONE RECENT-DIDN'T HELP MEDICATION LIST REVIEWED AND RECONCILED WITH THE PATIENT PAST MEDICAL HISTORY SCOLIOSIS - MINIMAL DEXTRO-CONVEX CURVATURE - SCOLIOSIS SERIES ON 01/2009 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 INTERMITT 2 YEARS/ S/P 2 LASER LAPROSCOPIES OSTEOPOROSIS/OSTEOPENIA DUE TO LUPRON RX/ DEXA SCAN ON 03/2009 LUMBAR SPINE NORMAL BMD FOR AGE OCD/ SOCIAL ANXIETY/ BULEMIA NERVOSA PURGING TYPE/ DEPRESSIVE DISORDER/ ANXIETY PSORIASIS/SEBORRHEIC DERMATITIS RIGHT HALLUX VALGUS DEFORMITY S/P RT BUNIONECTOMY 2010 GANGLION LEFT HAND- W/ NL RADIOGRAPH S/P SURGICALLY REMOVED BULIMIA NERVOSA PURGING TYPE POLYCYSTIC OVARIES MIGRAINE ALLERGIC RHINITIS SINUS INFECTION ALLERGIES ENVIRONMENTAL: STUFFY NOSE, ITCHY EYES, SOMETIMES HIVES TYLENOL: CONTRAINDICATION DUE TO GENE MUTATION - CONTRAINDICATION SURGICAL HISTORY LASER LAPAROSCOPY FOR ENDOMETRIOSIS WITH FINDING OF MINIMAL ENDOMETRIOSIS WISDOM TOOTH RT BUNIONECTOMY 07/2009 LASER RX FOR BENIGH NEOPLASM EYELID ANGIOMA [id number] SEPTOPLASTY, ADENOIDECTOMY, BALLOON SINUPLASTY 08/2016 INVITRO FERT CYCLES WITH EGG EXTRACTIONS [id number] FAMILY HISTORY FATHER: 50 YRS, SMALL CELL LYMPHOMA, DIABETES, HTN, DIAGNOSED WITH DIABETES, HYPERTENSION, OTHER MALIGNANT NEOPLASM OF UNSPECIFIED SITE MOTHER: ALIVE 52 YRS, PRE-CANCEROUS CELLS REMOVED FROM BREAST, OTHER MALIGNANT NEOPLASM OF UNSPECIFIED SITE SIBLINGS: ASTHMA PATERNAL GRAND FATHER: ? MENTAL DISORDER AND COMMITTED SUICIDE, DM PATERNAL GRAND MOTHER: , DM MATERNAL GRAND FATHER: , ? CANCER MATERNAL GRAND MOTHER: , HEART ATTACK, DM SOCIAL HISTORY GENERAL: TOBACCO USE ARE YOU A:CURRENT SMOKER HOW OFTEN DO YOU SMOKE CIGARETTES?SOME DAYS, BUT NOT EVERY DAY HOW SOON AFTER YOU WAKE UP DO YOU SMOKE YOUR FIRST CIGARETTE?AFTER 60 MIN HOW MANY CIGARETTES A DAY DO YOU SMOKE?5 OR LESS ARE YOU INTERESTED IN QUITTING?THINKING ABOUT QUITTING HAS CUT DOWN ON # OF CIGS/DAY ADDITIONAL FINDINGS: TOBACCO USER STATES CAN GO A LONG TIME WITHOUT SMOKING WITH NO SIDE EFFECTS PATIENT COUNSELED ON THE DANGERS OF TOBACCO USE AND URGED TO QUIT:10/05/2018 COUNSELED THE PATIENT ON SMOKING CESSATION, EDUCATION FXPTFLIH99/30/2019 SMOKING CESSATION INFORMATION GIVEN02/14/2019 HIV / HEP-C SCREENING HIV TEST OFFERED TO PATIENT:YES DATE OFFERED:06/08/2016 TEST ACCEPTED:NO HEP-C TEST OFFERED TO PATIENT:NO N/A REASON:PATIENT DECLINED EDUCATION LEVEL OF EDUCATION:COLLEGE DIET: REGULAR. LANGUAGE LANGUAGES SPOKEN:PORTUGUESE DOMESTIC VIOLENCE DO YOU FEEL SAFE IN YOUR ENVIRONMENT?YES RECREATIONAL DRUG USE DRUG USE?NO EXERCISE: WALKS. LEARNING BARRIERS / SPECIAL NEEDS CHANGE FROM LAST VISIT?NO BARRIERS TO LEARNING?NO HEARING IMPAIRED?NO VISION IMPAIRED?YES COGNITIVELY IMPAIRED?NO :CORRECTIVE LENSES READINESS TO LEARN?YES LEARNING PREFERENCES?YES :HANDOUTS, DEMONSTRATION/VERBAL INSTRUCTION LEARNING CAPABILITIES PRESENT?YES EMOTIONAL BARRIERS?NO SPECIAL DEVICES?NO LIFT TRUCK MECHANIC NEEDED?NO PAIN CLINIC PFS, CLERGY, PUBLIC HEALTH REFERRALS PFS REFERRAL NEEDED?NO CLERGY REFERRAL NEEDED?NO PUBLIC HEALTH REFERRAL NEEDED?NO WAS THE PROVIDER NOTIFIED OF ANY PERTINENT INFO? N/A HAS THE PATIENT BEEN EDUCATED REGARDING HIS/HER PLAN OF CARE?YES HAS THE PATIENT BEEN EDUCATED REGARDING PAIN, THE RISK FOR PAIN, THE IMPORTANCE OF EFFECTIVE PAIN MANAGEMENT, AND THE PAIN ASSESSMENT PROCESS?YES LATEX QUESTIONNAIRE LATEX ALLERGY : HAVE YOU EVER DEVELOPED ANY TYPE OF REACTION AFTER HANDLING LATEX PRODUCTS SUCH RUBBER GLOVES, CONDOMS, DIAPHRAGMS, BALLOONS, SOCKS, OR UNDERWEAR?NO LATEX ALLERGY : HAVE YOU EVER DEVELOPED ANY TYPE OF REACTION DURING OR AFTER DENTAL APPOINTMENT, VAGINAL/RECTAL EXAMINATION, SURGICAL PROCEDURE, OR ANY OTHER EXPOSURE?NO DATE ASKED : 10/05/2018 LATEX RISK : HAVE YOU EVER HAD ANY DIFFICULTY BREATHING OR HIVES AFTER EATING OR HANDLING ANY FRUITS, OR VEGETABLES; SUCH KIWI, BANANAS, STONE FRUITS, OR CHESTNUTSNO LATEX RISK : DO YOU HAVE A PREVIOUS PERSONAL HISTORY OF MORE THAN NINE SURGERIES, SPINA BIFIDA, OR REPEATED CATHERIZATIONS? NO LATEX RISK : ARE YOU FREQUENTLY EXPOSED TO LATEX PRODUCTS IN YOUR OCCUPATION?NO CAFFEINE CAFFEINE USE?YES COFFEE SODA ADVANCE DIRECTIVE ADVANCE DIRECTIVE DISCUSSED WITH PATIENT:YES PT DOES NOT HAVE ANY ADVANCED DIRECTIVES AND SHE STATES SHE ALREADY HAS INFORMATION ON HCP. DECLINES ASSISTANCE AT THIS TIME. 04/13/19 YAZIDISM [id number] CATHOLIC MARITAL STATUS: . ALCOHOL SCREENING DID YOU HAVE A DRINK CONTAINING ALCOHOL IN THE PAST YEAR?YES HOW MANY DRINKS DID YOU HAVE ON A TYPICAL DAY WHEN YOU WERE DRINKING IN THE PAST YEAR?1 OR 2 (0 POINTS) HOW OFTEN DID YOU HAVE A DRINK CONTAINING ALCOHOL IN THE PAST YEAR?MONTHLY OR LESS (1 POINT) POINTS1 INTERPRETATIONNEGATIVE SEXUAL HX HAD SEX IN THE LAST 12 MONTHS (VAGINAL, ORAL, OR ANAL)?YES WITHMEN ONLY PREVENTION STRATEGIES DISCUSSED:OTHER USE PROTECTION?NO LMP:10/09/2016 HAVE YOU EVER HAD AN STD?NO 10/12/17 1205 REVIEWED WITH PT. AD12/09/17 1500 REVIEWED WITH PT LAS01/11/18 1410 REVIEWED WITH PT 1115 REVIEWED WITH PT LAS08/22/18 1203 REVIEWED WITH PT BV12/30/18 REVIEWED WITH PT LAS02/14/19 REVIEWED WITH PT NLJ [id number] REVIEWED WITH PT BV04/13/19 1203 REVIEWED WITH PATIENT BV. HOSPITALIZATION/MAJOR DIAGNOSTIC PROCEDURE MONO 2006 IN CHILDHOOD LUNG REASON REVIEW OF SYSTEMS REVIEWED BY: PROVIDER: . CONSTITUTIONAL: ANY CHANGE IN YOUR MEDICAL CONDITION? NO . CHILLS NO . FEVER NO . INFECTION: DO YOU HAVE NEW INFECTIONS? NO . DO YOU HAVE HISTORY OF MRSA? NO . MUSCULOSKELETAL: ANY NEW PATTERNS OF PAIN OR NUMBNESS? NO . GASTROENTEROLOGY: ANY NEW CHANGE IN BOWEL CONTROL? NO . GENITOURINARY: ANY NEW CHANGE IN BLADDER CONTROL? NO . IS THERE A CHANCE YOU COULD BE ? NO . HEMATOLOGY/LYMPH: DO YOU TAKE ANY BLOOD THINNERS? (FOR EXAMPLE- COUMADIN, PLAVIX, AGGRENOX, PLATEL, PRADAXA, OR XARELTO) NO . WHEN WAS YOUR LAST DOSE? DATE: TIME: . NEUROLOGY: HAVE YOU FALLEN IN THE PAST 12 MONTHS? NO . ANY NEW EXTREMITY NUMBNESS OR WEAKNESS? NO . CARDIOLOGY: DO YOU HAVE A PACEMAKER OR DEFIBRILLATOR? NO . RESPIRATORY: HAVE YOU BEEN SICK IN THE PAST WEEK? NO . FEVER NO . FLU LIKE SYMPTOMS? NO . COUGH NO . INTEGUMENTARY: DO YOU HAVE ANY RASHES OR OPEN SORES? NO . ALLERGIC/IMMUNO: ARE YOU ALLERGIC TO IV DYE? NO . ANY NEW ALLERGIES? NO . PSYCHIATRIC: DO YOU HAVE THOUGHTS OF HURTING YOURSELF OR SOMEONE ELSE? NO . ARE YOU ABUSED, NEGLECTED, OR IN AN UNSAFE ENVIRONMENT? NO . ENDOCRINOLOGY: ARE YOU DIABETIC? NO . OTHER: DO YOU NEED ANY PRESCRIPTIONS? NO . IF YES, PLEASE LIST: ____ . ANY NEW PROBLEMS WITH YOUR MEDICATIONS? NO . WHEN DID YOU LAST EAT? 07/12/19 1600 . WHEN DID YOU LAST DRINK? 07/13/19 1230 . WHAT DID YOU LAST DRINK? WATER . NAME OF PERSON DRIVING YOU HOME? TANJA ZIMMERMAN . DO YOU HAVE ANY OTHER QUESTIONS OR CONCERNS NO . VITAL SIGNS WT 135.0 LBS, HT 66 IN, BMI 21.79 INDEX, BP 124/71 MM HG, HR 79 /MIN, RR 18 /MIN, TEMP 96.8 F, OXYGEN SAT % 96%, SAFE IN ENV? (Y/N) Y, NA INITIALS MS 1317, REVIEWED BY: KG. EXAMINATION GENERAL EXAMINATION: PATIENT IS ALERT O X 3 AND COOPERATIVE. LUNGS CLEAR, TO AUSCULTATION. HEART: NO MURMURS OR GALLOPS; FACIAL CRANIAL NERVES ARE GROSSLY NORMAL. GOOD SYMMETRY OF FACIAL MUSCLE MOVEMENT. NORMAL VISUAL LLAMAS. TENDERNESS OVER THE PARASPINAL MUSCLE GROUP OF THE LOW BACK. PAIN INCREASES OVER THE LUMBAR FACET JOINTS WITH EXTENSION AND LATERAL ROTATION OF THE BACK. MRI OF THE LUMBAR SPINE DONE ON 03/28/2019 SHOWS DEGENERATIVE CHANGES. ASSESSMENTS SPONDYLOSIS OF LUMBAR REGION WITHOUT MYELOPATHY OR RADICULOPATHY - M47.816 (PRIMARY) TREATMENT SPONDYLOSIS OF LUMBAR REGION WITHOUT MYELOPATHY OR RADICULOPATHY SMC FACET BLOCK (PAIN)[id number] CLINICAL NOTES: WE DISCUSSED SEVERAL ISSUES WITH MS. ZIMMERMAN'S PAIN MANAGEMENT CASE. DUE TO THE LUMBAR SPONDYLOSIS AND ACUTE PAIN OVER THE LAST MONTH, I WOULD LIKE TO MOVE FORWARD WITH A THERAPEUTIC LUMBAR FACET BLOCK AT THIS TIME. WE DISCUSSED THE BENEFITS, RISKS, AND ALTERNATIVES OF THE INJECTION AND THE PATIENT WOULD LIKE TO PROCEED. THE PATIENT HAS RECEIVED A LUMBAR FACET BLOCK IN THE PAST THAT HAS HELPED PROVIDE GOOD PAIN RELIEF FOR HER. THE PATIENT WOULD LIKE TO MOVE FORWARD WITH IV SEDATION DUE TO DISCOMFORT, PAIN, AND ANXIETY ASSOCIATED WITH THE PROCEDURE. THE PATIENT WILL FOLLOW UP IN SEVERAL WEEKS AFTER HER INJECTION TO SEE HOW IT IS HELPING WITH HER PAIN. I, NANCY BOLDEN, DOCUMENTED THE ABOVE INFORMATION ACTING A SCRIBE FOR DR. STEVENS. I HAVE REVIEWED THE ABOVE DOCUMENT, WRITTEN BY NANCY RUIZ AND I VERIFY THAT IT IS ACCURATE.. PROCEDURES PN LUMBAR FACET BLOCK THERAPEUTIC PRE PROCEDURE DIAGNOSIS LUMBAR SPONDYLOSIS POST PROCEDURE DIAGNOSIS LUMBAR SPONDYLOSIS PROCEDURE BILATERAL L3-L4 AND L4-L5 LUMBAR FACET THERAPEUTIC BLOCK SURGEON DR. 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 I EVALUATED THE PATIENT AND REVIEWED THE CHART. I WENT OVER THE RISKS, ALTERNATIVES, AND BENEFITS ASSOCIATED WITH THIS PROCEDURE. THE PATIENT WOULD LIKE TO MOVE FORWARD WITH IV SEDATION DUE TO DISCOMFORT, PAIN, AND ANXIETY ASSOCIATED WITH THE PROCEDURE. THE PATIENT WOULD LIKE TO PROCEED AND GIVES CONSENT TO PERFORM THE PROCEDURE. THE PATIENT DENIES UNEXPLAINABLE WEIGHT LOSS, FEVER, CHILLS, OR NEW CHANGES IN URINARY OR BOWEL CONTROL DESCRIPTION OF PROCEDURE THE PATIENT WAS BROUGHT TO THE PROCEDURE ROOM AND PLACED IN THE PRONE POSITION. THE LUMBOSACRAL AREA WAS CLEANED WITH CHLORAPREP SOLUTION AND DRAPED ASEPTICALLY. THE PROCEDURE WAS DONE UNDER STERILE CONDITIONS. I CHECKED LATERALITY AND THE LEVEL WHERE THE PROCEDURE WAS GOING TO BE PERFORMED WITH THE PATIENT AND THE SUPPORTING STAFF AT THE MOMENT OF THE TIME OUT IN THE PROCEDURE ROOM. UNDER FLUOROSCOPIC GUIDANCE, THE TARGET POINT WAS SELECTED AT THE RIGHT AND LEFT L3-L4 AND RIGHT AND LEFT L4-L5 FACET JOINTS. TARGET POINT WAS SELECTED AFTER LATERAL ROTATION AND TILT OF THE MAGNIFIER OF THE C-ARM. LIDOCAINE 0.5% WAS USED TO NUMB THE SKIN AND THE SUBCUTANEOUS TISSUE BELOW IT. SPINAL NEEDLES, 22-GAUGE, WERE ADVANCED UNDER FLUOROSCOPIC GUIDANCE AND FOLLOWING PATIENT FEEDBACK UNTIL THE TARGETS WERE TOUCHED. THE POSITION OF THE NEEDLES WAS VERIFIED WITH AP AND LATERAL VIEWS. AFTER PROPER POSITION OF THE NEEDLES WAS ACHIEVED, ISOVUE-M DYE 30% 0.1 ML WAS INJECTED SHOWING ADEQUATE SPREAD OF THE DYE. THEN A SOLUTION OF 1.9 ML OF BUPIVACAINE 0.125% OF KENALOG 10 MG WAS INJECTED AT EACH SITE. THERE WAS NO EVIDENCE OF BLOOD, PARESTHESIA OR CEREBROSPINAL FLUID DURING THE PROCEDURE. THE PATIENT WAS SENT TO THE RECOVERY ROOM. THE PATIENT WAS MOVING THE EXTREMITIES AND DOING WELL. THERE WAS NO COMPLICATION DURING THE PROCEDURE. PATIENT RECEIVED VERSED 4 MG AND FENTANYL 200 MCG IV DIVIDED DOSES. FACE TO FACE TIME WAS 25 MINUTES. FLUOROSCOPY TIME WAS 26 SECONDS POST PROCEDURE NOTE THE PATIENT WILL BE SEEN IN A FOLLOW UP IN THE NEXT FEW WEEKS. INSTRUCTIONS WERE GIVEN, QUESTIONS WERE ANSWERED, AND THE PATIENT EXPRESSED UNDERSTANDING AND AGREES WITH THE PLAN. I, NANCY BOLDEN, DOCUMENTED THE ABOVE INFORMATION ACTING A SCRIBE FOR DR. STEVENS. I HAVE REVIEWED THE ABOVE DOCUMENT, WRITTEN BY NANCY BOLDEN SCRIBE AND I VERIFY THAT IT IS ACCURATE. PROCEDURE CODES 19574 INJ PARAVERT F JNT L/S 1 LEV, MODIFIERS: 50 [id number] INJ PARAVERT F JNT L/S 2 LEV, MODIFIERS: 50 [id number] RADXPS IN END [id number] PXD 32587 MOD SED SAME PHYS/QHP 5/>YRS 27335 MOD SED SAME PHYS/QHP EA DISPOSITION & COMMUNICATION FOLLOW UP 3 WEEKS ELECTRONICALLY SIGNED BY MAYRA STEVENS MD, MD ON 07/31/2019 AT 09:59 AM EST DISCLAIMER : THIS IS A VISIT SUMMARY EXTRACTED FROM THE [employer] CHART. IT IS NOT A COPY OF THE [employer] PROGRESS NOTE. MTDD
== END ==
LOC: M PAIN 13:00
PROVIDERS: ATTEND Anesthesiology
DX: M47.816 Spondylosis without myelopathy or radiculopathy, lumbar region (principal)
CPT/HCPCS: 64493; 64494; 99152; 99153; J2250; J3010; J3301; Q9967

== ENCOUNTER → 2019-08-03 | Outpatient (CLI) | payer OTHER ==
[~2019-08-03] MED LIST changes: +BOTOX THERAPEUTIC 100 UNIT VIAL (J0585 PER 1 UNIT) IM ONE; -BUPIVACAINE HCL 0.25% 30 ML VIAL As Ordered ONE; -ISOVUE-M 300 61% 15ML VIAL (Q9967) As Ordered ONE; -LIDOCAINE 1% SDV INJ 30 ML VIAL As Ordered ONE; -MIDAZOLAM INJ 2 MG/2 ML VIAL (J2250) As Ordered ONE; -TRIAMCINOLONE ACETONIDE SUSP 40 MG/ML VIAL (J3301) As Ordered ONE; +diazePAM 5 MG TAB As Ordered ONE; -fentaNYL 100 MCG/2 ML INJECTION (J3010) As Ordered ONE; +oxyCODONE 5MG TAB As Ordered ONE
--- NOTE | 2019-08-10 06:33 | ECWPNPC ---
PATIENT NAME: SILVIA ZIMMERMAN : 1985 GENDER: FEMALE VISIT DATE: 08/03/2019 DISCHARGE DATE: 08/03/19 1456 VISIT LOCKED DATE TIME: PHYSICIAN: MAYRA STEVENS MD RESOURCE: MAYRA STEVENS MD REASON FOR APPOINTMENT 1. BOTOX HISTORY OF PRESENT ILLNESS HISTORY OF PRESENT ILLNESS: PAIN THE PATIENT DESCRIBES THE PAIN... FALL RISK SCREENING: SCREENING :NO FALLS REPORTED IN THE LAST YEAR CURRENT MEDICATIONS TAKING CALCIUM + D 600-200 MG-UNIT TABLET 1 TABLET ORALLY ONCE A DAY, NOTES: 08/01 8AM TAKING CLONIDINE HCL 0.3 MG TABLET 2 TABLETS ORALLY ONCE A DAY, NOTES: 08/01 9PM TAKING BENADRYL 25 MG ORAL 3 TABLETS DIRECTED, NOTES: 1 MONTH TAKING XANAX 1 MG TABLET 1 TABLET ORALLY DAILY, NOTES: 08/01 5PM TAKING ALPRAZOLAM ER 3 MG TABLET EXTENDED RELEASE 24 HOUR 1 TABLET IN THE MORNING ORALLY ONCE A DAY, NOTES: 08/01 9AM TAKING GABAPENTIN 300 MG CAPSULE 1 CAPSULE ORALLY BID, NOTES: 08/01 2PM TAKING EX-LAX 15 MG TABLET 1 TABLET AT BEDTIME NEEDED ORALLY DAILY, NOTES: WEDNESDAY TAKING ALBUTEROL EVERY 4 HOURS NEEDED, NOTES: MONTHS TAKING VENLAFAXINE HCL ER 75 MG CAPSULE EXTENDED RELEASE 24 HOUR ORALLY ONCE A DAY, NOTES: 08/02 7AM TAKING LINZESS 290 MCG CAPSULE 1 CAPSULE ORALLY ONCE A DAY, NOTES: 08/02 7AM TAKING NORCO 5-325 MG TABLET 1 TABLET NEEDED ORALLY Q8H TID MDD3, NOTES: 08/01 5PM TAKING BUSPIRONE HCL 7.5 MG TABLET 1 TABLET ORALLY TWICE A DAY, NOTES: 08/02 7AM NOT-TAKING COLACE 100 MG CAPSULE 1 CAPSULE NEEDED ORALLY BID NOT-TAKING METFORMIN HCL ER 500 MG TABLET EXTENDED RELEASE 24 HOUR 3 TABLET ORALLY DAILY AT BEDTIME NOT-TAKING VITAMIN C 500 MG TABLET 1 TABLET ORALLY ONCE A DAY NOT-TAKING PROBIOTIC TABLET DELAYED RELEASE 1 CAPSULE ORALLY DAILY, NOTES: MONTHS AGO NOT-TAKING SELEGILINE HCL 5 MG TABLET 1 TABLET WITH BREAKFAST AND LUNCH ORALLY TWICE A DAY NOT-TAKING SINGULAIR 10 MG TABLET 1 TABLET IN THE EVENING ORALLY ONCE A DAY NOT-TAKING TRAMADOL HCL 50 MG TABLET 1/2 - 1 TABLET ORALLY EVERY 6 -8 HRS PRN PAIN NOT-TAKING DICLOFENAC POTASSIUM 50 MG TABLET 1 TABLET ORALLY TWICE A DAY, NOTES: NONE RECENT-DIDN'T HELP MEDICATION LIST REVIEWED AND RECONCILED WITH THE PATIENT PAST MEDICAL HISTORY SCOLIOSIS - MINIMAL DEXTRO-CONVEX CURVATURE - SCOLIOSIS SERIES ON 01/2009 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 INTERMITT 2 YEARS/ S/P 2 LASER LAPROSCOPIES OSTEOPOROSIS/OSTEOPENIA DUE TO LUPRON RX/ DEXA SCAN ON 03/2009 LUMBAR SPINE NORMAL BMD FOR AGE OCD/ SOCIAL ANXIETY/ BULEMIA NERVOSA PURGING TYPE/ DEPRESSIVE DISORDER/ ANXIETY PSORIASIS/SEBORRHEIC DERMATITIS RIGHT HALLUX VALGUS DEFORMITY S/P RT BUNIONECTOMY 2010 GANGLION LEFT HAND- W/ NL RADIOGRAPH S/P SURGICALLY REMOVED BULIMIA NERVOSA PURGING TYPE POLYCYSTIC OVARIES MIGRAINE ALLERGIC RHINITIS SINUS INFECTION ALLERGIES ENVIRONMENTAL: STUFFY NOSE, ITCHY EYES, SOMETIMES HIVES TYLENOL: CONTRAINDICATION DUE TO GENE MUTATION - CONTRAINDICATION DERMABOND: RASH - ALLERGY SURGICAL HISTORY LASER LAPAROSCOPY FOR ENDOMETRIOSIS WITH FINDING OF MINIMAL ENDOMETRIOSIS WISDOM TOOTH RT BUNIONECTOMY 07/2009 LASER RX FOR BENIGH NEOPLASM EYELID ANGIOMA [id number] SEPTOPLASTY, ADENOIDECTOMY, BALLOON SINUPLASTY 08/2016 INVITRO FERT CYCLES WITH EGG EXTRACTIONS [id number] FAMILY HISTORY FATHER: 50 YRS, SMALL CELL LYMPHOMA, DIABETES, HTN, DIAGNOSED WITH DIABETES, HYPERTENSION, OTHER MALIGNANT NEOPLASM OF UNSPECIFIED SITE MOTHER: ALIVE 52 YRS, PRE-CANCEROUS CELLS REMOVED FROM BREAST, OTHER MALIGNANT NEOPLASM OF UNSPECIFIED SITE SIBLINGS: ASTHMA PATERNAL GRAND FATHER: ? MENTAL DISORDER AND COMMITTED SUICIDE, DM PATERNAL GRAND MOTHER: , DM MATERNAL GRAND FATHER: , ? CANCER MATERNAL GRAND MOTHER: , HEART ATTACK, DM SOCIAL HISTORY GENERAL: TOBACCO USE ARE YOU A:CURRENT SMOKER ARE YOU INTERESTED IN QUITTING?THINKING ABOUT QUITTING HAS CUT DOWN ON # OF CIGS/DAY COUNSELED THE PATIENT ON SMOKING CESSATION, EDUCATION [id number]/30/2019 HOW MANY CIGARETTES A DAY DO YOU SMOKE?5 OR LESS HOW SOON AFTER YOU WAKE UP DO YOU SMOKE YOUR FIRST CIGARETTE?AFTER 60 MIN HOW OFTEN DO YOU SMOKE CIGARETTES?SOME DAYS, BUT NOT EVERY DAY PATIENT COUNSELED ON THE DANGERS OF TOBACCO USE AND URGED TO QUIT:08/03/2019 ADDITIONAL FINDINGS: TOBACCO USER STATES CAN GO A LONG TIME WITHOUT SMOKING WITH NO SIDE EFFECTS SMOKING CESSATION INFORMATION GIVEN02/14/2019 HIV / HEP-C SCREENING HIV TEST OFFERED TO PATIENT:YES DATE OFFERED:06/08/2016 TEST ACCEPTED:NO HEP-C TEST OFFERED TO PATIENT:NO N/A REASON:PATIENT DECLINED EDUCATION LEVEL OF EDUCATION:COLLEGE DIET: REGULAR. LANGUAGE LANGUAGES SPOKEN:FRENCH DOMESTIC VIOLENCE DO YOU FEEL SAFE IN YOUR ENVIRONMENT?YES RECREATIONAL DRUG USE DRUG USE?NO EXERCISE: WALKS. LEARNING BARRIERS / SPECIAL NEEDS CHANGE FROM LAST VISIT?NO BARRIERS TO LEARNING?NO HEARING IMPAIRED?NO VISION IMPAIRED?YES COGNITIVELY IMPAIRED?NO :CORRECTIVE LENSES READINESS TO LEARN?YES LEARNING PREFERENCES?YES :HANDOUTS, DEMONSTRATION/VERBAL INSTRUCTION LEARNING CAPABILITIES PRESENT?YES EMOTIONAL BARRIERS?NO SPECIAL DEVICES?NO EARLY MORNING BABYSITTER NEEDED?NO PAIN CLINIC PFS, CLERGY, PUBLIC HEALTH REFERRALS PFS REFERRAL NEEDED?NO CLERGY REFERRAL NEEDED?NO PUBLIC HEALTH REFERRAL NEEDED?NO WAS THE PROVIDER NOTIFIED OF ANY PERTINENT INFO?YES N/A HAS THE PATIENT BEEN EDUCATED REGARDING HIS/HER PLAN OF CARE?YES HAS THE PATIENT BEEN EDUCATED REGARDING PAIN, THE RISK FOR PAIN, THE IMPORTANCE OF EFFECTIVE PAIN MANAGEMENT, AND THE PAIN ASSESSMENT PROCESS?YES LATEX QUESTIONNAIRE LATEX ALLERGY : HAVE YOU EVER DEVELOPED ANY TYPE OF REACTION AFTER HANDLING LATEX PRODUCTS SUCH RUBBER GLOVES, CONDOMS, DIAPHRAGMS, BALLOONS, SOCKS, OR UNDERWEAR?NO LATEX ALLERGY : HAVE YOU EVER DEVELOPED ANY TYPE OF REACTION DURING OR AFTER DENTAL APPOINTMENT, VAGINAL/RECTAL EXAMINATION, SURGICAL PROCEDURE, OR ANY OTHER EXPOSURE?NO LATEX RISK : HAVE YOU EVER HAD ANY DIFFICULTY BREATHING OR HIVES AFTER EATING OR HANDLING ANY FRUITS, OR VEGETABLES; SUCH KIWI, BANANAS, STONE FRUITS, OR CHESTNUTSNO LATEX RISK : DO YOU HAVE A PREVIOUS PERSONAL HISTORY OF MORE THAN NINE SURGERIES, SPINA BIFIDA, OR REPEATED CATHERIZATIONS? NO LATEX RISK : ARE YOU FREQUENTLY EXPOSED TO LATEX PRODUCTS IN YOUR OCCUPATION?NO DATE ASKED : 08/03/2019 CAFFEINE CAFFEINE USE?YES COFFEE SODA ADVANCE DIRECTIVE ADVANCE DIRECTIVE DISCUSSED WITH PATIENT:YES PT DOES NOT HAVE ANY ADVANCED DIRECTIVES AND SHE STATES SHE ALREADY HAS INFORMATION ON HCP. DECLINES ASSISTANCE AT THIS TIME. JEWISH [id number] SHINTO MARITAL STATUS: . ALCOHOL SCREENING DID YOU HAVE A DRINK CONTAINING ALCOHOL IN THE PAST YEAR?YES HOW MANY DRINKS DID YOU HAVE ON A TYPICAL DAY WHEN YOU WERE DRINKING IN THE PAST YEAR?1 OR 2 (0 POINTS) HOW OFTEN DID YOU HAVE A DRINK CONTAINING ALCOHOL IN THE PAST YEAR?MONTHLY OR LESS (1 POINT) POINTS1 INTERPRETATIONNEGATIVE SEXUAL HX HAD SEX IN THE LAST 12 MONTHS (VAGINAL, ORAL, OR ANAL)?YES WITHMEN ONLY PREVENTION STRATEGIES DISCUSSED:OTHER USE PROTECTION?NO LMP:10/09/2016 HAVE YOU EVER HAD AN STD?NO HOSPITALIZATION/MAJOR DIAGNOSTIC PROCEDURE MONO 2005 IN CHILDHOOD LUNG REASON REVIEW OF SYSTEMS REVIEWED BY: PROVIDER: . CONSTITUTIONAL: ANY CHANGE IN YOUR MEDICAL CONDITION? NO . CHILLS NO . FEVER NO . INFECTION: DO YOU HAVE NEW INFECTIONS? NO . DO YOU HAVE HISTORY OF MRSA? NO . MUSCULOSKELETAL: ANY NEW PATTERNS OF PAIN OR NUMBNESS? NO . GASTROENTEROLOGY: ANY NEW CHANGE IN BOWEL CONTROL? NO . GENITOURINARY: ANY NEW CHANGE IN BLADDER CONTROL? NO . IS THERE A CHANCE YOU COULD BE ? NO . HEMATOLOGY/LYMPH: DO YOU TAKE ANY BLOOD THINNERS? (FOR EXAMPLE- COUMADIN, PLAVIX, AGGRENOX, PLATEL, PRADAXA, OR XARELTO) NO . WHEN WAS YOUR LAST DOSE? DATE: TIME: . NEUROLOGY: HAVE YOU FALLEN IN THE PAST 12 MONTHS? NO . ANY NEW EXTREMITY NUMBNESS OR WEAKNESS? NO . CARDIOLOGY: DO YOU HAVE A PACEMAKER OR DEFIBRILLATOR? NO . RESPIRATORY: HAVE YOU BEEN SICK IN THE PAST WEEK? NO . FEVER NO . FLU LIKE SYMPTOMS? NO . COUGH NO . INTEGUMENTARY: DO YOU HAVE ANY RASHES OR OPEN SORES? NO . ALLERGIC/IMMUNO: ARE YOU ALLERGIC TO IV DYE? NO . ANY NEW ALLERGIES? YES, PT STATES THAT SHE IS NOW ALLERGIC TO DERMABOND PRODUCTS . PSYCHIATRIC: DO YOU HAVE THOUGHTS OF HURTING YOURSELF OR SOMEONE ELSE? NO . ARE YOU ABUSED, NEGLECTED, OR IN AN UNSAFE ENVIRONMENT? NO . ENDOCRINOLOGY: ARE YOU DIABETIC? NO . OTHER: DO YOU NEED ANY PRESCRIPTIONS? NO . IF YES, PLEASE LIST: ____ . ANY NEW PROBLEMS WITH YOUR MEDICATIONS? NO . WHEN DID YOU LAST EAT? 08/01 6PM . WHEN DID YOU LAST DRINK? 08/02 8AM . WHAT DID YOU LAST DRINK? WATER . NAME OF PERSON DRIVING YOU HOME? TANJA ZIMMERMAN . DO YOU HAVE ANY OTHER QUESTIONS OR CONCERNS NO . VITAL SIGNS WT 125.8 LBS, HT 66 IN, BMI 20.30 INDEX, BP 138/92 MM HG, HR 89 /MIN, RR 18 /MIN, TEMP 96.0 F, OXYGEN SAT % 98%, SAFE IN ENV? (Y/N) Y, NA INITIALS AW 1302, REVIEWED BY: JEREMY. ASSESSMENTS CHRONIC MIGRAINE - G43.709 (PRIMARY) PROCEDURES PN BOTOX INJECTIONS SUBSEQUENT INJECTIONS PRE PROCEDURE DIAGNOSIS CHRONIC MIGRAINE HEADACHES. POST PROCEDURE DIAGNOSIS CHRONIC MIGRAINE HEADACHES. PROCEDURE BOTOX INJECTION AT THE HEAD, NECK AND SHOULDERS. 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 I EVALUATED THE PATIENT AND REVIEWED THE CHART. I WENT OVER THE RISKS, ALTERNATIVES, AND BENEFITS ASSOCIATED WITH THIS PROCEDURE. THE PATIENT WOULD LIKE TO PROCEED AND GIVES CONSENT TO PERFORM THE PROCEDURE. THE PATIENT DENIES UNEXPLAINABLE WEIGHT LOSS, FEVER, CHILLS, OR NEW CHANGES IN URINARY OR BOWEL CONTROL. THE PATIENT RECEIVED A BOTOX INJECTION AT THE HEAD, NECK AND SHOULDERS 3 MONTHS AGO AND EXPRESSED MORE THAN 50% REDUCTION ON THE FREQUENCY AND INTENSITY OF THE HEADACHES AND THE HEADACHES WENT DOWN TO 3 PER MONTH. THE PATIENT EXPRESSED THAT THE USE OF BOTOX HAS SIGNIFICANTLY REDUCED THE SEVERITY OF THE HEADACHES AND EXPRESSED THAT SHE WANTS TO RECEIVE THIS PROCEDURE AGAIN TODAY DESCRIPTION OF PROCEDURE THE PATIENTS WAS BROUGHT TO THE PROCEDURE ROOM AND PLACED IN THE SUPINE POSITION. I CHECKED LATERALITY AND THE AREAS WHERE THE PROCEDURE WAS GOING TO BE PERFORMED WITH THE PATIENT AND THE SUPPORTING STAFF AT THE MOMENT OF THE TIME OUT IN THE PROCEDURE ROOM. FOR THE PROCEDURE I USED A SOLUTION OF 5 UNITS OF BOTOX PER EACH 0.1 ML OF THE SOLUTION. I USED A 30-GAUGE NEEDLE TO INJECT THE SOLUTION AT THE SELECTED LOCATIONS. I INJECTED FIRST THE RIGHT AND LEFT RUBBER COVERING MACHINE OPERATOR MUSCLES. THE LANDMARK FOR BOTH INJECTIONS WAS APPROXIMATELY 1 CM ABOVE THE SUPERIOR MEDIAL EDGE OF THE EYEBROW. AFTER THESE TWO INJECTIONS, I INJECTED THE PROCERUS MUSCLE AT THE MIDLINE POINT BETWEEN THESE FIRST TWO INJECTIONS. THEN I PROCEEDED TO INJECT THE RIGHT AND LEFT FRONTALIS MUSCLE. TWO INJECTIONS WERE DONE IN EACH SIDE. THE FIRST INJECTION WAS DONE APPROXIMATELY 2 CM ABOVE THE FIRST INJECTION OF THE RUBBER COVERING MACHINE OPERATOR. THE SECOND INJECTION WAS DONE APPROXIMATELY 1.5 CM LATERAL TO THIS FIST INJECTION OF THE FRONTALIS OF EACH SIDE. AFTER THE INJECTIONS OVER THE FOREHEAD WERE DONE, THE PATIENT'S HEAD WAS TURNED TO THE LEFT SIDE AND WE STARTED TO WORK WITH THE RIGHT TEMPORALIS MUSCLE. FIRST INJECTION WAS DONE IN A VERTICAL LINE OF THE TRAGUS APPROXIMATELY 3 CM ABOVE THE TRAGUS. THE SECOND INJECTION WAS DONE APPROXIMATELY 2 CM ABOVE THE FIRST INJECTION. THE THIRD INJECTION WAS DONE APPROXIMATELY 1 CM FRONT BALLARD FROM THIS VERTICAL LINE CREATED AT THE LEVEL OF THE TRAGUS, MCFP BETWEEN THESE TWO INJECTIONS. THE FOURTH INJECTION WAS DONE APPROXIMATELY 1.5 CM BACK FROM THE SECOND INJECTION TO THE TEMPORALIS IN LINE TO THE MIDPORTION OF THE EAR. THEN, WE PROCEEDED TO INJECT THE LEFT TEMPORALIS MUSCLE. WE CLEANED THE AREA WITH ALCOHOL AND PROCEEDED TO PERFORM THE SAME FOR INJECTIONS DESCRIBED ABOVE BUT IN THE LEFT TEMPORALIS MUSCLE USING THE SAME LANDMARKS. AFTER THESE INJECTIONS WERE DONE, THE PATIENT WAS SEATED. FIRST, WE STARTED TO INJECT THE LEFT AND RIGHT OCCIPITALIS MUSCLE. I INJECTED AT THE FOLLOWING PLACES IN THE RIGHT AND LEFT MUSCLE. THE FIRST INJECTION WAS DONE AT THE MIDPOINT POSITION BETWEEN THE MASTOID PROCESS AND THE INION OF THE OCCIPITAL PROTUBERANCE. THE SECOND INJECTION WAS DONE APPROXIMATELY 1.5 CM SUPERIOR AND LATERAL OF THIS POINT. THE THIRD INJECTION WAS DONE APPROXIMATELY 1.5 CM SUPERIOR AND MEDIAL TO THIS FIRST INJECTION. THEN, I PROCEEDED TO INJECT THE RIGHT AND LEFT PARASPINAL MUSCLES. LANDMARK OF THE INJECTION WERE APPROXIMATELY: FIRST INJECTION 3 CM BELOW THE INION AND 1 CM LATERAL TO THE MIDLINE AND SECOND INJECTION AT EACH SIDE WAS DONE APPROXIMATELY 1.5 CM SUPERIOR AND LATERAL OF THE FIRST INJECTION. THE LAST GROUP OF INJECTIONS WAS DONE OVER THE RIGHT AND LEFT TRAPEZIUS MUSCLE OVER THE SHOULDERS AREA. THE FIRST INJECTION WAS DONE AT THE MIDPOINT BETWEEN THE INFLECTION POINT BETWEEN THE NECK AND SHOULDER AND THE ACROMION. THE SECOND AND THIRD INJECTIONS WERE DONE APPROXIMATELY 2.5 CM LATERAL AND MEDIAL FROM THIS FIRST INJECTION. SAME TARGETS WERE USED IN THE RIGHT AND LEFT SIDE. IN TOTAL, I INJECTED 155 UNITS OF BOTOX. PROCEDURE WAS DONE WITHOUT EVIDENCE OF PARESTHESIA, PNEUMOTHORAX, OR ANY COMPLICATIONS. THE PATIENT TOLERATED THE PROCEDURE VERY WELL. THE PATIENT WAS SENT TO THE RECOVERY ROOM FOR OBSERVATIONS. INJECTIONS WERE DONE AFTER CLEANING WITH ALCOHOL, USING ASEPTIC TECHNIQUES POST PROCEDURE NOTE THE PROCEDURE DONE WAS DISCUSSED WITH THE PATIENT. THE PATIENT WILL BE SEEN IN A FOLLOW UP IN THE NEXT FEW WEEKS TO SEE HOW IT IS HELPING WITH HER MIGRAINES. INSTRUCTIONS WERE GIVEN, QUESTIONS WERE ANSWERED, AND THE PATIENT EXPRESSED UNDERSTANDING AND AGREES WITH THE PLAN. I, NANCY BOLDEN, DOCUMENTED THE ABOVE INFORMATION ACTING A SCRIBE FOR DR. STEVENS. I HAVE REVIEWED THE ABOVE DOCUMENT, WRITTEN BY NANCY BOLDEN SCRIBDianne AND I VERIFY THAT IT IS ACCURATE. PROCEDURE CODES 64108 [facility]MOD[facility] [place] MIGRAINE DISPOSITION & COMMUNICATION FOLLOW UP 3 WEEKS ELECTRONICALLY SIGNED BY MAYRATOM STEVENS MD, MD ON 08/09/2019 AT 11:30 AM EDT DISCLAIMER : THIS IS A VISIT SUMMARY EXTRACTED FROM THE [employer] CHART. IT IS NOT A COPY OF THE [employer] PROGRESS NOTE. BRANT
== END ==
LOC: M PAIN 12:45
PROVIDERS: ATTEND Anesthesiology
DX: G43.709 Chronic migraine without aura, not intractable, without status migrainosus (principal)
CPT/HCPCS: 64615; J0585

== ENCOUNTER → 2019-08-17 | Outpatient (CLI) | payer OTHER ==
[~2019-08-17] MED LIST changes: -BOTOX THERAPEUTIC 100 UNIT VIAL (J0585 PER 1 UNIT) IM ONE; -diazePAM 5 MG TAB As Ordered ONE; -oxyCODONE 5MG TAB As Ordered ONE
--- NOTE | 2019-08-18 03:23 | ECWPNPC ---
PATIENT NAME: SILVIA ZIMMERMAN : 1985 GENDER: FEMALE VISIT DATE: 08/17/2019 DISCHARGE DATE: 08/17/19 1122 VISIT LOCKED DATE TIME: PHYSICIAN: NUVIA ROBLES RESOURCE: NUVIA ROBLES REASON FOR APPOINTMENT 1. POST BOTOX/ POST FACET BLK HISTORY OF PRESENT ILLNESS HISTORY OF PRESENT ILLNESS: HERE FOR POST PROCEDURE FOLLOW-UP. HAD BOTOX FOR CHRONIC MIGRAINE ON 08/03/2019. REPORTING NO MIGRAINES SINCE PROCEDURE. HAD BILATERAL L3-4, L4-5 LUMBAR FACET BLOCK, THERAPEUTIC WITH IV SEDATION ON 07/13/2019. REPORTING PAIN LEVEL 2-3/10 VAS. SINCE PROCEDURE WHICH CONTINUES TODAY. CHIEF AREA OF PAIN IS UPPER BACK AND LEFT OCCIPITAL. DESCRIBES PAIN TIGHTNESS IN THIS REGION WHICH IS QUITE BAD. DR. STEVENS HAD SUGGESTED TRIGGER POINT INJECTIONS. PAIN THE PATIENT DESCRIBES THE PAIN... FALL RISK SCREENING: SCREENING :NO FALLS REPORTED IN THE LAST YEAR CURRENT MEDICATIONS TAKING CALCIUM + D 600-200 MG-UNIT TABLET 1 TABLET ORALLY ONCE A DAY TAKING CLONIDINE HCL 0.3 MG TABLET 2 TABLETS ORALLY ONCE A DAY TAKING BENADRYL 25 MG ORAL 3 TABLETS DIRECTED TAKING XANAX 1 MG TABLET 1 TABLET ORALLY DAILY TAKING ALPRAZOLAM ER 3 MG TABLET EXTENDED RELEASE 24 HOUR 1 TABLET IN THE MORNING ORALLY ONCE A DAY TAKING GABAPENTIN 300 MG CAPSULE 1 CAPSULE ORALLY BID TAKING EX-LAX 15 MG TABLET 1 TABLET AT BEDTIME NEEDED ORALLY DAILY TAKING ALBUTEROL EVERY 4 HOURS NEEDED TAKING VENLAFAXINE HCL ER 75 MG CAPSULE EXTENDED RELEASE 24 HOUR ORALLY ONCE A DAY TAKING LINZESS 290 MCG CAPSULE 1 CAPSULE ORALLY ONCE A DAY TAKING BUSPIRONE HCL 7.5 MG TABLET 1 TABLET ORALLY TWICE A DAY TAKING NORCO 5-325 MG TABLET 1 TABLET NEEDED ORALLY Q8H TID MDD3 NOT-TAKING COLACE 100 MG CAPSULE 1 CAPSULE NEEDED ORALLY BID NOT-TAKING METFORMIN HCL ER 500 MG TABLET EXTENDED RELEASE 24 HOUR 3 TABLET ORALLY DAILY AT BEDTIME NOT-TAKING VITAMIN C 500 MG TABLET 1 TABLET ORALLY ONCE A DAY NOT-TAKING PROBIOTIC TABLET DELAYED RELEASE 1 CAPSULE ORALLY DAILY, NOTES: MONTHS AGO NOT-TAKING SELEGILINE HCL 5 MG TABLET 1 TABLET WITH BREAKFAST AND LUNCH ORALLY TWICE A DAY NOT-TAKING SINGULAIR 10 MG TABLET 1 TABLET IN THE EVENING ORALLY ONCE A DAY NOT-TAKING TRAMADOL HCL 50 MG TABLET 1/2 - 1 TABLET ORALLY EVERY 6 -8 HRS PRN PAIN NOT-TAKING DICLOFENAC POTASSIUM 50 MG TABLET 1 TABLET ORALLY TWICE A DAY, NOTES: NONE RECENT-DIDN'T HELP MEDICATION LIST REVIEWED AND RECONCILED WITH THE PATIENT PAST MEDICAL HISTORY SCOLIOSIS - MINIMAL DEXTRO-CONVEX CURVATURE - SCOLIOSIS SERIES ON 01/2009 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 INTERMITT 2 YEARS/ S/P 2 LASER LAPROSCOPIES OSTEOPOROSIS/OSTEOPENIA DUE TO LUPRON RX/ DEXA SCAN ON 03/2009 LUMBAR SPINE NORMAL BMD FOR AGE OCD/ SOCIAL ANXIETY/ BULEMIA NERVOSA PURGING TYPE/ DEPRESSIVE DISORDER/ ANXIETY PSORIASIS/SEBORRHEIC DERMATITIS RIGHT HALLUX VALGUS DEFORMITY S/P RT BUNIONECTOMY 2010 GANGLION LEFT HAND- W/ NL RADIOGRAPH S/P SURGICALLY REMOVED BULIMIA NERVOSA PURGING TYPE POLYCYSTIC OVARIES MIGRAINE ALLERGIC RHINITIS SINUS INFECTION ALLERGIES ENVIRONMENTAL: STUFFY NOSE, ITCHY EYES, SOMETIMES HIVES TYLENOL: CONTRAINDICATION DUE TO GENE MUTATION - CONTRAINDICATION DERMABOND: RASH - ALLERGY SURGICAL HISTORY LASER LAPAROSCOPY FOR ENDOMETRIOSIS WITH FINDING OF MINIMAL ENDOMETRIOSIS WISDOM TOOTH RT BUNIONECTOMY 07/2009 LASER RX FOR BENIGH NEOPLASM EYELID ANGIOMA [id number] SEPTOPLASTY, ADENOIDECTOMY, BALLOON SINUPLASTY 08/2016 INVITRO FERT CYCLES WITH EGG EXTRACTIONS [id number] FAMILY HISTORY FATHER: 50 YRS, SMALL CELL LYMPHOMA, DIABETES, HTN, DIAGNOSED WITH DIABETES, HYPERTENSION, OTHER MALIGNANT NEOPLASM OF UNSPECIFIED SITE MOTHER: ALIVE 52 YRS, PRE-CANCEROUS CELLS REMOVED FROM BREAST, OTHER MALIGNANT NEOPLASM OF UNSPECIFIED SITE SIBLINGS: ASTHMA PATERNAL GRAND FATHER: ? MENTAL DISORDER AND COMMITTED SUICIDE, DM PATERNAL GRAND MOTHER: , DM MATERNAL GRAND FATHER: , ? CANCER MATERNAL GRAND MOTHER: , HEART ATTACK, DM SOCIAL HISTORY GENERAL: TOBACCO USE ARE YOU A:CURRENT SMOKER ARE YOU INTERESTED IN QUITTING?THINKING ABOUT QUITTING HAS CUT DOWN ON # OF CIGS/DAY COUNSELED THE PATIENT ON SMOKING CESSATION, EDUCATION [id number]/19/2020 HOW MANY CIGARETTES A DAY DO YOU SMOKE?5 OR LESS HOW SOON AFTER YOU WAKE UP DO YOU SMOKE YOUR FIRST CIGARETTE?AFTER 60 MIN HOW OFTEN DO YOU SMOKE CIGARETTES?SOME DAYS, BUT NOT EVERY DAY PATIENT COUNSELED ON THE DANGERS OF TOBACCO USE AND URGED TO QUIT:08/03/2019 ADDITIONAL FINDINGS: TOBACCO USER STATES CAN GO A LONG TIME WITHOUT SMOKING WITH NO SIDE EFFECTS SMOKING CESSATION INFORMATION GIVEN02/14/2019 HIV / HEP-C SCREENING HIV TEST OFFERED TO PATIENT:YES DATE OFFERED:06/08/2016 TEST ACCEPTED:NO HEP-C TEST OFFERED TO PATIENT:NO N/A REASON:PATIENT DECLINED EDUCATION LEVEL OF EDUCATION:COLLEGE DIET: REGULAR. LANGUAGE LANGUAGES SPOKEN:CHINESE DOMESTIC VIOLENCE DO YOU FEEL SAFE IN YOUR ENVIRONMENT?YES RECREATIONAL DRUG USE DRUG USE?NO EXERCISE: WALKS. LEARNING BARRIERS / SPECIAL NEEDS CHANGE FROM LAST VISIT?NO BARRIERS TO LEARNING?NO HEARING IMPAIRED?NO VISION IMPAIRED?YES COGNITIVELY IMPAIRED?NO :CORRECTIVE LENSES READINESS TO LEARN?YES LEARNING PREFERENCES?YES :HANDOUTS, DEMONSTRATION/VERBAL INSTRUCTION LEARNING CAPABILITIES PRESENT?YES EMOTIONAL BARRIERS?NO SPECIAL DEVICES?NO LIBRARY CONSULTANT NEEDED?NO PAIN CLINIC PFS, CLERGY, PUBLIC HEALTH REFERRALS PFS REFERRAL NEEDED?NO CLERGY REFERRAL NEEDED?NO PUBLIC HEALTH REFERRAL NEEDED?NO WAS THE PROVIDER NOTIFIED OF ANY PERTINENT INFO?YES N/A HAS THE PATIENT BEEN EDUCATED REGARDING HIS/HER PLAN OF CARE?YES HAS THE PATIENT BEEN EDUCATED REGARDING PAIN, THE RISK FOR PAIN, THE IMPORTANCE OF EFFECTIVE PAIN MANAGEMENT, AND THE PAIN ASSESSMENT PROCESS?YES LATEX QUESTIONNAIRE LATEX ALLERGY : HAVE YOU EVER DEVELOPED ANY TYPE OF REACTION AFTER HANDLING LATEX PRODUCTS SUCH RUBBER GLOVES, CONDOMS, DIAPHRAGMS, BALLOONS, SOCKS, OR UNDERWEAR?NO LATEX ALLERGY : HAVE YOU EVER DEVELOPED ANY TYPE OF REACTION DURING OR AFTER DENTAL APPOINTMENT, VAGINAL/RECTAL EXAMINATION, SURGICAL PROCEDURE, OR ANY OTHER EXPOSURE?NO DATE ASKED : 08/03/2019 LATEX RISK : HAVE YOU EVER HAD ANY DIFFICULTY BREATHING OR HIVES AFTER EATING OR HANDLING ANY FRUITS, OR VEGETABLES; SUCH KIWI, BANANAS, STONE FRUITS, OR CHESTNUTSNO LATEX RISK : DO YOU HAVE A PREVIOUS PERSONAL HISTORY OF MORE THAN NINE SURGERIES, SPINA BIFIDA, OR REPEATED CATHERIZATIONS? NO LATEX RISK : ARE YOU FREQUENTLY EXPOSED TO LATEX PRODUCTS IN YOUR OCCUPATION?NO CAFFEINE CAFFEINE USE?YES COFFEE SODA ADVANCE DIRECTIVE ADVANCE DIRECTIVE DISCUSSED WITH PATIENT:YES PT DOES NOT HAVE ANY ADVANCED DIRECTIVES AND SHE STATES SHE ALREADY HAS INFORMATION ON HCP. DECLINES ASSISTANCE AT THIS TIME. ORTHODOX [id number] YARSANI MARITAL STATUS: . ALCOHOL SCREENING DID YOU HAVE A DRINK CONTAINING ALCOHOL IN THE PAST YEAR?YES HOW MANY DRINKS DID YOU HAVE ON A TYPICAL DAY WHEN YOU WERE DRINKING IN THE PAST YEAR?1 OR 2 (0 POINTS) HOW OFTEN DID YOU HAVE A DRINK CONTAINING ALCOHOL IN THE PAST YEAR?MONTHLY OR LESS (1 POINT) POINTS1 INTERPRETATIONNEGATIVE SEXUAL HX HAD SEX IN THE LAST 12 MONTHS (VAGINAL, ORAL, OR ANAL)?YES WITHMEN ONLY PREVENTION STRATEGIES DISCUSSED:OTHER USE PROTECTION?NO LMP:10/09/2016 HAVE YOU EVER HAD AN STD?NO HOSPITALIZATION/MAJOR DIAGNOSTIC PROCEDURE MONO 2005 IN CHILDHOOD LUNG REASON REVIEW OF SYSTEMS REVIEWED BY: PROVIDER: NUVIA VIZCAINO . CONSTITUTIONAL: ANY CHANGE IN YOUR MEDICAL CONDITION? NO . CHILLS NO . FEVER NO . INFECTION: DO YOU HAVE NEW INFECTIONS? NO . DO YOU HAVE HISTORY OF MRSA? NO . MUSCULOSKELETAL: ANY NEW PATTERNS OF PAIN OR NUMBNESS? YES, PAIN IS BETTER . GASTROENTEROLOGY: ANY NEW CHANGE IN BOWEL CONTROL? NO . GENITOURINARY: ANY NEW CHANGE IN BLADDER CONTROL? NO . IS THERE A CHANCE YOU COULD BE ? NO . HEMATOLOGY/LYMPH: DO YOU TAKE ANY BLOOD THINNERS? (FOR EXAMPLE- COUMADIN, PLAVIX, AGGRENOX, PLATEL, PRADAXA, OR XARELTO) NO . WHEN WAS YOUR LAST DOSE? DATE: TIME: . NEUROLOGY: HAVE YOU FALLEN IN THE PAST 12 MONTHS? NO . ANY NEW EXTREMITY NUMBNESS OR WEAKNESS? NO . CARDIOLOGY: DO YOU HAVE A PACEMAKER OR DEFIBRILLATOR? NO . RESPIRATORY: HAVE YOU BEEN SICK IN THE PAST WEEK? NO . FEVER NO . FLU LIKE SYMPTOMS? NO . COUGH NO . INTEGUMENTARY: DO YOU HAVE ANY RASHES OR OPEN SORES? NO . ALLERGIC/IMMUNO: ARE YOU ALLERGIC TO IV DYE? NO . ANY NEW ALLERGIES? NO . PSYCHIATRIC: DO YOU HAVE THOUGHTS OF HURTING YOURSELF OR SOMEONE ELSE? NO . ARE YOU ABUSED, NEGLECTED, OR IN AN UNSAFE ENVIRONMENT? NO . ENDOCRINOLOGY: ARE YOU DIABETIC? NO . OTHER: DO YOU NEED ANY PRESCRIPTIONS? NO . IF YES, PLEASE LIST: ____ . ANY NEW PROBLEMS WITH YOUR MEDICATIONS? NO . WHEN DID YOU LAST EAT? ____ . WHEN DID YOU LAST DRINK? ____ . WHAT DID YOU LAST DRINK? ____ . NAME OF PERSON DRIVING YOU HOME? ____ . DO YOU HAVE ANY OTHER QUESTIONS OR CONCERNS NO . VITAL SIGNS WT 124.6 LBS, HT 66 IN, BMI 20.11 INDEX, BP 118/58 MM HG, HR 77 /MIN, RR 18 /MIN, TEMP 96.7 F, OXYGEN SAT % 99%, SAFE IN ENV? (Y/N) Y, NA INITIALS AW 1040, REVIEWED BY: EM. EXAMINATION GENERAL EXAMINATION: GENERAL AWAKE,ALERT ,PLEAASANT . PSYCH AFFECT NORMAL . LUNGS: LUNG LLAMAS ARE CLEAR TO AUSCULTATION BILATERALLY. GOOD MOVEMENT OF AIR . HEART: S1, S2 IN A REGULAR RATE AND RHYTHM. NO SIGNIFICANT MURMURS, RUBS OR GALLOPS NOTED . CERVICAL: TRIGGER POINTS: CERVICAL AND TRAPEZIUS BILAT. R>L.PAIN IS AGGREVATED WITH ROJM NECK. ASSESSMENTS CHRONIC MIGRAINE - G43.709 (PRIMARY) MYALGIA OF MUSCLE OF NECK - M79.18 TREATMENT CHRONIC MIGRAINE NOTES: TRIGGER POINT INJECTIONS NECK/OCCIPITAL, LEFT GREATER THAN RIGHTFOLLOWING CDC GUIDELINES FOR TREATMENT OF CHRONIC MIGRAINE, SCHEDULE BOTOX IN 3 MONTHS. PROCEDURE CODES FA211 ESTABILISHED PATIENT [facility] CHARGE DISPOSITION & COMMUNICATION FOLLOW UP POST BOTOX (REASON: TRIGGER POINT INJECTIONS NECK/OCCIPITAL, LEFT GREATER THAN RIGHT) ELECTRONICALLY SIGNED BY CHARIS COX ON 08/17/2019 AT 11:19 AM EDT DISCLAIMER : THIS IS A VISIT SUMMARY EXTRACTED FROM THE [employer] CHART. IT IS NOT A COPY OF THE [employer] PROGRESS NOTE. BRANT
== END ==
LOC: M PAIN 10:30
PROVIDERS: ATTEND Nurse Practitioner Family
DX: G43.709 Chronic migraine without aura, not intractable, without status migrainosus (principal); M79.18 Myalgia, other site; Z86.59 Personal history of other mental and behavioral disorders; F17.210 Nicotine dependence, cigarettes, uncomplicated; Z88.6 Allergy status to analgesic agent; Z91.09 Other allergy status, other than to drugs and biological substances; Z79.899 Other long term (current) drug therapy

== ENCOUNTER → 2019-11-17 | Outpatient (CLI) | payer OTHER | LOC: M LABSMTC 12:19 | PROVIDERS: ATTEND Anesthesiology | DX: Z03.818 Encounter for observation for suspected exposure to other biological agents ruled out (principal); Z11.59 Encounter for screening for other viral diseases | CPT/HCPCS: C9803; U0003 ==

== ENCOUNTER → 2019-11-24 | Outpatient (CLI) | payer OTHER | LOC: M LABSMTC 09:48 | PROVIDERS: ATTEND Anesthesiology | DX: Z11.59 Encounter for screening for other viral diseases (principal); Z03.89 Encounter for observation for other suspected diseases and conditions ruled out | CPT/HCPCS: C9803; U0003 ==

== ENCOUNTER → 2021-05-15 | Outpatient (CLI) | payer OTHER ==
[~2021-05-15] MED LIST changes: +ALPR1TAB3; +ALPR2TAB5; +CLON0.3T; +ERGO500029; +GABA-282; +HYDR-3713; +LINZ290C; +VENL75CA47
== END ==
LOC: M PAIN 15:30
PROVIDERS: ATTEND Anesthesiology
DX: M47.816 Spondylosis without myelopathy or radiculopathy, lumbar region (principal); M47.812 Spondylosis without myelopathy or radiculopathy, cervical region; M54.2 Cervicalgia; M79.18 Myalgia, other site; G43.909 Migraine, unspecified, not intractable, without status migrainosus; F32.9 Major depressive disorder, single episode, unspecified; F50.2 Bulimia nervosa; L21.9 Seborrheic dermatitis, unspecified; F17.210 Nicotine dependence, cigarettes, uncomplicated; Z79.84 Long term (current) use of oral hypoglycemic drugs; Z79.891 Long term (current) use of opiate analgesic; Z79.899 Other long term (current) drug therapy; Z91.018 Allergy to other foods; J30.1 Allergic rhinitis due to pollen; Z91.048 Other nonmedicinal substance allergy status

== ENCOUNTER → 2021-12-03 | Outpatient (CLI) | payer OTHER | LOC: M PAIN 10:30 | PROVIDERS: ATTEND Nurse Practitioner Family | DX: M79.18 Myalgia, other site (principal); M81.0 Age-related osteoporosis without current pathological fracture; L40.9 Psoriasis, unspecified; F50.2 Bulimia nervosa; G43.909 Migraine, unspecified, not intractable, without status migrainosus; J30.1 Allergic rhinitis due to pollen; M54.50 Low back pain, unspecified; L21.9 Seborrheic dermatitis, unspecified; F43.10 Post-traumatic stress disorder, unspecified; Z91.018 Allergy to other foods; F42.9 Obsessive-compulsive disorder, unspecified; F17.210 Nicotine dependence, cigarettes, uncomplicated; M41.9 Scoliosis, unspecified; F41.9 Anxiety disorder, unspecified; E28.2 Polycystic ovarian syndrome; Z79.84 Long term (current) use of oral hypoglycemic drugs; Z79.899 Other long term (current) drug therapy; Z79.891 Long term (current) use of opiate analgesic ==

== ENCOUNTER → 2022-03-12 | Outpatient (CLI) | payer OTHER | LOC: M PAIN 14:15 | PROVIDERS: ATTEND Nurse Practitioner Family | DX: M79.10 Myalgia, unspecified site (principal); G89.29 Other chronic pain; G43.909 Migraine, unspecified, not intractable, without status migrainosus; Z86.59 Personal history of other mental and behavioral disorders; Z87.891 Personal history of nicotine dependence; Z91.018 Allergy to other foods; Z91.09 Other allergy status, other than to drugs and biological substances; Z79.899 Other long term (current) drug therapy ==

== ENCOUNTER → 2022-04-09 | Outpatient (CLI) | payer OTHER | LOC: M LABSMTC 11:16 | PROVIDERS: ATTEND Anesthesiology | DX: Z01.812 Encounter for preprocedural laboratory examination (principal); Z11.52 Encounter for screening for COVID-19 ==

== ENCOUNTER → 2022-04-22 | Outpatient (CLI) | payer OTHER | LOC: M LABSMTC 11:57 | PROVIDERS: ATTEND Anesthesiology | DX: Z01.812 Encounter for preprocedural laboratory examination (principal); Z20.822 Contact with and (suspected) exposure to COVID-19 ==

== ENCOUNTER → 2022-06-18 | Outpatient (CLI) | payer OTHER | LOC: M PAIN 15:45 | PROVIDERS: ATTEND Anesthesiology | DX: G43.709 Chronic migraine without aura, not intractable, without status migrainosus (principal); M79.18 Myalgia, other site; M54.2 Cervicalgia; M54.50 Low back pain, unspecified; M79.10 Myalgia, unspecified site; G89.29 Other chronic pain; G43.909 Migraine, unspecified, not intractable, without status migrainosus; J30.1 Allergic rhinitis due to pollen; Z86.59 Personal history of other mental and behavioral disorders; Z87.891 Personal history of nicotine dependence; Z91.018 Allergy to other foods; Z91.09 Other allergy status, other than to drugs and biological substances; Z79.891 Long term (current) use of opiate analgesic; Z79.84 Long term (current) use of oral hypoglycemic drugs ==

== ENCOUNTER → 2022-07-31 | Outpatient (CLI) | payer OTHER | LOC: M LABSMTC 10:33 | PROVIDERS: ATTEND Anesthesiology | DX: Z01.812 Encounter for preprocedural laboratory examination (principal); Z20.822 Contact with and (suspected) exposure to COVID-19 ==

== ENCOUNTER → 2022-10-09 | Outpatient (CLI) | payer OTHER | LOC: M PAIN 14:15 | PROVIDERS: ATTEND Nurse Practitioner Family | DX: M79.18 Myalgia, other site (principal); G89.29 Other chronic pain; F42.9 Obsessive-compulsive disorder, unspecified; F50.2 Bulimia nervosa; F32.A Depression, unspecified; F41.9 Anxiety disorder, unspecified; L40.9 Psoriasis, unspecified; L21.9 Seborrheic dermatitis, unspecified; G43.909 Migraine, unspecified, not intractable, without status migrainosus; F43.10 Post-traumatic stress disorder, unspecified; K50.90 Crohn's disease, unspecified, without complications; Z87.891 Personal history of nicotine dependence; Z79.891 Long term (current) use of opiate analgesic; Z79.84 Long term (current) use of oral hypoglycemic drugs; Z79.899 Other long term (current) drug therapy; Z91.018 Allergy to other foods; Z91.048 Other nonmedicinal substance allergy status; J30.1 Allergic rhinitis due to pollen ==

== ENCOUNTER → 2022-11-06 | Outpatient (CLI) | payer OTHER | LOC: M PAIN 14:30 → M TMPAIN 14:30 | PROVIDERS: ATTEND Nurse Practitioner Family | DX: M79.10 Myalgia, unspecified site (principal); M41.9 Scoliosis, unspecified; N80.9 Endometriosis, unspecified; M81.0 Age-related osteoporosis without current pathological fracture; M85.80 Other specified disorders of bone density and structure, unspecified site; L40.9 Psoriasis, unspecified; L21.9 Seborrheic dermatitis, unspecified; M79.18 Myalgia, other site; G89.29 Other chronic pain; F42.9 Obsessive-compulsive disorder, unspecified; J30.1 Allergic rhinitis due to pollen; F50.2 Bulimia nervosa; F32.A Depression, unspecified; F41.9 Anxiety disorder, unspecified; G43.909 Migraine, unspecified, not intractable, without status migrainosus; F43.10 Post-traumatic stress disorder, unspecified; K50.90 Crohn's disease, unspecified, without complications; Z87.891 Personal history of nicotine dependence; Z79.891 Long term (current) use of opiate analgesic; Z79.84 Long term (current) use of oral hypoglycemic drugs; Z79.899 Other long term (current) drug therapy; Z91.018 Allergy to other foods; Z91.048 Other nonmedicinal substance allergy status ==

== ENCOUNTER → 2022-12-04 | Outpatient (CLI) | payer OTHER ==
[~2022-12-04] MED LIST changes: +TRIAMCINOLONE ACETONIDE SUSP 40MG/ML 1ML VIAL As Ordered ONE; +diazePAM 5MG TABLET As Ordered ONE; +oxyCODONE 5MG TAB As Ordered ONE
== END ==
LOC: M PAIN 14:30
PROVIDERS: ATTEND Anesthesiology
DX: M79.18 Myalgia, other site (principal); M79.10 Myalgia, unspecified site; M41.9 Scoliosis, unspecified; N80.9 Endometriosis, unspecified; M81.0 Age-related osteoporosis without current pathological fracture; M85.80 Other specified disorders of bone density and structure, unspecified site; L40.9 Psoriasis, unspecified; L21.9 Seborrheic dermatitis, unspecified; G89.29 Other chronic pain; F42.9 Obsessive-compulsive disorder, unspecified; J30.1 Allergic rhinitis due to pollen; F50.2 Bulimia nervosa; F32.A Depression, unspecified; F41.9 Anxiety disorder, unspecified; G43.909 Migraine, unspecified, not intractable, without status migrainosus; F43.10 Post-traumatic stress disorder, unspecified; K50.90 Crohn's disease, unspecified, without complications; Z87.891 Personal history of nicotine dependence; Z79.891 Long term (current) use of opiate analgesic; Z79.84 Long term (current) use of oral hypoglycemic drugs; Z79.899 Other long term (current) drug therapy; Z91.018 Allergy to other foods; Z91.048 Other nonmedicinal substance allergy status
CPT/HCPCS: 20553; J3301; S0020

== ENCOUNTER → 2022-12-11 | Outpatient (CLI) | payer OTHER ==
[~2022-12-11] MED LIST changes: -TRIAMCINOLONE ACETONIDE SUSP 40MG/ML 1ML VIAL As Ordered ONE; -diazePAM 5MG TABLET As Ordered ONE; -oxyCODONE 5MG TAB As Ordered ONE
== END ==
LOC: M PAIN 14:30
PROVIDERS: ATTEND Nurse Practitioner Family
DX: M79.18 Myalgia, other site (principal); G43.909 Migraine, unspecified, not intractable, without status migrainosus; M79.10 Myalgia, unspecified site; M41.9 Scoliosis, unspecified; N80.9 Endometriosis, unspecified; M81.0 Age-related osteoporosis without current pathological fracture; M85.80 Other specified disorders of bone density and structure, unspecified site; L40.9 Psoriasis, unspecified; L21.9 Seborrheic dermatitis, unspecified; G89.29 Other chronic pain; F42.9 Obsessive-compulsive disorder, unspecified; J30.1 Allergic rhinitis due to pollen; F50.2 Bulimia nervosa; F32.A Depression, unspecified; F41.9 Anxiety disorder, unspecified; F43.10 Post-traumatic stress disorder, unspecified; K50.90 Crohn's disease, unspecified, without complications; Z87.891 Personal history of nicotine dependence; Z79.891 Long term (current) use of opiate analgesic; Z79.84 Long term (current) use of oral hypoglycemic drugs; Z79.899 Other long term (current) drug therapy; Z91.018 Allergy to other foods; Z91.048 Other nonmedicinal substance allergy status

== ENCOUNTER → 2023-06-01 | Outpatient (CLI) | payer OTHER | LOC: M PAIN 16:00 | PROVIDERS: ATTEND Nurse Practitioner Family | DX: M79.18 Myalgia, other site (principal); Z79.891 Long term (current) use of opiate analgesic; M54.2 Cervicalgia; G89.29 Other chronic pain; M54.50 Low back pain, unspecified; Z79.84 Long term (current) use of oral hypoglycemic drugs; Z79.899 Other long term (current) drug therapy; Z87.891 Personal history of nicotine dependence; Z91.018 Allergy to other foods; Z91.048 Other nonmedicinal substance allergy status ==

== ENCOUNTER → 2023-07-26 | Outpatient (CLI) | payer OTHER | LOC: M PAIN 16:00 | PROVIDERS: ATTEND Nurse Practitioner Family | DX: M79.18 Myalgia, other site (principal); G43.709 Chronic migraine without aura, not intractable, without status migrainosus; G89.29 Other chronic pain; M54.2 Cervicalgia; L21.9 Seborrheic dermatitis, unspecified; F32.9 Major depressive disorder, single episode, unspecified; M54.50 Low back pain, unspecified; K50.90 Crohn's disease, unspecified, without complications; Z87.891 Personal history of nicotine dependence; Z79.84 Long term (current) use of oral hypoglycemic drugs; Z79.891 Long term (current) use of opiate analgesic; Z79.899 Other long term (current) drug therapy; Z91.048 Other nonmedicinal substance allergy status; Z91.018 Allergy to other foods ==

== ENCOUNTER → 2023-12-27 | Outpatient (CLI) | payer OTHER ==
[~2023-12-27] MED LIST changes: -KLON1TAB PO; +KLON1TAB13 PO
== END ==
LOC: M PAIN 17:30
PROVIDERS: ATTEND Nurse Practitioner Family
DX: M79.18 Myalgia, other site (principal); Z79.891 Long term (current) use of opiate analgesic; M47.816 Spondylosis without myelopathy or radiculopathy, lumbar region; G89.29 Other chronic pain; M41.9 Scoliosis, unspecified; M81.0 Age-related osteoporosis without current pathological fracture; M85.80 Other specified disorders of bone density and structure, unspecified site; F40.10 Social phobia, unspecified; F42.9 Obsessive-compulsive disorder, unspecified; F32.A Depression, unspecified; F41.9 Anxiety disorder, unspecified; F50.2 Bulimia nervosa; G43.909 Migraine, unspecified, not intractable, without status migrainosus; F43.12 Post-traumatic stress disorder, chronic; M54.50 Low back pain, unspecified; K50.90 Crohn's disease, unspecified, without complications; Z87.891 Personal history of nicotine dependence; Z79.84 Long term (current) use of oral hypoglycemic drugs; Z79.899 Other long term (current) drug therapy; Z91.018 Allergy to other foods; Z91.048 Other nonmedicinal substance allergy status

== ENCOUNTER → 2024-02-29 | Outpatient (CLI) | payer OTHER ==
[~2024-02-29] MED LIST changes: +BOTOX THERAPEUTIC 100 UNIT VIAL IM ONE; +GABA-1172; -GABA-282; +diazePAM 5MG TABLET As Ordered ONE; +oxyCODONE 5MG TAB As Ordered ONE
== END ==
LOC: M PAIN 15:00
PROVIDERS: ATTEND Anesthesiology
DX: G43.709 Chronic migraine without aura, not intractable, without status migrainosus (principal); K50.90 Crohn's disease, unspecified, without complications; M79.18 Myalgia, other site; Z79.891 Long term (current) use of opiate analgesic; M47.816 Spondylosis without myelopathy or radiculopathy, lumbar region; G89.29 Other chronic pain; M41.9 Scoliosis, unspecified; M81.0 Age-related osteoporosis without current pathological fracture; M85.80 Other specified disorders of bone density and structure, unspecified site; F40.10 Social phobia, unspecified; F42.9 Obsessive-compulsive disorder, unspecified; F32.A Depression, unspecified; F41.9 Anxiety disorder, unspecified; F50.20 Bulimia nervosa, unspecified; G43.909 Migraine, unspecified, not intractable, without status migrainosus; F43.12 Post-traumatic stress disorder, chronic; M54.50 Low back pain, unspecified; Z87.891 Personal history of nicotine dependence; Z79.84 Long term (current) use of oral hypoglycemic drugs; Z79.899 Other long term (current) drug therapy; Z91.018 Allergy to other foods; Z91.048 Other nonmedicinal substance allergy status
CPT/HCPCS: 64615; J0585

== ENCOUNTER → 2024-06-30 | Outpatient (CLI) | payer OTHER ==
[~2024-06-30] MED LIST changes: -BOTOX THERAPEUTIC 100 UNIT VIAL IM ONE; -diazePAM 5MG TABLET As Ordered ONE; -oxyCODONE 5MG TAB As Ordered ONE
== END ==
LOC: M PAIN 17:00
PROVIDERS: ATTEND Nurse Practitioner Family
DX: M79.18 Myalgia, other site (principal); G89.29 Other chronic pain; Z79.84 Long term (current) use of oral hypoglycemic drugs; Z79.891 Long term (current) use of opiate analgesic; Z79.899 Other long term (current) drug therapy; Z91.048 Other nonmedicinal substance allergy status; Z91.018 Allergy to other foods